=== PATIENT | female | born 1955 | race Caucasian/White ===

== ENCOUNTER → 2017-08-19 15:47 | Outpatient (CLI) | payer BC, SELFPAY ==
[2017-08-19 16:17] LABS: Absolute Lymphocyte Count 2.02 X10^3/ul (0.83-4.51); Absolute Neutrophil Count 6.2 X10^3/uL (2.0-7.7); Basophil# 0.04 X10^3/uL; Basophil% 0.4 % (0-1); Eosinophil# 0.16 X10^3/uL; Eosinophils% 1.7 % (0-5); Hemoglobin 13.5 g/dl (12.0-15.0); Lymphocyte # 2.02 X10^3/ul (4.0); Lymphocyte % 20.8 % (19-41); Mean Corp Hgb Conc 33.8 g/gl (32-36); Mean Corpuscular Hgb 30.8 pg (27.0-32.0); Mean Corpuscular Volume 91.3 fL (81-99); Mean Platelet Vol. 8.6 fl (6.2-12.0); Monocyte# 1.18 X10^3/uL; Monocyte% 12.2 % (0-10); Neutrophil # 6.17 X10^3/uL (2.7-7.7); Neutrophil % 63.7 % (47-70); Platelet Count 506 K/mm3 (150-450); RBC Distribution Width CV 15.3 % (11.6-14.6); RBC Distribution Width SD 50.2 fl (35.1-43.9); Red Blood Count 4.38 M/mm3 (4.2-5.4); White Blood Count 9.7 K/mm3 (4.4-11.0)
[2017-08-19 16:18] LABS: POSITIVE COUNT NO; POSITIVE DIFFERENTIAL NO; POSITIVE MORPHOLOGY NO
[2017-08-19 16:48] LABS: International Normalized Ratio 0.9; Prothrombin Time (Protime)PT. 11.9 SECONDS (11.7-14.9)
[2017-08-19 16:49] LABS: Partial Thromboplast Time 33.8 Seconds (24.1-36.2)
[2017-08-19 23:56] LABS: Xtra Tube EP Lab EXTRA TUBE
== END ==
PROVIDERS: Family Provider Family Medicine; PCP Family Medicine; Visit Provider Internal Medicine Medical Oncology
DX: Z01.818 Encounter for other preprocedural examination (principal); C34.91 Malignant neoplasm of unspecified part of right bronchus or lung; C34.90 Malignant neoplasm of unspecified part of unspecified bronchus or lung
CPT/HCPCS: 36415; 85025; 85610; 85730

== ENCOUNTER → 2017-08-21 08:59 | Outpatient (CLI) | payer BC, SELFPAY ==
--- NOTE | 2017-08-21 09:03 | CT_ITS ---
STUDY: CT CHEST WITHOUT CONTRAST REASON FOR EXAM: Female, 62 years old. The patient was scheduled for CT-guided biopsy of a right upper lobe nodule. RADIATION DOSAGE (If Supplied By Facility): CTDIvol = ( 20.42 ) mGy, DLP = ( 476.97 ) mGycm TECHNIQUE: Transaxial imaging was performed without the administration of intravenous contrast material. Individualized dose optimization techniques were used for this CT. COMPARISON: Comparison is made with prior study dated July 25, 2017. FINDINGS: The patient was scanned in the supine position. The right upper lobe nodule was localized. There is limited access due to the overlying rib and the underlying nolberto catheter. The biopsy was canceled. CT/Chest without Contrast IMPRESSION: Non-accessible nodule for safe pulmonary biopsy. Electronically Signed: Naveed Danielle MD at 12:24 EST Tel [phone], Service support ,
[2017-08-21 09:21] VITALS: BP 134/63; PULSE 92; RESP 16; TEMP 36.8; O2SAT 96; BMI 24.4
== END ==
PROVIDERS: Family Provider Family Medicine; PCP Family Medicine; Visit Provider Internal Medicine Medical Oncology
DX: C34.91 Malignant neoplasm of unspecified part of right bronchus or lung (principal)
CPT/HCPCS: 71250; 99156; J7040; A4216

== ENCOUNTER → 2017-09-17 07:05 | Outpatient (CLI) | payer BC, SELFPAY ==
--- NOTE | 2017-09-17 07:09 | MRI_ITS ---
STUDY: MRI BRAIN WITH AND WITHOUT CONTRAST REASON FOR EXAM: Female, 62 years old. lung ca. No new problems, pt just started another round of chemo for lung CA. TECHNIQUE: Standardized multiplanar fat and water weighted pulse sequences were obtained. 7 ml of Gadavist contrast material was administered intravenously for the contrast portion of the examination. COMPARISON: January 10, 2017 FINDINGS: There is mild cerebral atrophy with widening of the extra-axial spaces and ventricular dilatation. There are stable multiple white matter hyperintensities, distributed throughout the deep white matter tracts of the cerebral hemispheres, consistent with moderate chronic white matter ischemic changes. Normal bilateral basal ganglia. Normal thalami. There is no extra-axial fluid accumulation. Normal flow voids within the major intracranial circulation suggesting patency by spin echo criteria. Normal venous enhancement. There is no enhancing intra-axial or extra-axial abnormality. Normal sella turcica, pituitary gland, infundibular stalk, optic chiasm and hypothalamus. Normal tectal plate and pineal gland. Normal midbrain, earl and medulla. Normal cerebellum. Normal basal cisterns. Normal bilateral temporal bones. Normal bilateral internal auditory canals. No demonstrated orbital abnormality, within the constraints of a routine brain study. Normal visualized paranasal sinuses. Normal calvarium and skull base. Normal visualized soft tissue structures. Normal visualized upper cervical spine. MRI/Brain W/WO Contrast IMPRESSION: No acute intracranial abnormality or masses. Moderate chronic microvascular ischemic changes. Electronically Signed: La Gutierrez MD at 10:22 EST Tel , Service support ,
== END ==
PROVIDERS: Family Provider Family Medicine; PCP Family Medicine; Visit Provider Nurse Practitioner Family
DX: R11.0 Nausea (principal); C34.91 Malignant neoplasm of unspecified part of right bronchus or lung; C34.92 Malignant neoplasm of unspecified part of left bronchus or lung
CPT/HCPCS: 70553; A9585; A4216

== ENCOUNTER → 2017-11-04 06:32 | Outpatient (CLI) | payer BC, OTHER, SELFPAY ==
--- NOTE | 2017-11-04 06:36 | CT_ITS ---
STUDY: CT ABDOMEN WITH CONTRAST REASON FOR EXAM: Female, 62 years old. Patient has a history of non-small cell lung cancer. RADIATION DOSAGE (If Supplied By Facility): CTDIvol = ( 11.67 ) mGy, DLP = ( 757.44 ) mGycm TECHNIQUE: Transaxial images were obtained post I.V. administration of 100 ml of Isovue 300 contrast, and with oral contrast. Sagittal and coronal images were reconstructed. Individualized dose optimization techniques were used for this CT. COMPARISON: Comparison is made with prior study dated January 21, 2017. FINDINGS: There now is evidence of a focal infiltrate in the posterior medial segment of the left lower lobe. This as since prior examination. The visualized portions of the heart are within normal limits. There is hepatomegaly with diffuse hepatic enlargement. Normal gallbladder and extrahepatic biliary system. Normal spleen. Normal pancreas. There is a small, circumscribed, smooth, low attenuation left adrenal mass, consistent with an adrenal adenoma. This measures 9.1 mm. Normal right adrenal gland. Normal right kidney. Normal left kidney. Normal visualized stomach. Normal small intestine. Normal colon. The appendix is visualized and appears normal. There is diffuse atherosclerotic calcification of the abdominal aorta, without a demonstrated aneurysm. Normal inferior vena cava. Normal retroperitoneum. There is a small umbilical hernia containing fat. There are mild degenerative changes of the visualized lumbar spine. CT/Abdomen WITH IV Contrast IMPRESSION: Progressive infiltrate in the posterior medial segment of the left lower lobe. Fatty infiltration of the liver. Findings suggestive of a small adenoma in the left adrenal gland. Electronically Signed: Naveed Danielle MD at 10:14 EDT Tel [phone], Service support ,
--- NOTE | 2017-11-04 06:36 | CT_ITS ---
STUDY: CT CHEST WITH CONTRAST REASON FOR EXAM: Female, 62 years old. Non-small cell lung cancer. RADIATION DOSAGE (If Supplied By Facility): CTDIvol = ( 11.67 ) mGy, DLP = ( 757.44 ) mGycm TECHNIQUE: Transaxial imaging was performed following intravenous administration of 100 ml of Isovue 300 contrast material. Multiplanar coronal and sagittal images were reformatted. Individualized dose optimization techniques were used for this CT. COMPARISON: Comparison is made with prior study dated July 25, 2017. FINDINGS: A right-sided nolberto catheter is seen with the tip in the superior vena cava. There is evidence of emphysematous changes worse in the lung apices with cystic changes and scarring in the upper lobes. Mild degree of increased linear markings in the anterior medial aspect of the left upper lobe suggestive of scarring. There is evidence of a focal infiltration in the posterior medial segment of the left lower lobe. There is no demonstrated pleural abnormality. Normal heart and pericardium. There are multiple small lymph nodes within the mediastinum, which are normal in size and morphology most compatible with reactive lymph hyperplasia. Normal hilar regions. Normal enhanced pulmonary arteries. There is atherosclerotic calcification of the aortic arch arch. There are degenerative changes of the thoracic spine. There is no demonstrated abnormality of the visualized upper abdomen. CT/Chest WITH Contrast IMPRESSION: Findings suggestive of scarring and emphysematous changes worse in the upper lobes. Infiltration in the posterior medial segment of the left lower lobe. Electronically Signed: Naveed Danielle MD at 13:29 EDT Tel [phone], Service support ,
--- NOTE | 2017-11-04 13:20 | NURSING ---
PT'S ACCESSED AND DEACCESSED BY PERFORMING [employer] [address] MANAGER, IMTIAZ CHAMPAGNE AT 0650.
== END ==
PROVIDERS: Family Provider Family Medicine; PCP Family Medicine; Visit Provider Internal Medicine Medical Oncology
DX: C34.91 Malignant neoplasm of unspecified part of right bronchus or lung (principal); C34.92 Malignant neoplasm of unspecified part of left bronchus or lung
CPT/HCPCS: 71260; 74160; Q9967; A4216

== ENCOUNTER → 2018-01-07 10:54 | Outpatient (CLI) | payer BC, SELFPAY ==
--- NOTE | 2018-01-07 10:59 | CT_ITS ---
STUDY: CT CHEST WITH CONTRAST REASON FOR EXAM: Female, 62 years old. Malignant neoplasm. RADIATION DOSAGE (If Supplied By Facility): CTDIvol = ( 8.77 ) mGy, DLP = ( 755.14 ) mGycm TECHNIQUE: Transaxial imaging was performed following intravenous administration of 100 ml of Isovue 300 contrast material. Multiplanar coronal and sagittal images were reformatted. Individualized dose optimization techniques were used for this CT. COMPARISON: CT of the chest, November 04, 2017. FINDINGS: There is a right jugular Port-A-Cath with its tip in the distal superior vena cava. The lungs are well-expanded. There are scattered subpleural blebs both upper lobes. There is bilateral apical pleural scarring. There is a 4 mm soft tissue nodule lateral left upper lobe best seen on image 31. There is an irregular density measuring 7 x 4 mm in the left upper lobe best seen on image 38. On image 43 there is irregular pleural based density in the superior segment of the right lower lobe measuring 6 mm. There is a vague ill-defined density in the anterolateral right upper lobe measuring 3 mm best seen on image 45 is evidence of focal consolidation in the medial aspect of the left lower lobe contains areas of low attenuation. There are atelectatic changes at the left lung base with minimal pleural effusion. Normal heart and pericardium. There are small nonspecific mediastinal lymph nodes. An 8 mm precarinal lymph node is noted. Normal hilar regions. Normal enhanced pulmonary arteries. There is atherosclerotic calcification of the aortic arch with tortuosity and elongation of the aortic arch and descending thoracic aorta. Normal osseous structures. There is no demonstrated abnormality of the visualized upper abdomen. CT/Chest WITH Contrast IMPRESSION: 1. Stable consolidation/mass in the medial right lower lobe with associated atelectasis and pleural effusion. This is unchanged from prior study. 2. Stable nodular densities in the lungs superimposed on emphysematous change.. 3. No major interval change. Electronically Signed: Ridge Thomson DO at 17:00 EDT Tel [phone], Service support ,
--- NOTE | 2018-01-07 10:59 | CT_ITS ---
STUDY: CT ABDOMEN AND PELVIS WITH CONTRAST REASON FOR EXAM: Female, 62 years old. Lung cancer. Chemotherapy. Follow-up. RADIATION DOSAGE (If Supplied By Facility): CTDIvol = ( 8.77 ) mGy, DLP = ( 755.14 ) mGycm TECHNIQUE: Transaxial images were obtained from the dome of the diaphragm to the symphysis pubis with oral contrast. 100 ml of Isovue 300 contrast was administered. Sagittal and coronal images were reconstructed. Individualized dose optimization techniques were used for this CT. COMPARISON: CT of the abdomen, November 04, 2017. CT of the abdomen and pelvis, January 21, 2017. FINDINGS: There is infiltrate in the medial aspect of the left lower lobe with focal areas of lower attenuation. There is a small left pleural effusion. The lungs appear otherwise clear. The visualized portions of the heart are within normal limits. Normal liver. Normal gallbladder and extrahepatic biliary system. Normal spleen. Normal pancreas. Normal bilateral adrenal glands. Normal right kidney. Normal left kidney. Normal visualized stomach. Normal small intestine. Scattered descending and sigmoid diverticuli without acute inflammatory change. The proximal colon is normal. The appendix is visualized and appears normal. There is diffuse atherosclerotic calcification of the abdominal aorta, without a demonstrated aneurysm. There is a circumferential left renal vein. Normal inferior vena cava. Normal retroperitoneum. Normal urinary bladder. Normal uterus and ovaries. There are surgical clips suggesting prior tubal ligation. No pelvic lymphadenopathy. No free air or free fluid is seen within the abdominal cavity. A finding suggestive prior hernia repair. Suspect small umbilical hernia of omental fat. There are diffuse degenerative changes of the visualized lumbar spine. CT/Abdomen/Pelvis WITH Contrast IMPRESSION: 1. Stable consolidation in the medial left lower lobe with associated pleural effusion. 2. Diverticulosis without acute inflammatory change. 3. No visualized metastatic disease or major interval change. Electronically Signed: Ridge Thomson DO at 16:51 EDT Tel [phone], Service support ,
== END ==
PROVIDERS: Family Provider Family Medicine; PCP Family Medicine; Visit Provider Nurse Practitioner Family
DX: C34.91 Malignant neoplasm of unspecified part of right bronchus or lung (principal); C34.92 Malignant neoplasm of unspecified part of left bronchus or lung
CPT/HCPCS: 71260; 74177; Q9967; A4216

== ENCOUNTER → 2018-04-07 10:49 | Outpatient (CLI) | payer BC, OTHER, SELFPAY ==
--- NOTE | 2018-04-07 10:52 | CT_ITS ---
STUDY: CT ABDOMEN WITH CONTRAST REASON FOR EXAM: Female, 63 years old. Lung cancer RADIATION DOSAGE (If Supplied By Facility): CTDIvol = ( 12.08 ) mGy, DLP = ( 932.29 ) mGycm TECHNIQUE: Transaxial images were obtained from the lower chest to the upper pelvis with oral contrast. 100 ml of Isovue 300 contrast was administered. Sagittal and coronal images were reconstructed. Individualized dose optimization techniques were used for this CT. COMPARISON: January 07, 2018 FINDINGS: The lower chest is dictated separately. There are no discrete liver masses. There is minimal focal fatty infiltration at the falciform ligament. The gallbladder and biliary system are unremarkable. The spleen is unremarkable. The pancreas is unremarkable. The adrenal glands are unremarkable. There are benign cysts in the right kidney. There is no dilatation of the collecting system in the right kidney. The left kidney is unremarkable. There is no dilatation of the collecting system in the left kidney. The stomach is unremarkable. The visualized small bowel is unremarkable. There are diverticula scattered throughout the visualized colon without adjacent stranding. The appendix is visualized and appears normal. There are moderate vascular calcifications. Incidentally noted is a circumaortic left renal vein. There are small lymph nodes scattered in the retroperitoneum. There is no free fluid in the abdomen. There is a small umbilical hernia containing fat. There are mild degenerative changes in the visualized spine. There are marked degenerative disc changes at L5-S1 with herniated disc and air. CT/Abdomen WITH IV Contrast IMPRESSION: There is no evidence of metastatic disease in the abdomen. There are no enlarged lymph nodes. There is diverticulosis of the visualized colon. There are marked degenerative disc changes at L5-S1 with disc extrusion posteriorly resulting in moderate canal narrowing. Electronically Signed: Jessi Olivia MD at 15:59 EDT Tel Direct: [phone], Service support ,
--- NOTE | 2018-04-07 10:53 | CT_ITS ---
STUDY: CT CHEST WITH CONTRAST REASON FOR EXAM: Female, 63 years old. Lung cancer follow-up RADIATION DOSAGE (If Supplied By Facility): CTDIvol = ( 12.08 ) mGy, DLP = ( 932.29 ) mGycm TECHNIQUE: Transaxial imaging was performed following intravenous administration of 100 ml of Isovue 300 contrast material. Sagittal and coronal reconstructions were performed. Individualized dose optimization techniques were used for this CT. COMPARISON: Chest CT dated January 07, 2018 FINDINGS: There is a port in the upper right chest terminating in the right atrium. There are bullous changes in the periphery of both upper lobes. There is stable biapical scarring. There are innumerable small opacities scattered throughout both lungs which are either new or increased in size compared to the prior study. Dense opacity is again seen in the medial segment of the left lower lobe with a few air bronchograms. The appearance is stable. There is minimal fluid in the left pleural margin. The heart is normal in size. There are small lymph nodes scattered in the mediastinum. There is stable minimal soft tissue opacity in the anterior mediastinum. There are irregular soft tissue opacities in the prevascular space adjacent to the aortic arch measuring up to 1 cm in width. The hilar regions are unremarkable. The pulmonary arteries are unremarkable. There are minimal vascular calcifications in the thoracic aorta. There are minimal degenerative changes in the visualized spine. The upper abdomen is dictated separately. CT/Chest WITH Contrast IMPRESSION: There has been progression of disease with small metastatic lesions scattered throughout both lungs which are too numerous to count. These measure no more than 1 cm in largest diameter. There is stable dense opacity in the medial segment of the left lower lobe of unknown etiology. There is a small left pleural effusion. There is no significant mediastinal lymphadenopathy, however there appear to be metastatic lesions in the prevascular space adjacent to the aortic arch, possibly along the pleural margin of the left upper lobe. Electronically Signed: Jessi Olivia MD at 16:13 EDT Tel Direct: [phone], Service support ,
[2018-04-07 11:38] LABS: Absolute Lymphocyte Count 1.68 X10^3/ul (0.83-4.51); Absolute Neutrophil Count 5.3 X10^3/uL (2.0-7.7); Basophil# 0.03 X10^3/uL; Basophil% 0.4 % (0-1); Eosinophil# 0.06 X10^3/uL; Eosinophils% 0.7 % (0-5); Hematocrit 39.7 % (37-47); Hemoglobin 13.8 g/dl (12.0-15.0); Lymphocyte # 1.68 X10^3/ul (4.0); Lymphocyte % 20.5 % (19-41); Mean Corp Hgb Conc 34.8 g/gl (32-36); Mean Corpuscular Hgb 34.1 pg (27.0-32.0); Monocyte# 0.98 X10^3/uL; Neutrophil % 64.7 % (47-70); POSITIVE COUNT NO; POSITIVE DIFFERENTIAL NO; POSITIVE MORPHOLOGY NO; Platelet Count 400 K/mm3 (150-450); RBC Distribution Width CV 13.6 % (11.6-14.6); RBC Distribution Width SD 48.2 fl (35.1-43.9); Red Blood Count 4.05 M/mm3 (4.2-5.4); White Blood Count 8.2 K/mm3 (4.4-11.0)
[2018-04-07 11:49] LABS: ALB/GLOB Ratio 1.1 RATIO (0.9-2.4); AST(SGOT) 18 U/L (15-37); Alanine Aminotransfer ALT/SGPT 25 U/L (13-56); Albumin, Serum 3.9 g/dL (3.2-5.0); Alkaline Phosphatase 99 U/L (45-117); Anion Gap 9 (5-15); BUN 13 mg/dL (7-18); BUN/Creat Ratio 14.4 RATIO (10-20); Calcium,Total 8.8 mg/dL (8.5-10.1); Chloride 106 mmol/L (98-107); EST Glomerular Filtration Rate 67 mL/min (>60); Est Glom Filt Rate - Afr Amer 81 mL/min (>60); Globulin 3.7 g/dL (2.2-4.2); Glucose 161 mg/dL (74-106); Potassium 3.8 mmol/L (3.5-5.1); Protein, Total 7.6 g/dL (6.4-8.2); Sodium Level 138 mmol/L (136-145)
== END ==
PROVIDERS: Family Provider Family Medicine; PCP Family Medicine; Visit Provider Internal Medicine Medical Oncology
DX: C34.92 Malignant neoplasm of unspecified part of left bronchus or lung (principal); C34.91 Malignant neoplasm of unspecified part of right bronchus or lung
CPT/HCPCS: 71260; 74160; 80053; 85025; Q9967; A4216

== ENCOUNTER → 2018-05-19 12:29 | Outpatient (CLI) | payer BC, SELFPAY ==
--- NOTE | 2018-05-19 12:32 | CT_ITS ---
STUDY: CT CHEST WITH CONTRAST REASON FOR EXAM: Female, 63 years old. Lung cancer. RADIATION DOSAGE (If Supplied By Facility): CTDIvol = ( 12.08 ) mGy, DLP = ( 495.21 ) mGycm TECHNIQUE: Transaxial imaging was performed following intravenous administration of 100 ml of Isovue 300 contrast material. Multiplanar coronal and sagittal images were reformatted. Individualized dose optimization techniques were used for this CT. COMPARISON: CT of the chest, April 07, 2018. FINDINGS: The lungs are well expanded. There are bullous changes pleural scarring in both lung apices. Again seen are multiple small spiculated soft tissue masses throughout both lungs. These appear unchanged in size or number. The area of consolidation in the medial left lower lobe again unchanged. There is no demonstrated pleural abnormality. Normal heart and pericardium. Pacer leads are seen in the right heart. There is stable mediastinal lymphadenopathy. The largest node in the precarinal space measures 1.1 x 1 x 1.9 cm. There is a soft tissue mass in the anterior mediastinum measuring 1.8 x 1.7 x 2.9 cm in size. These findings are unchanged. Normal hilar regions. Normal enhanced pulmonary arteries. There is atherosclerotic calcification of the aortic arch with tortuosity and elongation of the aortic arch and descending thoracic aorta. There are multi-level degenerative changes of the thoracic spine. There is diffuse fatty infiltration of a prominent liver without focal mass. There is slight prominence of the left adrenal gland which may be due to hyperplasia. Possibility of a small mass cannot be completely ruled out. Again this is a stable finding. CT/Chest WITH Contrast IMPRESSION: 1. Multiple small pulmonary nodules and mediastinal lymphadenopathy most suggestive of metastatic disease. These are unchanged from the prior study. 2. Stable opacification medial left lung base. 3. Stable soft tissue mass in the anterior mediastinum. 4. Cardiac pacemaker. 5. Prominent fatty infiltrated liver. 6. Left adrenal hyperplasia versus small mass. Electronically Signed: Ridge Thomson DO at 19:44 EDT Tel [phone], Service support ,
== END ==
PROVIDERS: Family Provider Family Medicine; PCP Family Medicine; Referring Provider Internal Medicine Medical Oncology; Visit Provider Internal Medicine Medical Oncology
DX: C34.92 Malignant neoplasm of unspecified part of left bronchus or lung (principal); C34.91 Malignant neoplasm of unspecified part of right bronchus or lung
CPT/HCPCS: 71260; Q9967; A4216

== ENCOUNTER → 2018-05-26 08:55 | Outpatient (CLI) | payer BC, SELFPAY ==
[2018-05-26] VITALS (11 sets, daily range): BP systolic 120–154; BP diastolic 60–73; PULSE 22–84; RESP 16–24; TEMP 37; O2SAT 93–99; BMI 26.9
--- NOTE | 2018-05-26 08:56 | CT_ITS ---
PROCEDURE: CT GUIDED CORE NEEDLE BIOPSY OF A left lower lobe LUNG LESION INDICATION: Female, 63 years old. Known lung cancer. Pulmonary nodules. PHYSICIAN: Dr. Lolis CHANDRA. CONSENT: Written informed consent was obtained having explained the risks, benefits and alternatives in detail with the patient who accepted the risks and agreed to proceed. Laboratory review and clinical assessment was performed. CONSCIOUS SEDATION PROTOCOL: The Drugs used were: 2 mg Versed, IV., and 50 mcg Fentanyl, IV. The sedation time was: 13 minutes. Conscious sedation was started at 10:10 AM and terminated at 10:23 AM. The conscious sedation protocol was independently monitored. RADIATION DOSAGE (If Supplied By Facility): CTDIvol = ( 16.3 ) mGy, DLP = ( 254.92 ) mGycm Individualized dose optimization techniques were used for this CT. TECHNIQUE: The patient was placed in the prone position. A noncontrast CT was performed to localize the lesion in the posterior medial aspect of the left lower lobe . The skin surface was prepped and draped in a sterile fashion. 1% lidocaine was used for local anesthesia. Using CT guidance, a 20-gauge coaxial biopsy device was advanced to the periphery of the lesion. A total of 3 core specimens were obtained. The specimens were placed in a formalin solution. A post procedure CT demonstrated no adverse sequelae or pneumothorax. The patient tolerated the procedure well without adverse event. A negative biopsy does not exclude malignancy. Further imaging or clinical followup based on patient condition and degree of clinical suspicion for malignancy. Suggest rebiopsy, if biopsy results do not match with clinical scenario. CT/Biopsy/Inj or Needle Placement IMPRESSION: 1. CT directed core needle biopsy of the left lower lobe nodule using CT image guidance with image documentation as described. Pathology results are pending. 2. Conscious Sedation protocol utilized with independent monitoring. Electronically Signed: Naveed Danielle MD at 10:53 EST Tel [phone], Service support ,
[2018-05-26] MEDS: 0.9% NaCl VAD Flush 10 ML IV ×2 (09:52→13:02)
[2018-05-26] MEDS: Midazolam 2 MG/2 ML Syringe IV (10:11)
[2018-05-26] MEDS: fentaNYL 100 MCG/2 ML Ampul IV (10:12)
--- NOTE | 2018-05-26 10:30 | ASPIGT_PTH ---
PATIENT: MITCH PARRISH LOC: CT U#:[id number] AGE/SX: 70/F ROOM: RE05/26/[address]: Dr. Daquan Baeza MD : [id number] BED: DIS: SPEC #: [id number] RECD: 05/26/18 11:00 STATUS: IRENE ONEIL #: [id number] GLADYS: 05/26/18 10:[address]: Daquan Baeza DEPT: SURGICAL PATHOLOGY RECD BY: Francisco Argueta ENTERED: 05/26/18 11:51 SP TYPE: ASP RAD OTHR DR: Dr. Jens Garibay MD Tissues: Left lung, NOS Procedures: FNA Specimen Adequacy Special Stain Group II Surgery Specimen Level IV Imprint (control) HEADER OPERATION: CT guided lung biopsy PRE-OP DIAGNOSIS: Left lung mass TISSUE SUBMITTED: Left lung mass, CT guided core biopsy MICROSCOPIC DIAGNOSIS CT-guided needle core biopsy, left lung mass (smears and biopsy): Fibrosis and degenerative changes of lung tissue. Focal chronic inflammation. No evidence of malignancy. AM:julio 05/27/18 COMMENT The specimen is evaluated at the time of CT-guided lung biopsy by Dr. Avalos. Immediate Evaluation = Negative for malignant cells. Reference is made to the patient's left lung mass, CT-guided core biopsy from 03/16/16 ([id number]) in which non-small cell carcinoma consistent with adenocarcinoma was identified. Case has been reviewed in consultation with Dr. Avalos who concurs with the above diagnosis. IDC:CASSANDRA MICROSCOPIC DESCRIPTION Slides are reviewed. GROSS DESCRIPTION Received in fixative is one container labeled with the patient's name and designated left lung CT-guided core biopsy. The specimen consists of multiple elongated fragments of camacho soft tissue that in aggregate measure 1.2 x 0.1 x <0.1 cm. The specimen is totally submitted in one cassette. One touch imprint is prepared at the time of core biopsy. / CASSANDRA:julio 05/26/18 TC:5 CPT: 99375, 31248, 56237
--- NOTE | 2018-05-26 10:31 | RAD_ITS ---
STUDY: X-RAY CHEST REASON FOR EXAM: Female, 63 years old. Immediate post left lung biopsy radiograph. TECHNIQUE: PA inspiration expiration views. COMPARISON: Comparison is made with prior chest radiograph dated August 10, 2016. FINDINGS: A right-sided portacatheter is in situ. The tip is at the junction of the superior vena cava and right atrium. The patient is status post left lung biopsy. There is a small left apical pneumothorax. Follow-up will be obtained. The patient is asymptomatic. RAD/Chest Insp/Exp 2 View IMPRESSION: Status post left lung biopsy with resultant small left apical pneumothorax. Follow-up examination will be obtained. Electronically Signed: Naveed Danielle MD at 13:12 EST Tel [phone], Service support ,
--- NOTE | 2018-05-26 12:45 | RAD_ITS ---
STUDY: X-RAY CHEST REASON FOR EXAM: Female, 63 years old. 2 hours post left lung biopsy radiograph. TECHNIQUE: AP inspiration and expiration views. COMPARISON: Comparison is made with prior study done earlier today. FINDINGS: Small residual left apical pneumothorax. This has decreased in size as compared to prior examination. The patient is asymptomatic. RAD/Chest Insp/Exp 2 View IMPRESSION: Small residual left apical pneumothorax. Electronically Signed: Naveed Danielle MD at 13:13 EST Tel [phone], Service support ,
== END ==
PROVIDERS: Family Provider Family Medicine; PCP Family Medicine; Referring Provider Internal Medicine Medical Oncology; Visit Provider Internal Medicine Medical Oncology
DX: J84.10 Pulmonary fibrosis, unspecified (principal); C34.91 Malignant neoplasm of unspecified part of right bronchus or lung; C34.92 Malignant neoplasm of unspecified part of left bronchus or lung; G89.3 Neoplasm related pain (acute) (chronic); I10 Essential (primary) hypertension; Z85.828 Personal history of other malignant neoplasm of skin; Z79.899 Other long term (current) drug therapy; F17.200 Nicotine dependence, unspecified, uncomplicated
CPT/HCPCS: 32405; 71046; 77012; 88172; 88305; 88309; 88313; 99156; A4216

== ENCOUNTER → 2018-08-08 07:14 | Outpatient (CLI) | payer BC, OTHER, SELFPAY ==
[2018-08-04 09:44] VITALS: BMI 25.9
--- NOTE | 2018-08-08 07:18 | CT_ITS ---
STUDY: CT CHEST WITH CONTRAST REASON FOR EXAM: Female, 63 years old. The patient has a history of lung cancer. Follow-up exam. Cough and shortness of breath. Patient on chemotherapy. RADIATION DOSAGE (If Supplied By Facility): CTDIvol = ( 9.98 ) mGy, DLP = ( 369.44 ) mGycm TECHNIQUE: Transaxial imaging was performed following intravenous administration of 100mL ml of Isovue 300 contrast material. Multiplanar coronal and sagittal images were reformatted. Individualized dose optimization techniques were used for this CT. COMPARISON: Comparison is made with prior examination of June 19, 2018. FINDINGS: A right-sided portacatheter is in situ. Since prior study, there has been an increase in number and in size of the previously seen multiple bilateral pulmonary nodules. Stable appearance of the infiltration in the posterior medial segment of the left lower lobe. Slight progression in the left pleural effusion. Normal heart and pericardium. The mediastinal lymph nodes at the level of the aortic pulmonary window have increased in size as well. Normal hilar regions. There is a focal nonobstructive intraluminal filling defect in a branch of the left upper lobe pulmonary artery suggestive of a subacute pulmonary embolism. There is atherosclerotic calcification of the aortic arch with tortuosity and elongation of the aortic arch and descending thoracic aorta. There are multi-level degenerative changes of the thoracic spine. Fatty infiltrated liver. CT/Chest WITH Contrast IMPRESSION: Since prior study, there has been progressive increase in size of the multiple pulmonary nodules as well as increase in number. Slight enlargement of the mediastinal lymphadenopathy as well. Focal nonocclusive pulmonary embolism in the left upper lobe pulmonary arterial branch. Electronically Signed: Naveed Danielle MD at 10:31 EST Tel [phone], Service support ,
[2018-08-08 07:45] LABS: CREATININE FINGERSTICK 1.2 mg/dL (0.55-1.02)
--- OUTSIDE RECORDS SUMMARY | 2018-10-12 14:28 | XMS RPT_ITS ---
:1955 Author Organization OHIP Support Name Relationship Address Phone IRINA ROSARIO Unavailable [address] + [place] [address] UE Unavailable Unavailable Unavailable WILLIMASON, ERNIE Unavailable [address] + [place] [address] IRINA, ROSARIO Unavailable [address] + [place] [address] UE Unavailable Unavailable Unavailable WILLIMASON, ERNIE Unavailable [address] + [place] [address] IRINA, ROSARIO Unavailable [address] + [place] [address] UE Unavailable Unavailable Unavailable WILLIMASON, ERNIE Unavailable [address] + [place] [address] IRINA, ROSARIO Unavailable [address] + [place] [address] UE Unavailable Unavailable Unavailable WILLIMASON, ERNIE Unavailable [address] + [place] [address] IRINA, ROSARIO Unavailable [address] + [place] [address] UE Unavailable Unavailable Unavailable WILLIMASON, ERNIE Unavailable [address] + [place] [address] IRINA, ROSARIO Unavailable [address] + [place] [address] R Unavailable Unavailable Unavailable WILLIMASON, ERNIE Unavailable [address] + [place] [address] Gurdeep Parrish Unavailable Unavailable + Gurdeep Parrish Unavailable Unavailable + IRINA, ROSARIO Unavailable [address] + [place] [address] R Unavailable Unavailable Unavailable WILLIMASON, ERNIE Unavailable [address] + [place] [address] IRINA, ROSARIO Unavailable [address] + [place] [address] R Unavailable Unavailable Unavailable WILLIMASON, ERNIE Unavailable [address] + [place] [address] IRINA, ROSARIO Unavailable [address] + [place] [address] R Unavailable Unavailable Unavailable WILLIMASON, ERNIE Unavailable [address] + [place] [address] IRINA, ROSARIO Unavailable [address] + [place] [address] R Unavailable Unavailable Unavailable WILLIMASON, ERNIE Unavailable [address] + [place] [address] IRINA, ROSARIO Unavailable [address] + [place] [address] R Unavailable Unavailable Unavailable WILLIMASON, ERNIE Unavailable [address] + [place] [address] IRINA, ROSARIO Unavailable [address] + [place] [address] R Unavailable Unavailable Unavailable WILLIMASON, ERNIE Unavailable [address] + [place] [address] IRINA, ROSARIO Unavailable [address] + [place] [address] R Unavailable Unavailable Unavailable WILLIMASON, ERNIE Unavailable [address] + [place] [address] IRINA, ROSARIO Unavailable [address] + [place] [address] R Unavailable Unavailable Unavailable WILLIMASON, ERNIE Unavailable [address] + [place] [address] IRINA, ROSARIO Unavailable [address] + [place] [address] R Unavailable Unavailable Unavailable WILLIMASON, ERNIE Unavailable [address] + [place] [address] IRINA, ROSARIO Unavailable [address] + [place] [address] R Unavailable Unavailable Unavailable ANGEL ERNIE Unavailable [address] + [place] [address] IRINA, ROSARIO Unavailable [address] + [place] [address] R Unavailable Unavailable Unavailable ERNIE ORTIZ Unavailable [address] [phone] [place] [address] IRINA, ROSARIO Unavailable [address] + [place] [address] R Unavailable Unavailable Unavailable ERNIE ORTIZ Unavailable [address] [phone] [place] [address] IRINA, ROSARIO Unavailable [address] + [place] [address] R Unavailable Unavailable Unavailable ERNIE ORTIZ Unavailable [address] [phone] [place] [address] IRINA, ROSARIO Unavailable [address] + [place] [address] R Unavailable Unavailable Unavailable ERNIE ORTIZ Unavailable [address] [phone] [place] [address] IRINA, ROSARIO Unavailable [address] + [place] [address] R Unavailable Unavailable Unavailable ERNIE ORTIZ Unavailable [address] [phone] [place] [address] IRINA, ROSARIO Unavailable [address] + [place] [address] R Unavailable Unavailable Unavailable ERNIE ORTIZ Unavailable [address] [phone] [place] [address] IRINA, ROSARIO Unavailable [address] + [place] [address] R Unavailable Unavailable Unavailable ERNIE ORTIZ Unavailable [address] [phone] [place] [address] IRINA, ROSARIO Unavailable [address] + [place] [address] R Unavailable Unavailable Unavailable EDSON, ERNIE Unavailable [address] [phone] [place] [address] IRINA, ROSARIO Unavailable [address] + [place] [address] R Unavailable Unavailable Unavailable EDSON, ERNIE Unavailable [address] [phone] [place] [address] IRINA, ROSARIO Unavailable [address] + [place] [address] R Unavailable Unavailable Unavailable EDSON, ERNIE Unavailable [address] [phone] [place] [address] IRINA, ROSARIO Unavailable [address] + [place] [address] R Unavailable Unavailable Unavailable EDSON, ERNIE Unavailable [address] [phone] [place] [address] IRINA, ROSARIO Unavailable [address] + [place] [address] R Unavailable Unavailable Unavailable EDSON, ERNIE Unavailable [address] [phone] [place] [address] IRINA, ROSARIO Unavailable [address] + [place] [address] R Unavailable Unavailable Unavailable EDSON, ERNIE Unavailable [address] [phone] [place] [address] IRINA, ROSARIO Unavailable [address] + [place] [address] R Unavailable Unavailable Unavailable EDSON, ERNIE Unavailable [address] + [place] [address] IRINA, ROSARIO Unavailable [address] + [place] [address] R Unavailable Unavailable Unavailable EDSON, ERNIE Unavailable [address] + [place] [address] Care Team Providers Name Role Phone ANU MULLIGAN Attending Unavailable PROVIDER, UNKNOWN Referring Unavailable Lani, Jens Primary Care Unavailable Sai Goel Attending Unavailable PROVIDER, UNKNOWN Referring Unavailable Lani, Jens Primary Care Unavailable Daquan Baeza Attending Unavailable Lani, Jens Referring Unavailable Lani, Jens Primary Care Unavailable Daquan Baeza Consulting Unavailable Daquan Baeza Attending Unavailable Lani, Jnes Referring Unavailable Lani, Jens Primary Care Unavailable Daquan Baeza Consulting Unavailable Daquan Baeza Attending Unavailable Felisha, Daquan Referring Unavailable Lani, Jens Primary Care Unavailable Joe, Ange Attending Unavailable Lani, Jens Referring Unavailable Lani, Jens Primary Care Unavailable Daquan Baeza Consulting Unavailable Felisha, Daquan Attending Unavailable Lani, Jens Referring Unavailable Lani, Jens Primary Care Unavailable Daquan Baeza Consulting Unavailable Daquan Baeza Attending Unavailable Lani, Jens Referring Unavailable Lani, Jens Primary Care Unavailable Daquan Baeza Attending Unavailable Daquan Baeza Referring Unavailable Lani, Jens Primary Care Unavailable Daquan Baeza Attending Unavailable Daquan Baeza Referring Unavailable Primay Care Physicia, No Primary Care Unavailable Daquan Baeza Consulting Unavailable Daquan Baeza Attending Unavailable Daquan Baeza Referring Unavailable Lani, Jens Primary Care Unavailable Daquan Baeza Attending Unavailable Daquan Baeza Referring Unavailable Primay Care Physicia, No Primary Care Unavailable Daquan Baeza Consulting Unavailable Joe, Ange Attending Unavailable Daquan Baeza Referring Unavailable Primay Care Physicia, No Primary Care Unavailable Daquan Baeza Consulting Unavailable Joe, Ange Attending Unavailable Joe, Ange Referring Unavailable Lani, Jens Primary Care Unavailable Daquan Baeza Attending Unavailable Primay Care Physicia, No Primary Care Unavailable Daquan Baeza Consulting Unavailable Daquan Baeza Attending Unavailable Primay Care Physicia, No Primary Care Unavailable Daquan Baeza Consulting Unavailable Joe, Ange Attending Unavailable Lani, Jens Referring Unavailable Lani, Jens Primary Care Unavailable Daquan Baeza Consulting Unavailable Daquan Baeza Attending Unavailable Lani, Jens Referring Unavailable Lani, Jens Primary Care Unavailable Daquan Baeza Consulting Unavailable Daquan Baeza Attending Unavailable Lani, Jens Referring Unavailable Lani, Jens Primary Care Unavailable Daquan Baeza Consulting Unavailable Daquan Baeza Attending Unavailable Daquan Baeza Referring Unavailable Lani, Jens Primary Care Unavailable Daquan Baeza Attending Unavailable Lani, Jens Referring Unavailable Lani, Jens Primary Care Unavailable PraDaquan abreu Consulting Unavailable Prah, Daquan Attending Unavailable Lani, Jens Referring Unavailable Lani, Jens Primary Care Unavailable Prah, Daquan Consulting Unavailable Prah, Daquan Attending Unavailable Lani, Jens Referring Unavailable Lani, Jens Primary Care Unavailable Prah, Daquan Consulting Unavailable Joe, Ange Attending Unavailable Joe, Ange Referring Unavailable Lani, Jens Primary Care Unavailable Prah, Daquan Consulting Unavailable Joe, Ange Attending Unavailable Prah, Daquan Attending Unavailable Lani, Jens Referring Unavailable Lani, Jens Primary Care Unavailable Prah, Daquan Consulting Unavailable Joe, Ange Attending Unavailable Lani, Jens Referring Unavailable Lani, Jens Primary Care Unavailable Prah, Daquan Consulting Unavailable Prah, Daquan Attending Unavailable Prah, Daquan Referring Unavailable Lani, Jens Primary Care Unavailable Prah, Daquan Attending Unavailable Lani, Jens Referring Unavailable Lani, Jens Primary Care Unavailable Prah, Daquan Consulting Unavailable Prah, Daquan Attending Unavailable Prah, Daquan Referring Unavailable Lani, Jens Primary Care Unavailable Prah, Daquan Attending Unavailable Prah, Daquan Referring Unavailable Lani, Jens Primary Care Unavailable Prah, Daquan Attending Unavailable Lani, Jens Referring Unavailable Lani, Jens Primary Care Unavailable Prah, Daquan Consulting Unavailable Prabrady, Daquan Attending Unavailable Lani, Jens Referring Unavailable Lani, Jens Primary Care Unavailable Prah, Daquan Consulting Unavailable PROBLEMS PROBLEMS DATE TYPE CONDITION / CODE ATTENDING STATUS SOURCE 08/14/2018 Unknown Z45.2 - Encounter Daquan Baeza for adjustment and Community management of Hospital vascular access Repository device / Z45.2(ICD-10) 07/03/2018 Unknown C34.90 - Malignant Daquan Baeza Active [place] neoplasm of Community unspecified part of Hospital unspecified Repository bronchus or lung / C34.90(ICD-10) 06/23/2018 Admitting Other pneumothorax Manasa, Sai Active [facility] Diagnosis / J93.83(ICD-10) System Repository 06/20/2018 Admitting Solitary pulmonary MULLIGAN, ANU Active [facility] Diagnosis nodule / System R91.1(ICD-10) Repository 06/20/2018 Admitting Pneumothorax, MULLIGAN, ANU Active [facility] Diagnosis unspecified / System J93.9(ICD-10) Repository 06/05/2018 Unknown C34.91 - Malignant Daquan Baeza Active [place] neoplasm of Community unspecified part of Hospital right bronchus or Repository lung / C34.91(ICD-10) 06/05/2018 Unknown C34.92 - Malignant Daquan Baeza Active [place] neoplasm of Community unspecified part of Hospital left bronchus or Repository lung / C34.92(ICD-10) 05/23/2018 Unknown Z01.818 - Encounter Daquan Baeza for other Community preprocedural Hospital examination / Repository Z01.818(ICD-10) 01/20/2018 Unknown E86.0 - Dehydration Joe, Ange Active [place] / E86.0(ICD-10) [facility] Repository 01/20/2018 Unknown B37.0 - Candidal Joe, Ange Active [place] stomatitis / Community B37.0(ICD-10) Hospital Repository 09/17/2017 Unknown R11.0 - Nausea / Joe, Ange Active [place] R11.0(ICD-10) [facility] PROCEDURES PROCEDURES No Procedure Records FoundRESULTS RESULTS ONCOLOGY VISIT REPORT Observed: 08/11/2018 Status: F Source: [place] 12:03 PM [facility] REPOSITORY [facility] [address] [place] [address] OFFICE VISIT Date of Service: 08/11/18 1036 MR#: [id number] Acct: [id number] Name: RUTH PARRISH Rep #: [id number] : 1955 From: Daquan Baeza MD Age/Sex: 63/F Location: ONC Status: Signed Subjective - Date of Service Date of Service:: 08/11/18 - Chief Complaint F/u for NSCLC and SCLC - History of Present Illness Ms. 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 CT-guided biopsy of the left lower lobe mass showed non-small cell lung cancer favoring adenocarcinoma on March 15, 2016. She had FOB and biopsy on April at [facility], which showed right middle lobe small cell carcinoma. She received 4 cycles of carboplatin/etoposide from May 22, 2016 to July 24, 2016. She had a persistent left lower lobe mass and left upper lobe mass on PET-CT obtained July 15, 2016. Experienced radicular pain on the left side, which corresponded to the left lower lobe mass sitting on the chest wall. She began concurrent chemotherapy and radiation therapy with cisplatin and Alimta on August 29, 2016. Completed 33 fractions 180 cGy) on 10/12/16. Completed 6 cycles of Cisplatin/Alimta on 12/12/16. MRI brain obtained 01/10/17 obtained to address c/o prolonged nausea was negative for metastatic disease. CT scan of chest obtained 01/21/17 reveal opacity in the posterior segment of left upper lobe is decreased in size and stable subcentimeter nodules bilaterally. She had developed pain in the Left hip, bone scan on 03/27/2017 was negative and x-rays on 03/28/[address] chest done on 07/25/2017 showed increasing number and size of multiple pulmonary nodules, consolidation of the medial left lower lobe, increase in prevascular lymph nodes. PET/CT on 08/12/2017 showed new bilateral hypermetabolic activities suggestive of metastatic malignancy. She was referred for CT guided biopsy right upper lobe nodule 08/21/2017, however attempt was unsuccessful and patient elected to forgo further biopsy attempts. Began second line chemotherapy with Cisplatin/irinotecan on 09/16/17. Experienced diarrhea after C1D15 so Irinotecan was decreased to 50mg/m2. With C3D8 Irinotecan, had nausea on and off, relief with Zofran and Phenergan. Finished 4th cycle on 12/24/2017. Underwent CT C/A/P on 01/07/2018 which showed L lower lobe density decreased in size, lung nodules have decrease in number. She elected observation, CT done on 05/19/2018 showed increase in lung nodules. CT guided bx of LLL density was negative. She was referred to Dr. Mulligan in [place] and had a CT guided bx KADIE node on 06/20/2018 which showed well differentiated adenocarcinoma. PD-1 was negative but not enough tissue for another markers. She does not want to have another biopsy done. She had CT on 08/08/2018 which showed progressive increase in Lung nodules with focal PE in Left Upper lobe. Started Eliquis over the weekend. She comes in to start Opdivo. 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 Past Surgical History Surgical: Tubal ligation Other Surgical History: SECTION TRIPLE HERNIA REPAIR CHEST PORT PLACEMENT Family History Paternal Past Medical History: Unknown Maternal Past Medical History: Diabetes mellitus,Hypertension Social History Social History: No changes Smoking Status Current every day smoker Review of Systems Constitutional:: Denies: Fever, Sweats, Weight loss, Appetite change, Chills Cardiovascular:: Denies: Chest pain, Palpitations, Dyspnea on exertion, Orthopnea, PND, Shortness of breath Respiratory: Denies: Cough, Hemoptysis, Shortness of Breath, Wheezing Gastrointestinal:: Denies: Abdominal pain, Nausea, Vomiting, Diarrhea, Constipation, Hematochezia Genitourinary: Denies: Dysuria, Hematuria, 15, Flank pain Musculoskeletal:: Denies: Back pain, Myalgia, Arthralgia Skin: Denies: Rash, Skin Changes, Wounds Neurological:: Denies: Headache, Dizziness, Visual changes, Tinnitus, Hearing loss Psychiatric: Denies: Anxiety, Depression, Homicidal Ideations, Suicidal Ideations Vital Signs Height 5 ft 5 in Weight: 69.853 kg Weight in Pounds 154.0 lbs Pulse Ox 98 - Physical Exam General: Alert, Oriented x3, No apparent distress Cardiac:: Regular rate, Regular rhythm, Normal S1, Normal S2. Negative for: Murmur Lungs: Clear to auscultation, Excusion symmetrical. Negative for: Rhonchi, Wheezes Lymphatics:: Negative for: Cervical lymphadenopathy, Supraclavicular lymphadenopathy, Axillary lymphadenopathy Laboratory Data: Laboratory Tests Assessment and Plan Non-small cell lung cancer, adenocarcinoma, metastatic disease. Small cell lung cancer. Discuss therapy with Opdivo, risks, benefits and side effects. Incidental PE on Eliquis. Plan is to proceed with Opdivo C1. Continue Eliquis. RTC 2 wks. Medications: Prescriptions This Visit Medication Instructions Recorded Lidocaine/Prilocaine 30 gm TP UD 30 Days #1 tube 09/09/17 [Lidocaine-Prilocaine Cream] Primary Care Provider: Referring Provider: - Problem List (1) Small cell carcinoma of right lung Status: Chronic (2) Non-small cell carcinoma of left lung Status: Chronic (3) Chemotherapy management, encounter for Status: Acute Code Visit Office Visits / Consults: [id number] OV L5 Est 08/11/18 1203 <Electronically signed by Daquan Baeza MD> Date Daquan Baeza MD Cosigner Signature: Date (if applicable) CC: CBC W/DIFF, AUTOMATED Collected: 08/11/2018 Status: F Source: [place] 9:25 AM [facility] REPOSITORY TYPE CODE TESTS RESULT OUT OF RANGE REFERENCE UNITS LAB L100.1000 4.4-11.0 K/mm3 Normal WBC 8.8 LAB L100.1200 4.2-5.4 M/mm3 Normal RBC 4.50 LAB L100.1300 12.0-15.0 g/dl Normal HGB 14.6 LAB L100.1400 37-47 % Normal HCT 42.8 LAB L100.1500 81-99 fL Normal MCV 95.1 LAB L100.1600 27.0-32.0 pg High MCH 32.4 LAB L100.1700 32-36 g/gl Normal MCHC 34.1 LAB L100.1810 11.6-14.6 % Normal RDW CV 14.1 LAB L100.1820 35.1-43.9 fl High RDW SD 47.8 LAB L100.1900 150-450 K/mm3 Normal PLT 409 LAB L100.2000 6.2-12.0 fl Normal MPV 8.7 LAB L100.2100 47-70 % Normal NEUT% 67.6 LAB L100.2200 19-41 % Normal LY% 19.5 LAB L100.2300 0-10 % High MONO% 10.5 LAB L100.2400 0-5 % Normal EO% 0.5 LAB L100.2500 0-1 % Normal BASO% 0.5 LAB L100.2550 0.0-0.9 % High IM GRAN % 1.400 Result Comment: IG% - Immature Granulocytes (promyelocytes, myelocytes and metamyelocytes) > 1% indicates that a LEFT SHIFT is Present. LAB L100.2620 2.0-7.7 X10 3/uL Normal Absolute Neut 6.0 LAB L100.2720 0.83-4.51 X10 3/ul Normal Absolute Lymph 1.72 Performed By: #### L100.0100 #### [facility] [address]. [place], [place], [address] COMPREHENSIVE METABOLIC Collected: 08/11/2018 Status: F [facility] AM [facility] REPOSITORY Order Comment: Reason for Laboratory Test Chemotherapy Serial Specimen #1, #2 or #3? 1 TYPE CODE TESTS RESULT OUT OF RANGE REFERENCE UNITS LAB L501.0100 74-106 mg/dL Normal GLU 97 Result Comment: Please note revised GLUCOSE reference range effective 2017. LAB L501.1000 7-18 mg/dL Normal BUN 16 LAB L501.1100 0.55-1.02 mg/dL Normal CREAT,SERUM 0.79 Result Comment: The validity of the calculated GFR AND GFRAA in patients over 70 years has not been determined. Clinical correlation is essential. LAB L501.1110 >60 mL/min Normal EST GFR 78 Result Comment: Non- GFR Calc LAB L501.1115 >60 mL/min Normal EST GFR - AA 95 Result Comment: GFR Calc LAB L501.1255 ml/min Normal Estimated CRCL 64.74 LAB L501.1300 10-20 RATIO High BUN/CRE 20.4 LAB L501.1500 6.4-8. g/dL Normal 2 T PROT 7.8 LAB L501.1800 3.2-5. g/dL Normal 0 ALB 3.9 LAB L501.1950 2.2-4. g/dL Normal 2 GLOB 3.9 LAB L501.2000 0.9-2. RATIO Normal 4 A/G 1.0 LAB L501.2200 8.5-10 mg/dL Normal .1 CA 9.0 LAB L501.4100 15-37 U/L Normal AST 18 LAB L501.4305 45-117 U/L Normal ALK P 108 LAB L501.4405 13-56 U/L Normal ALT 28 LAB L501.4600 0.20-1 mg/dL Normal .00 T BILI 0.40 LAB L501.5300 136-14 mmol/L Normal 5 NA 137 LAB L501.5600 3.5-5. mmol/L Normal 1 K 4.1 LAB L501.5900 98-107 mmol/L Normal CL 103 LAB L501.6100 21.0-3 mmol/L Normal 2.0 CO2 24.0 LAB L501.6200 5-15 Normal GAP 10 Performed By: #### L500.4050, L501.9520, L504.2610 #### [facility] [address] [place], [address] THYROID STIM HORMONE Collected: 08/11/2018 Status: F Source: [place] ([facility]) 9:25 AM [facility] REPOSITORY Order Comment: Reason for Laboratory Test Chemotherapy Serial Specimen #1, #2 or #3? 1 TYPE CODE TESTS RESULT OUT OF RANGE REFERENCE UNITS LAB L501.9520 0.358-3.74 uIU/mL Normal TSH 1.90 Performed By: #### L500.4050, L501.9520, L504.2610 #### [facility] [address] [place], [address] LDH Collected: 08/11/2018 Status: F Source: [place] 9:25 AM [facility] REPOSITORY Order Comment: Reason for Laboratory Test Chemotherapy Serial Specimen #1, #2 or #3? 1 TYPE CODE TESTS RESULT OUT OF RANGE REFERENCE UNITS LAB L504.2610 84-246 U/L Normal LDH 198 Performed By: #### L500.4050, L501.9520, L504.2610 #### [facility] [address] [place], [address] CREATININE FINGERSTICK Collected: 08/08/2018 Status: F Source: [place] 7:38 AM [facility] REPOSITORY TYPE CODE TESTS RESULT OUT OF REFERENCE UNITS RANGE LAB L9100.0210 0.55-1.02 mg/dL High CREATININE WB 1.2 LAB L9100.0220 >60 mL/min Low EGFR WB 48.0000 Performed By: #### L9100.0200 #### [facility] Point of Care [address] [place] [address] CHEST WITH CONTRAST Observed: 08/08/2018 Status: F Source: [place] 7:18 AM [facility] REPOSITORY [facility] Services [address] [place] [address] Chest WITH Contrast MR#: [id number] Acct: [id number] Name: RUTH PARRISH Rep #: [id number] : 1955 F 63 From: Naveed Danielle MD PCP: Jens Garibay MD Status: REG CLI Study: Chest WITH Contrast Date of Exam: 08/08/18 Exam# [id number] Ordering Dr: Daquan Baeza MD STUDY: CT CHEST WITH CONTRAST REASON FOR EXAM: Female, 63 years old. The patient has a history of lung cancer. Follow-up exam. Cough and shortness of breath. Patient on chemotherapy. RADIATION DOSAGE (If Supplied By Facility): CTDIvol = ( 9.98 ) mGy, DLP = ( 369.44 ) mGycm TECHNIQUE: Transaxial imaging was performed following intravenous administration of 100mL ml of Isovue 300 contrast material. Multiplanar coronal and sagittal images were reformatted. Individualized dose optimization techniques were used for this CT. COMPARISON: Comparison is made with prior examination of June 19, 2018. FINDINGS: A right-sided portacatheter is in situ. Since prior study, there has been an increase in number and in size of the previously seen multiple bilateral pulmonary nodules. Stable appearance of the infiltration in the posterior medial segment of the left lower lobe. Slight progression in the left pleural effusion. Normal heart and pericardium. The mediastinal lymph nodes at the level of the aortic pulmonary window have increased in size as well. Normal hilar regions. There is a focal nonobstructive intraluminal filling defect in a branch of the left upper lobe pulmonary artery suggestive of a subacute pulmonary embolism. There is atherosclerotic calcification of the aortic arch with tortuosity and elongation of the aortic arch and descending thoracic aorta. There are multi-level degenerative changes of the thoracic spine. Fatty infiltrated liver. CT/Chest WITH Contrast IMPRESSION: Since prior study, there has been progressive increase in size of the multiple pulmonary nodules as well as increase in number. Slight enlargement of the mediastinal lymphadenopathy as well. Focal nonocclusive pulmonary embolism in the left upper lobe pulmonary arterial branch. Electronically Signed: Naveed Danielle MD at 10:31 EST Tel [phone], Service support , CC: Daquan Baeza MD; Jens Garibay MD [place] Supervisor: Signed ONCOLOGY VISIT REPORT Observed: 08/05/2018 Status: F Source: [place] 10:30 AM [facility] [place] REPOSITORY [facility] [address] [place] [address] OFFICE VISIT Date of Service: 08/05/18 [facility] MR#: [id number] Acct: [id number] Name: RUTH PARRISH Rep #: [id number] : 1955 From: Ange AGRAWAL Age/Sex: 63/F Location: [facility] Status: Signed Subjective - Date of Service Date of Service:: 08/05/18 - Chief Complaint F/u for NSCLC and SCLC - History of Present Illness Ms. 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 CT-guided biopsy of the left lower lobe mass showed non-small cell lung cancer favoring adenocarcinoma on March 15, 2016. She had FOB and biopsy on April at [facility], which showed right middle lobe small cell carcinoma. She received 4 cycles of carboplatin/etoposide from May 22, 2016 to July 24, 2016. She had a persistent left lower lobe mass and left upper lobe mass on PET-CT obtained July 15, 2016. Experienced radicular pain on the left side, which corresponded to the left lower lobe mass sitting on the chest wall. She began concurrent chemotherapy and radiation therapy with cisplatin and Alimta on August 29, 2016. Completed 33 fractions 180 cGy) on 10/12/16. Completed 6 cycles of Cisplatin/Alimta on 12/12/16. MRI brain obtained 01/10/17 obtained to address c/o prolonged nausea was negative for metastatic disease. CT scan of chest obtained 01/21/17 reveal opacity in the posterior segment of left upper lobe is decreased in size and stable subcentimeter nodules bilaterally. She had developed pain in the Left hip, bone scan on 03/27/2017 was negative and x-rays on 03/28/[address] chest done on 07/25/2017 showed increasing number and size of multiple pulmonary nodules, consolidation of the medial left lower lobe, increase in prevascular lymph nodes. PET/CT on 08/12/2017 showed new bilateral hypermetabolic activities suggestive of metastatic malignancy. She was referred for CT guided biopsy right upper lobe nodule 08/21/2017, however attempt was unsuccessful and patient elected to forgo further biopsy attempts. Began second line chemotherapy with Cisplatin/irinotecan on 09/16/17. Experienced diarrhea after C1D15 so Irinotecan was decreased to 50mg/m2. With C3D8 Irinotecan, had nausea on and off, relief with Zofran and Phenergan. Finished 4th cycle on 12/24/2017. Underwent CT C/A/P on 01/07/2018 which showed L lower lobe density decreased in size, lung nodules have decrease in number. She elected observation, CT done on 05/19/2018 showed increase in lung nodules. CT guided bx of LLL density was negative. She was referred to Dr. Mulligan in [place] and had a CT guided bx KADIE node on 06/20/2018 which showed well differentiated adenocarcinoma. PD-1 was negative but not enough tissue for another markers. She does not want to have another biopsy done. - Interval History Patient is presenting to clinic today for immunotherapy education. It is been proposed that she begin Opdivo. States she is interested in discussing potential side effects. Reports good support system at home by way of spouse and family. 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 Past Surgical History Surgical: Tubal ligation Other Surgical History: SECTION TRIPLE HERNIA REPAIR CHEST PORT PLACEMENT Family History Paternal Past Medical History: Unknown Maternal Past Medical History: Diabetes mellitus,Hypertension Social History Social History: No changes Smoking Status Current every day smoker Review of Systems Constitutional:: Reports: Weakness, Fatigue. Denies: Fever, Sweats, Weight loss, Appetite change, Chills Cardiovascular:: Reports: Dyspnea on exertion. Denies: Chest pain, Palpitations, Orthopnea, PND, Shortness of breath Respiratory: Reports: Cough - chronic, Wheezing - at times. Denies: Hemoptysis Gastrointestinal:: Denies: Abdominal pain, Nausea, Vomiting, Diarrhea, Constipation, Hematochezia Genitourinary: Denies: Dysuria, Hematuria, 15, Flank pain Musculoskeletal:: Denies: Back pain, Myalgia, Arthralgia Skin: Denies: Rash, Skin Changes, Wounds Neurological:: Reports: Numbness, Tingling. Denies: Headache, Dizziness, Visual changes, Tinnitus, Hearing loss Psychiatric: Denies: Anxiety, Depression, Homicidal Ideations, Suicidal Ideations Vital Signs Height 5 ft 5 in Weight: 156 lb Weight in Pounds 156.0 lbs Pulse Ox 100 - Physical Exam General: Alert, Oriented x3, No apparent distress HEENT: Atraumatic, Normocephalic Psychiatric:: Appropriate affect, Euthymic Assessment and Plan 1. Small cell lung cancer, limited disease, right lung. 2. Non-small cell lung cancer, adenocarcinoma, left lower lobe stage IIIA status post chemoradiation therapy. Progressive disease, s/p 4 cycles of 2nd line Cisplatin and Irinotecan, finished on 12/24/2017. CT on 05/19/2018 shows persistent multiple lung nodules with slight increase in sizes, L lower lobe mass. CT guided KADIE bx at [place] shows well differentiated Adenocarcinoma. PD1 is negative. No tissue for other markers. Patient declines repeat biopsy but wishes to pursue further treatment. The patient has been thoroughly educated to risks/benefits associated with Opdivo. Specifically, she has been educated to potential side effects, recommendations for symptom management, and circumstances in which she should contact provider immediately, such as the development of any signs/symptoms of infection inclusive of temperature > 100.4, extreme fatigue, 4-6 episodes of diarrhea within a 24/hr period, bloody stools or headache. Encouraged to go directly to ED should fever occur outside normal clinic hours or she develops difficulty breathing. She has been provided written educational information and after hours contact information. Greater than 50% of this one hour visit was spent in counseling and a significant amount of time was allotted for questions. All the patient's concerns were addressed to her satisfaction and she is agreeable to proceed. Tentatively, she will commence with cycle 1 on 08/11/18. Ange Diaz, MSN, [employer], AOCNP Medications: Prescriptions This Visit Medication Instructions Recorded Primary Care Provider: Referring Provider: - Problem List (1) Non-small cell carcinoma of left lung Status: Chronic (2) Small cell carcinoma of right lung Status: Chronic (3) Educational circumstance Status: Acute 08/05/18 1030 <Electronically signed by Ange AGRAWAL> Date Ange AGRAWAL Cosigner Signature: Date (if applicable) CC: ONCOLOGY VISIT REPORT Observed: 08/04/2018 Status: F Source: [facility] 10:22 AM [facility] [address] [place], [place] [address] [address] OFFICE VISIT Date of Service: 08/04/18 1004 MR#: [id number] Acct: [id number] Name: RUTH PARRISH Rep #: [id number] : 1955 From: Daquan Baeza MD Age/Sex: 63/F Location: [facility] Status: Signed Subjective - Date of Service Date of Service:: 08/04/18 - Chief Complaint F/u for NSCLC and SCLC - History of Present Illness Ms. 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 CT-guided biopsy of the left lower lobe mass showed non-small cell lung cancer favoring adenocarcinoma on March 15, 2016. She had FOB and biopsy on April at [facility], which showed right middle lobe small cell carcinoma. She received 4 cycles of carboplatin/etoposide from May 22, 2016 to July 24, 2016. She had a persistent left lower lobe mass and left upper lobe mass on PET-CT obtained July 15, 2016. Experienced radicular pain on the left side, which corresponded to the left lower lobe mass sitting on the chest wall. She began concurrent chemotherapy and radiation therapy with cisplatin and Alimta on August 29, 2016. Completed 33 fractions 180 cGy) on 10/12/16. Completed 6 cycles of Cisplatin/Alimta on 12/12/16. MRI brain obtained 01/10/17 obtained to address c/o prolonged nausea was negative for metastatic disease. CT scan of chest obtained 01/21/17 reveal opacity in the posterior segment of left upper lobe is decreased in size and stable subcentimeter nodules bilaterally. She had developed pain in the Left hip, bone scan on 03/27/2017 was negative and x-rays on 03/28/[address] chest done on 07/25/2017 showed increasing number and size of multiple pulmonary nodules, consolidation of the medial left lower lobe, increase in prevascular lymph nodes. PET/CT on 08/12/2017 showed new bilateral hypermetabolic activities suggestive of metastatic malignancy. She was referred for CT guided biopsy right upper lobe nodule 08/21/2017, however attempt was unsuccessful and patient elected to forgo further biopsy attempts. Began second line chemotherapy with Cisplatin/irinotecan on 09/16/17. Experienced diarrhea after C1D15 so Irinotecan was decreased to 50mg/m2. With C3D8 Irinotecan, had nausea on and off, relief with Zofran and Phenergan. Finished 4th cycle on 12/24/2017. Underwent CT C/A/P on 01/07/2018 which showed L lower lobe density decreased in size, lung nodules have decrease in number. She elected observation, CT done on 05/19/2018 showed increase in lung nodules. CT guided bx of LLL density was negative. She was referred to Dr. Mulligan in [place] and had a CT guided bx KADIE node on 06/20/2018 which showed well differentiated adenocarcinoma. PD-1 was negative but not enough tissue for another markers. She does not want to have another biopsy done. Comes for follow up. 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 Past Surgical History Surgical: Tubal ligation Other Surgical History: SECTION TRIPLE HERNIA REPAIR CHEST PORT PLACEMENT Family History Paternal Past Medical History: Unknown Maternal Past Medical History: Diabetes mellitus,Hypertension Social History Social History: No changes Smoking Status Current every day smoker Review of Systems Constitutional:: Denies: Fever, Sweats, Weight loss, Appetite change, Chills Cardiovascular:: Denies: Chest pain, Palpitations, Dyspnea on exertion, Orthopnea, PND, Shortness of breath Respiratory: Denies: Cough, Hemoptysis, Shortness of Breath, Wheezing Gastrointestinal:: Denies: Abdominal pain, Nausea, Vomiting, Diarrhea, Constipation, Hematochezia Genitourinary: Denies: Dysuria, Hematuria, 15, Flank pain Musculoskeletal:: Denies: Back pain, Myalgia, Arthralgia Skin: Denies: Rash, Skin Changes, Wounds Neurological:: Denies: Headache, Dizziness, Visual changes, Tinnitus, Hearing loss Psychiatric: Denies: Anxiety, Depression, Homicidal Ideations, Suicidal Ideations Vital Signs Height 5 ft 5 in Weight: 70.76 kg Weight in Pounds 156.0 lbs Pulse Ox 98 - Physical Exam General: Alert, Oriented x3, No apparent distress Assessment and Plan Non-small cell lung cancer, adenocarcinoma, left lower lobe stage IIIA status post chemoradiation therapy. Small cell lung cancer, limited disease, right lung. Progressive disease, s/p 4 cycles of 2nd line Cisplatin and Irinotecan, finished on 12/24/2017. CT on 05/19/2018 shows persistent multiple lung nodules with slight increase in sizes, L lower lobe mass. CT guided KADIE bx at [place] shows well differentiated Adenocarcinoma. PD1 is negative. No tissue for other markers. Pt does not want to do another biopsy but want more treatment. Discuss therapy with Rita Hernández as options. She wants Opdivo Plan is to obtain Pre-auth for Opdivo and start next week. RTC 1 wk. Medications: Prescriptions This Visit Medication Instructions Recorded Primary Care Provider: Referring Provider: - Problem List (1) Small cell carcinoma of right lung Status: Chronic (2) Non-small cell carcinoma of left lung Status: Chronic Code Visit Office Visits / Consults: 96145 OV L5 Est 08/04/18 1022 <Electronically signed by Daquan Baeza MD> Date Daquan Baeza MD Cosigner Signature: Date (if applicable) CC: ONCOLOGY VISIT REPORT Observed: 07/02/2018 Status: F Source: [place] 12:36 PM [facility] REPOSITORY [facility] [address] [place] [id number] OFFICE VISIT Date of Service: 07/02/18 1231 MR#: [id number] Acct: [id number] Name: RUHT PARRISH Rep #: [id number] : 1955 From: Daquan Baeza MD Age/Sex: 63/F Location: [facility] Status: Signed Subjective - Date of Service Date of Service:: 07/02/18 - Chief Complaint F/u for NSCLC and SCLC - History of Present Illness Ms. 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 CT-guided biopsy of the left lower lobe mass showed non-small cell lung cancer favoring adenocarcinoma on March 15, 2016. She had FOB and biopsy on April at [facility], which showed right middle lobe small cell carcinoma. She received 4 cycles of carboplatin/etoposide from May 22, 2016 to July 24, 2016. She had a persistent left lower lobe mass and left upper lobe mass on PET-CT obtained July 15, 2016. Experienced radicular pain on the left side, which corresponded to the left lower lobe mass sitting on the chest wall. She began concurrent chemotherapy and radiation therapy with cisplatin and Alimta on August 29, 2016. Completed 33 fractions 180 cGy) on 10/12/16. Completed 6 cycles of Cisplatin/Alimta on 12/12/16. MRI brain obtained 01/10/17 obtained to address c/o prolonged nausea was negative for metastatic disease. CT scan of chest obtained 01/21/17 reveal opacity in the posterior segment of left upper lobe is decreased in size and stable subcentimeter nodules bilaterally. She had developed pain in the Left hip, bone scan on 03/27/2017 was negative and x-rays on 03/28/[address] chest done on 07/25/2017 showed increasing number and size of multiple pulmonary nodules, consolidation of the medial left lower lobe, increase in prevascular lymph nodes. PET/CT on 08/12/2017 showed new bilateral hypermetabolic activities suggestive of metastatic malignancy. She was referred for CT guided biopsy right upper lobe nodule 08/21/2017, however attempt was unsuccessful and patient elected to forgo further biopsy attempts. Began second line chemotherapy with Cisplatin/irinotecan on 09/16/17. Experienced diarrhea after C1D15 so Irinotecan was decreased to 50mg/m2. With C3D8 Irinotecan, had nausea on and off, relief with Zofran and Phenergan. Finished 4th cycle on 12/24/2017. Underwent CT C/A/P on 01/07/2018 which showed L lower lobe density decreased in size, lung nodules have decrease in number. She elected observation, CT done on 05/19/2018 showed increase in lung nodules. CT guided bx of LLL density was negative. She was referred to Dr. Mulligan in [place] and had a CT guided bx on 06/20/2018 which showed well differentiated adenocarcinoma. She comes for follow up. 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 Past Surgical History Surgical: Tubal ligation Other Surgical History: SECTION TRIPLE HERNIA REPAIR CHEST PORT PLACEMENT Family History Paternal Past Medical History: Unknown Maternal Past Medical History: Diabetes mellitus,Hypertension Social History Social History: No changes Smoking Status Current every day smoker Review of Systems Constitutional:: Denies: Fever, Sweats, Weight loss, Appetite change, Chills Cardiovascular:: Denies: Chest pain, Palpitations, Dyspnea on exertion, Orthopnea, PND, Shortness of breath Respiratory: Denies: Cough, Hemoptysis, Shortness of Breath, Wheezing Gastrointestinal:: Denies: Abdominal pain, Nausea, Vomiting, Diarrhea, Constipation, Hematochezia Genitourinary: Denies: Dysuria, Hematuria, 15, Flank pain Musculoskeletal:: Denies: Back pain, Myalgia, Arthralgia Skin: Denies: Rash, Skin Changes, Wounds Neurological:: Denies: Headache, Dizziness, Visual changes, Tinnitus, Hearing loss Psychiatric: Denies: Anxiety, Depression, Homicidal Ideations, Suicidal Ideations Vital Signs Height 5 ft 5 in Weight: 70.307 kg Weight in Pounds 155.0 lbs Pulse Ox 98 - Physical Exam General: Alert, Oriented x3, No apparent distress Assessment and Plan Non-small cell lung cancer left lower lobe stage IIIA status post chemoradiation therapy. Small cell lung cancer, limited disease, right lung. Progressive disease, s/p 4 cycles of 2nd line Cisplatin and Irinotecan, finished on 12/24/2017. CT on 05/19/2018 shows persistent multiple lung nodules with slight increase in sizes, L lower lobe mass. CT guided KADIE bx at [place] shows Adenocarcinoma. Markers are pending. Plan is to wait for EGFR, ROS1, ALK, BRAF, PDL-1 status then decide on therapy. Renew Ativan and Omeprazole. RTC 1 wk. Medications: Prescriptions This Visit Medication Instructions Recorded Lidocaine/Prilocaine 30 gm TP UD 30 Days #1 tube 09/09/17 [Lidocaine-Prilocaine Cream] Ondansetron [Zofran] 8 mg PO Q8H PRN PRN 30 Days #30 tab 09/09/17 Primary Care Provider: Referring Provider: - Problem List (1) Small cell carcinoma of right lung Status: Chronic (2) Non-small cell carcinoma of left lung Status: Chronic Code Visit Office Visits / Consults: 20192 OV L4 Est 07/02/18 1236 <Electronically signed by Daquan Baeza MD> Date Daquan Baeza MD Cosigner Signature: Date (if applicable) CC: CR CHEST PORTABLE Observed: 06/23/2018 Status: F Source: [facility] 10:35 AM SYSTEM REPOSITORY Patient Name: RUTH PARRISH Diagnostic Radiology Exam Date/Time 06/23/2018 10:42:33 EST Exam CR Chest Portable Ordering Physician MD MANASA KAZAKH Accession Number [id number] CPT4 Codes 49655 () Reason For Exam s/p lefet chest tube Report HISTORY: Follow-up pneumothorax A frontal view the chest at 1013 hours is compared to previous study from 06/20/2018. FINDINGS: The tiny left apical pneumothorax has cleared. Slight increase in subcutaneous emphysema along left chest wall. No other changes --- we will remove chest tube. Report Dictated on Final Dictated: 06/23/2018 10:35 am Dictating Physician: MD RAMSEY WILLIAM Signed Date and Time: 06/23/2018 10:36 am Signed by: MD RAMSEY WILLIAM Transcribed Date and Time: 06/23/2018 10:35 CR CHEST PORTABLE Observed: 06/20/2018 Status: F Source: [facility] 3:44 PM SYSTEM REPOSITORY Patient Name: RUTH PARRISH Diagnostic Radiology Exam Date/Time 06/20/2018 13:58:56 EST Exam CR Chest Portable Ordering Physician MD GOEL MALAY Accession Number [id number] CPT4 Codes 83086 () Reason For Exam s/p left lung biopsy Report CHEST X-RAY AP CLINICAL INDICATION: Post biopsy AP radiograph of the chest was obtained. COMPARISON: May 09, 2016 FINDINGS: The cardiac silhouette is within normal limits. There is a right-sided [id number] terminating at the junction of the SVC/right atrium. A left-sided chest tube terminates near the lung apex. There is a hazy area of opacification in the upper to mid left lung, which is likely related to the recent biopsy. Otherwise coarsening of the interstitial lung markings is noted, likely chronic. No pleural effusion or sizable pneumothorax is identified. There are degenerative changes of the thoracic spine. IMPRESSION: left-sided chest tube terminates near the lung apex. There is a hazy area of opacification in the upper to mid left lung, which is likely related to the recent biopsy. No sizable pneumothorax identified. Report Dictated on Final Dictated: 06/20/2018 3:44 pm Dictating Physician: MD POTTS JASON Signed Date and Time: 06/20/2018 3:47 pm Signed by: MD POTTS JASON Transcribed Date and Time: 06/20/2018 3:44 CT BIOPSY LUNG Observed: 06/20/2018 Status: F Source: [facility] 12:23 PM SYSTEM REPOSITORY Patient Name: RUTH PARRISH CT Exam Date/Time 06/20/2018 11:58:[address] Biopsy Lung Ordering Physician ANU MULLIGAN Accession Number [id number] CPT4 Codes 50488 (), 77757 () Reason For Exam MALIGNANT NEOPLASM OF UPPER LOBE OF LEFT LUNG Report CT-guided left lung nodule core biopsy The benefits and risks of the procedure were discussed with the patient. The patient agreed to proceed. Conscious Sedation: An independent trained nurse under my supervision monitored the patient during the procedure and administered 3 mg of Versed and 250 ug of Fentanyl intravenously. The monitoring time was 60 minutes. Sterile technique was utilized. The skin was cleaned with 2% chlorhexidine. Sterile drapes were placed. I washed my hands prior to the procedure. I wore a cap, mask, sterile gown and sterile gloves during the procedure. The prior CT was reviewed. Lidocaine was applied for local anesthesia. Using CT guidance, a 19-gauge guide needle was inserted from an anterior approach into the left upper lung towards the left lung nodule. Immediately, a pneumothorax occurred. A small caliber chest tube was placed. Once the lung was reinflated, the patient was returned to the side and then from a posterior approach a 19-gauge needle inserted up to another left upper lung nodule using CT guidance. Coaxially, 20-gauge needle was inserted and two core biopsies obtained. The specimens were submitted to pathology. Postbiopsy CT shows minimal pneumothorax. Hemorrhage is is seen around the biopsied lung nodule. Impression: Difficult biopsy. Pneumothorax occurred immediately. Chest tube was placed. Small nodule biopsy was performed. Pathology results pending. Report Dictated on Final Dictated: 06/20/2018 12:23 pm Dictating Physician: MD GOEL MALAY Signed Date and Time: 06/20/2018 12:26 pm Signed by: MD GOEL MALAY Transcribed Date and Time: 06/20/2018 12:23 CT INSERT CATH Observed: 06/20/2018 Status: F Source: [facility] PLEURA W/ IMAGE 12:22 PM SYSTEM REPOSITORY Patient Name: RUTH PARRISH CT Exam Date/Time 06/20/2018 12:12:[address] Insert Cath Pleura w/ Image Ordering Physician MD GOEL MALAY Accession Number [id number] CPT4 Codes 68696 () Reason For Exam chest tube placed during lung biopsy Report CT-guided left small caliber chest tube placement The benefits and risks of the procedure were discussed with the patient. The patient agreed to proceed. Conscious Sedation: An independent trained nurse under my supervision monitored the patient during the procedure and administered 2 mg of Versed and 100 ug of Fentanyl intravenously. The monitoring time was 30 minutes. Sterile technique was utilized. The skin was cleaned with 2% chlorhexidine. Sterile drapes were placed. I washed my hands prior to the procedure. I wore a cap, mask, sterile gown and sterile gloves during the procedure. Lidocaine was applied for local anesthesia. Using CT guidance, an 18-gauge Chiba needle was inserted from an anterior approach into the left pleural space and a wire advanced. Subcutaneous tract was dilated. A small caliber chest tube was advanced over the wire. A 60 mL syringe was utilized to reinflate the lung. The tube was attached to Heimlich valve. Dressings were applied. IMPRESSION: CT-guided left small caliber chest tube placement was performed. Report Dictated on Final Dictated: 06/20/2018 12:22 pm Dictating Physician: MD GOEL MALAY Signed Date and Time: 06/20/2018 12:23 pm Signed by: MD GOEL MALAY Transcribed Date and Time: 06/20/2018 12:22 Observed: 06/20/2018 Status: F Source: [facility] SURGICAL PATHOLOGY 11:00 AM SYSTEM REPOSITORY [id number] [facility] PATHOLOGY AND LABORATORY MEDICINE [address] [place] [address] FINAL SURGICAL PATHOLOGY REPORT NAME: RUTH PARRISH : 1955 63 Y F BILLING NO.: [id number] LOCATION: [address] [address] PROCEDURE 06/20/2018 DATE: SURGEON: ANU MULLIGAN M.D. RECEIVED 06/20/2018 DATE: ATTENDING: ANU MULLIGAN M.D. REPORT DATE: 06/23/2018 COPIES TO: SAI GOEL M.D. DIAGNOSIS: LUNG, LEFT, BIOPSY - WELL DIFFERENTIATED ADENOCARCINOMA OF LUNG ORIGIN. SEE COMMENT. COMMENT: TTF-1 shows strong nuclear positivity and Napsin A shows cytoplasmic staining, findings are consistent with above diagnosis. 0SS/0SS Intradepartmental Consultation: AMBER FISCHER M.D.; H&E slides were reviewed. <Sign Out Dr. Mae> KELSEY CROWELL MD CLINICAL INFORMATION: Left lung biopsy-nodule SPECIMEN: LUNG, NEEDLE CORE BIOPSY INTRAOPERATIVE CONSULTATION/FROZEN SECTION DIAGNOSIS: Touch Prep 1 & 2 - Respiratory cells, inadequate. M. Corazon Clay GROSS DESCRIPTION: Left lung biopsy nodule Received in formalin are three wispy core-like segments of cleaning tissue 0.4 to 0.5 cm. Submitted in toto. (3 ns, 1) JCK/ZINA Disclaimer: The following statement applies to all immunohistochemistry, in situ hybridization, molecular studies, and immunofluorescence testing. The use of one or more reagents in the above tests is regulated as an analyte specific reagent (ASR). These tests were developed and their performance characteristics determined by the clinical laboratories of [facility]. They have not been cleared by the US Food and Drug Administration (FDA). The FDA has determined that such clearance or approval is not necessary. All the above immunostains were performed on paraffin embedded tissue. Appropriate positive and negative controls (where applicable) were run in parallel with the patient's specimen; these controls showed expected staining pattern, with acceptable intensity of staining. Immunohistochemical assays have not been validated on decalcified tissues. Results should be interpreted with caution given the raised possibility of false negativity on decalcified specimens. Professional Performing Location: [address] [address]. DEPARTMENT OF PATHOLOGY AND LABORATORY MEDICINE [place], [place] [address] PLATELET COUNT Collected: 06/20/2018 Status: F Source: [facility] [facility] 8:32 AM SYSTEM REPOSITORY TYPE CODE TESTS RESULT OUT OF REFERENCE UNITS RANGE LAB PLT 140-440 10*3/uL High Platelet 446 Performed By: #### PLTCT, PT #### [facility] [address] [place] [address] PROTHROMBIN TIME Collected: 06/20/2018 Status: F Source: [employer] 8:32 AM SYSTEM REPOSITORY TYPE CODE TESTS RESULT OUT OF REFERENCE UNITS RANGE LAB PROTM 9.0-12.0 s Prothrombin Normal Time 9.5 Result Comment: . LAB INR 0.9-1.1 NA Normal INR 0.9 Result Comment: Recommended Anticoagulant Therapy: SEE BELOW ----- INR of 2.0 - 3.0 : - Prophylaxis of Venous Thrombosis (high-risk surgery) - Treatment of Venous Thrombosis - Treatment of Pulmonary Embolism (Includes tissue heart valves, Acute Myocardial Infarction to prevent systemic embolism, Valvular Heart Disease, and Atrial Fibrillation) ----- INR of 2.5 - 3.5 : - Mechanical Prosthetic Valves (high risk) - If oral anticoagulant therapy is used to prevent Myocardial Infarction Performed By: #### PLTCT, PT #### [facility] [employer] [facility] [place] [address] ONCOLOGY VISIT REPORT Observed: 06/05/2018 Status: F Source: [place] 2:29 PM [facility] REPOSITORY [facility] [address] [place] [id number] OFFICE VISIT Date of Service: 06/04/18 1232 MR#: [id number] Acct: [id number] Name: RUTH PARRISH Rep #: [id number] : 1955 From: Daquan Baeza MD Age/Sex: 63/F Location: [facility] Status: Signed Subjective - Date of Service Date of Service:: 06/04/18 - Chief Complaint F/u for NSCLC and SCLC - History of Present Illness Ms. 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 CT-guided biopsy of the left lower lobe mass showed non-small cell lung cancer favoring adenocarcinoma on March 15, 2016. She had FOB and biopsy on April at [facility], which showed right middle lobe small cell carcinoma. She received 4 cycles of carboplatin/etoposide from May 22, 2016 to July 24, 2016. She had a persistent left lower lobe mass and left upper lobe mass on PET-CT obtained July 15, 2016. Experienced radicular pain on the left side, which corresponded to the left lower lobe mass sitting on the chest wall. She began concurrent chemotherapy and radiation therapy with cisplatin and Alimta on August 29, 2016. Completed 33 fractions 180 cGy) on 10/12/16. Completed 6 cycles of Cisplatin/Alimta on 12/12/16. MRI brain obtained 01/10/17 obtained to address c/o prolonged nausea was negative for metastatic disease. CT scan of chest obtained 01/21/17 reveal opacity in the posterior segment of left upper lobe is decreased in size and stable subcentimeter nodules bilaterally. She had developed pain in the Left hip, bone scan on 03/27/2017 was negative and x-rays on 03/28/[address] chest done on 07/25/2017 showed increasing number and size of multiple pulmonary nodules, consolidation of the medial left lower lobe, increase in prevascular lymph nodes. PET/CT on 08/12/2017 showed new bilateral hypermetabolic activities suggestive of metastatic malignancy. She was referred for CT guided biopsy right upper lobe nodule 08/21/2017, however attempt was unsuccessful and patient elected to forgo further biopsy attempts. Began second line chemotherapy with Cisplatin/irinotecan on 09/16/17. Experienced diarrhea after C1D15 so Irinotecan was decreased to 50mg/m2. With C3D8 Irinotecan, had nausea on and off, relief with Zofran and Phenergan. Finished 4th cycle on 12/24/2017. Underwent CT C/A/P on 01/07/2018 which showed L lower lobe density decreased in size, lung nodules have decrease in number. She elected observation, CT done on 05/19/2018 showed increase in lung nodules. She had CT guided bx of LLL density and comes for follow up. 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 Past Surgical History Surgical: Tubal ligation Other Surgical History: SECTION TRIPLE HERNIA REPAIR CHEST PORT PLACEMENT Family History Paternal Past Medical History: Unknown Maternal Past Medical History: Diabetes mellitus,Hypertension Social History Social History: No changes Smoking Status Current every day smoker Review of Systems Constitutional:: Denies: Fever, Sweats, Weight loss, Appetite change, Chills Cardiovascular:: Denies: Chest pain, Palpitations, Dyspnea on exertion, Orthopnea, PND, Shortness of breath Respiratory: Denies: Cough, Hemoptysis, Shortness of Breath, Wheezing Gastrointestinal:: Denies: Abdominal pain, Nausea, Vomiting, Diarrhea, Constipation, Hematochezia Genitourinary: Denies: Dysuria, Hematuria, 15, Flank pain Musculoskeletal:: Denies: Back pain, Myalgia, Arthralgia Skin: Denies: Rash, Skin Changes, Wounds Neurological:: Denies: Headache, Dizziness, Visual changes, Tinnitus, Hearing loss Psychiatric: Denies: Anxiety, Depression, Homicidal Ideations, Suicidal Ideations Vital Signs Height 5 ft 5 in Weight: 71.214 kg Weight in Pounds 157.0 lbs Pulse Ox 98 - Physical Exam General: Alert, Oriented x3, No apparent distress Pathology Data: 05/26/2018 CT guided bx LLL reviewed. MICROSCOPIC DIAGNOSIS CT-guided needle core biopsy, left lung mass (smears and biopsy): Fibrosis and degenerative changes of lung tissue. Focal chronic inflammation. No evidence of malignancy. AM:rg 05/27/18 Assessment and Plan Non-small cell lung cancer left lower lobe stage IIIA status post chemoradiation therapy. Small cell lung cancer, limited disease, right lung. Progressive disease, s/p 4 cycles of 2nd line Cisplatin and Irinotecan, finished on 12/24/2017. CT on 05/19/2018 shows persistent multiple lung nodules with slight increase in sizes, L lower lobe mass. CT guided LLL bx is negative. Plan is to obtain Thoracic surgery consult for lung biopsy to assess for EGFR, ROS1, ALK, BRAF, PDL-1 status. Pt wants to go to [place]. RTC 2 wks. Medications: Prescriptions This Visit Medication Instructions Recorded Lorazepam [Ativan] 0.5 mg PO BID PRN #60 tablet 09/02/17 Primary Care Provider: Referring Provider: - Problem List (1) Small cell carcinoma of right lung Status: Chronic (2) Non-small cell carcinoma of left lung Status: Chronic Code Visit Office Visits / Consults: 08118 OV L4 Est 06/05/18 1429 <Electronically signed by Daquan Baeza MD> Date Daquan Baeza MD Cosigner Signature: Date (if applicable) CC: CHEST INSP/EXP 2 VIEW Observed: 05/26/2018 Status: F Source: [place] 10:53 AM [facility] REPOSITORY [facility] Imaging Services [address] [place] [address] Chest Insp/Exp 2 View MR#: [id number] Acct: [id number] Name: RUTH PARRISH Rep #: [id number] : 1955 F 63 From: Naveed Danielle MD PCP: Jens Garibay MD Status: REG CLI Study: Chest Insp/Exp 2 View Date of Exam: 05/26/18 Exam# [id number] Ordering Dr: Naveed Danielle MD STUDY: X-RAY CHEST REASON FOR EXAM: Female, 63 years old. 2 hours post left lung biopsy radiograph. TECHNIQUE: AP inspiration and expiration views. COMPARISON: Comparison is made with prior study done earlier today. FINDINGS: Small residual left apical pneumothorax. This has decreased in size as compared to prior examination. The patient is asymptomatic. RAD/Chest Insp/Exp 2 View IMPRESSION: Small residual left apical pneumothorax. Electronically Signed: Naveed Danielle MD at 13:13 EST Tel [phone], Service support , CC: Naveed Danielle MD; Jens Garibay MD [place] Supervisor: Signed CHEST INSP/EXP 2 VIEW Observed: 05/26/2018 Status: F Source: [place] 10:31 AM [facility] REPOSITORY [facility] Imaging Services [address] [place] [address] Chest Insp/Exp 2 View MR#: [id number] Acct: [id number] Name: RUTH PARRISH Rep #: [id number] : 1955 F 63 From: Naveed Danielle MD PCP: Jens Garibay MD Status: REG CLI Study: Chest Insp/Exp 2 View Date of Exam: 05/26/18 Exam# [id number] Ordering Dr: Daquan Baeza MD STUDY: X-RAY CHEST REASON FOR EXAM: Female, 63 years old. Immediate post left lung biopsy radiograph. TECHNIQUE: PA inspiration expiration views. COMPARISON: Comparison is made with prior chest radiograph dated August 10, 2016. FINDINGS: A right-sided portacatheter is in situ. The tip is at the junction of the superior vena cava and right atrium. The patient is status post left lung biopsy. There is a small left apical pneumothorax. Follow-up will be obtained. The patient is asymptomatic. RAD/Chest Insp/Exp 2 View IMPRESSION: Status post left lung biopsy with resultant small left apical pneumothorax. Follow-up examination will be obtained. Electronically Signed: Naveed Danielle MD at 13:12 EST Tel [phone], Service support , CC: Daquan Baeza MD; Jens Garibay MD [place] Supervisor: Signed ASP RADIOLOGY (TISSUE) Observed: 05/26/2018 Status: F Source: [place] 10:30 AM [facility] REPOSITORY Patient: RUTH PARRISH : 1955 (63/F) Acct Num: [id number] Phys: Daquan Baeza MD Unit Num: [id number] Loc: CT Specimen: [id number] Received: 05/26/181099 Spec Type: ASP RAD TISSUES 1 TISSUES: Left lung, NOS COMMENT The specimen is evaluated at the time of CT-guided lung biopsy by Dr. Avalos. Immediate Evaluation = Negative for malignant cells. Reference is made to the patient's left lung mass, CT-guided core biopsy from ([id number]) in which non-small cell carcinoma consistent with adenocarcinoma was identified. Case has been reviewed in consultation with Dr. Avalos who concurs with the above diagnosis. IDC:CASSANDRA GROSS DESCRIPTION Received in fixative is one container labeled with the patient's name and designated left lung CT-guided core biopsy. The specimen consists of multiple elongated fragments of camacho soft tissue that in aggregate measure 1.2 x 0.1 x < 0.1 cm. The specimen is totally submitted in one cassette. One touch imprint is prepared at the time of core biopsy. / SJ:julio 05/26/18 TC:5 CPT: 33593, 56792, 69128 HEADER OPERATION: CT guided lung biopsy PRE-OP DIAGNOSIS: Left lung mass TISSUE SUBMITTED: Left lung mass, CT guided core biopsy MICROSCOPIC DESCRIPTION Slides are reviewed. MICROSCOPIC DIAGNOSIS CT-guided needle core biopsy, left lung mass (smears and biopsy): Fibrosis and degenerative changes of lung tissue. Focal chronic inflammation. No evidence of malignancy. AM:julio 05/27/18 Signed John [facility] 05/27/18 <signature on file> Performed By: #### PASPIGT #### [facility] [address] [facility] [facility] [place], [address] BIOPSY/INJ OR NEEDLE Observed: 05/26/2018 Status: F Source: [place] 8:56 AM [facility] REPOSITORY [facility] Imaging Services [address] [place] [address] Biopsy/Inj or Needle Placement MR#: [id number] Acct: [id number] Name: RUTH PARRISH Rep #: [id number] : 1955 F 63 From: Naveed Danielle MD PCP: Jens Garibay MD Status: REG CLI Study: Biopsy/Inj or Needle Placement Date of Exam: 05/26/18 Exam# [id number] Ordering Dr: Daquan Baeza MD PROCEDURE: CT GUIDED CORE NEEDLE BIOPSY OF A left lower lobe LUNG LESION INDICATION: Female, 63 years old. Known lung cancer. Pulmonary nodules. PHYSICIAN: Dr. Lolis CHANDRA. CONSENT: Written informed consent was obtained having explained the risks, benefits and alternatives in detail with the patient who accepted the risks and agreed to proceed. Laboratory review and clinical assessment was performed. CONSCIOUS SEDATION PROTOCOL: The Drugs used were: 2 mg Versed, IV., and 50 mcg Fentanyl, IV. The sedation time was: 13 minutes. Conscious sedation was started at 10:10 AM and terminated at 10:23 AM. The conscious sedation protocol was independently monitored. RADIATION DOSAGE (If Supplied By Facility): CTDIvol = ( 16.3 ) mGy, DLP = ( 254.92 ) mGycm Individualized dose optimization techniques were used for this CT. TECHNIQUE: The patient was placed in the prone position. A noncontrast CT was performed to localize the lesion in the posterior medial aspect of the left lower lobe . The skin surface was prepped and draped in a sterile fashion. 1% lidocaine was used for local anesthesia. Using CT guidance, a 20-gauge coaxial biopsy device was advanced to the periphery of the lesion. A total of 3 core specimens were obtained. The specimens were placed in a formalin solution. A post procedure CT demonstrated no adverse sequelae or pneumothorax. The patient tolerated the procedure well without adverse event. A negative biopsy does not exclude malignancy. Further imaging or clinical followup based on patient condition and degree of clinical suspicion for malignancy. Suggest rebiopsy, if biopsy results do not match with clinical scenario. CT/Biopsy/Inj or Needle Placement IMPRESSION: 1. CT directed core needle biopsy of the left lower lobe nodule using CT image guidance with image documentation as described. Pathology results are pending. 2. Conscious Sedation protocol utilized with independent monitoring. Electronically Signed: Naveed Danielle MD at 10:53 EST Tel [phone], Service support , CC: Daquan Baeza MD; Jens Garibay MD [place] Supervisor: Signed ONCOLOGY VISIT REPORT Observed: 05/23/2018 Status: F Source: [place] 11:28 AM [facility] REPOSITORY [facility] [address] [place] [address] OFFICE VISIT Date of Service: 05/21/18 1703 MR#: [id number] Acct: [id number] Name: RUTH PARRISH Rep #: [id number] : 1955 From: Daquan Baeza MD Age/Sex: 63/F Location: [facility] Status: Signed Subjective - Date of Service Date of Service:: 05/21/18 - Chief Complaint F/u for NSCLC and SCLC - History of Present Illness Ms. 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 CT-guided biopsy of the left lower lobe mass showed non-small cell lung cancer favoring adenocarcinoma on March 15, 2016. She had FOB and biopsy on April at [facility], which showed right middle lobe small cell carcinoma. She received 4 cycles of carboplatin/etoposide from May 22, 2016 to July 24, 2016. She had a persistent left lower lobe mass and left upper lobe mass on PET-CT obtained July 15, 2016. Experienced radicular pain on the left side, which corresponded to the left lower lobe mass sitting on the chest wall. She began concurrent chemotherapy and radiation therapy with cisplatin and Alimta on August 29, 2016. Completed 33 fractions 180 cGy) on 10/12/16. Completed 6 cycles of Cisplatin/Alimta on 12/12/16. MRI brain obtained 01/10/17 obtained to address c/o prolonged nausea was negative for metastatic disease. CT scan of chest obtained 01/21/17 reveal opacity in the posterior segment of left upper lobe is decreased in size and stable subcentimeter nodules bilaterally. She had developed pain in the Left hip, bone scan on 03/27/2017 was negative and x-rays on 03/28/[address] chest done on 07/25/2017 showed increasing number and size of multiple pulmonary nodules, consolidation of the medial left lower lobe, increase in prevascular lymph nodes. PET/CT on 08/12/2017 showed new bilateral hypermetabolic activities suggestive of metastatic malignancy. She was referred for CT guided biopsy right upper lobe nodule 08/21/2017, however attempt was unsuccessful and patient elected to forgo further biopsy attempts. Began second line chemotherapy with Cisplatin/irinotecan on 09/16/17. Experienced diarrhea after C1D15 so Irinotecan was decreased to 50mg/m2. With C3D8 Irinotecan, had nausea on and off, relief with Zofran and Phenergan. Finished 4th cycle on 12/24/2017. Underwent CT C/A/P on 01/07/2018 which showed L lower lobe density decreased in size, lung nodules have decrease in number. She elected observation, had CT done and comes for follow up. 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 Past Surgical History Surgical: Tubal ligation Other Surgical History: SECTION TRIPLE HERNIA REPAIR CHEST PORT PLACEMENT Family History Paternal Past Medical History: Unknown Maternal Past Medical History: Diabetes mellitus,Hypertension Social History Social History: No changes Smoking Status Current every day smoker Review of Systems Constitutional:: Denies: Fever, Sweats, Weight loss, Appetite change, Chills Cardiovascular:: Denies: Chest pain, Palpitations, Dyspnea on exertion, Orthopnea, PND, Shortness of breath Respiratory: Denies: Cough, Hemoptysis, Shortness of Breath, Wheezing Gastrointestinal:: Denies: Abdominal pain, Nausea, Vomiting, Diarrhea, Constipation, Hematochezia Genitourinary: Denies: Dysuria, Hematuria, 15, Flank pain Musculoskeletal:: Denies: Back pain, Myalgia, Arthralgia Skin: Denies: Rash, Skin Changes, Wounds Neurological:: Denies: Headache, Dizziness, Visual changes, Tinnitus, Hearing loss Psychiatric: Denies: Anxiety, Depression, Homicidal Ideations, Suicidal Ideations Vital Signs Height 5 ft 5 in Weight: 71.214 kg Weight in Pounds 157.0 lbs Pulse Ox 98 - Physical Exam General: Alert, Oriented x3, No apparent distress HEENT: Atraumatic, PERRLA, EOMI, Normocephalic Oropharynx:: Dry mucosa Neck:: Supple, Trachea midline. Negative for: JVD, bilateral Cardiac:: Regular rate, Regular rhythm, Normal S1, Normal S2. Negative for: Murmur Lungs: Clear to auscultation, Excusion symmetrical. Negative for: Rhonchi, Wheezes Laboratory Data: Laboratory Tests WBC 8.7 (4.4-11.0) K/mm3 RBC 4.05 L (4.2-5.4) M/mm3 Diagnostic Data: 05/19/[address]/Chest WITH Contrast IMPRESSION: 1. Multiple small pulmonary nodules and mediastinal lymphadenopathy most suggestive of metastatic disease. These are unchanged from the prior study. 2. Stable opacification medial left lung base. 3. Stable soft tissue mass in the anterior mediastinum. 4. Cardiac pacemaker. 5. Prominent fatty infiltrated liver. 6. Left adrenal hyperplasia versus small mass. Electronically Signed: Ridge Thomson DO at 19:44 EDT Assessment and Plan Non-small cell lung cancer left lower lobe stage IIIA status post chemoradiation therapy. Small cell lung cancer, limited disease, right lung. Progressive disease, s/p 4 cycles of 2nd line Cisplatin and Irinotecan, finished on 12/24/2017. CT on 05/19/2018 shows persistent multiple lung nodules, L lower lobe mass. Discussed options including observation, CT guided biopsy. Pt agrees to CT guided biopsy. Plan is to obtain CT guided biopsy of lung mass to assess for EGFR, ROS1, ALK, BRAF, PDL-1 status. RTC 2 wks. Medications: Prescriptions This Visit Medication Instructions Recorded Lorazepam [Ativan] 0.5 mg PO BID PRN #60 tablet 09/02/17 Primary Care Provider: Referring Provider: - Problem List (1) Small cell carcinoma of right lung Status: Chronic (2) Non-small cell carcinoma of left lung Status: Chronic Code Visit Office Visits / Consults: 54700 OV L4 Est 05/23/18 1128 <Electronically signed by Daquan Baeza MD> Date Daquan Baeza MD Cosigner Signature: Date (if applicable) CC: PROTHROMBIN TIME W/INR Collected: 05/21/2018 Status: F Source: [place] 2:09 PM [facility] REPOSITORY Order Comment: Reason for Laboratory Test . TYPE CODE TESTS RESULT OUT OF RANGE REFERENCE UNITS LAB L300.4150 11.7-14.9 SECONDS Low PROTIME 11.3 LAB L300.4200 Normal INR 0.8 Performed By: #### L300.3900, L300.4310 #### [facility] [address] [place], [place], [id number] PARTIAL THROMBOPLAST Collected: 05/21/2018 Status: F Source: [place] TIME 2:09 PM [facility] REPOSITORY Order Comment: Reason for Laboratory Test . TYPE CODE TESTS RESULT OUT OF RANGE REFERENCE UNITS LAB L300.4310 24.1-36.2 Seconds Normal PTT 28.5 Performed By: #### L300.3900, L300.4310 #### [facility] [address] [place], [address] CBC W/DIFF, AUTOMATED Collected: 05/21/2018 Status: F Source: [place] 12:43 PM [facility] REPOSITORY Order Comment: Reason for Laboratory Test . TYPE CODE TESTS RESULT OUT OF RANGE REFERENCE UNITS LAB L100.1000 4.4-11.0 K/mm3 Normal WBC 8.7 LAB L100.1200 4.2-5.4 M/mm3 Low RBC 4.05 LAB L100.1300 12.0-15.0 g/dl Normal HGB 12.9 LAB L100.1400 37-47 % Normal HCT 39.4 LAB L100.1500 81-99 fL Normal MCV 97.3 LAB L100.1600 27.0-32.0 pg Normal MCH 31.9 LAB L100.1700 32-36 g/gl Normal MCHC 32.7 LAB L100.1810 11.6-14.6 % Normal RDW CV 14.6 LAB L100.1820 35.1-43.9 fl High RDW SD 52.0 LAB L100.1900 150-450 K/mm3 Normal PLT 330 LAB L100.2000 6.2-12.0 fl Normal MPV 8.8 LAB L100.2100 47-70 % Normal NEUT% 66.4 LAB L100.2200 19-41 % Normal LY% 21.6 LAB L100.2300 0-10 % High MONO% 10.2 LAB L100.2400 0-5 % Normal EO% 0.9 LAB L100.2500 0-1 % Normal BASO% 0.2 LAB L100.2550 0.0-0.9 % Normal IM GRAN % 0.700 Result Comment: IG% - Immature Granulocytes (promyelocytes, myelocytes and metamyelocytes) > 1% indicates that a LEFT SHIFT is Present. LAB L100.2620 2.0-7.7 X10 3/uL Normal Absolute Neut 5.8 LAB L100.2720 0.83-4.51 X10 3/ul Normal Absolute Lymph 1.89 Performed By: #### L100.0100 #### [facility] [address] [place], [place], [address] COMPREHENSIVE METABOLIC Collected: 05/21/2018 Status: F Source: [facility] 12:43 PM [facility] REPOSITORY Order Comment: Reason for Laboratory Test . Serial Specimen #1, #2 or #3? 1 TYPE CODE TESTS RESULT OUT OF RANGE REFERENCE UNITS LAB L501.0100 74-106 mg/dL High GLU 173 Result Comment: Fasting Glucose result greater than or equal to 126 mg/dL suggests DIABETES MELLITUS per A.D.A. criteria. Please note revised GLUCOSE reference range effective 2017. LAB L501.1000 7-18 mg/dL Normal BUN 15 LAB L501.1100 0.55-1.02 mg/dL Normal CREAT,SERUM 0.86 Result Comment: The validity of the calculated GFR AND GFRAA in patients over 70 years has not been determined. Clinical correlation is essential. LAB L501.1110 >60 mL/min Normal EST GFR 70 Result Comment: Non- GFR Calc LAB L501.1115 >60 mL/min Normal EST GFR - AA 85 Result Comment: GFR Calc LAB L501.1255 ml/min Normal Estimated CRCL 59.47 LAB L501.1300 10-20 RATIO Normal BUN/CRE 17.4 LAB L501.1500 6.4-8. g/dL Normal 2 T PROT 7.2 LAB L501.1800 3.2-5. g/dL Normal 0 ALB 3.6 LAB L501.1950 2.2-4. g/dL Normal 2 GLOB 3.6 LAB L501.2000 0.9-2. RATIO Normal 4 A/G 1.0 LAB L501.2200 8.5-10 mg/dL Normal .1 CA 9.1 LAB L501.4100 15-37 U/L Normal AST 16 LAB L501.4305 45-117 U/L Normal ALK P 91 LAB L501.4405 13-56 U/L Normal ALT 28 LAB L501.4600 0.20-1 mg/dL Normal .00 T BILI 0.40 LAB L501.5300 136-14 mmol/L Normal 5 NA 140 LAB L501.5600 3.5-5. mmol/L Normal 1 K 3.6 LAB L501.5900 98-107 mmol/L Normal CL 106 LAB L501.6100 21.0-3 mmol/L Normal 2.0 CO2 25.0 LAB L501.6200 5-15 Normal GAP 9 Performed By: #### L500.4050, L504.2610 #### [facility] [address] [facility]. [place], [place], [address] LDH Collected: 05/21/2018 Status: F Source: [place] 12:43 PM [facility] REPOSITORY Order Comment: Reason for Laboratory Test . Serial Specimen #1, #2 or #3? 1 TYPE CODE TESTS RESULT OUT OF RANGE REFERENCE UNITS LAB L504.2610 84-246 U/L Normal LDH 212 Performed By: #### L500.4050, L504.2610 #### [facility] [address] [place], [address] CREATININE FINGERSTICK Collected: 05/19/2018 Status: F Source: [place] 12:48 PM [facility] REPOSITORY TYPE CODE TESTS RESULT OUT OF RANGE REFERENCE UNITS LAB L9100.0210 0.55-1.02 mg/dL Normal CREATININE WB 1.0 LAB L9100.0220 >60 mL/min Low EGFR WB 58.0000 Performed By: #### L9100.0200 #### [facility] Point of Care [address] [place] [address] CHEST WITH CONTRAST Observed: 05/19/2018 Status: F Source: [place] 12:32 PM [facility] REPOSITORY [facility] Services [address] [place] [address] Chest WITH Contrast MR#: [id number] Acct: [id number] Name: RUTH PARRISH Rep #: [id number] : 1955 F 63 From: Ridge Thomson DO PCP: Jens Garibay MD Status: REG CLI Study: Chest WITH Contrast Date of Exam: 05/19/18 Exam# [id number] Ordering Dr: Daquan Baeza MD STUDY: CT CHEST WITH CONTRAST REASON FOR EXAM: Female, 63 years old. Lung cancer. RADIATION DOSAGE (If Supplied By Facility): CTDIvol = ( 12.08 ) mGy, DLP = ( 495.21 ) mGycm TECHNIQUE: Transaxial imaging was performed following intravenous administration of 100 ml of Isovue 300 contrast material. Multiplanar coronal and sagittal images were reformatted. Individualized dose optimization techniques were used for this CT. COMPARISON: CT of the chest, April 07, 2018. FINDINGS: The lungs are well expanded. There are bullous changes pleural scarring in both lung apices. Again seen are multiple small spiculated soft tissue masses throughout both lungs. These appear unchanged in size or number. The area of consolidation in the medial left lower lobe again unchanged. There is no demonstrated pleural abnormality. Normal heart and pericardium. Pacer leads are seen in the right heart. There is stable mediastinal lymphadenopathy. The largest node in the precarinal space measures 1.1 x 1 x 1.9 cm. There is a soft tissue mass in the anterior mediastinum measuring 1.8 x 1.7 x 2.9 cm in size. These findings are unchanged. Normal hilar regions. Normal enhanced pulmonary arteries. There is atherosclerotic calcification of the aortic arch with tortuosity and elongation of the aortic arch and descending thoracic aorta. There are multi-level degenerative changes of the thoracic spine. There is diffuse fatty infiltration of a prominent liver without focal mass. There is slight prominence of the left adrenal gland which may be due to hyperplasia. Possibility of a small mass cannot be completely ruled out. Again this is a stable finding. CT/Chest WITH Contrast IMPRESSION: 1. Multiple small pulmonary nodules and mediastinal lymphadenopathy most suggestive of metastatic disease. These are unchanged from the prior study. 2. Stable opacification medial left lung base. 3. Stable soft tissue mass in the anterior mediastinum. 4. Cardiac pacemaker. 5. Prominent fatty infiltrated liver. 6. Left adrenal hyperplasia versus small mass. Electronically Signed: Ridge Thomson DO at 19:44 EDT Tel [phone], Service support , CC: Daquan Baeza MD; Jens Garibay MD [place] Supervisor: Signed ONCOLOGY VISIT REPORT Observed: 04/09/2018 Status: F Source: [place] 7:28 PM [facility] REPOSITORY [facility] [address] [place] [address] OFFICE VISIT Date of Service: 04/09/18 1452 MR#: [id number] Acct: [id number] Name: RUTH PARRISH Rep #: [id number] : 1955 From: Daquan Baeza MD Age/Sex: 63/F Location: OMD Status: Signed Subjective - Date of Service Date of Service:: 04/09/18 - Chief Complaint F/u for NSCLC and SCLC - History of Present Illness Ms. 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 CT-guided biopsy of the left lower lobe mass showed non-small cell lung cancer favoring adenocarcinoma on March 15, 2016. She had FOB and biopsy on April at [facility], which showed right middle lobe small cell carcinoma. She received 4 cycles of carboplatin/etoposide from May 22, 2016 to July 24, 2016. She had a persistent left lower lobe mass and left upper lobe mass on PET-CT obtained July 15, 2016. Experienced radicular pain on the left side, which corresponded to the left lower lobe mass sitting on the chest wall. She began concurrent chemotherapy and radiation therapy with cisplatin and Alimta on August 29, 2016. Completed 33 fractions 180 cGy) on 10/12/16. Completed 6 cycles of Cisplatin/Alimta on 12/12/16. MRI brain obtained 01/10/17 obtained to address c/o prolonged nausea was negative for metastatic disease. CT scan of chest obtained 01/21/17 reveal opacity in the posterior segment of left upper lobe is decreased in size and stable subcentimeter nodules bilaterally. She had developed pain in the Left hip, bone scan on 03/27/2017 was negative and x-rays on 03/28/[address] chest done on 07/25/2017 showed increasing number and size of multiple pulmonary nodules, consolidation of the medial left lower lobe, increase in prevascular lymph nodes. PET/CT on 08/12/2017 showed new bilateral hypermetabolic activities suggestive of metastatic malignancy. She was referred for CT guided biopsy right upper lobe nodule 08/21/2017, however attempt was unsuccessful and patient elected to forgo further biopsy attempts. Began second line chemotherapy with Cisplatin/irinotecan on 09/16/17. Experienced diarrhea after C1D15 so Irinotecan was decreased to 50mg/m2. With C3D8 Irinotecan, had nausea on and off, relief with Zofran and Phenergan. Finished 4th cycle on 12/24/2017. Underwent CT C/A/P on 01/07/2018 which showed L lower lobe density decreased in size, lung nodules have decrease in number. She had CT done and comes for follow up. 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 Past Surgical History Surgical: Tubal ligation Other Surgical History: SECTION TRIPLE HERNIA REPAIR CHEST PORT PLACEMENT Family History Paternal Past Medical History: Unknown Maternal Past Medical History: Diabetes mellitus,Hypertension Social History Social History: No changes Smoking Status Current every day smoker Review of Systems Constitutional:: Denies: Fever, Sweats, Weight loss, Appetite change, Chills Cardiovascular:: Denies: Chest pain, Palpitations, Dyspnea on exertion, Orthopnea, PND, Shortness of breath Respiratory: Denies: Cough, Hemoptysis, Shortness of Breath, Wheezing Gastrointestinal:: Denies: Abdominal pain, Nausea, Vomiting, Diarrhea, Constipation, Hematochezia Genitourinary: Denies: Dysuria, Hematuria, 15, Flank pain Musculoskeletal:: Denies: Back pain, Myalgia, Arthralgia Skin: Denies: Rash, Skin Changes, Wounds Neurological:: Denies: Headache, Dizziness, Visual changes, Tinnitus, Hearing loss Psychiatric: Denies: Anxiety, Depression, Homicidal Ideations, Suicidal Ideations Vital Signs Height 5 ft 5 in Weight: 68.946 kg Weight in Pounds 152.0 lbs Pulse Ox 97 - Physical Exam General: Alert, Oriented x3, No apparent distress Laboratory Data: Laboratory Tests WBC Cancelled Diagnostic Data: 04/07/[address]/Chest WITH Contrast IMPRESSION: There has been progression of disease with small metastatic lesions scattered throughout both lungs which are too numerous to count. These measure no more than 1 cm in largest diameter. There is stable dense opacity in the medial segment of the left lower lobe of unknown etiology. There is a small left pleural effusion. There is no significant mediastinal lymphadenopathy, however there appear to be metastatic lesions in the prevascular space adjacent to the aortic arch, possibly along the pleural margin of the left upper lobe. Electronically Signed: Jessi Olivia MD at 16:13 EDT Assessment and Plan Non-small cell lung cancer left lower lobe stage IIIA status post chemoradiation therapy. Small cell lung cancer, limited disease, right lung. Progressive disease, s/p 4 cycles of 2nd line Cisplatin and Irinotecan, finished on 12/24/2017. CT on 04/07/2018 shows new lung nodules, too small for biopsy. Discussed options including observation, CT guided biopsy may be difficult because of size. Pt elects to wait a few months then do biopsy. Plan is to do observation. Obtain CT chest in 6 weeks. RTC 6 wks. Medications: Prescriptions This Visit Medication Instructions Recorded Lorazepam [Ativan] 0.5 mg PO BID PRN #60 tablet 09/02/17 Primary Care Provider: Referring Provider: - Problem List (1) Small cell carcinoma of right lung Status: Chronic (2) Non-small cell carcinoma of left lung Status: Chronic Code Visit Office Visits / Consults: [id number] OV L4 Est 04/09/181927 <Electronically signed by Daquan Baeza MD> Date Daquan Baeza MD Cosigner Signature: Date (if applicable) CC: CBC W/DIFF, AUTOMATED Collected: 04/07/2018 Status: F Source: [facility] 11:32 AM [facility] REPOSITORY Order Comment: Reason for Laboratory Test . TYPE CODE TESTS RESULT OUT OF RANGE REFERENCE UNITS LAB L100.1000 4.4-11.0 K/mm3 Normal WBC 8.2 LAB L100.1200 4.2-5.4 M/mm3 Low RBC 4.05 LAB L100.1300 12.0-15.0 g/dl Normal HGB 13.8 LAB L100.1400 37-47 % Normal HCT 39.7 LAB L100.1500 81-99 fL Normal MCV 98.0 LAB L100.1600 27.0-32.0 pg High MCH 34.1 LAB L100.1700 32-36 g/gl Normal MCHC 34.8 LAB L100.1810 11.6-14.6 % Normal RDW CV 13.6 LAB L100.1820 35.1-43.9 fl High RDW SD 48.2 LAB L100.1900 150-450 K/mm3 Normal PLT 400 LAB L100.2000 6.2-12.0 fl Normal MPV 9.0 LAB L100.2100 47-70 % Normal NEUT% 64.7 LAB L100.2200 19-41 % Normal LY% 20.5 LAB L100.2300 0-10 % High MONO% 12.0 LAB L100.2400 0-5 % Normal EO% 0.7 LAB L100.2500 0-1 % Normal BASO% 0.4 LAB L100.2550 0.0-0.9 % High IM GRAN % 1.700 Result Comment: IG% - Immature Granulocytes (promyelocytes, myelocytes and metamyelocytes) > 1% indicates that a LEFT SHIFT is Present. LAB L100.2620 2.0-7.7 X10 3/uL Normal Absolute Neut 5.3 LAB L100.2720 0.83-4.51 X10 3/ul Normal Absolute Lymph 1.68 Performed By: #### L100.0100, L500.4050 #### [facility] [address] [place], [address] COMPREHENSIVE METABOLIC Collected: 04/07/2018 Status: F Source: [facility] 11:32 AM [facility] REPOSITORY Order Comment: Reason for Laboratory Test . TYPE CODE TESTS RESULT OUT OF RANGE REFERENCE UNITS LAB L501.0100 74-106 mg/dL High GLU 161 Result Comment: Fasting Glucose result greater than or equal to 126 mg/dL suggests DIABETES MELLITUS per A.D.A. criteria. Please note revised GLUCOSE reference range effective 2017. LAB L501.1000 7-18 mg/dL Normal BUN 13 LAB L501.1100 0.55-1.02 mg/dL Normal CREAT,SERUM 0.90 Result Comment: The validity of the calculated GFR AND GFRAA in patients over 70 years has not been determined. Clinical correlation is essential. LAB L501.1110 >60 mL/min Normal EST GFR 67 Result Comment: Non- GFR Calc LAB L501.1115 >60 mL/min Normal EST GFR - AA 81 Result Comment: GFR Calc LAB L501.1300 10-20 RATIO Normal BUN/CRE 14.4 LAB L501.1500 6.4-8.2 g/dL T Normal PROT 7.6 LAB L501.1800 3.2-5.0 g/dL Normal ALB 3.9 LAB L501.1950 2.2-4.2 g/dL Normal GLOB 3.7 LAB L501.2000 0.9-2.4 RATIO Normal A/G 1.1 LAB L501.2200 8.5-10.1 mg/dL CA Normal 8.8 LAB L501.4100 15-37 U/L Normal AST 18 LAB L501.4305 45-117 U/L Normal ALK P 99 LAB L501.4405 13-56 U/L Normal ALT 25 LAB L501.4600 0.20-1.00 mg/dL T Normal BILI 0.40 LAB L501.5300 136-145 mmol/L NA Normal 138 LAB L501.5600 3.5-5.1 mmol/L K Normal 3.8 LAB L501.5900 98-107 mmol/L CL Normal 106 LAB L501.6100 21.0-32.0 mmol/L Normal CO2 23.0 LAB L501.6200 5-15 Normal GAP 9 Performed By: #### L100.0100, L500.4050 #### [facility] [address] [facility] [place], [address] ABDOMEN WITH IV Observed: 04/07/2018 Status: F Source: [place] CONTRAST 10:53 AM [facility] REPOSITORY [facility] Imaging Services [address] [place] [address] Abdomen WITH IV Contrast MR#: [id number] Acct: [id number] Name: SHIVANIRUTH Radha Rep #: [id number] : 1955 F 63 From: Jessi Olivia MD PCP: Jens Garibay MD Status: REG CLI Study: Abdomen WITH IV Contrast Date of Exam: 04/07/18 Exam# [id number] Ordering Dr: Daquan Baeza MD STUDY: CT ABDOMEN WITH CONTRAST REASON FOR EXAM: Female, 63 years old. Lung cancer RADIATION DOSAGE (If Supplied By Facility): CTDIvol = ( 12.08 ) mGy, DLP = ( 932.29 ) mGycm TECHNIQUE: Transaxial images were obtained from the lower chest to the upper pelvis with oral contrast. 100 ml of Isovue 300 contrast was administered. Sagittal and coronal images were reconstructed. Individualized dose optimization techniques were used for this CT. COMPARISON: January 07, 2018 FINDINGS: The lower chest is dictated separately. There are no discrete liver masses. There is minimal focal fatty infiltration at the falciform ligament. The gallbladder and biliary system are unremarkable. The spleen is unremarkable. The pancreas is unremarkable. The adrenal glands are unremarkable. There are benign cysts in the right kidney. There is no dilatation of the collecting system in the right kidney. The left kidney is unremarkable. There is no dilatation of the collecting system in the left kidney. The stomach is unremarkable. The visualized small bowel is unremarkable. There are diverticula scattered throughout the visualized colon without adjacent stranding. The appendix is visualized and appears normal. There are moderate vascular calcifications. Incidentally noted is a circumaortic left renal vein. There are small lymph nodes scattered in the retroperitoneum. There is no free fluid in the abdomen. There is a small umbilical hernia containing fat. There are mild degenerative changes in the visualized spine. There are marked degenerative disc changes at L5-S1 with herniated disc and air. CT/Abdomen WITH IV Contrast IMPRESSION: There is no evidence of metastatic disease in the abdomen. There are no enlarged lymph nodes. There is diverticulosis of the visualized colon. There are marked degenerative disc changes at L5-S1 with disc extrusion posteriorly resulting in moderate canal narrowing. Electronically Signed: Jessi Olivia MD at 15:59 EDT Tel Direct: [phone], Service support , CC: Daquan Baeza MD; Jens Garibay MD [place] Supervisor: Signed CHEST WITH CONTRAST Observed: 04/07/2018 Status: F Source: [place] 10:53 AM [facility] REPOSITORY [facility] Imaging Services [address] [place] [address] Chest WITH Contrast MR#: [id number] Acct: [id number] Name: RUTH PARRISH Rep #: [id number] : 1955 F 63 From: Jessi Olivia MD PCP: Jens Garibay MD Status: REG CLI Study: Chest WITH Contrast Date of Exam: 04/07/18 Exam# [id number] Ordering Dr: Daquan Baeza MD STUDY: CT CHEST WITH CONTRAST REASON FOR EXAM: Female, 63 years old. Lung cancer follow-up RADIATION DOSAGE (If Supplied By Facility): CTDIvol = ( 12.08 ) mGy, DLP = ( 932.29 ) mGycm TECHNIQUE: Transaxial imaging was performed following intravenous administration of 100 ml of Isovue 300 contrast material. Sagittal and coronal reconstructions were performed. Individualized dose optimization techniques were used for this CT. COMPARISON: Chest CT dated January 07, 2018 FINDINGS: There is a port in the upper right chest terminating in the right atrium. There are bullous changes in the periphery of both upper lobes. There is stable biapical scarring. There are innumerable small opacities scattered throughout both lungs which are either new or increased in size compared to the prior study. Dense opacity is again seen in the medial segment of the left lower lobe with a few air bronchograms. The appearance is stable. There is minimal fluid in the left pleural margin. The heart is normal in size. There are small lymph nodes scattered in the mediastinum. There is stable minimal soft tissue opacity in the anterior mediastinum. There are irregular soft tissue opacities in the prevascular space adjacent to the aortic arch measuring up to 1 cm in width. The hilar regions are unremarkable. The pulmonary arteries are unremarkable. There are minimal vascular calcifications in the thoracic aorta. There are minimal degenerative changes in the visualized spine. The upper abdomen is dictated separately. CT/Chest WITH Contrast IMPRESSION: There has been progression of disease with small metastatic lesions scattered throughout both lungs which are too numerous to count. These measure no more than 1 cm in largest diameter. There is stable dense opacity in the medial segment of the left lower lobe of unknown etiology. There is a small left pleural effusion. There is no significant mediastinal lymphadenopathy, however there appear to be metastatic lesions in the prevascular space adjacent to the aortic arch, possibly along the pleural margin of the left upper lobe. Electronically Signed: Jessi Olivia MD at 16:13 EDT Tel Direct: [phone], Service support , CC: Daquan Baeza MD; Jens Garibay MD [place] Supervisor: Signed Observed: 01/23/2018 Status: F Source: [place] ENTERIC PATHOGEN 8:46 AM [facility] PANEL STOOL REPOSITORY Reason for Laboratory Test . EP PANEL STOOL Not detected for Campylobacter group, Salmonella species, Shigella species, Vibrio Group, Yersinia enterocolitica, EHEC (Shiga Toxin 1, Shiga Toxin 2), Norovirus Gl/Gll, and Rotavirus A. Other common stool pathogens are not detected on this panel include: Aeromonas/Plesiomonas or parasites. Order testing for these organisms separately if suspected. This is an amplified DNA test which makes it both specific and sensitive. Normal Reference Range = Not Detected CAMPYLOBACTER Not Detected Salmonella Not Detected Shigella sp. Not Detected Shiga Toxin Not Detected Yersinia Not Detected VIBRIO Not Detected Norovirus Not Detected Rotavirus Not Detected Performed By: #### M100.637 #### [facility] [address] [place] [address], [address] ONCOLOGY VISIT REPORT Observed: 01/20/2018 Status: F Source: [place] 11:46 AM [facility] REPOSITORY [facility] [address] [place] [address]. [place] [address] OFFICE VISIT Date of Service: 01/20/18 1058 MR#: [id number] Acct: [id number] Name: RUTH PARRISH Rep #: [id number] : 1955 From: Ange AGRAWAL Age/Sex: 62/F Location: ONC Status: Signed Subjective - Date of Service Date of Service:: 01/20/18 - Chief Complaint Acute visit- Leg cramps/diarrhea - History of Present Illness Ms. 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 CT-guided biopsy of the left lower lobe mass showed non-small cell lung cancer favoring adenocarcinoma on March 15, 2016. She had FOB and biopsy on April at [facility], which showed right middle lobe small cell carcinoma. She received 4 cycles of carboplatin/etoposide from May 22, 2016 to July 24, 2016. She had a persistent left lower lobe mass and left upper lobe mass on PET-CT obtained July 15, 2016. Experienced radicular pain on the left side, which corresponded to the left lower lobe mass sitting on the chest wall. She began concurrent chemotherapy and radiation therapy with cisplatin and Alimta on August 29, 2016. Completed 33 fractions 180 cGy) on 10/12/16. Completed 6 cycles of Cisplatin/Alimta on 12/12/16. MRI brain obtained 01/10/17 obtained to address c/o prolonged nausea was negative for metastatic disease. CT scan of chest obtained 01/21/17 reveal opacity in the posterior segment of left upper lobe is decreased in size and stable subcentimeter nodules bilaterally. She had developed pain in the Left hip, bone scan on 03/27/2017 was negative and x-rays on 03/28/[address] chest done on 07/25/2017 showed increasing number and size of multiple pulmonary nodules, consolidation of the medial left lower lobe, increase in prevascular lymph nodes. PET/CT on 08/12/2017 showed new bilateral hypermetabolic activities suggestive of metastatic malignancy. She was referred for CT guided biopsy right upper lobe nodule 08/21/2017, however attempt was unsuccessful and patient elected to forgo further biopsy attempts. Began second line chemotherapy with Cisplatin/irinotecan on 09/16/17. Experienced diarrhea after C1D15 so Irinotecan was decreased to 50mg/m2. With C3D8 Irinotecan, had nausea on and off, relief with Zofran and Phenergan. Finished 4th cycle on 12/24/2017. Underwent CT C/A/P on 01/07/2018 which showed L lower lobe density decreased in size, lung nodules have decrease in number. - Interval History The patient is presenting to clinc for an acute visit at her request with c/o dry nouth, diarrhea and bilat leg cramps. C/o cramping in calves bilat primarily during the night. Describes diarrhea as watery, small in amount and occurs <=1 time/day. Denies bloody, mucous-like and abd cramping. Imodium is effective. Has not required atb therapy, no hospital admissions nor been exposed to any one with similar symptoms. Taking K and magnesium supplements daily. Also c/o generalized weakness and occasional positional dizziness. 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 Past Surgical History Surgical: Tubal ligation Other Surgical History: SECTION TRIPLE HERNIA REPAIR CHEST PORT PLACEMENT Family History Paternal Past Medical History: Unknown Maternal Past Medical History: Diabetes mellitus,Hypertension Social History Social History: No changes Smoking Status Current every day smoker Review of Systems Constitutional:: Reports: Weakness, Fatigue. Denies: Fever, Sweats, Weight loss, Appetite change, Chills Cardiovascular:: Denies: Chest pain, Palpitations, Dyspnea on exertion, Orthopnea, PND, Shortness of breath Respiratory: Denies: Cough, Hemoptysis, Shortness of Breath, Wheezing Gastrointestinal:: Reports: Diarrhea. Denies: Abdominal pain, Nausea, Vomiting, Constipation, Melena, Hematochezia Genitourinary: Denies: Dysuria, Hematuria, 15, Flank pain Musculoskeletal:: Denies: Back pain, Myalgia, Arthralgia Skin: Denies: Rash, Skin Changes, Wounds Neurological:: Denies: Headache, Dizziness, Numbness, Tingling, Visual changes, Tinnitus, Hearing loss Psychiatric: Denies: Anxiety, Depression, Homicidal Ideations, Suicidal Ideations Vital Signs Height 5 ft 5 in Weight: 149 lb 9.6 oz Weight in Pounds 149.6 lbs Pulse Ox 99 - Physical Exam General: Alert, Oriented x3, No apparent distress HEENT: Atraumatic, Normocephalic Oropharynx:: Dry mucosa, White exudate. Negative for: Ulcerated lesions Neck:: Supple, Trachea midline. Negative for: JVD, bilateral Cardiac:: Regular rate, Regular rhythm, Normal S1, Normal S2. Negative for: Murmur Lungs: Clear to auscultation, Wheezes - faint expiratory, Excusion symmetrical. Negative for: Rhonchi Abdomen:: Bowel sounds x 4, Soft, Non-tender, Non-distended. Negative for: Hepatosplenomegaly Extremities:: Negative for: Cyanosis, Edema Neurological: Neuro grossly intact Skin:: - - port right upper chest accessed with gripper covered with DSD. Negative for: Lesions, Rash, Petechiae, Ecchymosis Psychiatric:: Appropriate affect, Euthymic Lymphatics:: Negative for: Cervical lymphadenopathy, Supraclavicular lymphadenopathy, Axillary lymphadenopathy Assessment and Plan 1. Non-small cell lung cancer left lower lobe stage IIIA status post chemoradiation therapy. 2. Small cell lung cancer, limited disease, right lung- Progressive disease, s/p 4 cycles of 2nd line Cisplatin and Irinotecan, finished on 12/24/2017. CT on 01/07/2018 shows partial response. Pt elected observation. CT chest/abdomen in 3 months. 3. Leg cramps- Likely r/t dehydration. Patient will receive 1 L NS IV today. Encouraged to increase PO fluid intake. CMP pending. 4. Diarrhea- Questionable adverse effect of PO magnesium. Mg level today pending. Will hold PO magnesium. Patient to assess for response in 2 days, if no improvement is noted to submit stool specimen for culture and C Diff 5. Oral candidiasis- Rx provided for Nystatin. Continues to smoke 1/2 ppd. Stressed the importance of good oral hygiene, inclusive of mouth rinses subsequent to smoking. RTC 3 months with cbc, cmp/LDH, mag/CT c/a as previously planned, sooner if issues arise. Ange Diaz, MSN, [employer]IAN-C, AOCNP Medications: Prescriptions This Visit Medication Instructions Recorded Lorazepam [Ativan] 0.5 mg PO BID PRN #60 tablet 09/02/17 Lidocaine/Prilocaine 30 gm TP UD 30 Days #1 tube 09/09/17 Primary Care Provider: No Primary Care Phys Referring Provider: - Problem List (1) Non-small cell carcinoma of left lung Status: Chronic (2) Small cell carcinoma of right lung Status: Chronic (3) Diarrhea Status: Acute Qualifiers: Diarrhea type: unspecified type Qualified Code(s): R19.7 - Diarrhea, unspecified (4) Dehydration Status: Acute (5) Oral candidiasis Status: Acute 01/20/18 1146 <Electronically signed by Ange AGRAWAL> Date Ange RDEC Cosigner Signature: Date (if applicable) CC: CBC W/DIFF, AUTOMATED Collected: 01/20/2018 Status: F Source: [facility] 10:40 AM [facility] [place] REPOSITORY Order Comment: Reason for Laboratory Test Chemo TYPE CODE TESTS RESULT OUT OF RANGE REFERENCE UNITS LAB L100.1000 4.4-11.0 K/mm3 Normal WBC 8.9 LAB L100.1200 4.2-5.4 M/mm3 Low RBC 3.40 LAB L100.1300 12.0-15.0 g/dl Normal HGB 12.2 LAB L100.1400 37-47 % Low HCT 35.7 LAB L100.1500 81-99 fL High MCV 105.0 LAB L100.1600 27.0-32.0 pg High MCH 35.9 LAB L100.1700 32-36 g/gl Normal MCHC 34.2 LAB L100.1810 11.6-14.6 % High RDW CV 15.0 LAB L100.1820 35.1-43.9 fl High RDW SD 56.3 LAB L100.1900 150-450 K/mm3 Normal PLT 376 LAB L100.2000 6.2-12.0 fl Normal MPV 9.2 LAB L100.2100 47-70 % Normal NEUT% 65.4 LAB L100.2200 19-41 % Normal LY% 19.3 LAB L100.2300 0-10 % High MONO% 13.2 LAB L100.2400 0-5 % Normal EO% 0.1 LAB L100.2500 0-1 % Normal BASO% 0.3 LAB L100.2550 0.0-0.9 % High IM GRAN % 1.700 Result Comment: IG% - Immature Granulocytes (promyelocytes, myelocytes and metamyelocytes) > 1% indicates that a LEFT SHIFT is Present. LAB L100.2620 2.0-7.7 X10 3/uL Normal Absolute Neut 5.8 LAB L100.2720 0.83-4.51 X10 3/ul Normal Absolute Lymph 1.72 Performed By: #### L100.0100, L500.4050, L501.5200 #### [facility] [address] [place], [address] COMPREHENSIVE METABOLIC Collected: 01/20/2018 Status: F Source: LIO [facility] 10:40 AM [facility] [place] REPOSITORY Order Comment: Reason for Laboratory Test Chemo TYPE CODE TESTS RESULT OUT OF RANGE REFERENCE UNITS LAB L501.0100 74-106 mg/dL High GLU 139 Result Comment: Fasting Glucose result greater than or equal to 126 mg/dL suggests DIABETES MELLITUS per A.D.A. criteria. Please note revised GLUCOSE reference range effective 2017. LAB L501.1000 7-18 mg/dL Normal BUN 7 LAB L501.1100 0.55-1.02 mg/dL Normal CREAT,SERUM 0.90 Result Comment: The validity of the calculated GFR AND GFRAA in patients over 70 years has not been determined. Clinical correlation is essential. LAB L501.1110 >60 mL/min Normal EST GFR 67 Result Comment: Non- GFR Calc LAB L501.1115 >60 mL/min Normal EST GFR - AA 81 Result Comment: GFR Calc LAB L501.1255 ml/min Normal Estimated CRCL 57.57 LAB L501.1300 10-20 RATIO Low BUN/CRE 7.7 LAB L501.1500 6.4-8. g/dL Normal 2 T PROT 7.4 LAB L501.1800 3.2-5. g/dL Normal 0 ALB 3.9 LAB L501.1950 2.2-4. g/dL Normal 2 GLOB 3.5 LAB L501.2000 0.9-2. RATIO Normal 4 A/G 1.1 LAB L501.2200 8.5-10 mg/dL Normal .1 CA 9.0 LAB L501.4100 15-37 U/L Normal AST 30 LAB L501.4305 45-117 U/L Normal ALK P 87 LAB L501.4405 13-56 U/L Normal ALT 27 LAB L501.4600 0.20-1 mg/dL Normal .00 T BILI 0.40 LAB L501.5300 136-14 mmol/L Normal 5 NA 139 LAB L501.5600 3.5-5. mmol/L Normal 1 K 3.6 LAB L501.5900 98-107 mmol/L Normal CL 106 LAB L501.6100 21.0-3 mmol/L Normal 2.0 CO2 26.0 LAB L501.6200 5-15 Normal GAP 7 Performed By: #### L100.0100, L500.4050, L501.5200 #### [facility] [address] [place], [place], [address] MAGNESIUM Collected: 01/20/2018 Status: F Source: [facility] 10:40 AM [facility] [place] REPOSITORY Order Comment: Reason for Laboratory Test Chemo TYPE CODE TESTS RESULT OUT OF RANGE REFERENCE UNITS LAB L501.5200 1.6-2.6 mg/dL Normal MG 1.6 Performed By: #### L100.0100, L500.4050, L501.5200 #### [facility] [address] [place], [address] COMPREHENSIVE METABOLIC Collected: 01/09/2018 Status: F [facility] [place] REPOSITORY Order Comment: Reason for Laboratory Test . Serial Specimen #1, #2 or #3? 1 TYPE CODE TESTS RESULT OUT OF RANGE REFERENCE UNITS LAB L501.0100 74-106 mg/dL High GLU 114 Result Comment: Fasting Glucose result from 100 to 125 mg/dL suggests IMPAIRED HOMEOSTASIS per A.D.A. criteria. Please note revised GLUCOSE reference range effective 2017. LAB L501.1000 7-18 mg/dL Normal BUN 12 LAB L501.1100 0.55-1.02 mg/dL Normal CREAT,SERUM 0.88 Result Comment: The validity of the calculated GFR AND GFRAA in patients over 70 years has not been determined. Clinical correlation is essential. LAB L501.1110 >60 mL/min Normal EST GFR 69 Result Comment: Non- GFR Calc LAB L501.1115 >60 mL/min Normal EST GFR - AA 84 Result Comment: GFR Calc LAB L501.1255 ml/min Normal Estimated CRCL 58.88 LAB L501.1300 10-20 RATIO Normal BUN/CRE 13.7 LAB L501.1500 6.4-8. g/dL Normal 2 T PROT 7.2 LAB L501.1800 3.2-5. g/dL Normal 0 ALB 3.9 LAB L501.1950 2.2-4. g/dL Normal 2 GLOB 3.3 LAB L501.2000 0.9-2. RATIO Normal 4 A/G 1.2 LAB L501.2200 8.5-10 mg/dL Normal .1 CA 9.1 LAB L501.4100 15-37 U/L Normal AST 16 LAB L501.4305 45-117 U/L Normal ALK P 79 LAB L501.4405 13-56 U/L Normal ALT 22 LAB L501.4600 0.20-1 mg/dL Normal .00 T BILI 0.50 LAB L501.5300 136-14 mmol/L Normal 5 NA 140 LAB L501.5600 3.5-5. mmol/L Normal 1 K 3.9 LAB L501.5900 98-107 mmol/L High CL 108 LAB L501.6100 21.0-3 mmol/L Normal 2.0 CO2 26.0 LAB L501.6200 5-15 Normal GAP 6 Performed By: #### L500.4050, L501.5200, L504.2610 #### [facility] [address] [facility]. [place], [place], [id number] MAGNESIUM Collected: 01/09/2018 Status: F Source: [place] 2:28 PM [facility] [place] REPOSITORY Order Comment: Reason for Laboratory Test . Serial Specimen #1, #2 or #3? 1 TYPE CODE TESTS RESULT OUT OF RANGE REFERENCE UNITS LAB L501.5200 1.6-2.6 mg/dL Normal MG 1.7 Performed By: #### L500.4050, L501.5200, L504.2610 #### [facility] [address] [place], [place], [address] LDH Collected: 01/09/2018 Status: F Source: [place] 2:28 PM [facility] [place] REPOSITORY Order Comment: Reason for Laboratory Test . Serial Specimen #1, #2 or #3? 1 TYPE CODE TESTS RESULT OUT OF RANGE REFERENCE UNITS LAB L504.2610 84-246 U/L High LDH 250 Performed By: #### L500.4050, L501.5200, L504.2610 #### [facility] [address] [place], [address] ONCOLOGY VISIT REPORT Observed: 01/09/2018 Status: F Source: [place] 2:18 PM [facility] [place] REPOSITORY [facility] [address] [place] [address] OFFICE VISIT Date of Service: 01/09/18 1406 MR#: [id number] Acct: [id number] Name: RUTH PARRISH Rep #: [id number] : 1955 From: Daquan Baeza MD Age/Sex: 62/F Location: OMD Status: Signed Subjective - Date of Service Date of Service:: 01/09/18 - Chief Complaint F/u for CT results. - History of Present Illness Ms. 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 CT-guided biopsy of the left lower lobe mass showed non-small cell lung cancer favoring adenocarcinoma on March 15, 2016. She had FOB and biopsy on April at [facility], which showed right middle lobe small cell carcinoma. She received 4 cycles of carboplatin/etoposide from May 22, 2016 to July 24, 2016. She had a persistent left lower lobe mass and left upper lobe mass on PET-CT obtained July 15, 2016. Experienced radicular pain on the left side, which corresponded to the left lower lobe mass sitting on the chest wall. She began concurrent chemotherapy and radiation therapy with cisplatin and Alimta on August 29, 2016. Completed 33 fractions 180 cGy) on 10/12/16. Completed 6 cycles of Cisplatin/Alimta on 12/12/16. MRI brain obtained 01/10/17 obtained to address c/o prolonged nausea was negative for metastatic disease. CT scan of chest obtained 01/21/17 reveal opacity in the posterior segment of left upper lobe is decreased in size and stable subcentimeter nodules bilaterally. She had developed pain in the Left hip, bone scan on 03/27/2017 was negative and x-rays on 03/28/[address] chest done on 07/25/2017 showed increasing number and size of multiple pulmonary nodules, consolidation of the medial left lower lobe, increase in prevascular lymph nodes. PET/CT on 08/12/2017 showed new bilateral hypermetabolic activities suggestive of metastatic malignancy. She was referred for CT guided biopsy right upper lobe nodule 08/21/2017, however attempt was unsuccessful and patient elected to forgo further biopsy attempts. Began second line chemotherapy with Cisplatin/irinotecan on 09/16/17. Had diarrhea after C1D15 so Irinotecan was decreased to 50mg/m2. With C3D8 Irinotecan, had nausea on and off, relief with Zofran and Phenergan. Finished 4th cycle on 12/24/2017. Had CT chest/abdomen. Comes in for follow up. 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 Past Surgical History Surgical: Tubal ligation Other Surgical History: SECTION TRIPLE HERNIA REPAIR CHEST PORT PLACEMENT Family History Paternal Past Medical History: Unknown Maternal Past Medical History: Diabetes mellitus,Hypertension Social History Social History: No changes Smoking Status Current every day smoker Review of Systems Constitutional:: Denies: Fever, Sweats, Weight loss, Appetite change, Chills Cardiovascular:: Denies: Chest pain, Palpitations, Dyspnea on exertion, Orthopnea, PND, Shortness of breath Respiratory: Denies: Cough, Hemoptysis, Shortness of Breath, Wheezing Gastrointestinal:: Denies: Abdominal pain, Nausea, Vomiting, Diarrhea, Constipation, Hematochezia Genitourinary: Denies: Dysuria, Hematuria, 15, Flank pain Musculoskeletal:: Denies: Back pain, Myalgia, Arthralgia Skin: Denies: Rash, Skin Changes, Wounds Neurological:: Denies: Headache, Dizziness, Visual changes, Tinnitus, Hearing loss Psychiatric: Denies: Anxiety, Depression, Homicidal Ideations, Suicidal Ideations Vital Signs Height 5 ft 5 in Weight: 68.039 kg Weight in Pounds 150.0 lbs Pulse Ox 98 - Physical Exam General: Alert, Oriented x3, No apparent distress Diagnostic Data: 01/07/2018 CT chest reviewed, L lower lobe density decreased in size, lung nodules have decrease in number. Assessment and Plan Non-small cell lung cancer left lower lobe stage IIIA status post chemoradiation therapy. Small cell lung cancer, limited disease, right lung. Progressive disease, s/p 4 cycles of 2nd line Cisplatin and Irinotecan, finished on 12/24/2017. CT on 01/07/2018 shows partial response. Discussed options including observation vs more cycles of chemotherapy. Pt elects observation. Plan is to do observation. Obtain CT chest/abdomen in 3 months. RTC 3 months with cbc, cmp/LDH, mag/CT c/a. Medications: Prescriptions This Visit Medication Instructions Recorded Lorazepam [Ativan] 0.5 mg PO BID PRN #60 tablet 09/02/17 Lidocaine/Prilocaine 30 gm TP UD 30 Days #1 tube 09/09/17 [Lidocaine-Prilocaine Cream] Ondansetron [Zofran] 8 mg PO Q8H PRN PRN 30 Days #30 tab 09/09/17 Primary Care Provider: No Primary Care Phys Referring Provider: - Problem List (1) Small cell carcinoma of right lung Status: Chronic (2) Non-small cell carcinoma of left lung Status: Chronic Code Visit Office Visits / Consults: 21495 OV L4 Est 01/09/18 1418 <Electronically signed by Daquan Baeza MD> Date Daquan Baeza MD Cosigner Signature: Date (if applicable) CC: DOWNTIME REPORT Observed: 01/09/2018 Status: F Source: [facility] 12:09 PM [facility] [place] REPOSITORY [facility] Medical Records Department [address] [place] [address] Downtime Report MR#: [id number] Acct: [id number] Name: RUTH PARRISH Rep #: [id number] : 1955 62 From: Piotr Darling PCP: Jens Garibay MD Status: REG RCR This patient was seen during an EMR downtime December 23, 2017 - December 30, 2017. This patient may have a combination of paper and electronic documentation or all paper documentation. All documentation is viewable within the e-chart portion of [employer] for each patient visit. ABDOMEN/PELVIS WITH Observed: 01/07/2018 Status: F Source: [facility] CONTRAST 10:59 AM [facility] [place] REPOSITORY [facility] Imaging Services [address] [place] [address] Abdomen/Pelvis WITH Contrast MR#: [id number] Acct: [id number] Name: RUTH PARRISH Rep #: [id number] : 1955 F 62 From: Ridge Thomson DO PCP: Jens Garibay MD Status: REG CLI Study: Abdomen/Pelvis WITH Contrast Date of Exam: 01/07/18 Exam# [id number] Ordering Dr: Ange Diaz PROCESS PUMPERMelinda STUDY: CT ABDOMEN AND PELVIS WITH CONTRAST REASON FOR EXAM: Female, 62 years old. Lung cancer. Chemotherapy. Follow-up. RADIATION DOSAGE (If Supplied By Facility): CTDIvol = ( 8.77 ) mGy, DLP = ( 755.14 ) mGycm TECHNIQUE: Transaxial images were obtained from the dome of the diaphragm to the symphysis pubis with oral contrast. 100 ml of Isovue 300 contrast was administered. Sagittal and coronal images were reconstructed. Individualized dose optimization techniques were used for this CT. COMPARISON: CT of the abdomen, November 04, 2017. CT of the abdomen and pelvis, January 21, 2017. FINDINGS: There is infiltrate in the medial aspect of the left lower lobe with focal areas of lower attenuation. There is a small left pleural effusion. The lungs appear otherwise clear. The visualized portions of the heart are within normal limits. Normal liver. Normal gallbladder and extrahepatic biliary system. Normal spleen. Normal pancreas. Normal bilateral adrenal glands. Normal right kidney. Normal left kidney. Normal visualized stomach. Normal small intestine. Scattered descending and sigmoid diverticuli without acute inflammatory change. The proximal colon is normal. The appendix is visualized and appears normal. There is diffuse atherosclerotic calcification of the abdominal aorta, without a demonstrated aneurysm. There is a circumferential left renal vein. Normal inferior vena cava. Normal retroperitoneum. Normal urinary bladder. Normal uterus and ovaries. There are surgical clips suggesting prior tubal ligation. No pelvic lymphadenopathy. No free air or free fluid is seen within the abdominal cavity. A finding suggestive prior hernia repair. Suspect small umbilical hernia of omental fat. There are diffuse degenerative changes of the visualized lumbar spine. CT/Abdomen/Pelvis WITH Contrast IMPRESSION: 1. Stable consolidation in the medial left lower lobe with associated pleural effusion. 2. Diverticulosis without acute inflammatory change. 3. No visualized metastatic disease or major interval change. Electronically Signed: Ridge Thomson DO at 16:51 EDT Tel [phone], Service support , CC: Jens Garibay MD; Ange Diaz NP [place] Supervisor: Signed CHEST WITH CONTRAST Observed: 01/07/2018 Status: F Source: [place] 10:59 AM [facility] [place] REPOSITORY [facility] Imaging Services [address] [place] [address] Chest WITH Contrast MR#: [id number] Acct: [id number] Name: RUTH PARRISH Rep #: [id number] : 1955 F 62 From: Ridge Thomson DO PCP: Jens Garibay MD Status: REG CLI Study: Chest WITH Contrast Date of Exam: 01/07/18 Exam# [id number] Ordering Dr: Ange Diaz PROCESS PUMPER-C STUDY: CT CHEST WITH CONTRAST REASON FOR EXAM: Female, 62 years old. Malignant neoplasm. RADIATION DOSAGE (If Supplied By Facility): CTDIvol = ( 8.77 ) mGy, DLP = ( 755.14 ) mGycm TECHNIQUE: Transaxial imaging was performed following intravenous administration of 100 ml of Isovue 300 contrast material. Multiplanar coronal and sagittal images were reformatted. Individualized dose optimization techniques were used for this CT. COMPARISON: CT of the chest, November 04, 2017. FINDINGS: There is a right jugular Port-A-Cath with its tip in the distal superior vena cava. The lungs are well-expanded. There are scattered subpleural blebs both upper lobes. There is bilateral apical pleural scarring. There is a 4 mm soft tissue nodule lateral left upper lobe best seen on image 31. There is an irregular density measuring 7 x 4 mm in the left upper lobe best seen on image 38. On image 43 there is irregular pleural based density in the superior segment of the right lower lobe measuring 6 mm. There is a vague ill-defined density in the anterolateral right upper lobe measuring 3 mm best seen on image 45 is evidence of focal consolidation in the medial aspect of the left lower lobe contains areas of low attenuation. There are atelectatic changes at the left lung base with minimal pleural effusion. Normal heart and pericardium. There are small nonspecific mediastinal lymph nodes. An 8 mm precarinal lymph node is noted. Normal hilar regions. Normal enhanced pulmonary arteries. There is atherosclerotic calcification of the aortic arch with tortuosity and elongation of the aortic arch and descending thoracic aorta. Normal osseous structures. There is no demonstrated abnormality of the visualized upper abdomen. CT/Chest WITH Contrast IMPRESSION: 1. Stable consolidation/mass in the medial right lower lobe with associated atelectasis and pleural effusion. This is unchanged from prior study. 2. Stable nodular densities in the lungs superimposed on emphysematous change.. 3. No major interval change. Electronically Signed: Ridge Thomson DO at 17:00 EDT Tel [phone], Service support , CC: Jens Garibay MD; Ange Diaz NP [place] Supervisor: Signed CBC W/DIFF, AUTOMATED Collected: 12/24/2017 Status: F Source: [facility] 8:00 AM [facility] [place] REPOSITORY Order Comment: RESULT(S) PREVIOUSLY REPORTED ON MANUAL REQUISITION DURING DOWNTIME. TYPE CODE TESTS RESULT OUT OF RANGE REFERENCE UNITS LAB L100.1000 4.4-11.0 K/mm3 Normal WBC 6.4 LAB L100.1200 4.2-5.4 M/mm3 Low RBC 3.18 LAB L100.1300 12.0-15.0 g/dl Low HGB 10.9 LAB L100.1400 37-47 % Low HCT 32.2 LAB L100.1500 81-99 fL High MCV 101.3 LAB L100.1600 27.0-32.0 pg High MCH 34.3 LAB L100.1700 32-36 g/gl Normal MCHC 33.9 LAB L100.1810 11.6-14.6 % High RDW CV 18.7 LAB L100.1820 35.1-43.9 fl High RDW SD 67.6 LAB L100.1900 150-450 K/mm3 Normal PLT 320 LAB L100.2000 6.2-12.0 fl Normal MPV 9.1 LAB L100.2100 47-70 % Normal NEUT% 69.8 LAB L100.2200 19-41 % Normal LY% 19.9 LAB L100.2300 0-10 % Normal MONO% 8.8 LAB L100.2400 0-5 % Normal EO% 0.2 LAB L100.2500 0-1 % Normal BASO% 0.2 LAB L100.2550 0.0-0.9 % High IM GRAN % 1.100 Result Comment: IG% - Immature Granulocytes (promyelocytes, myelocytes and metamyelocytes) > 1% indicates that a LEFT SHIFT is Present. LAB L100.2620 2.0-7.7 X10 3/uL Normal Absolute Neut 4.5 LAB L100.2720 0.83-4.51 X10 3/ul Normal Absolute Lymph 1.27 LAB L100.4500 Normal SMEAR COMMENT SCANNED Result Comment: 1+ ANISOCYTOSIS Performed By: #### L100.0100 #### [facility] [address] [place], [address] COMPREHENSIVE METABOLIC Collected: 12/24/2017 Status: F Source: LIO [facility] 8:00 AM [facility] [place] REPOSITORY Order Comment: RESULT(S) PREVIOUSLY REPORTED ON MANUAL REQUISITION DURING DOWNTIME. TYPE CODE TESTS RESULT OUT OF RANGE REFERENCE UNITS LAB L501.0100 74-106 mg/dL Normal GLU 86 Result Comment: Please note revised GLUCOSE reference range effective 2017. LAB L501.1000 7-18 mg/dL Normal BUN 11 LAB L501.1100 0.55-1.02 mg/dL Normal CREAT,SERUM 0.73 Result Comment: The validity of the calculated GFR AND GFRAA in patients over 70 years has not been determined. Clinical correlation is essential. LAB L501.1110 >60 mL/min EST GFR Normal 86 LAB L501.1115 >60 mL/min EST GFR Normal - AA 104 LAB L501.1255 ml/min Normal Estimated CRCL 70.98 LAB L501.1300 10-20 RATIO BUN/CRE Normal 15.1 LAB L501.1500 6.4-8.2 g/dL T PROT Normal 6.9 LAB L501.1800 3.2-5.0 g/dL ALB Normal 3.8 LAB L501.1950 2.2-4.2 g/dL GLOB Normal 3.1 LAB L501.2000 0.9-2.4 RATIO A/G Normal 1.2 LAB L501.2200 8.5-10.1 mg/dL CA Normal 8.8 LAB L501.4100 15-37 U/L AST Normal 20 LAB L501.4305 45-117 U/L ALK P Normal 79 LAB L501.4405 13-56 U/L ALT Normal 23 LAB L501.4600 0.20-1.00 mg/dL T BILI Normal 0.50 LAB L501.5300 136-145 mmol/L NA Normal 139 LAB L501.5600 3.5-5.1 mmol/L K Normal 4.0 LAB L501.5900 98-107 mmol/L CL Normal 106 LAB L501.6100 21.0-32.0 mmol/L CO2 Normal 25.0 LAB L501.6200 5-15 GAP Normal 8 Performed By: #### L500.4050 #### [facility] [address] [place], [address] MAGNESIUM Collected: 12/24/2017 Status: F Source: [place] 8:00 AM [facility] REPOSITORY Order Comment: RESULT(S) PREVIOUSLY REPORTED ON MANUAL REQUISITION DURING DOWNTIME. TYPE CODE TESTS RESULT OUT OF RANGE REFERENCE UNITS LAB L501.5200 1.6-2.6 mg/dL Low MG 1.4 Performed By: #### L501.5200 #### [facility] [address], [address] CBC W/DIFF, AUTOMATED Collected: 12/17/2017 Status: C Source: [place] 8:40 AM [facility] REPOSITORY TYPE CODE TESTS RESULT OUT OF RANGE REFERENCE UNITS LAB L100.1000 4.4-11.0 K/mm3 Normal WBC 6.2 LAB L100.1200 4.2-5.4 M/mm3 Low RBC 3.36 LAB L100.1300 12.0-15.0 g/dl Low HGB 11.5 LAB L100.1400 37-47 % Low HCT 33.2 LAB L100.1500 81-99 fL Normal MCV 98.8 LAB L100.1600 27.0-32.0 pg High MCH 34.2 LAB L100.1700 32-36 g/gl Normal MCHC 34.6 LAB L100.1810 11.6-14.6 % High RDW CV 18.4 LAB L100.1820 35.1-43.9 fl High RDW SD 64.5 LAB L100.1900 150-450 K/mm3 Normal PLT 308 LAB L100.2000 6.2-12.0 fl Normal MPV 8.9 LAB L100.3100 MANUAL DIFF Normal CELLS COUNTED 100 LAB L100.3200 47-70 % 59 Normal SEGS LAB L100.3300 0-5 % 1 Normal BAND LAB L100.3500 0-0 High 1 MYELO LAB L100.3800 19-41 % 29 Normal LYMPH LAB L100.3900 0-10 % 10 Normal MONOCYTE LAB L100.5500 ADEQ Normal PLT EST ADEQUATE LAB L100.7000 NORM C AND C NORMAL Normal RED CELL MORPH NORM C+C LAB L100.9900 Normal PATH REV Reviewed Result Comment: Neutrophilic left shift. Clinical correlation necessary. Vidal Avalos M.D. 12/18/17 AMENDED REPORT 12/18/17 1434 PATH REV previously reported as: May foll Performed By: #### L100.0100 #### [facility] [address] [place], [address] COMPREHENSIVE METABOLIC Collected: 12/17/2017 Status: F Source: [place] 8:40 AM [facility] [place] REPOSITORY Order Comment: Reason for Laboratory Test Chemotherapy TYPE CODE TESTS RESULT OUT OF RANGE REFERENCE UNITS LAB L501.0100 74-106 mg/dL Normal GLU 85 Result Comment: Please note revised GLUCOSE reference range effective 2017. LAB L501.1000 7-18 mg/dL Normal BUN 14 LAB L501.1100 0.55-1.02 mg/dL Normal CREAT,SERUM 0.77 Result Comment: The validity of the calculated GFR AND GFRAA in patients over 70 years has not been determined. Clinical correlation is essential. LAB L501.1110 >60 mL/min Normal EST GFR 80 Result Comment: Non- GFR Calc LAB L501.1115 >60 mL/min Normal EST GFR - AA 97 Result Comment: GFR Calc LAB L501.1255 ml/min Normal Estimated CRCL 67.29 LAB L501.1300 10-20 RATIO Normal BUN/CRE 18.2 LAB L501.1500 6.4-8. g/dL Normal 2 T PROT 7.0 LAB L501.1800 3.2-5. g/dL Normal 0 ALB 3.7 LAB L501.1950 2.2-4. g/dL Normal 2 GLOB 3.3 LAB L501.2000 0.9-2. RATIO Normal 4 A/G 1.1 LAB L501.2200 8.5-10 mg/dL Normal .1 CA 8.6 LAB L501.4100 15-37 U/L Normal AST 15 LAB L501.4305 45-117 U/L Normal ALK P 81 LAB L501.4405 13-56 U/L Normal ALT 23 LAB L501.4600 0.20-1 mg/dL Normal .00 T BILI 0.40 LAB L501.5300 136-14 mmol/L Normal 5 NA 136 LAB L501.5600 3.5-5. mmol/L Normal 1 K 4.0 LAB L501.5900 98-107 mmol/L Normal CL 106 LAB L501.6100 21.0-3 mmol/L Normal 2.0 CO2 21.0 LAB L501.6200 5-15 Normal GAP 9 Performed By: #### L500.4050, L501.2300, L501.5200 #### [facility] [address] [place], [address] PHOSPHORUS Collected: 12/17/2017 Status: F Source: [place] 8:40 AM [facility] [place] REPOSITORY Order Comment: Reason for Laboratory Test Chemotherapy TYPE CODE TESTS RESULT OUT OF RANGE REFERENCE UNITS LAB L501.2300 2.5-4.9 mg/dL Normal PHOS 3.1 Performed By: #### L500.4050, L501.2300, L501.5200 #### [facility] [address] [place], [address] MAGNESIUM Collected: 12/17/2017 Status: F Source: [place] 8:40 AM [facility] [place] REPOSITORY Order Comment: Reason for Laboratory Test Chemotherapy TYPE CODE TESTS RESULT OUT OF RANGE REFERENCE UNITS LAB L501.5200 1.6-2.6 mg/dL Low MG 1.2 Performed By: #### L500.4050, L501.2300, L501.5200 #### [facility] [address] [place], [address] ONCOLOGY VISIT REPORT Observed: 12/10/2017 Status: F Source: [place] 9:12 AM [facility] [place] REPOSITORY [facility] [address] [place] [address]. [place] [address] OFFICE VISIT Date of Service: 12/10/1707 MR#: [id number] Acct: [id number] Name: RUTH PARRISH Rep #: [id number] : 1955 From: Daquan Baeza MD Age/Sex: 62/F Location: D Status: Signed Subjective - Date of Service Date of Service:: 12/10/17 - Chief Complaint F/u for chemotherapy. - History of Present Illness Ms. 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 CT-guided biopsy of the left lower lobe mass showed non-small cell lung cancer favoring adenocarcinoma on March 15, 2016. She had FOB and biopsy on April at [facility], which showed right middle lobe small cell carcinoma. She received 4 cycles of carboplatin/etoposide from May 22, 2016 to July 24, 2016. She had a persistent left lower lobe mass and left upper lobe mass on PET-CT obtained July 15, 2016. Experienced radicular pain on the left side, which corresponded to the left lower lobe mass sitting on the chest wall. She began concurrent chemotherapy and radiation therapy with cisplatin and Alimta on August 29, 2016. Completed 33 fractions 180 cGy) on 10/12/16. Completed 6 cycles of Cisplatin/Alimta on 12/12/16. MRI brain obtained 01/10/17 obtained to address c/o prolonged nausea was negative for metastatic disease. CT scan of chest obtained 01/21/17 reveal opacity in the posterior segment of left upper lobe is decreased in size and stable subcentimeter nodules bilaterally. She had developed pain in the Left hip, bone scan on 03/27/2017 was negative and x-rays on 03/28/[address] chest done on 07/25/2017 showed increasing number and size of multiple pulmonary nodules, consolidation of the medial left lower lobe, increase in prevascular lymph nodes. PET/CT on 08/12/2017 showed new bilateral hypermetabolic activities suggestive of metastatic malignancy. She was referred for CT guided biopsy right upper lobe nodule 08/21/2017, however attempt was unsuccessful and patient elected to forgo further biopsy attempts. Began second line chemotherapy with Cisplatin/irinotecan on 09/16/17. Had diarrhea after C1D15 so Irinotecan was decreased to 50mg/m2. With C3D8 Irinotecan, had nausea on and off, relief with Zofran and Phenergan. Comes in for C4D1. 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 Past Surgical History Surgical: Tubal ligation Other Surgical History: SECTION TRIPLE HERNIA REPAIR CHEST PORT PLACEMENT Family History Paternal Past Medical History: Unknown Maternal Past Medical History: Diabetes mellitus,Hypertension Social History Social History: No changes Smoking Status Current every day smoker Review of Systems Constitutional:: Denies: Fever, Sweats, Weight loss, Appetite change, Chills Cardiovascular:: Denies: Chest pain, Palpitations, Dyspnea on exertion, Orthopnea, PND, Shortness of breath Respiratory: Denies: Cough, Hemoptysis, Shortness of Breath, Wheezing Gastrointestinal:: Denies: Abdominal pain, Nausea, Vomiting, Diarrhea, Constipation, Hematochezia Genitourinary: Denies: Dysuria, Hematuria, 15, Flank pain Musculoskeletal:: Denies: Back pain, Myalgia, Arthralgia Skin: Denies: Rash, Skin Changes, Wounds Neurological:: Denies: Headache, Dizziness, Visual changes, Tinnitus, Hearing loss Psychiatric: Denies: Anxiety, Depression, Homicidal Ideations, Suicidal Ideations Vital Signs Height 5 ft 5 in Weight: 68.492 kg Weight in Pounds 151.0 lbs Pulse Ox 98 - Physical Exam General: Alert, Oriented x3, No apparent distress HEENT: Atraumatic, PERRLA, EOMI, Normocephalic Oropharynx:: Dry mucosa Neck:: Supple, Trachea midline. Negative for: JVD, bilateral Cardiac:: Regular rate, Regular rhythm, Normal S1, Normal S2. Negative for: Murmur Lungs: Clear to auscultation, Excusion symmetrical. Negative for: Rhonchi, Wheezes Extremities:: Negative for: Cyanosis, Edema Lymphatics:: Negative for: Cervical lymphadenopathy, Supraclavicular lymphadenopathy, Axillary lymphadenopathy Laboratory Data: Laboratory Tests WBC 6.0 (4.4-11.0) K/mm3 RBC 3.42 L (4.2-5.4) M/mm3 Hgb 11.4 L (12.0-15.0) g/dl Hct 33.7 L (37-47) % MCV 98.5 (81-99) fL Assessment and Plan Non-small cell lung cancer left lower lobe stage IIIA status post chemoradiation therapy. Small cell lung cancer, limited disease, right lung. Progressive disease on 2nd line Cisplatin and Irinotecan, due for C4D1 Cisplatin and Irinotecan today. CT on 11/04/2017 shows decreasing infiltrate and nodules/nodes suggestive of response. Counts are OK for chemotherapy. Hypomagnesemia. Plan is to proceed with chemotherapy C4D1 Cisplatin and Irinotecan today then D8 Irinotecan next week. Supplement Magnesium IV. RTC 2 wks with cbc, cmp, mag for C4D15 Irinotecan. Medications: Prescriptions This Visit Medication Instructions Recorded proMETHazine tablet [Phenergan 25 mg PO DAILY PRN #90 tab 08/01/17 tablet] Lorazepam [Ativan] 0.5 mg PO BID PRN #60 tablet 09/02/17 Lidocaine/Prilocaine 30 gm TP UD 30 Days #1 tube 09/09/17 Primary Care Provider: No Primary Care Phys Referring Provider: - Problem List (1) Small cell carcinoma of right lung Status: Chronic (2) Non-small cell carcinoma of left lung Status: Chronic (3) Chemotherapy management, encounter for Status: Acute (4) Hypokalemia Status: Resolved (5) Hypomagnesemia Status: Chronic Code Visit Office Visits / Consults: [id number] OV L5 Est 12/10/17 0912 <Electronically signed by Daquan Baeza MD> Date Daquan Baeza MD Cosigner Signature: Date (if applicable) CC: CBC W/DIFF, AUTOMATED Collected: 12/10/2017 Status: F Source: LIO 8:06 AM [facility] [place] REPOSITORY TYPE CODE TESTS RESULT OUT OF RANGE REFERENCE UNITS LAB L100.1000 4.4-11.0 K/mm3 Normal WBC 6.0 LAB L100.1200 4.2-5.4 M/mm3 Low RBC 3.42 LAB L100.1300 12.0-15.0 g/dl Low HGB 11.4 LAB L100.1400 37-47 % Low HCT 33.7 LAB L100.1500 81-99 fL Normal MCV 98.5 LAB L100.1600 27.0-32.0 pg High MCH 33.3 LAB L100.1700 32-36 g/gl Normal MCHC 33.8 LAB L100.1810 11.6-14.6 % High RDW CV 20.1 LAB L100.1820 35.1-43.9 fl High RDW SD 71.5 LAB L100.1900 150-450 K/mm3 Normal PLT 283 LAB L100.2000 6.2-12.0 fl Normal MPV 8.7 LAB L100.2100 47-70 % Normal NEUT% 62.2 LAB L100.2200 19-41 % Normal LY% 20.8 LAB L100.2300 0-10 % High MONO% 15.2 LAB L100.2400 0-5 % Normal EO% 0.2 LAB L100.2500 0-1 % Normal BASO% 0.3 LAB L100.2550 0.0-0.9 % High IM GRAN % 1.300 Result Comment: IG% - Immature Granulocytes (promyelocytes, myelocytes and metamyelocytes) > 1% indicates that a LEFT SHIFT is Present. LAB L100.2620 2.0-7.7 X10 3/uL Normal Absolute Neut 3.7 LAB L100.2720 0.83-4.51 X10 3/ul Normal Absolute Lymph 1.25 LAB L100.4500 Normal SMEAR COMMENT COMMENT Result Comment: SLIDE SCANNED - 1+ ANISO NOTED. Performed By: #### L100.0100 #### [facility] [address] [place], [place], [address] COMPREHENSIVE METABOLIC Collected: 12/10/2017 Status: F Source: [facility] 8:06 AM [facility] [place] REPOSITORY Order Comment: Reason for Laboratory Test Chemotherapy TYPE CODE TESTS RESULT OUT OF RANGE REFERENCE UNITS LAB L501.0100 74-106 mg/dL Normal GLU 100 Result Comment: Fasting Glucose result from 100 to 125 mg/dL suggests IMPAIRED HOMEOSTASIS per A.D.A. criteria. Please note revised GLUCOSE reference range effective 2017. LAB L501.1000 7-18 mg/dL Normal BUN 10 LAB L501.1100 0.55-1.02 mg/dL Normal CREAT,SERUM 0.86 Result Comment: The validity of the calculated GFR AND GFRAA in patients over 70 years has not been determined. Clinical correlation is essential. LAB L501.1110 >60 mL/min Normal EST GFR 71 Result Comment: Non- GFR Calc LAB L501.1115 >60 mL/min Normal EST GFR - AA 86 Result Comment: GFR Calc LAB L501.1255 ml/min Normal Estimated CRCL 60.25 LAB L501.1300 10-20 RATIO Normal BUN/CRE 11.6 LAB L501.1500 6.4-8. g/dL Normal 2 T PROT 7.1 LAB L501.1800 3.2-5. g/dL Normal 0 ALB 3.9 LAB L501.1950 2.2-4. g/dL Normal 2 GLOB 3.2 LAB L501.2000 0.9-2. RATIO Normal 4 A/G 1.2 LAB L501.2200 8.5-10 mg/dL Normal .1 CA 9.0 LAB L501.4100 15-37 U/L Normal AST 23 LAB L501.4305 45-117 U/L Normal ALK P 81 LAB L501.4405 13-56 U/L Normal ALT 27 LAB L501.4600 0.20-1 mg/dL Normal .00 T BILI 0.50 LAB L501.5300 136-14 mmol/L Normal 5 NA 141 LAB L501.5600 3.5-5. mmol/L Normal 1 K 4.0 LAB L501.5900 98-107 mmol/L Normal CL 107 LAB L501.6100 21.0-3 mmol/L Normal 2.0 CO2 23.0 LAB L501.6200 5-15 Normal GAP 11 Performed By: #### L500.4050, L501.2300, L501.5200 #### [facility] [address] [facility]. [place], [place], [address] PHOSPHORUS Collected: 12/10/2017 Status: F Source: [place] 8:06 AM [facility] [place] REPOSITORY Order Comment: Reason for Laboratory Test Chemotherapy TYPE CODE TESTS RESULT OUT OF RANGE REFERENCE UNITS LAB L501.2300 2.5-4.9 mg/dL Normal PHOS 2.7 Performed By: #### L500.4050, L501.2300, L501.5200 #### [facility] [address] [place], [address] MAGNESIUM Collected: 12/10/2017 Status: F Source: [place] 8:06 AM [facility] [place] REPOSITORY Order Comment: Reason for Laboratory Test Chemotherapy TYPE CODE TESTS RESULT OUT OF RANGE REFERENCE UNITS LAB L501.5200 1.6-2.6 mg/dL Low MG 1.5 Performed By: #### L500.4050, L501.2300, L501.5200 #### [facility] [address] [place], [address] CBC W/DIFF, AUTOMATED Collected: 11/25/2017 Status: F Source: [place] 8:01 AM [facility] [place] REPOSITORY TYPE CODE TESTS RESULT OUT OF RANGE REFERENCE UNITS LAB L100.1000 4.4-11.0 K/mm3 Normal WBC 5.9 LAB L100.1200 4.2-5.4 M/mm3 Low RBC 3.62 LAB L100.1300 12.0-15.0 g/dl Low HGB 11.8 LAB L100.1400 37-47 % Low HCT 34.2 LAB L100.1500 81-99 fL Normal MCV 94.5 LAB L100.1600 27.0-32.0 pg High MCH 32.6 LAB L100.1700 32-36 g/gl Normal MCHC 34.5 LAB L100.1810 11.6-14.6 % High RDW CV 18.9 LAB L100.1820 35.1-43.9 fl High RDW SD 63.9 LAB L100.1900 150-450 K/mm3 Normal PLT 325 LAB L100.2000 6.2-12.0 fl Normal MPV 9.1 LAB L100.2100 47-70 % Normal NEUT% 69.9 LAB L100.2200 19-41 % Normal LY% 19.3 LAB L100.2300 0-10 % Normal MONO% 10.0 LAB L100.2400 0-5 % Normal EO% 0.0 LAB L100.2500 0-1 % Normal BASO% 0.0 LAB L100.2550 0.0-0.9 % Normal IM GRAN % 0.800 Result Comment: IG% - Immature Granulocytes (promyelocytes, myelocytes and metamyelocytes) > 1% indicates that a LEFT SHIFT is Present. LAB L100.2620 2.0-7.7 X10 3/uL Normal Absolute Neut 4.1 LAB L100.2720 0.83-4.51 X10 3/ul Normal Absolute Lymph 1.14 Performed By: #### L100.0100 #### [facility] [address] [place], [address] COMPREHENSIVE METABOLIC Collected: 11/25/2017 Status: F Source: [place] 8:01 AM [facility] [place] REPOSITORY Order Comment: Reason for Laboratory Test Chemotherapy TYPE CODE TESTS RESULT OUT OF RANGE REFERENCE UNITS LAB L501.0100 74-106 mg/dL Normal GLU 98 Result Comment: Please note revised GLUCOSE reference range effective 2017. LAB L501.1000 7-18 mg/dL Normal BUN 16 LAB L501.1100 0.55-1.02 mg/dL Normal CREAT,SERUM 0.78 Result Comment: The validity of the calculated GFR AND GFRAA in patients over 70 years has not been determined. Clinical correlation is essential. LAB L501.1110 >60 mL/min Normal EST GFR 80 Result Comment: Non- GFR Calc LAB L501.1115 >60 mL/min Normal EST GFR - AA 96 Result Comment: GFR Calc LAB L501.1255 ml/min Normal Estimated CRCL 66.43 LAB L501.1300 10-20 RATIO High BUN/CRE 20.6 LAB L501.1500 6.4-8. g/dL Normal 2 T PROT 7.4 LAB L501.1800 3.2-5. g/dL Normal 0 ALB 3.9 LAB L501.1950 2.2-4. g/dL Normal 2 GLOB 3.5 LAB L501.2000 0.9-2. RATIO Normal 4 A/G 1.1 LAB L501.2200 8.5-10 mg/dL Normal .1 CA 8.8 LAB L501.4100 15-37 U/L Normal AST 21 LAB L501.4305 45-117 U/L Normal ALK P 99 LAB L501.4405 13-56 U/L Normal ALT 25 LAB L501.4600 0.20-1 mg/dL Normal .00 T BILI 0.50 LAB L501.5300 136-14 mmol/L Low 5 NA 135 LAB L501.5600 3.5-5. mmol/L Low 1 K 3.1 LAB L501.5900 98-107 mmol/L Normal CL 100 LAB L501.6100 21.0-3 mmol/L Normal 2.0 CO2 24.0 LAB L501.6200 5-15 Normal GAP 11 Performed By: #### L500.4050, L501.2300, L501.5200 #### [facility] [address] [place], [address] PHOSPHORUS Collected: 11/25/2017 Status: F Source: [place] 8:01 AM [facility] [place] REPOSITORY Order Comment: Reason for Laboratory Test Chemotherapy TYPE CODE TESTS RESULT OUT OF RANGE REFERENCE UNITS LAB L501.2300 2.5-4.9 mg/dL Normal PHOS 2.8 Performed By: #### L500.4050, L501.2300, L501.5200 #### [facility] [address] [place], [address] MAGNESIUM Collected: 11/25/2017 Status: F Source: [place] 8:01 [facility] REPOSITORY Order Comment: Reason for Laboratory Test Chemotherapy TYPE CODE TESTS RESULT OUT OF RANGE REFERENCE UNITS LAB L501.5200 1.6-2.6 mg/dL Low MG 1.2 Performed By: #### L500.4050, L501.2300, L501.5200 #### [facility] [address] [place], [address] ONCOLOGY VISIT REPORT Observed: 11/18/2017 Status: F Source: [place] 9:08 AM [facility] [place] REPOSITORY [facility] [address] [place] [address]. [place] [address] OFFICE VISIT Date of Service: 11/18/17 0902 MR#: [id number] Acct: [id number] Name: RUTH PARRISH Rep #: [id number] : 1955 From: Daquan Baeza MD Age/Sex: 62/F Location: ONC Status: Signed Subjective - Date of Service Date of Service:: 11/18/17 - Chief Complaint F/u for chemotherapy. - History of Present Illness Ms. 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 CT-guided biopsy of the left lower lobe mass showed non-small cell lung cancer favoring adenocarcinoma on March 15, 2016. She had FOB and biopsy on April at [facility], which showed right middle lobe small cell carcinoma. She received 4 cycles of carboplatin/etoposide from May 22, 2016 to July 24, 2016. She had a persistent left lower lobe mass and left upper lobe mass on PET-CT obtained July 15, 2016. Experienced radicular pain on the left side, which corresponded to the left lower lobe mass sitting on the chest wall. She began concurrent chemotherapy and radiation therapy with cisplatin and Alimta on August 29, 2016. Completed 33 fractions 180 cGy) on 10/12/16. Completed 6 cycles of Cisplatin/Alimta on 12/12/16. MRI brain obtained 01/10/17 obtained to address c/o prolonged nausea was negative for metastatic disease. CT scan of chest obtained 01/21/17 reveal opacity in the posterior segment of left upper lobe is decreased in size and stable subcentimeter nodules bilaterally. She had developed pain in the Left hip, bone scan on 03/27/2017 was negative and x-rays on 03/28/[address] chest done on 07/25/2017 showed increasing number and size of multiple pulmonary nodules, consolidation of the medial left lower lobe, increase in prevascular lymph nodes. PET/CT on 08/12/2017 showed new bilateral hypermetabolic activities suggestive of metastatic malignancy. She was referred for CT guided biopsy right upper lobe nodule 08/21/2017, however attempt was unsuccessful and patient elected to forgo further biopsy attempts. Began second line chemotherapy with Cisplatin/irinotecan on 09/16/17. Had diarrhea after C1D15 so Irinotecan was decreased to 50mg/m2. Comes in for C3D8 Irinotecan today, feels nauseous on and off. Gets relief with Zofran and Phenergan. 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 Past Surgical History Surgical: Tubal ligation Other Surgical History: SECTION TRIPLE HERNIA REPAIR CHEST PORT PLACEMENT Family History Paternal Past Medical History: Unknown Maternal Past Medical History: Diabetes mellitus,Hypertension Social History Social History: No changes Smoking Status Current every day smoker Review of Systems Constitutional:: Denies: Fever, Sweats, Weight loss, Appetite change, Chills Cardiovascular:: Denies: Chest pain, Palpitations, Dyspnea on exertion, Orthopnea, PND, Shortness of breath Respiratory: Denies: Cough, Hemoptysis, Shortness of Breath, Wheezing Gastrointestinal:: Reports: Nausea Genitourinary: Denies: Dysuria, Hematuria, 15, Flank pain Musculoskeletal:: Denies: Back pain, Myalgia, Arthralgia Neurological:: Denies: Headache, Dizziness, Visual changes, Tinnitus, Hearing loss Psychiatric: Denies: Anxiety, Depression, Homicidal Ideations, Suicidal Ideations Vital Signs Height 5 ft 5 in Weight: 67.132 kg Weight in Pounds 148.0 lbs Pulse Ox 100 - Physical Exam General: Alert, Oriented x3, No apparent distress, - - [place] HEENT: Atraumatic, PERRLA, EOMI, Normocephalic Oropharynx:: Dry mucosa Neck:: Supple, Trachea midline. Negative for: JVD, bilateral Cardiac:: Regular rate, Regular rhythm, Normal S1, Normal S2. Negative for: Murmur Lungs: Clear to auscultation, Excusion symmetrical. Negative for: Rhonchi, Wheezes Laboratory Data: Laboratory Tests Assessment and Plan Non-small cell lung cancer left lower lobe stage IIIA status post chemoradiation therapy. Small cell lung cancer, limited disease, right lung. Progressive disease on 2nd line Cisplatin and Irinotecan, due for C3D8 Ir[address] today. CT on 11/04/2017 shows decreasing infiltrate and nodules/nodes suggestive of response. Counts are OK for chemotherapy. Hypokalemia. Hypomagnesemia. Plan is to proceed with chemotherapy C3D8 Irinotecan today then D15 Irinotecan next week. Supplement Potassium and Magnesium RTC 3 wks with cbc, cmp, mag for C4D1 Cisplatin AND Irinotecan. Medications: Prescriptions This Visit Medication Instructions Recorded proMETHazine tablet [Phenergan 25 mg PO DAILY PRN #90 tab 08/01/17 tablet] Lorazepam [Ativan] 0.5 mg PO BID PRN #60 tablet 09/02/17 Primary Care Provider: No Primary Care Phys Referring Provider: - Problem List (1) Small cell carcinoma of right lung Status: Chronic (2) Non-small cell carcinoma of left lung Status: Chronic (3) Chemotherapy management, encounter for Status: Acute (4) Hypokalemia Status: Acute (5) Hypomagnesemia Status: Acute Code Visit Office Visits / Consults: [id number] OV L5 Est 11/18/17 0908 <Electronically signed by Daquan Baeza MD> Date Daquan Baeza MD Cosigner Signature: Date (if applicable) CC: CBC W/DIFF, AUTOMATED Collected: 11/18/2017 Status: F Source: [place] 8:06 AM [facility] [place] REPOSITORY TYPE CODE TESTS RESULT OUT OF RANGE REFERENCE UNITS LAB L100.1000 4.4-11.0 K/mm3 Normal WBC 9.0 LAB L100.1200 4.2-5.4 M/mm3 Low RBC 3.90 LAB L100.1300 12.0-15.0 g/dl Normal HGB 12.5 LAB L100.1400 37-47 % Low HCT 36.7 LAB L100.1500 81-99 fL Normal MCV 94.1 LAB L100.1600 27.0-32.0 pg High MCH 32.1 LAB L100.1700 32-36 g/gl Normal MCHC 34.1 LAB L100.1810 11.6-14.6 % High RDW CV 18.9 LAB L100.1820 35.1-43.9 fl High RDW SD 64.3 LAB L100.1900 150-450 K/mm3 Normal PLT 318 LAB L100.2000 6.2-12.0 fl Normal MPV 9.4 LAB L100.2100 47-70 % High NEUT% 73.3 LAB L100.2200 19-41 % Low LY% 17.8 LAB L100.2300 0-10 % Normal MONO% 7.4 LAB L100.2400 0-5 % Normal EO% 0.0 LAB L100.2500 0-1 % Normal BASO% 0.1 LAB L100.2550 0.0-0.9 % High IM GRAN % 1.400 Result Comment: IG% - Immature Granulocytes (promyelocytes, myelocytes and metamyelocytes) > 1% indicates that a LEFT SHIFT is Present. LAB L100.2620 2.0-7.7 X10 3/uL Normal Absolute Neut 6.6 LAB L100.2720 0.83-4.51 X10 3/ul Normal Absolute Lymph 1.60 Performed By: #### L100.0100 #### [facility] [address] [place], [address] COMPREHENSIVE METABOLIC Collected: 11/18/2017 Status: F Source: [facility] 8:06 AM [facility] REPOSITORY Order Comment: Reason for Laboratory Test Chemotherapy TYPE CODE TESTS RESULT OUT OF RANGE REFERENCE UNITS LAB L501.0100 74-106 mg/dL Normal GLU 86 Result Comment: Please note revised GLUCOSE reference range effective 2017. LAB L501.1000 7-18 mg/dL Normal BUN 12 LAB L501.1100 0.55-1.02 mg/dL Normal CREAT,SERUM 0.76 Result Comment: The validity of the calculated GFR AND GFRAA in patients over 70 years has not been determined. Clinical correlation is essential. LAB L501.1110 >60 mL/min Normal EST GFR 82 Result Comment: Non- GFR Calc LAB L501.1115 >60 mL/min Normal EST GFR - AA 99 Result Comment: GFR Calc LAB L501.1255 ml/min Normal Estimated CRCL 68.18 LAB L501.1300 10-20 RATIO Normal BUN/CRE 15.8 LAB L501.1500 6.4-8. g/dL Normal 2 T PROT 7.0 LAB L501.1800 3.2-5. g/dL Normal 0 ALB 3.8 LAB L501.1950 2.2-4. g/dL Normal 2 GLOB 3.2 LAB L501.2000 0.9-2. RATIO Normal 4 A/G 1.2 LAB L501.2200 8.5-10 mg/dL Normal .1 CA 8.5 LAB L501.4100 15-37 U/L Normal AST 16 LAB L501.4305 45-117 U/L Normal ALK P 101 LAB L501.4405 13-56 U/L Normal ALT 23 LAB L501.4600 0.20-1 mg/dL Normal .00 T BILI 0.60 LAB L501.5300 136-14 mmol/L Low 5 NA 135 LAB L501.5600 3.5-5. mmol/L Low 1 K 3.2 LAB L501.5900 98-107 mmol/L Normal CL 102 LAB L501.6100 21.0-3 mmol/L Normal 2.0 CO2 25.0 LAB L501.6200 5-15 Normal GAP 8 Performed By: #### L500.4050, L501.2300, L501.5200 #### [facility] [address] [place], [address] PHOSPHORUS Collected: 11/18/2017 Status: F Source: [place] 8:06 AM [facility] [place] REPOSITORY Order Comment: Reason for Laboratory Test Chemotherapy TYPE CODE TESTS RESULT OUT OF RANGE REFERENCE UNITS LAB L501.2300 2.5-4.9 mg/dL Normal PHOS 2.9 Performed By: #### L500.4050, L501.2300, L501.5200 #### [facility] [address] [place], [place], [address] MAGNESIUM Collected: 11/18/2017 Status: F Source: [place] 8:06 AM [facility] [place] REPOSITORY Order Comment: Reason for Laboratory Test Chemotherapy TYPE CODE TESTS RESULT OUT OF RANGE REFERENCE UNITS LAB L501.5200 1.6-2.6 mg/dL Low MG 1.3 Performed By: #### L500.4050, L501.2300, L501.5200 #### [facility] [address] [place], [address] ONCOLOGY VISIT REPORT Observed: 11/11/2017 Status: F Source: [place] 9:41 AM [facility] [place] REPOSITORY [facility] [address] [place] [address] OFFICE VISIT Date of Service: 11/11/17 0906 MR#: [id number] Acct: [id number] Name: RUTH PARRISH Rep #: [id number] : 1955 From: Daquan Baeza MD Age/Sex: 62/F Location: ONC Status: Signed Subjective - Date of Service Date of Service:: 11/11/17 - Chief Complaint F/u for chemotherapy. - History of Present Illness Ms. 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 CT-guided biopsy of the left lower lobe mass showed non-small cell lung cancer favoring adenocarcinoma on March 15, 2016. She had FOB and biopsy on April at [facility], which showed right middle lobe small cell carcinoma. She received 4 cycles of carboplatin/etoposide from May 22, 2016 to July 24, 2016. She had a persistent left lower lobe mass and left upper lobe mass on PET-CT obtained July 15, 2016. Experienced radicular pain on the left side, which corresponded to the left lower lobe mass sitting on the chest wall. She began concurrent chemotherapy and radiation therapy with cisplatin and Alimta on August 29, 2016. Completed 33 fractions 180 cGy) on 10/12/16. Completed 6 cycles of Cisplatin/Alimta on 12/12/16. MRI brain obtained 01/10/17 obtained to address c/o prolonged nausea was negative for metastatic disease. CT scan of chest obtained 01/21/17 reveal opacity in the posterior segment of left upper lobe is decreased in size and stable subcentimeter nodules bilaterally. She had developed pain in the Left hip, bone scan on 03/27/2017 was negative and x-rays on 03/28/[address] chest done on 07/25/2017 showed increasing number and size of multiple pulmonary nodules, consolidation of the medial left lower lobe, increase in prevascular lymph nodes. PET/CT on 08/12/2017 showed new bilateral hypermetabolic activities suggestive of metastatic malignancy. She was referred for CT guided biopsy right upper lobe nodule 08/21/2017, however attempt was unsuccessful and patient elected to forgo further biopsy attempts. Began second line chemotherapy with Cisplatin/irinotecan on 09/16/17. Had diarrhea after C1D15 so Irinotecan was decreased to 50mg/m2. Comes in for C3D1 Cisplatin and Irinotecan today, feels well. 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 Past Surgical History Surgical: Tubal ligation Other Surgical History: SECTION TRIPLE HERNIA REPAIR CHEST PORT PLACEMENT Family History Paternal Past Medical History: Unknown Maternal Past Medical History: Diabetes mellitus,Hypertension Social History Social History: No changes Smoking Status Current every day smoker Review of Systems Constitutional:: Denies: Fever, Sweats, Weight loss, Appetite change, Chills Cardiovascular:: Denies: Chest pain, Palpitations, Dyspnea on exertion, Orthopnea, PND, Shortness of breath Respiratory: Denies: Cough, Hemoptysis, Shortness of Breath, Wheezing Gastrointestinal:: Denies: Abdominal pain, Nausea, Vomiting, Diarrhea, Constipation, Hematochezia Genitourinary: Denies: Dysuria, Hematuria, 15, Flank pain Musculoskeletal:: Denies: Back pain, Myalgia, Arthralgia Skin: Denies: Rash, Skin Changes, Wounds Neurological:: Denies: Headache, Dizziness, Visual changes, Tinnitus, Hearing loss Psychiatric: Denies: Anxiety, Depression, Homicidal Ideations, Suicidal Ideations Vital Signs Height 5 ft 5 in Weight: 67.585 kg Weight in Pounds 149.0 lbs Pulse Ox 100 - Physical Exam General: Alert, Oriented x3, No apparent distress, - - [place] area. HEENT: Atraumatic, PERRLA, EOMI, Normocephalic Oropharynx:: Dry mucosa Neck:: Supple, Trachea midline. Negative for: JVD, bilateral Cardiac:: Regular rate, Regular rhythm, Normal S1, Normal S2. Negative for: Murmur Lungs: Clear to auscultation, Excusion symmetrical. Negative for: Rhonchi, Wheezes Abdomen:: Bowel sounds x 4, Soft, Non-tender, Non-distended. Negative for: Hepatosplenomegaly Extremities:: Negative for: Cyanosis, Edema Neurological: Neuro grossly intact Skin:: Negative for: Lesions, Rash, Petechiae, Ecchymosis Psychiatric:: Appropriate affect, Euthymic Lymphatics:: Negative for: Cervical lymphadenopathy, Supraclavicular lymphadenopathy, Axillary lymphadenopathy Laboratory Data: Laboratory Tests WBC 6.6 (4.4-11.0) K/mm3 Diagnostic Data: 11/04/2017 CT chest and abdomen reviewed, focal infiltration in posterior left lower lobe, insignificant lymph nodes in the mediastinum. Fatty infiltration of the liver, small adenoma in left adrenal gland. On review, L lower lobe infiltrate is decreasing. Assessment and Plan Non-small cell lung cancer left lower lobe stage IIIA status post chemoradiation therapy. Small cell lung cancer, limited disease, right lung. Progressive disease on 2nd line Cisplatin and Irinotecan, due for C3D1 Cisplatin and Irinotecan today. CT on 11/04/2017 shows decreasing infiltrate and nodules/nodes suggestive of response. Counts are OK for chemotherapy. Hypokalemia. Hypomagnesemia. Plan is to proceed with chemotherapy C3D1 Cisplatin and Irinotecan today then D8 and D15 Irinotecan. Supplement Potassium and Magnesium. To do 2 more cycles and reassess. RTC 4 wks with cbc, cmp, mag for C4D1 Cisplatin AND Irinotecan. Medications: Prescriptions This Visit Medication Instructions Recorded proMETHazine tablet [Phenergan 25 mg PO DAILY PRN #90 tab 08/01/17 Primary Care Provider: No Primary Care Phys Referring Provider: - Problem List (1) Small cell carcinoma of right lung Status: Chronic (2) Non-small cell carcinoma of left lung Status: Chronic (3) Chemotherapy management, encounter for Status: Acute (4) Hypokalemia Status: Acute (5) Hypomagnesemia Status: Acute Code Visit Office Visits / Consults: [id number] OV L5 Est 11/11/17 0941 <Electronically signed by Daquan Baeza MD> Date Daquan Baeza MD Cosigner Signature: Date (if applicable) CC: CBC W/DIFF, AUTOMATED Collected: 11/11/2017 Status: F Source: [facility] 8:01 AM [facility] [place] REPOSITORY TYPE CODE TESTS RESULT OUT OF RANGE REFERENCE UNITS LAB L100.1000 4.4-11.0 K/mm3 Normal WBC 6.6 LAB L100.1200 4.2-5.4 M/mm3 Low RBC 3.86 LAB L100.1300 12.0-15.0 g/dl Normal HGB 12.3 LAB L100.1400 37-47 % Low HCT 36.5 LAB L100.1500 81-99 fL Normal MCV 94.6 LAB L100.1600 27.0-32.0 pg Normal MCH 31.9 LAB L100.1700 32-36 g/gl Normal MCHC 33.7 LAB L100.1810 11.6-14.6 % High RDW CV 19.6 LAB L100.1820 35.1-43.9 fl High RDW SD 66.4 LAB L100.1900 150-450 K/mm3 Normal PLT 318 LAB L100.2000 6.2-12.0 fl Normal MPV 9.2 LAB L100.2100 47-70 % Normal NEUT% 60.6 LAB L100.2200 19-41 % Normal LY% 23.3 LAB L100.2300 0-10 % High MONO% 13.8 LAB L100.2400 0-5 % Normal EO% 0.2 LAB L100.2500 0-1 % Normal BASO% 0.3 LAB L100.2550 0.0-0.9 % High IM GRAN % 1.800 Result Comment: IG% - Immature Granulocytes (promyelocytes, myelocytes and metamyelocytes) > 1% indicates that a LEFT SHIFT is Present. LAB L100.2620 2.0-7.7 X10 3/uL Normal Absolute Neut 4.0 LAB L100.2720 0.83-4.51 X10 3/ul Normal Absolute Lymph 1.53 LAB L100.4500 Normal SMEAR COMMENT COMMENT Result Comment: SLIDE SCANNED - 1+ ANISO. Performed By: #### L100.0100 #### [facility] [address] [place], [place], [id number] COMPREHENSIVE METABOLIC Collected: 11/11/2017 Status: F Source: [facility] 8:01 AM [facility] [place] REPOSITORY Order Comment: Reason for Laboratory Test Chemotherapy TYPE CODE TESTS RESULT OUT OF RANGE REFERENCE UNITS LAB L501.0100 74-106 mg/dL Normal GLU 104 Result Comment: Fasting Glucose result from 100 to 125 mg/dL suggests IMPAIRED HOMEOSTASIS per A.D.A. criteria. Please note revised GLUCOSE reference range effective 2017. LAB L501.1000 7-18 mg/dL Normal BUN 8 LAB L501.1100 0.55-1.02 mg/dL Normal CREAT,SERUM 0.70 Result Comment: The validity of the calculated GFR AND GFRAA in patients over 70 years has not been determined. Clinical correlation is essential. LAB L501.1110 >60 mL/min Normal EST GFR 90 Result Comment: Non- GFR Calc LAB L501.1115 >60 mL/min Normal EST GFR - AA 108 Result Comment: GFR Calc LAB L501.1255 ml/min Normal Estimated CRCL 74.02 LAB L501.1300 10-20 RATIO Normal BUN/CRE 11.4 LAB L501.1500 6.4-8. g/dL Normal 2 T PROT 7.2 LAB L501.1800 3.2-5. g/dL Normal 0 ALB 3.9 LAB L501.1950 2.2-4. g/dL Normal 2 GLOB 3.3 LAB L501.2000 0.9-2. RATIO Normal 4 A/G 1.2 LAB L501.2200 8.5-10 mg/dL Normal .1 CA 8.9 LAB L501.4100 15-37 U/L Normal AST 21 LAB L501.4305 45-117 U/L Normal ALK P 100 LAB L501.4405 13-56 U/L Normal ALT 23 LAB L501.4600 0.20-1 mg/dL Normal .00 T BILI 0.50 LAB L501.5300 136-14 mmol/L Normal 5 NA 137 LAB L501.5600 3.5-5. mmol/L Low 1 K 3.3 LAB L501.5900 98-107 mmol/L Normal CL 104 LAB L501.6100 21.0-3 mmol/L Normal 2.0 CO2 25.0 LAB L501.6200 5-15 Normal GAP 8 Performed By: #### L500.4050, L501.2300, L501.5200 #### [facility] [place], [address] PHOSPHORUS Collected: 11/11/2017 Status: F Source: [place] 8:01 AM [facility] [place] REPOSITORY Order Comment: Reason for Laboratory Test Chemotherapy TYPE CODE TESTS RESULT OUT OF RANGE REFERENCE UNITS LAB L501.2300 2.5-4.9 mg/dL Normal PHOS 2.7 Performed By: #### L500.4050, L501.2300, L501.5200 #### [facility] [address] [place], [address] MAGNESIUM Collected: 11/11/2017 Status: F Source: [place] 8:01 AM [facility] [place] REPOSITORY Order Comment: Reason for Laboratory Test Chemotherapy TYPE CODE TESTS RESULT OUT OF RANGE REFERENCE UNITS LAB L501.5200 1.6-2.6 mg/dL Low MG 1.3 Performed By: #### L500.4050, L501.2300, L501.5200 #### [facility] [address] [place], [address] ABDOMEN WITH IV Observed: 11/04/2017 Status: F Source: [place] CONTRAST 6:36 AM [facility] [place] REPOSITORY [facility] [address] [place] [address] Abdomen WITH IV Contrast MR#: [id number] Acct: [id number] Name: RUTH PARRISH Rep #: [id number] : 1955 F 62 From: Naveed Danielle MD PCP: Jens Garibay Status: REG CLI Study: Abdomen WITH IV Contrast Date of Exam: 11/04/17 Exam# [id number] Ordering Dr: Daquan Baeza MD STUDY: CT ABDOMEN WITH CONTRAST REASON FOR EXAM: Female, 62 years old. Patient has a history of non-small cell lung cancer. RADIATION DOSAGE (If Supplied By Facility): CTDIvol = ( 11.67 ) mGy, DLP = ( 757.44 ) mGycm TECHNIQUE: Transaxial images were obtained post I.V. administration of 100 ml of Isovue 300 contrast, and with oral contrast. Sagittal and coronal images were reconstructed. Individualized dose optimization techniques were used for this CT. COMPARISON: Comparison is made with prior study dated January 21, 2017. FINDINGS: There now is evidence of a focal infiltrate in the posterior medial segment of the left lower lobe. This as since prior examination. The visualized portions of the heart are within normal limits. There is hepatomegaly with diffuse hepatic enlargement. Normal gallbladder and extrahepatic biliary system. Normal spleen. Normal pancreas. There is a small, circumscribed, smooth, low attenuation left adrenal mass, consistent with an adrenal adenoma. This measures 9.1 mm. Normal right adrenal gland. Normal right kidney. Normal left kidney. Normal visualized stomach. Normal small intestine. Normal colon. The appendix is visualized and appears normal. There is diffuse atherosclerotic calcification of the abdominal aorta, without a demonstrated aneurysm. Normal inferior vena cava. Normal retroperitoneum. There is a small umbilical hernia containing fat. There are mild degenerative changes of the visualized lumbar spine. CT/Abdomen WITH IV Contrast IMPRESSION: Progressive infiltrate in the posterior medial segment of the left lower lobe. Fatty infiltration of the liver. Findings suggestive of a small adenoma in the left adrenal gland. Electronically Signed: Naveed Danielle MD at 10:14 EDT Tel [phone], Service support , CC: Daquan Baeza MD; Jens Garibay Mill[place] Supervisor: Signed CHEST WITH CONTRAST Observed: 11/04/2017 Status: F Source: [place] 6:36 AM [facility] [place] REPOSITORY [facility] [address] [place] [id number] Chest WITH Contrast MR#: [id number] Acct: [id number] Name: PARRISHRUTH Rep #: [id number] : 1955 F 62 From: Naveed Danielle MD PCP: Jens Garibay Status: REG CLI Study: Chest WITH Contrast Date of Exam: 11/04/17 Exam# [id number] Ordering Dr: Daquan Baeza MD STUDY: CT CHEST WITH CONTRAST REASON FOR EXAM: Female, 62 years old. Non-small cell lung cancer. RADIATION DOSAGE (If Supplied By Facility): CTDIvol = ( 11.67 ) mGy, DLP = ( 757.44 ) mGycm TECHNIQUE: Transaxial imaging was performed following intravenous administration of 100 ml of Isovue 300 contrast material. Multiplanar coronal and sagittal images were reformatted. Individualized dose optimization techniques were used for this CT. COMPARISON: Comparison is made with prior study dated July 25, 2017. FINDINGS: A right-sided nolberto catheter is seen with the tip in the superior vena cava. There is evidence of emphysematous changes worse in the lung apices with cystic changes and scarring in the upper lobes. Mild degree of increased linear markings in the anterior medial aspect of the left upper lobe suggestive of scarring. There is evidence of a focal infiltration in the posterior medial segment of the left lower lobe. There is no demonstrated pleural abnormality. Normal heart and pericardium. There are multiple small lymph nodes within the mediastinum, which are normal in size and morphology most compatible with reactive lymph hyperplasia. Normal hilar regions. Normal enhanced pulmonary arteries. There is atherosclerotic calcification of the aortic arch arch. There are degenerative changes of the thoracic spine. There is no demonstrated abnormality of the visualized upper abdomen. CT/Chest WITH Contrast IMPRESSION: Findings suggestive of scarring and emphysematous changes worse in the upper lobes. Infiltration in the posterior medial segment of the left lower lobe. Electronically Signed: Naveed Danielle MD at 13:29 EDT Tel [phone], Service support , CC: Daquan Baeza MD; Jens Garibay [place] Supervisor: Signed ONCOLOGY VISIT REPORT Observed: 10/28/2017 Status: F Source: [place] 10:14 AM [facility] [place] REPOSITORY [facility] [place] [address] OFFICE VISIT Date of Service: 10/28/17 0857 MR#: [id number] Acct: [id number] Name: RUTH PARRISH Rep #: [id number] : 1955 From: Daquan Baeza MD Age/Sex: 62/F Location: ONC Status: Signed with Addenda ADDENDUM by Daquan Baeza MD on 10/28/17 at 1014 Code Visit [facility]. 10/28/17 1014 <Electronically signed by Daquan Baeza MD> Date Daquan Baeza MD cc: * Signed Subjective - Date of Service Date of Service:: 10/28/17 - Chief Complaint F/u for chemotherapy. - History of Present Illness Ms. 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 CT-guided biopsy of the left lower lobe mass showed non-small cell lung cancer favoring adenocarcinoma on March 15, 2016. She had FOB and biopsy on April at [facility], which showed right middle lobe small cell carcinoma. She received 4 cycles of carboplatin/etoposide from May 22, 2016- July 24, 2016. She had a persistent left lower lobe mass and left upper lobe mass on PET-CT obtained July 15, 2016. Experienced radicular pain on the left side, which corresponded to the left lower lobe mass sitting on the chest wall. She began concurrent chemotherapy and radiation therapy with cisplatin and Alimta on August 29, 2016. Completed 33 fractions 180 cGy) on 10/12/16. Completed 6 cycles of Cisplatin/Alimta on 12/12/16. MRI brain obtained 01/10/17 obtained to address c/o prolonged nausea was negative for metastatic disease. CT scan of chest obtained 01/21/17 reveal opacity in the posterior segment of left upper lobe is decreased in size and stable subcentimeter nodules bilaterally. She had developed pain in the Left hip, bone scan on 03/27/2017 was negative and x-rays on 03/28/[address] chest done on 07/25/2017 showed increasing number and size of multiple pulmonary nodules, consolidation of the medial left lower lobe, increase in prevascular lymph nodes. PET/CT on 08/12/2017 showed new bilateral hypermetabolic activities suggestive of metastatic malignancy. She was referred for CT guided biopsy right upper lobe nodule 08/21/2017, however attempt was unsuccessful and patient elected to forgo further biopsy attempts. Began second line chemotherapy with Cisplatin/irinotecan on 09/16/17. Had diarrhea after C1D15 so Irinotecan was decreased to 50mg/m2. Comes in for C2D15 Irinotecan today, feels well. 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 Past Surgical History Surgical: Tubal ligation Other Surgical History: SECTION TRIPLE HERNIA REPAIR CHEST PORT PLACEMENT Family History Paternal Past Medical History: Unknown Maternal Past Medical History: Diabetes mellitus,Hypertension Social History Social History: No changes Smoking Status Current every day smoker Review of Systems Constitutional:: Denies: Fever, Sweats, Weight loss, Appetite change, Chills Cardiovascular:: Denies: Chest pain, Palpitations, Dyspnea on exertion, Orthopnea, PND, Shortness of breath Respiratory: Denies: Cough, Hemoptysis, Shortness of Breath, Wheezing Gastrointestinal:: Denies: Abdominal pain, Nausea, Vomiting, Diarrhea, Constipation, Hematochezia Genitourinary: Denies: Dysuria, Hematuria, 15, Flank pain Musculoskeletal:: Denies: Back pain, Myalgia, Arthralgia Skin: Denies: Rash, Skin Changes, Wounds Neurological:: Denies: Headache, Dizziness, Visual changes, Tinnitus, Hearing loss Psychiatric: Denies: Anxiety, Depression, Homicidal Ideations, Suicidal Ideations Vital Signs Height 5 ft 5 in Weight: 68.039 kg Weight in Pounds 150.0 lbs Pulse Ox 98 - Physical Exam General: Alert, Oriented x3, No apparent distress HEENT: Atraumatic, PERRLA, EOMI, Normocephalic Oropharynx:: Dry mucosa Neck:: Supple, Trachea midline. Negative for: JVD, bilateral Cardiac:: Regular rate, Regular rhythm, Normal S1, Normal S2. Negative for: Murmur Lungs: Clear to auscultation, Excusion symmetrical. Negative for: Rhonchi, Wheezes Abdomen:: Bowel sounds x 4, Soft, Non-tender, Non-distended. Negative for: Hepatosplenomegaly Extremities:: Negative for: Cyanosis, Edema Neurological: Neuro grossly intact Skin:: Negative for: Lesions, Rash, Petechiae, Ecchymosis Psychiatric:: Appropriate affect, Euthymic Lymphatics:: Negative for: Cervical lymphadenopathy, Supraclavicular lymphadenopathy, Axillary lymphadenopathy Laboratory Data: Laboratory Tests Assessment and Plan Non-small cell lung cancer left lower lobe stage IIIA status post chemoradiation therapy. Small cell lung cancer, limited disease, right lung. Progressive disease on 2nd line Cisplatin and Irinotecan, due for C2D15 Irinotecan today. Counts are OK for chemotherapy. Plan is to proceed with chemotherapy C2D15 Irinotecan today. Obtain CT chest and abdomen to assess disease status. RTC 2 wks with cbc, cmp, mag for C3D1 Cisplatin AND Irinotecan. Medications: Prescriptions This Visit Medication Instructions Recorded proMETHazine tablet [Phenergan 25 mg PO DAILY PRN #90 tab 08/01/17 Medications Added to Medication List This Visit 0.9% Normal Saline Med 10/28/17 00:00 Ordered 250 ml IV UD PRN 0.9% Saline Lock Med 10/28/17 00:00 Ordered 10 ml IV UD PRN Atropine Sulfate Med 10/28/17 00:00 Ordered Primary Care Provider: No Primary Care Phys Referring Provider: - Problem List (1) Small cell carcinoma of right lung Status: Chronic (2) Non-small cell carcinoma of left lung Status: Chronic (3) Chemotherapy management, encounter for Status: Acute (4) Hypokalemia Status: Acute (5) Hypomagnesemia Status: Acute Code Visit Office Visits / Consults: [id number] OV L5 Est 10/28/17904 <Electronically signed by Daquan Baeza MD> Date Daquan Baeza MD Cosigner Signature: Date (if applicable) CC: CBC W/DIFF, AUTOMATED Collected: 10/28/2017 Status: F Source: LIO 8:02 AM [facility] REPOSITORY TYPE CODE TESTS RESULT OUT OF RANGE REFERENCE UNITS LAB L100.1000 4.4-11.0 K/mm3 Normal WBC 7.9 LAB L100.1200 4.2-5.4 M/mm3 Low RBC 3.84 LAB L100.1300 12.0-15.0 g/dl Low HGB 11.8 LAB L100.1400 37-47 % Low HCT 35.2 LAB L100.1500 81-99 fL Normal MCV 91.7 LAB L100.1600 27.0-32.0 pg Normal MCH 30.7 LAB L100.1700 32-36 g/gl Normal MCHC 33.5 LAB L100.1810 11.6-14.6 % High RDW CV 17.3 LAB L100.1820 35.1-43.9 fl High RDW SD 56.0 LAB L100.1900 150-450 K/mm3 Normal PLT 318 LAB L100.2000 6.2-12.0 fl Normal MPV 8.8 LAB L100.2100 47-70 % High NEUT% 70.6 LAB L100.2200 19-41 % Normal LY% 21.2 LAB L100.2300 0-10 % Normal MONO% 7.2 LAB L100.2400 0-5 % Normal EO% 0.1 LAB L100.2500 0-1 % Normal BASO% 0.3 LAB L100.2550 0.0-0.9 % Normal IM GRAN % 0.600 Result Comment: IG% - Immature Granulocytes (promyelocytes, myelocytes and metamyelocytes) > 1% indicates that a LEFT SHIFT is Present. LAB L100.2620 2.0-7.7 X10 3/uL Normal Absolute Neut 5.6 LAB L100.2720 0.83-4.51 X10 3/ul Normal Absolute Lymph 1.67 Performed By: #### L100.0100 #### [facility] [place], [address] COMPREHENSIVE METABOLIC Collected: 10/28/2017 Status: F Source: LIO PROFIL 8:02 AM [facility] REPOSITORY Order Comment: Reason for Laboratory Test Chemotherapy TYPE CODE TESTS RESULT OUT OF RANGE REFERENCE UNITS LAB L501.0100 74-106 mg/dL Normal GLU 91 Result Comment: Please note revised GLUCOSE reference range effective 2017. LAB L501.1000 7-18 mg/dL Normal BUN 12 LAB L501.1100 0.55-1.02 mg/dL Normal CREAT,SERUM 0.76 Result Comment: The validity of the calculated GFR AND GFRAA in patients over 70 years has not been determined. Clinical correlation is essential. LAB L501.1110 >60 mL/min Normal EST GFR 81 Result Comment: Non- GFR Calc LAB L501.1115 >60 mL/min Normal EST GFR - AA 98 Result Comment: GFR Calc LAB L501.1255 ml/min Normal Estimated CRCL 68.18 LAB L501.1300 10-20 RATIO Normal BUN/CRE 15.7 LAB L501.1500 6.4-8. g/dL Normal 2 T PROT 7.3 LAB L501.1800 3.2-5. g/dL Normal 0 ALB 3.7 LAB L501.1950 2.2-4. g/dL Normal 2 GLOB 3.6 LAB L501.2000 0.9-2. RATIO Normal 4 A/G 1.0 LAB L501.2200 8.5-10 mg/dL Normal .1 CA 8.5 LAB L501.4100 15-37 U/L Normal AST 18 LAB L501.4305 45-117 U/L Normal ALK P 104 LAB L501.4405 13-56 U/L Normal ALT 22 Result Comment: Please note revised ALT reference range effective 2017. LAB L501.4600 0.20-1.00 mg/dL Normal T BILI 0.30 LAB L501.5300 136-145 mmol/L Normal NA 138 LAB L501.5600 3.5-5.1 mmol/L Low K 3.3 LAB L501.5900 98-107 mmol/L Normal CL 102 LAB L501.6100 21.0-32.0 mmol/L Normal CO2 25.0 LAB L501.6200 5-15 Normal GAP 11 Performed By: #### L500.4050, L501.2300, L501.5200 #### [facility] [address] [place], [address] PHOSPHORUS Collected: 10/28/2017 Status: F Source: [place] 8:02 AM [facility] [place] REPOSITORY Order Comment: Reason for Laboratory Test Chemotherapy TYPE CODE TESTS RESULT OUT OF RANGE REFERENCE UNITS LAB L501.2300 2.5-4.9 mg/dL Normal PHOS 3.0 Performed By: #### L500.4050, L501.2300, L501.5200 #### [facility] [address] [place], [address] MAGNESIUM Collected: 10/28/2017 Status: F Source: [place] 8:02 AM [facility] [place] REPOSITORY Order Comment: Reason for Laboratory Test Chemotherapy TYPE CODE TESTS RESULT OUT OF RANGE REFERENCE UNITS LAB L501.5200 1.6-2.6 mg/dL Low MG 1.4 Result Comment: Please note revised Magnesium reference range effective 2017. Performed By: #### L500.4050, L501.2300, L501.5200 #### [facility] [address] [place], [address] CBC W/DIFF, AUTOMATED Collected: 10/21/2017 Status: C Source: [place] 11:05 [facility] REPOSITORY TYPE CODE TESTS RESULT OUT OF RANGE REFERENCE UNITS LAB L100.1000 4.4-11.0 K/mm3 Normal WBC 8.4 LAB L100.1200 4.2-5.4 M/mm3 Normal RBC 4.25 LAB L100.1300 12.0-15.0 g/dl Normal HGB 13.0 LAB L100.1400 37-47 % Normal HCT 38.0 LAB L100.1500 81-99 fL Normal MCV 89.4 LAB L100.1600 27.0-32.0 pg Normal MCH 30.6 LAB L100.1700 32-36 g/gl Normal MCHC 34.2 LAB L100.1810 11.6-14.6 % High RDW CV 16.4 LAB L100.1820 35.1-43.9 fl High RDW SD 52.7 LAB L100.1900 150-450 K/mm3 Normal PLT 399 LAB L100.2000 6.2-12.0 fl Normal MPV 8.9 LAB L100.2100 47-70 % Normal NEUT% 60.3 LAB L100.2200 19-41 % Normal LY% 25.0 LAB L100.2300 0-10 % High MONO% 12.3 LAB L100.2400 0-5 % Normal EO% 0.2 LAB L100.2500 0-1 % Normal BASO% 0.1 LAB L100.2550 0.0-0.9 % High IM GRAN % 2.100 Result Comment: IG% - Immature Granulocytes (promyelocytes, myelocytes and metamyelocytes) > 1% indicates that a LEFT SHIFT is Present. LAB L100.2620 2.0-7.7 X10 3/uL Normal Absolute Neut 5.1 LAB L100.2720 0.83-4.51 X10 3/ul Normal Absolute Lymph 2.10 LAB L100.9900 Normal PATH REV Reviewed Result Comment: AMENDED REPORT 10/22/17 1250 PATH REV previously reported as: Kelly lovelace Performed By: #### L100.0100 #### [facility] [address] [place], [address] COMPREHENSIVE METABOLIC Collected: 10/21/2017 Status: F Source: [facility] 11:05 AM [facility] [place] REPOSITORY Order Comment: Reason for Laboratory Test Chemotherapy TYPE CODE TESTS RESULT OUT OF RANGE REFERENCE UNITS LAB L501.0100 74-106 mg/dL Normal GLU 83 Result Comment: Please note revised GLUCOSE reference range effective 2017. LAB L501.1000 7-18 mg/dL Normal BUN 15 LAB L501.1100 0.55-1.02 mg/dL Normal CREAT,SERUM 0.64 Result Comment: The validity of the calculated GFR AND GFRAA in patients over 70 years has not been determined. Clinical correlation is essential. LAB L501.1110 >60 mL/min Normal EST GFR 99 Result Comment: Non- GFR Calc LAB L501.1115 >60 mL/min Normal EST GFR - AA 120 Result Comment: GFR Calc LAB L501.1255 ml/min Normal Estimated CRCL 80.96 LAB L501.1300 10-20 RATIO High BUN/CRE 23.3 LAB L501.1500 6.4-8. g/dL Normal 2 T PROT 7.4 LAB L501.1800 3.2-5. g/dL Normal 0 ALB 3.9 LAB L501.1950 2.2-4. g/dL Normal 2 GLOB 3.5 LAB L501.2000 0.9-2. RATIO Normal 4 A/G 1.1 LAB L501.2200 8.5-10 mg/dL Normal .1 CA 9.0 LAB L501.4100 15-37 U/L Normal AST 21 LAB L501.4305 45-117 U/L High ALK P 121 LAB L501.4405 13-56 U/L Normal ALT 29 Result Comment: Please note revised ALT reference range effective 2017. LAB L501.4600 0.20-1.00 mg/dL Normal T BILI 0.50 LAB L501.5300 136-145 mmol/L Low NA 134 LAB L501.5600 3.5-5.1 mmol/L Low K 2.8 LAB L501.5900 98-107 mmol/L Low CL 97 LAB L501.6100 21.0-32.0 mmol/L Normal CO2 29.0 LAB L501.6200 5-15 Normal GAP 8 Performed By: #### L500.4050, L501.2300, L501.5200 #### [facility] [address] [place], [place], [id number] PHOSPHORUS Collected: 10/21/2017 Status: F Source: [place] 11:05 [facility] REPOSITORY Order Comment: Reason for Laboratory Test Chemotherapy TYPE CODE TESTS RESULT OUT OF RANGE REFERENCE UNITS LAB L501.2300 2.5-4.9 mg/dL Normal PHOS 3.0 Performed By: #### L500.4050, L501.2300, L501.5200 #### [facility] [address] [place], [place], [id number] MAGNESIUM Collected: 10/21/2017 Status: F Source: [place] 11:05 [facility] REPOSITORY Order Comment: Reason for Laboratory Test Chemotherapy TYPE CODE TESTS RESULT OUT OF RANGE REFERENCE UNITS LAB L501.5200 1.6-2.6 mg/dL Normal MG 1.6 Result Comment: Please note revised Magnesium reference range effective 2017. Performed By: #### L500.4050, L501.2300, L501.5200 #### [facility] [address] [place], [address] ONCOLOGY VISIT REPORT Observed: 10/14/2017 Status: F Source: LIO 9:03 AM [facility] [place] REPOSITORY [facility] [address] [place] [address] OFFICE VISIT Date of Service: 10/14/17 0856 MR#: [id number] Acct: [id number] Name: RUTH PARRISH Rep #: [id number] : 1955 From: Daquan Baeza MD Age/Sex: 62/F Location: ONC Status: Signed Subjective - Date of Service Date of Service:: 10/14/17 - Chief Complaint F/u for chemotherapy. - History of Present Illness Ms. 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 CT-guided biopsy of the left lower lobe mass showed non-small cell lung cancer favoring adenocarcinoma on March 15, 2016. She had FOB and biopsy on April at [facility], which showed right middle lobe small cell carcinoma. She received 4 cycles of carboplatin/etoposide from May 22, 2016- July 24, 2016. She had a persistent left lower lobe mass and left upper lobe mass on PET-CT obtained July 15, 2016. Experienced radicular pain on the left side, which corresponded to the left lower lobe mass sitting on the chest wall. She began concurrent chemotherapy and radiation therapy with cisplatin and Alimta on August 29, 2016. Completed 33 fractions 180 cGy) on 10/12/16. Completed 6 cycles of Cisplatin/Alimta on 12/12/16. MRI brain obtained 01/10/17 obtained to address c/o prolonged nausea was negative for metastatic disease. CT scan of chest obtained 01/21/17 reveal opacity in the posterior segment of left upper lobe is decreased in size and stable subcentimeter nodules bilaterally. She had developed pain in the Left hip, bone scan on 03/27/2017 was negative and x-rays on 03/28/[address] chest done on 07/25/2017 showed increasing number and size of multiple pulmonary nodules, consolidation of the medial left lower lobe, increase in prevascular lymph nodes. PET/CT on 08/12/2017 showed new bilateral hypermetabolic activities suggestive of metastatic malignancy. She was referred for CT guided biopsy right upper lobe nodule 08/21/2017, however attempt was unsuccessful and patient elected to forgo further biopsy attempts. Began second line chemotherapy with Cisplatin/irinotecan 09/16/17. Comes in for C2D1 Cisplatin and Irinotecan, feels well. Had diarrhea after D15 Irinotecan. 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 Past Surgical History Surgical: Tubal ligation Other Surgical History: SECTION TRIPLE HERNIA REPAIR CHEST PORT PLACEMENT Family History Paternal Past Medical History: Unknown Maternal Past Medical History: Diabetes mellitus,Hypertension Social History Social History: No changes Smoking Status Current every day smoker Review of Systems Constitutional:: Denies: Fever, Sweats, Weight loss, Appetite change, Chills Cardiovascular:: Denies: Chest pain, Palpitations, Dyspnea on exertion, Orthopnea, PND, Shortness of breath Respiratory: Denies: Cough, Hemoptysis, Shortness of Breath, Wheezing Gastrointestinal:: Denies: Abdominal pain, Nausea, Vomiting, Diarrhea, Constipation, Hematochezia Genitourinary: Denies: Dysuria, Hematuria, 15, Flank pain Musculoskeletal:: Denies: Back pain, Myalgia, Arthralgia Skin: Denies: Rash, Skin Changes, Wounds Neurological:: Denies: Headache, Dizziness, Visual changes, Tinnitus, Hearing loss Psychiatric: Denies: Anxiety, Depression, Homicidal Ideations, Suicidal Ideations Vital Signs Height 5 ft 5 in Weight: 67.585 kg Weight in Pounds 149.0 lbs Pulse Ox 98 - Physical Exam General: - - [place] HEENT: Atraumatic, PERRLA, EOMI, Normocephalic Oropharynx:: Dry mucosa Neck:: Supple, Trachea midline. Negative for: JVD, bilateral Cardiac:: Regular rate, Regular rhythm, Normal S1, Normal S2. Negative for: Murmur Lungs: Clear to auscultation, Excusion symmetrical. Negative for: Rhonchi, Wheezes Abdomen:: Bowel sounds x 4, Soft, Non-tender, Non-distended. Negative for: Hepatosplenomegaly Extremities:: Negative for: Cyanosis, Edema Neurological: Neuro grossly intact Lymphatics:: Negative for: Cervical lymphadenopathy, Supraclavicular lymphadenopathy, Axillary lymphadenopathy Laboratory Data: Laboratory Tests WBC 8.8 (4.4-11.0) K/mm3 RBC 3.94 L (4.2-5.4) M/mm3 Hgb 12.1 (12.0-15.0) g/dl Assessment and Plan Non-small cell lung cancer left lower lobe stage IIIA status post chemoradiation therapy. Small cell lung cancer, limited disease, right lung. Progressive disease on 2nd line Cisplatin and Irinotecan, due for C2D1 Cisplatin and Irinotecan. Diarrhea after D15. Counts are OK for chemotherapy. Plan is to proceed with chemotherapy Day 1 Cisplatin and Irinotecan today and Day 8 Irinotecan next week. Decrease Irinotecan to 50mg/m2. Will finish 2 cycles and reassess with CT scan. RTC 2 wks with cbc, cmp, mag for C2D15 Irinotecan. Medications: Prescriptions This Visit Medication Instructions Recorded proMETHazine tablet [Phenergan 25 mg PO DAILY PRN #90 tab 08/01/17 tablet] Lorazepam [Ativan] 0.5 mg PO BID PRN #60 tablet 09/02/17 Lidocaine/Prilocaine 30 gm TP UD 30 Days #1 tube 09/09/17 Medications Added to Medication List This Visit 0.9% Normal Saline Med 10/14/17 00:00 Active 250 ml IV UD PRN 0.9% Normal Saline 1,000 ml Med 10/14/17 00:00 Active IV 999 mls/hr 0.9% Saline Lock Med 10/14/17 00:00 Active Primary Care Provider: No Primary Care Phys Referring Provider: - Problem List (1) Small cell carcinoma of right lung Status: Chronic (2) Non-small cell carcinoma of left lung Status: Chronic (3) Chemotherapy management, encounter for Status: Acute Code Visit Office Visits / Consults: [id number] OV L5 Est 10/14/17902 <Electronically signed by Daquan Baeza MD> Date Daquan Baeza MD Cosigner Signature: Date (if applicable) CC: CBC W/DIFF, AUTOMATED Collected: 10/14/2017 Status: C Source: LIO 8:04 AM [facility] [place] REPOSITORY TYPE CODE TESTS RESULT OUT OF REFERENCE UNITS RANGE LAB L100.1000 4.4-11.0 K/mm3 WBC Normal 8.8 LAB L100.1200 4.2-5.4 M/mm3 Low RBC 3.94 LAB L100.1300 12.0-15.0 g/dl HGB Normal 12.1 LAB L100.1400 37-47 % Low HCT 36.3 LAB L100.1500 81-99 fL MCV Normal 92.1 LAB L100.1600 27.0-32.0 pg MCH Normal 30.7 LAB L100.1700 32-36 g/gl MCHC Normal 33.3 LAB L100.1810 11.6-14.6 % RDW CV High 17.2 LAB L100.1820 35.1-43.9 fl RDW SD High 56.0 LAB L100.1900 150-450 K/mm3 PLT Normal 364 LAB L100.2000 6.2-12.0 fl MPV Normal 9.0 LAB L100.3100 MANUAL DIFF CELLS COUNTED Normal 100 LAB L100.3200 47-70 % SEGS Normal 62 LAB L100.3300 0-5 % BAND High 9 LAB L100.3800 19-41 % LYMPH Normal 20 LAB L100.3900 0-10 % MONOCYTE Normal 9 LAB L100.5500 ADEQ PLT EST Normal ADEQUATE LAB L100.7000 NORM C AND C NORMAL RED CELL MORPH Normal N CYTIC LAB L100.7500 POLYCHROMASIA Normal RARE LAB L100.2620 2.0-7.7 X10 3/uL Absolute Neut Normal 6.2 LAB L100.2720 0.83-4.51 X10 3/ul Absolute Lymph Normal 1.76 LAB L100.9900 PATH REV Normal Reviewed Result Comment: Neutrophilic left shift. Clinical correlation necessary. Vidal Avalos M.D. 10/15/17 Pathologist comment added AMENDED REPORT 10/15/17 0825 PATH REV previously reported as: Kelly lovelace Performed By: #### L100.0100 #### [facility] [place], [address] COMPREHENSIVE METABOLIC Collected: 10/14/2017 Status: F Source: LIO SANCHEZ 8:03 AM [facility] [place] REPOSITORY Order Comment: Reason for Laboratory Test Chemotherapy TYPE CODE TESTS RESULT OUT OF RANGE REFERENCE UNITS LAB L501.0100 74-106 mg/dL Normal GLU 94 Result Comment: Please note revised GLUCOSE reference range effective 2017. LAB L501.1000 7-18 mg/dL Normal BUN 16 LAB L501.1100 0.55-1.02 mg/dL Normal CREAT,SERUM 0.67 Result Comment: The validity of the calculated GFR AND GFRAA in patients over 70 years has not been determined. Clinical correlation is essential. LAB L501.1110 >60 mL/min Normal EST GFR 94 Result Comment: Non- GFR Calc LAB L501.1115 >60 mL/min Normal EST GFR - AA 114 Result Comment: GFR Calc LAB L501.1255 ml/min Normal Estimated CRCL 77.34 LAB L501.1300 10-20 RATIO High BUN/CRE 23.9 LAB L501.1500 6.4-8. g/dL Normal 2 T PROT 7.1 LAB L501.1800 3.2-5. g/dL Normal 0 ALB 3.5 LAB L501.1950 2.2-4. g/dL Normal 2 GLOB 3.6 LAB L501.2000 0.9-2. RATIO Normal 4 A/G 1.0 LAB L501.2200 8.5-10 mg/dL Normal .1 CA 8.9 LAB L501.4100 15-37 U/L Normal AST 18 LAB L501.4305 45-117 U/L Normal ALK P 111 LAB L501.4405 13-56 U/L Normal ALT 20 Result Comment: Please note revised ALT reference range effective 2017. LAB L501.4600 0.20-1.00 mg/dL Normal T BILI 0.30 LAB L501.5300 136-145 mmol/L Normal NA 140 LAB L501.5600 3.5-5.1 mmol/L Normal K 3.7 LAB L501.5900 98-107 mmol/L Normal CL 107 LAB L501.6100 21.0-32.0 mmol/L Normal CO2 25.0 LAB L501.6200 5-15 Normal GAP 8 Performed By: #### L500.4050, L501.2300, L501.5200 #### [facility] [address] [place], [address] PHOSPHORUS Collected: 10/14/2017 Status: F Source: [place] 8:03 AM [facility] [place] REPOSITORY Order Comment: Reason for Laboratory Test Chemotherapy TYPE CODE TESTS RESULT OUT OF RANGE REFERENCE UNITS LAB L501.2300 2.5-4.9 mg/dL Normal PHOS 3.6 Performed By: #### L500.4050, L501.2300, L501.5200 #### [facility] [address] [facility] [place], [address] MAGNESIUM Collected: 10/14/2017 Status: F Source: [place] 8:03 AM [facility] [place] REPOSITORY Order Comment: Reason for Laboratory Test Chemotherapy TYPE CODE TESTS RESULT OUT OF RANGE REFERENCE UNITS LAB L501.5200 1.6-2.6 mg/dL Normal MG 1.6 Result Comment: Please note revised Magnesium reference range effective 2017. Performed By: #### L500.4050, L501.2300, L501.5200 #### [facility] [address] [facility] [place], [address] ONCOLOGY VISIT REPORT Observed: 10/02/2017 Status: F Source: [place] 11:31 AM [facility] [place] REPOSITORY [facility] [address] [place] [address]. [place] [address] OFFICE VISIT Date of Service: 10/02/17 0939 MR#: [id number] Acct: [id number] Name: RUTH PARRISH Rep #: [id number] : 1955 From: Ange AGRAWAL Age/Sex: 62/F Location: ONC Status: Signed Subjective - Date of Service Date of Service:: 10/02/17 - Chief Complaint Acute visit- diarrhea - History of Present Illness Ms. 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 CT-guided biopsy of the left lower lobe mass showed non-small cell lung cancer favoring adenocarcinoma on March 15, 2016. She had FOB and biopsy on April at [facility], which showed right middle lobe small cell carcinoma. She received 4 cycles of carboplatin/etoposide from May 22, 2016- July 24, 2016. She had a persistent left lower lobe mass and left upper lobe mass on PET-CT obtained July 15, 2016. Experienced radicular pain on the left side, which corresponded to the left lower lobe mass sitting on the chest wall. She began concurrent chemotherapy and radiation therapy with cisplatin and Alimta on August 29, 2016. Completed 33 fractions 180 cGy) on 10/12/16. Completed 6 cycles of Cisplatin/Alimta on 12/12/16. MRI brain obtained 01/10/17 obtained to address c/o prolonged nausea was negative for metastatic disease. CT scan of chest obtained 01/21/17 reveal opacity in the posterior segment of left upper lobe is decreased in size and stable subcentimeter nodules bilaterally. She had developed pain in the Left hip, bone scan on 03/27/2017 was negative and x-rays on 03/28/[address] chest done on 07/25/2017 showed increasing number and size of multiple pulmonary nodules, consolidation of the medial left lower lobe, increase in prevascular lymph nodes. PET/CT on 08/12/2017 showed new bilateral hypermetabolic activities suggestive of metastatic malignancy. She was referred for CT guided biopsy right upper lobe nodule 08/21/2017, however attempt was unsuccessful and patient elected to forgo further biopsy attempts. Began second line chemotherapy with Cisplatin/irinotecan 09/16/17. - Interval History The patient is presenting to clinic for an acute visit at her request. C/o diarrhea and weakness. Describes diarrhea as baby loose, not watery, no blood/mucous. Diarrhea resolved until 1 am this morning, took an Imodium and experienced second episode at 3 am and repeated Imodium. Has not had diarrhea since. Feels jittery and weak with intermittent nausea. Well controlled with Zofran. Denies dizziness and abd cramping. PO fluid intake likely adequate and increased fluids yesterday with GI losses. 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 Past Surgical History Surgical: Tubal ligation Other Surgical History: SECTION TRIPLE HERNIA REPAIR CHEST PORT PLACEMENT Family History Paternal Past Medical History: Unknown Maternal Past Medical History: Diabetes mellitus,Hypertension Social History Social History: No changes Smoking Status Current every day smoker Review of Systems Constitutional:: Reports: Weakness, Fatigue. Denies: Fever, Sweats, Weight loss, Appetite change, Chills Cardiovascular:: Denies: Chest pain, Palpitations, Dyspnea on exertion, Orthopnea, PND, Shortness of breath Respiratory: Denies: Cough, Hemoptysis, Shortness of Breath, Wheezing Gastrointestinal:: Reports: Diarrhea. Denies: Abdominal pain, Nausea, Vomiting, Constipation, Hematochezia Genitourinary: Denies: Dysuria, Hematuria, 15, Flank pain Musculoskeletal:: Denies: Back pain, Myalgia, Arthralgia Skin: Denies: Rash, Skin Changes, Wounds Neurological:: Denies: Headache, Dizziness, Visual changes, Tinnitus, Hearing loss Psychiatric: Denies: Anxiety, Depression, Homicidal Ideations, Suicidal Ideations Vital Signs Height 5 ft 5 in Weight: 148 lb 6.4 oz Weight in Pounds 148.4 lbs Pulse Ox 100 - Physical Exam General: Alert, Oriented x3, No apparent distress HEENT: Atraumatic, Normocephalic Oropharynx:: Dry mucosa. Negative for: Ulcerated lesions Neck:: Supple, Trachea midline. Negative for: JVD, bilateral Cardiac:: Regular rate, Regular rhythm, Normal S1, Normal S2. Negative for: Murmur Lungs: Clear to auscultation, Excusion symmetrical. Negative for: Rhonchi, Wheezes, Increased respiratory effort Abdomen:: Bowel sounds x 4, Soft, Non-tender, Non-distended. Negative for: Hepatosplenomegaly, Hyperactive bowel sounds Extremities:: Negative for: Cyanosis, Edema Neurological: Neuro grossly intact Skin:: Negative for: Lesions, Rash, Petechiae, Ecchymosis Psychiatric:: Appropriate affect, Euthymic Lymphatics:: Negative for: Cervical lymphadenopathy, Supraclavicular lymphadenopathy, Axillary lymphadenopathy Laboratory Data: Laboratory Tests WBC 4.8 Hgb 12.2 Plt Count 360 Potassium 3.5 Creatinine 0.76 Magnesium 1.7 Assessment and Plan 1. Non-small cell lung cancer left lower lobe stage IIIA status post chemoradiation therapy and Small cell lung cancer, limited disease, right lung- Patient has complex in that most recent imaging shows increase in bilateral lung nodules the biggest is 7 mm and consolidation in left lower lobe, confirmed hypermetabolic by way of PET/CT. Attempt at CT guided biopsy unsuccessful and patient elects to forgo further biopsy attempts. Began empiric chemotherapy to cover both malignancies with Cisplatin and Irinotecan every 28 days on 09/16/17. Due to begin cycle 2 10/14/17. 2. Diarrhea- Controlled with Imodium. Given written education information about Imodium administration. Stool studies not believed to be necessary at this time as irinotecan is notorious for causing late onset diarrhea and she is not endorsing mucous-like/bloody stools. 3. Dehydration- Likely benefit from IVF hydration today. Thus will receive 1 L NS in infusion suite. RTC 10/14/17 as previously planned for consideration of cycle 2. Encouraged to contact our office sooner if diarrhea recurs and is not controlled with Imodium or develops s/sx dehydration. Patient verbalized understanding. Ange Diaz, MSN, [employer]INARIAN-C, AOCNP Medications: Prescriptions This Visit Medication Instructions Recorded ProMETHAzine [Phenergan] 25 mg PO DAILY PRN #90 tab 08/01/17 Lorazepam [Ativan] 0.5 mg PO BID PRN #60 tablet 09/02/17 Lidocaine/Prilocaine 30 gm TP UD 30 Days #1 tube 09/09/17 Primary Care Provider: No Primary Care Phys Referring Provider: - Problem List (1) Non-small cell carcinoma of left lung Status: Chronic (2) Small cell carcinoma of right lung Status: Chronic (3) Diarrhea Status: Acute Qualifiers: Diarrhea type: unspecified type Qualified Code(s): R19.7 - Diarrhea, unspecified (4) Dehydration Status: Acute 10/02/17 1131 <Electronically signed by Ange AGRAWAL> Date Ange AGRAWAL Cosigner Signature: Date (if applicable) CC: CBC W/DIFF, AUTOMATED Collected: 10/02/2017 Status: F Source: [place] 9:48 AM [facility] REPOSITORY TYPE CODE TESTS RESULT OUT OF RANGE REFERENCE UNITS LAB L100.1000 4.4-11.0 K/mm3 Normal WBC 4.8 LAB L100.1200 4.2-5.4 M/mm3 Low RBC 4.04 LAB L100.1300 12.0-15.0 g/dl Normal HGB 12.2 LAB L100.1400 37-47 % Low HCT 36.8 LAB L100.1500 81-99 fL Normal MCV 91.1 LAB L100.1600 27.0-32.0 pg Normal MCH 30.2 LAB L100.1700 32-36 g/gl Normal MCHC 33.2 LAB L100.1810 11.6-14.6 % High RDW CV 15.7 LAB L100.1820 35.1-43.9 fl High RDW SD 51.5 LAB L100.1900 150-450 K/mm3 Normal PLT 360 LAB L100.2000 6.2-12.0 fl Normal MPV 8.6 LAB L100.2100 47-70 % Normal NEUT% 54.8 LAB L100.2200 19-41 % Normal LY% 34.2 LAB L100.2300 0-10 % Normal MONO% 9.8 LAB L100.2400 0-5 % Normal EO% 0.8 LAB L100.2500 0-1 % Normal BASO% 0.2 LAB L100.2550 0.0-0.9 % Normal IM GRAN % 0.200 Result Comment: IG% - Immature Granulocytes (promyelocytes, myelocytes and metamyelocytes) > 1% indicates that a LEFT SHIFT is Present. LAB L100.2620 2.0-7.7 X10 3/uL Normal Absolute Neut 2.6 LAB L100.2720 0.83-4.51 X10 3/ul Normal Absolute Lymph 1.64 Performed By: #### L100.0100 #### [facility] [place], [address] COMPREHENSIVE METABOLIC Collected: 10/02/2017 Status: F Source: LIO [facility] 9:48 AM [facility] REPOSITORY TYPE CODE TESTS RESULT OUT OF RANGE REFERENCE UNITS LAB L501.0100 74-106 mg/dL Normal GLU 86 Result Comment: Please note revised GLUCOSE reference range effective 2017. LAB L501.1000 7-18 mg/dL Normal BUN 15 LAB L501.1100 0.55-1.02 mg/dL Normal CREAT,SERUM 0.76 Result Comment: The validity of the calculated GFR AND GFRAA in patients over 70 years has not been determined. Clinical correlation is essential. LAB L501.1110 >60 mL/min Normal EST GFR 82 Result Comment: Non- GFR Calc LAB L501.1115 >60 mL/min Normal EST GFR - AA 99 Result Comment: GFR Calc LAB L501.1255 ml/min Normal Estimated CRCL 68.18 LAB L501.1300 10-20 RATIO Normal BUN/CRE 19.8 LAB L501.1500 6.4-8. g/dL Normal 2 T PROT 7.2 LAB L501.1800 3.2-5. g/dL Normal 0 ALB 3.8 LAB L501.1950 2.2-4. g/dL Normal 2 GLOB 3.4 LAB L501.2000 0.9-2. RATIO Normal 4 A/G 1.1 LAB L501.2200 8.5-10 mg/dL Normal .1 CA 8.9 LAB L501.4100 15-37 U/L Normal AST 17 LAB L501.4305 45-117 U/L Normal ALK P 110 LAB L501.4405 13-56 U/L Normal ALT 22 Result Comment: Please note revised ALT reference range effective 2017. LAB L501.4600 0.20-1.00 mg/dL Normal T BILI 0.50 LAB L501.5300 136-145 mmol/L Normal NA 138 LAB L501.5600 3.5-5.1 mmol/L Normal K 3.5 LAB L501.5900 98-107 mmol/L Normal CL 102 LAB L501.6100 21.0-32.0 mmol/L Normal CO2 26.0 LAB L501.6200 5-15 Normal GAP 10 Performed By: #### L500.4050, L501.5200 #### [facility] [address] [place], [place], [address] MAGNESIUM Collected: 10/02/2017 Status: F Source: [place] 9:48 AM [facility] REPOSITORY TYPE CODE TESTS RESULT OUT OF RANGE REFERENCE UNITS LAB L501.5200 1.6-2.6 mg/dL Normal MG 1.7 Result Comment: Please note revised Magnesium reference range effective 2017. Performed By: #### L500.4050, L501.5200 #### [facility] [address] [place], [place], [address] CBC W/DIFF, AUTOMATED Collected: 09/30/2017 Status: F Source: [place] 8:29 AM [facility] REPOSITORY TYPE CODE TESTS RESULT OUT OF RANGE REFERENCE UNITS LAB L100.1000 4.4-11.0 K/mm3 Normal WBC 5.9 LAB L100.1200 4.2-5.4 M/mm3 Normal RBC 4.21 LAB L100.1300 12.0-15.0 g/dl Normal HGB 12.7 LAB L100.1400 37-47 % Normal HCT 38.2 LAB L100.1500 81-99 fL Normal MCV 90.7 LAB L100.1600 27.0-32.0 pg Normal MCH 30.2 LAB L100.1700 32-36 g/gl Normal MCHC 33.2 LAB L100.1810 11.6-14.6 % High RDW CV 15.4 LAB L100.1820 35.1-43.9 fl High RDW SD 49.6 LAB L100.1900 150-450 K/mm3 Normal PLT 356 LAB L100.2000 6.2-12.0 fl Normal MPV 8.8 LAB L100.2100 47-70 % Normal NEUT% 64.2 LAB L100.2200 19-41 % Normal LY% 26.3 LAB L100.2300 0-10 % Normal MONO% 8.5 LAB L100.2400 0-5 % Normal EO% 0.2 LAB L100.2500 0-1 % Normal BASO% 0.3 LAB L100.2550 0.0-0.9 % Normal IM GRAN % 0.500 Result Comment: IG% - Immature Granulocytes (promyelocytes, myelocytes and metamyelocytes) > 1% indicates that a LEFT SHIFT is Present. LAB L100.2620 2.0-7.7 X10 3/uL Normal Absolute Neut 3.8 LAB L100.2720 0.83-4.51 X10 3/ul Normal Absolute Lymph 1.55 Performed By: #### L100.0100 #### [facility] [address] [place], [address] COMPREHENSIVE METABOLIC Collected: 09/30/2017 Status: F Source: [facility] 8:29 AM [facility] REPOSITORY Order Comment: Reason for Laboratory Test Chemotherapy TYPE CODE TESTS RESULT OUT OF RANGE REFERENCE UNITS LAB L501.0100 74-106 mg/dL Normal GLU 86 Result Comment: Please note revised GLUCOSE reference range effective 2017. LAB L501.1000 7-18 mg/dL Normal BUN 14 LAB L501.1100 0.55-1.02 mg/dL Normal CREAT,SERUM 0.70 Result Comment: The validity of the calculated GFR AND GFRAA in patients over 70 years has not been determined. Clinical correlation is essential. LAB L501.1110 >60 mL/min Normal EST GFR 90 Result Comment: Non- GFR Calc LAB L501.1115 >60 mL/min Normal EST GFR - AA 109 Result Comment: GFR Calc LAB L501.1255 ml/min Normal Estimated CRCL 74.02 LAB L501.1300 10-20 RATIO Normal BUN/CRE 20.0 LAB L501.1500 6.4-8. g/dL Normal 2 T PROT 7.2 LAB L501.1800 3.2-5. g/dL Normal 0 ALB 3.7 LAB L501.1950 2.2-4. g/dL Normal 2 GLOB 3.5 LAB L501.2000 0.9-2. RATIO Normal 4 A/G 1.1 LAB L501.2200 8.5-10 mg/dL Normal .1 CA 8.7 LAB L501.4100 15-37 U/L Normal AST 16 LAB L501.4305 45-117 U/L High ALK P 118 LAB L501.4405 13-56 U/L Normal ALT 23 Result Comment: Please note revised ALT reference range effective 2017. LAB L501.4600 0.20-1.00 mg/dL Normal T BILI 0.40 LAB L501.5300 136-145 mmol/L Normal NA 137 LAB L501.5600 3.5-5.1 mmol/L Low K 3.2 LAB L501.5900 98-107 mmol/L Normal CL 103 LAB L501.6100 21.0-32.0 mmol/L Normal CO2 24.0 LAB L501.6200 5-15 Normal GAP 10 Performed By: #### L500.4050, L501.2300, L501.5200 #### [facility] [address] [place], [place], [address] PHOSPHORUS Collected: 09/30/2017 Status: F Source: [place] 8:29 AM [facility] REPOSITORY Order Comment: Reason for Laboratory Test Chemotherapy TYPE CODE TESTS RESULT OUT OF RANGE REFERENCE UNITS LAB L501.2300 2.5-4.9 mg/dL Normal PHOS 2.9 Performed By: #### L500.4050, L501.2300, L501.5200 #### [facility] [address] [place], [address] MAGNESIUM Collected: 09/30/2017 Status: F Source: [place] 8:29 AM [facility] REPOSITORY Order Comment: Reason for Laboratory Test Chemotherapy TYPE CODE TESTS RESULT OUT OF RANGE REFERENCE UNITS LAB L501.5200 1.6-2.6 mg/dL Normal MG 1.7 Result Comment: Please note revised Magnesium reference range effective 2017. Performed By: #### L500.4050, L501.2300, L501.5200 #### [facility] [address] [place], [address] CBC W/DIFF, AUTOMATED Collected: 09/23/2017 Status: F Source: [place] 7:58 AM [facility] REPOSITORY TYPE CODE TESTS RESULT OUT OF RANGE REFERENCE UNITS LAB L100.1000 4.4-11.0 K/mm3 Normal WBC 7.4 LAB L100.1200 4.2-5.4 M/mm3 Normal RBC 4.47 LAB L100.1300 12.0-15.0 g/dl Normal HGB 13.5 LAB L100.1400 37-47 % Normal HCT 40.4 LAB L100.1500 81-99 fL Normal MCV 90.4 LAB L100.1600 27.0-32.0 pg Normal MCH 30.2 LAB L100.1700 32-36 g/gl Normal MCHC 33.4 LAB L100.1810 11.6-14.6 % High RDW CV 15.1 LAB L100.1820 35.1-43.9 fl High RDW SD 50.0 LAB L100.1900 150-450 K/mm3 Normal PLT 342 LAB L100.2000 6.2-12.0 fl Normal MPV 9.2 LAB L100.2100 47-70 % High NEUT% 70.4 LAB L100.2200 19-41 % Normal LY% 20.3 LAB L100.2300 0-10 % Normal MONO% 7.2 LAB L100.2400 0-5 % Normal EO% 0.8 LAB L100.2500 0-1 % Normal BASO% 0.3 LAB L100.2550 0.0-0.9 % High IM GRAN % 1.000 Result Comment: IG% - Immature Granulocytes (promyelocytes, myelocytes and metamyelocytes) > 1% indicates that a LEFT SHIFT is Present. LAB L100.2620 2.0-7.7 X10 3/uL Normal Absolute Neut 5.2 LAB L100.2720 0.83-4.51 X10 3/ul Normal Absolute Lymph 1.49 Performed By: #### L100.0100 #### [facility] [address], [address] COMPREHENSIVE METABOLIC Collected: 09/23/2017 Status: F Source: [facility] 7:58 AM [facility] REPOSITORY Order Comment: Reason for Laboratory Test Chemotherapy TYPE CODE TESTS RESULT OUT OF RANGE REFERENCE UNITS LAB L501.0100 74-106 mg/dL Normal GLU 89 Result Comment: Please note revised GLUCOSE reference range effective 2017. LAB L501.1000 7-18 mg/dL Normal BUN 15 LAB L501.1100 0.55-1.02 mg/dL Normal CREAT,SERUM 0.67 Result Comment: The validity of the calculated GFR AND GFRAA in patients over 70 years has not been determined. Clinical correlation is essential. LAB L501.1110 >60 mL/min Normal EST GFR 95 Result Comment: Non- GFR Calc LAB L501.1115 >60 mL/min Normal EST GFR - AA 115 Result Comment: GFR Calc LAB L501.1255 ml/min Normal Estimated CRCL 77.34 LAB L501.1300 10-20 RATIO High BUN/CRE 22.5 LAB L501.1500 6.4-8. g/dL Normal 2 T PROT 7.2 LAB L501.1800 3.2-5. g/dL Normal 0 ALB 3.6 LAB L501.1950 2.2-4. g/dL Normal 2 GLOB 3.6 LAB L501.2000 0.9-2. RATIO Normal 4 A/G 1.0 LAB L501.2200 8.5-10 mg/dL Normal .1 CA 8.5 LAB L501.4100 15-37 U/L Low AST 14 LAB L501.4305 45-117 U/L High ALK P 129 LAB L501.4405 13-56 U/L Normal ALT 22 Result Comment: Please note revised ALT reference range effective 2017. LAB L501.4600 0.20-1.00 mg/dL Normal T BILI 0.40 LAB L501.5300 136-145 mmol/L Normal NA 138 LAB L501.5600 3.5-5.1 mmol/L Low K 3.3 LAB L501.5900 98-107 mmol/L Normal CL 102 LAB L501.6100 21.0-32.0 mmol/L Normal CO2 25.0 LAB L501.6200 5-15 Normal GAP 11 Performed By: #### L500.4050, L501.2300, L501.5200 #### [facility] [address] [place], [address] PHOSPHORUS Collected: 09/23/2017 Status: F Source: [place] 7:58 AM [facility] REPOSITORY Order Comment: Reason for Laboratory Test Chemotherapy TYPE CODE TESTS RESULT OUT OF RANGE REFERENCE UNITS LAB L501.2300 2.5-4.9 mg/dL Low PHOS 2.4 Performed By: #### L500.4050, L501.2300, L501.5200 #### [facility] [address] [place], [address] MAGNESIUM Collected: 09/23/2017 Status: F Source: [place] 7:58 AM [facility] REPOSITORY Order Comment: Reason for Laboratory Test Chemotherapy TYPE CODE TESTS RESULT OUT OF RANGE REFERENCE UNITS LAB L501.5200 1.6-2.6 mg/dL Normal MG 1.9 Result Comment: Please note revised Magnesium reference range effective 2017. Performed By: #### L500.4050, L501.2300, L501.5200 #### [facility] [address] [place], [address] BRAIN W/WO CONTRAST Observed: 09/17/2017 Status: F Source: [place] 7:09 AM [facility] REPOSITORY [facility] [address] [place] [address] Brain W/WO Contrast MR#: [id number] Acct: [id number] Name: RUTH PARRISH Rep #: [id number] : 1955 F 62 From: La Gutierrez PCP: Jens Garibay Status: REG CLI Study: Brain W/WO Contrast Date of Exam: 09/17/17 Exam# [id number] Ordering Dr: Ange Diaz PROCESS PUMPERMelinda STUDY: MRI BRAIN WITH AND WITHOUT CONTRAST REASON FOR EXAM: Female, 62 years old. lung ca. No new problems, pt just started another round of chemo for lung CA. TECHNIQUE: Standardized multiplanar fat and water weighted pulse sequences were obtained. 7 ml of Gadavist contrast material was administered intravenously for the contrast portion of the examination. COMPARISON: January 10, 2017 FINDINGS: There is mild cerebral atrophy with widening of the extra- axial spaces and ventricular dilatation. There are stable multiple white matter hyperintensities, distributed throughout the deep white matter tracts of the cerebral hemispheres, consistent with moderate chronic white matter ischemic changes. Normal bilateral basal ganglia. Normal thalami. There is no extra-axial fluid accumulation. Normal flow voids within the major intracranial circulation suggesting patency by spin echo criteria. Normal venous enhancement. There is no enhancing intra-axial or extra-axial abnormality. Normal sella turcica, pituitary gland, infundibular stalk, optic chiasm and hypothalamus. Normal tectal plate and pineal gland. Normal midbrain, earl and medulla. Normal cerebellum. Normal basal cisterns. Normal bilateral temporal bones. Normal bilateral internal auditory canals. No demonstrated orbital abnormality, within the constraints of a routine brain study. Normal visualized paranasal sinuses. Normal calvarium and skull base. Normal visualized soft tissue structures. Normal visualized upper cervical spine. MRI/Brain W/WO Contrast IMPRESSION: No acute intracranial abnormality or masses. Moderate chronic microvascular ischemic changes. Electronically Signed: La Gutierrez MD at 10:22 EST Tel , Service support , CC: Jens Garibay; Ange Diaz NP [place] Supervisor: Signed CBC W/DIFF, AUTOMATED Collected: 09/16/2017 Status: F Source: [place] 8:00 AM [facility] REPOSITORY TYPE CODE TESTS RESULT OUT OF RANGE REFERENCE UNITS LAB L100.1000 4.4-11.0 K/mm3 High WBC 11.5 LAB L100.1200 4.2-5.4 M/mm3 Normal RBC 4.55 LAB L100.1300 12.0-15.0 g/dl Normal HGB 14.0 LAB L100.1400 37-47 % Normal HCT 41.3 LAB L100.1500 81-99 fL Normal MCV 90.8 LAB L100.1600 27.0-32.0 pg Normal MCH 30.8 LAB L100.1700 32-36 g/gl Normal MCHC 33.9 LAB L100.1810 11.6-14.6 % High RDW CV 15.6 LAB L100.1820 35.1-43.9 fl High RDW SD 51.3 LAB L100.1900 150-450 K/mm3 High PLT 548 LAB L100.2000 6.2-12.0 fl Normal MPV 9.0 LAB L100.2100 47-70 % Normal NEUT% 69.2 LAB L100.2200 19-41 % Low LY% 16.3 LAB L100.2300 0-10 % High MONO% 10.4 LAB L100.2400 0-5 % Normal EO% 3.1 LAB L100.2500 0-1 % Normal BASO% 0.3 LAB L100.2550 0.0-0.9 % Normal IM GRAN % 0.700 Result Comment: IG% - Immature Granulocytes (promyelocytes, myelocytes and metamyelocytes) > 1% indicates that a LEFT SHIFT is Present. LAB L100.2620 2.0-7.7 X10 3/uL High Absolute Neut 7.9 LAB L100.2720 0.83-4.51 X10 3/ul Normal Absolute Lymph 1.87 Performed By: #### L100.0100 #### [facility] [address] [place], [place], [address] COMPREHENSIVE METABOLIC Collected: 09/16/2017 Status: F Source: [facility] 8:00 AM [facility] REPOSITORY Order Comment: Reason for Laboratory Test Chemotherapy TYPE CODE TESTS RESULT OUT OF RANGE REFERENCE UNITS LAB L501.0100 74-106 mg/dL High GLU 111 Result Comment: Fasting Glucose result from 100 to 125 mg/dL suggests IMPAIRED HOMEOSTASIS per A.D.A. criteria. Please note revised GLUCOSE reference range effective 2017. LAB L501.1000 7-18 mg/dL Normal BUN 14 LAB L501.1100 0.55-1.02 mg/dL Normal CREAT,SERUM 0.71 Result Comment: The validity of the calculated GFR AND GFRAA in patients over 70 years has not been determined. Clinical correlation is essential. LAB L501.1110 >60 mL/min Normal EST GFR 88 Result Comment: Non- GFR Calc LAB L501.1115 >60 mL/min Normal EST GFR - AA 106 Result Comment: GFR Calc LAB L501.1255 ml/min Normal Estimated CRCL 72.98 LAB L501.1300 10-20 RATIO Normal BUN/CRE 19.7 LAB L501.1500 6.4-8. g/dL Normal 2 T PROT 7.8 LAB L501.1800 3.2-5. g/dL Normal 0 ALB 3.8 LAB L501.1950 2.2-4. g/dL Normal 2 GLOB 4.0 LAB L501.2000 0.9-2. RATIO Normal 4 A/G 1.0 LAB L501.2200 8.5-10 mg/dL Normal .1 CA 9.3 LAB L501.4100 15-37 U/L Normal AST 16 LAB L501.4305 45-117 U/L High ALK P 131 LAB L501.4405 13-56 U/L Normal ALT 22 Result Comment: Please note revised ALT reference range effective 2017. LAB L501.4600 0.20-1.00 mg/dL Normal T BILI 0.60 LAB L501.5300 136-145 mmol/L Normal NA 139 LAB L501.5600 3.5-5.1 mmol/L Normal K 3.8 LAB L501.5900 98-107 mmol/L Normal CL 105 LAB L501.6100 21.0-32.0 mmol/L Normal CO2 25.0 LAB L501.6200 5-15 Normal GAP 9 Performed By: #### L500.4050, L501.2300, L501.5200 #### [facility] [address] [facility] [place], [place], [address] PHOSPHORUS Collected: 09/16/2017 Status: F Source: [place] 8:00 AM [facility] REPOSITORY Order Comment: Reason for Laboratory Test Chemotherapy TYPE CODE TESTS RESULT OUT OF RANGE REFERENCE UNITS LAB L501.2300 2.5-4.9 mg/dL Normal PHOS 2.9 Performed By: #### L500.4050, L501.2300, L501.5200 #### [facility] [address] [place], [place], [address] MAGNESIUM Collected: 09/16/2017 Status: F Source: [place] 8:00 AM [facility] REPOSITORY Order Comment: Reason for Laboratory Test Chemotherapy TYPE CODE TESTS RESULT OUT OF RANGE REFERENCE UNITS LAB L501.5200 1.6-2.6 mg/dL Normal MG 2.1 Result Comment: Please note revised Magnesium reference range effective 2017. Performed By: #### L500.4050, L501.2300, L501.5200 #### [facility] [address] [place], [address] CHEST WITHOUT Observed: 08/21/2017 Status: F Source: [place] CONTRAST 9:04 AM [facility] REPOSITORY [facility] Imaging Services [address] [place] [address] Chest without Contrast MR#: [id number] Acct: [id number] Name: RUTH PARRISH Rep #: [id number] : 1955 F 62 From: Naveed Danielle MD PCP: Jens Garibay Status: REG CLI Study: Chest without Contrast Date of Exam: 08/21/17 Exam# [id number] Ordering Dr: Daquan Baeza MD STUDY: CT CHEST WITHOUT CONTRAST REASON FOR EXAM: Female, 62 years old. The patient was scheduled for CT-guided biopsy of a right upper lobe nodule. RADIATION DOSAGE (If Supplied By Facility): CTDIvol = ( 20.42 ) mGy, DLP = ( 476.97 ) mGycm TECHNIQUE: Transaxial imaging was performed without the administration of intravenous contrast material. Individualized dose optimization techniques were used for this CT. COMPARISON: Comparison is made with prior study dated July 25, 2017. FINDINGS: The patient was scanned in the supine position. The right upper lobe nodule was localized. There is limited access due to the overlying rib and the underlying nolberto catheter. The biopsy was canceled. CT/Chest without Contrast IMPRESSION: Non-accessible nodule for safe pulmonary biopsy. Electronically Signed: Naveed Danielle MD at 12:24 EST Tel [phone], Service support , CC: Daquan Baeza MD; Jens Garibay [place] Supervisor: Signed CBC W/DIFF, AUTOMATED Collected: 08/19/2017 Status: F Source: [place] 3:56 PM [facility] REPOSITORY Order Comment: Reason for Laboratory Test . TYPE CODE TESTS RESULT OUT OF RANGE REFERENCE UNITS LAB L100.1000 4.4-11.0 K/mm3 Normal WBC 9.7 LAB L100.1200 4.2-5.4 M/mm3 Normal RBC 4.38 LAB L100.1300 12.0-15.0 g/dl Normal HGB 13.5 LAB L100.1400 37-47 % Normal HCT 40.0 LAB L100.1500 81-99 fL Normal MCV 91.3 LAB L100.1600 27.0-32.0 pg Normal MCH 30.8 LAB L100.1700 32-36 g/gl Normal MCHC 33.8 LAB L100.1810 11.6-14.6 % High RDW CV 15.3 LAB L100.1820 35.1-43.9 fl High RDW SD 50.2 LAB L100.1900 150-450 K/mm3 High PLT 506 LAB L100.2000 6.2-12.0 fl Normal MPV 8.6 LAB L100.2100 47-70 % Normal NEUT% 63.7 LAB L100.2200 19-41 % Normal LY% 20.8 LAB L100.2300 0-10 % High MONO% 12.2 LAB L100.2400 0-5 % Normal EO% 1.7 LAB L100.2500 0-1 % Normal BASO% 0.4 LAB L100.2550 0.0-0.9 % High IM GRAN % 1.200 Result Comment: IG% - Immature Granulocytes (promyelocytes, myelocytes and metamyelocytes) > 1% indicates that a LEFT SHIFT is Present. LAB L100.2620 2.0-7.7 X10 3/uL Normal Absolute Neut 6.2 LAB L100.2720 0.83-4.51 X10 3/ul Normal Absolute Lymph 2.02 Performed By: #### L100.0100 #### [facility] [address] [place], [address] PROTHROMBIN TIME W/INR Collected: 08/19/2017 Status: F Source: [place] 3:56 PM [facility] REPOSITORY Order Comment: Reason for Laboratory Test . TYPE CODE TESTS RESULT OUT OF RANGE REFERENCE UNITS LAB L300.4150 11.7-14.9 SECONDS Normal PROTIME 11.9 LAB L300.4200 Normal INR 0.9 Performed By: #### L300.3900, L300.4310 #### [facility] [address] [place], [address] PARTIAL THROMBOPLAST Collected: 08/19/2017 Status: F Source: [place] TIME 3:56 PM [facility] REPOSITORY Order Comment: Reason for Laboratory Test . TYPE CODE TESTS RESULT OUT OF RANGE REFERENCE UNITS LAB L300.4310 24.1-36.2 Seconds Normal PTT 33.8 Performed By: #### L300.3900, L300.4310 #### [facility] [address] [place], [address] ALLERGIES ALLERGIES DATE TYPE / NAME / CODE REACTION SEVERITY SOURCE CODE 08/11/2018 Drug Penicillins/[id number] Anaphylaxis [place] Allergy/41 0476(RXNORM) [facility] [id number]([facility]) Repository 08/11/2018 Drug Sulfa (Sulfonamide Anaphylaxis [place] Allergy/41 Antibiotics)/F0010 [facility] [id number]( 81056(RXNORM) [facility]) Repository 08/11/2018 Drug codeine/[id number] Unknown [place] Allergy/41 (RXNORM) [facility] [id number]([facility]) Repository 08/11/2018 Drug erythromycin Unknown [place] Allergy/41 base/[id number](RX [facility] 6199849([facility]) Repository 08/11/2018 Drug tramadol/[id number] Vomiting [place] Allergy/41 0(RXNORM) [facility] [id number]([facility]) Repository ENCOUNTERS ENCOUNTERS ADMIT/DISCHARGE ACCOUNT NUMBER ADMITTING ENCOUNTER LOCATION SOURCE CLASS 08/11/2018 [id number] Ambulatory BMS[facility]: [place] [facility] Repository 08/11/2018 [id number] Ambulatory [facility] ding:ONC Repository 08/08/2018 [id number] Ambulatory [facility] Hospital ding:CT Repository 08/05/2018 [id number] Ambulatory BMSBuilding: [place] BMS.[facility] Repository 08/04/2018 [id number] Ambulatory BMSBuilding: [place] BMS.CF[facility] Repository 07/02/2018 [id number] Ambulatory BMSBuilding: [place] BMS.CF[facility] Repository 06/23/2018 [id number] Ambulatory [facility] Repository 06/20/2018 [id number] Ambulatory [address] [place] [address] ULC8Totm: System [id number]: Repository [id number] 06/04/2018 [id number] Ambulatory BMSBuilding: [place] BMS.[facility] [facility] Repository 05/26/2018 [id number] Ambulatory [facility] Hospital ding:CT Repository 05/21/2018 [id number] Ambulatory BMSBuilding: [place] BMS.CF.[facility] Repository 05/19/2018 [id number] Ambulatory [facility] ding:CT Repository 04/09/2018 [id number] Ambulatory BMSBuilding: [place] BMS.CF.[facility] Repository 04/07/2018 [id number] Ambulatory [facility] Hospital ding:CT Repository 01/20/2018 [id number] Ambulatory BMSBuilding: [place] BMS.[facility] Repository 01/09/2018 [id number] Ambulatory BMSBuilding: [place] BMS.CF.[facility] Repository 01/07/2018 [id number] Ambulatory [facility] Hospital ding:CT Repository 12/24/2017 [id number] Ambulatory BMSBuilding: [place] BMS.[facility] Repository 12/10/2017 [id number] Ambulatory BMSBuilding: [place] BMS.CF.[facility] Repository 11/18/2017 [id number] Ambulatory BMSBuilding: [place] BMS.CF.[facility] Repository 11/11/2017 [id number] Ambulatory BMSBuilding: [place] BMS.CF.[facility] Repository 11/04/2017 [id number] Ambulatory [facility] ding:CT Repository 10/28/2017 [id number] Ambulatory BMSBuilding: [place] BMS.CF.[facility] Repository 10/14/2017 [id number] Ambulatory BMSBuilding: [place] BMS.CF.[facility] Repository 10/02/2017 [id number] Ambulatory BMSBuilding: [place] BMS.[facility] Repository 09/23/2017 [id number] Ambulatory BMSBuilding: [place] BMS.[facility] Repository 09/17/2017 [id number] Ambulatory [facility] ding:MRI Repository 09/16/2017 [id number] Ambulatory BMSBuilding: [place] BMS.[facility] Repository 09/09/2017 [id number] Ambulatory BMSBuilding: [place] BMS.[facility] Repository 09/02/2017 [id number] Ambulatory BMSBuilding: [place] BMS.[facility] Repository 08/21/2017 [id number] Ambulatory [facility] ding:CT Repository 08/19/2017 [id number] Ambulatory [facility] ding:LAB Repository 08/19/2017 [id number] Ambulatory BMSBuilding: [place] BMS.[facility] Repository PAYERS PAYERS ENCOUNTER GUARANTOR PAYER SUBSCRIBER SOURCE 08/11/2018 RUTH [id number] Insurance:Elba BARRETTOB: [facility] Number: [id number] [id number] Repository [address]Iva: 330) Date:8782-59-20RJ [phone] ([facility] [employer] [facility] 242172HQPTNHV, [place] [address]OC: 08/11/2018 Secondary NOT GIVENUNK [place] Insurance:SELF PAY [facility] Number: Effective Repository Date:2018-08-11 08/11/2018 RUTH Garcia Primary ERNIE [id number] Insurance:LISETHEMPolicy WILLIAMSONDOB: [facility] Number: [id number] [place] [id number] Repository 45294Qjv: (330) Date:8239-17-01FX [phone] () 309318DCKCSHP, [place] [address]BF: 08/11/2018 Secondary RUTH J [place] Insurance:CHEMO WILLIAMSONDOB: [facility] [id number] Hospital Number: 000Effective Repository Date:2017-09-18 08/11/2018 Tertiary NOT GIVENUNK [place] Insurance:[facility]LF [facility] Number: Effective Repository Date:2016-10-25 08/08/2018 RUTH J Primary ERNIE V [place] [id number] Insurance:ANTHEMPolicy WILLIAMSONDOB: [facility] Number: [id number] [place] [id number] Repository 6[address]Gem: (330) Date:6633-05-27VC [phone] () 248011GQZGJVZ, [place] [address]BF: 08/08/2018 Secondary RUTH J [place] Insurance:CHEMO WILLIAMSONDOB: [facility] [id number] Hospital Number: 000Effective Repository Date:2018-08-04 08/08/2018 Tertiary NOT GIVENUNK [place] Insurance:SELF PAY [facility] Number: Effective Repository Date:2018-08-04 08/05/2018 RUTH J Primary ERNIE V [place] [id number] Insurance:ANTHEMPolicy WILLIAMSONDOB: [facility] Number: [id number] [place], [place] [id number] Repository 85383Gvh: (330) Date:8861-04-63DC [phone] () 799354AZNRZYO, [place] [address]FO: 08/05/2018 Secondary NOT GIVENUNK [place] Insurance:SELF PAY [facility] Number: Effective Repository Date:2018-08-05 08/04/2018 RUTH J Primary ERNIE V [place] [id number] Insurance:ANTHEMPolicy WILLIAMSONDOB: [facility] Number: [id number] [place] [id number] Repository 89871Lhx: (330) Date:8686-30-35BH [phone] () 152812ILYRXZS, [place] [address]GN: 08/04/2018 Secondary NOT GIVENUNK [place] Insurance:SELF PAY [facility] Number: Effective Repository Date:2018-08-04 07/02/2018 RUTH J Primary ERNIE V [place] [id number] Insurance:ANTHEMPolicy WILLIAMSONDOB: [facility] Number: [id number] [place] [id number] Repository 16218Zkp: (330) Date:5140-43-06TQ [phone] () 375832WGJIULI, [place] [address]PZ: 07/02/2018 Secondary NOT GIVENUNK [place] Insurance:SELF PAY [facility] Number: Effective Repository Date:2018-07-02 06/23/2018 Ruth Primary [facility] WilliamsonDOB: Insurance:[employer] WilliamsonDOB: System [id number] [employer] [id number] Repository Antoni OgPolicy Number: [place] Effective Date: [address]Gtk: (HP) 06/20/2018 Ruth Primary [facility] WilliamsonDOB: Insurance:[employer] WilliamsonDOB: System [id number] [employer] [id number] Repository Antoni OgPolicy Number: [place] Effective Date: [address]Kxa: (HP) 06/04/2018 RUTH J Primary ERNIE V [place] [id number] Insurance:ANTHEMPolicy WILLIAMSONDOB: [facility] Number: [id number] [id number] Repository 47[address]Lld: (330) Date:9548-92-05GE [phone] () 603512ZQLBXYB, [place] [address]HH: 06/04/2018 Secondary RUTH J [place] Insurance:CHEMO WILLIAMSONDOB: [facility] [id number] Hospital Number: 000Effective Repository Date:2017-09-18 06/04/2018 Tertiary NOT GIVENUNK [place] Insurance:SELF PAY [facility] Number: Effective Repository Date:2018-06-04 05/26/2018 RUTH J Primary ERNIE V [place] [id number] Insurance:ANTHEMPolicy WILLIAMSONDOB: [facility] Number: [id number] [id number] Repository 588[address]Ejr: (330) Date:4025-48-13QM [phone] () 613263PRZOGTY, [place] [address]KH: 05/26/2018 Secondary NOT GIVENUNK [place] Insurance:SELF PAY [facility] Number: Effective Repository Date:2018-05-21 05/21/2018 RUTH J Primary ERNIE V [place] [id number] Insurance:ANTHEMPolicy WILLIAMSONDOB: [facility] Number: [id number] [place] [id number] Repository 26320Xcy: (330) Date:8225-76-50EW [phone] () 482257RLZBOWO, [place] [address]BX: 05/21/2018 Secondary RUTH J [place] Insurance:CHEMO WILLIAMSONDOB: [facility] [id number] Hospital Number: 000Effective Repository Date:2017-09-18 05/21/2018 Tertiary NOT GIVENUNK [place] Insurance:SELF PAY [facility] Number: Effective Repository Date:2018-05-21 05/19/2018 RUTH J Primary ERNIE V [place] [id number] Insurance:ANTHEMPolicy WILLIAMSONDOB: [facility] Number: [id number] [place], [place] [id number] Repository 10689Eea: (330) Date:9964-01-17KV [phone] () 950305VSCAJKS, [place] [address]FN: 05/19/2018 Secondary NOT GIVENUNK [place] Insurance:SELF PAY [facility] Number: Effective Repository Date:2018-04-09 04/09/2018 RUTH J Primary Ernie V [place] [id number] Insurance:ANTHEMPolicy WilliamsonDOB: [facility] Number: [id number] [place], [place] [id number] Repository 97[address]Phu: (330) Date:2472-25-03QO [phone] () [address] [place] [address]BM: 04/09/2018 Secondary NOT GIVENUNK [place] Insurance:SELF PAY [facility] Number: Effective Repository Date:2018-04-09 04/07/2018 RUTH J Primary Ernie V [place] [id number] Insurance:ANTHEMPolicy WilliamsonDOB: [facility] Number: [id number] [place], [place] [id number] Repository [address]50[address]Tel: (330) Date:5553-62-75VG [phone] () [address] [place] [address]FX: 04/07/2018 Secondary RUTH J [place] Insurance:CHEMO WILLIAMSONDOB: [facility] [id number] Hospital Number: 000Effective Repository Date:2018-01-09 04/07/2018 Tertiary NOT GIVENUNK [place] Insurance:SELF PAY [facility] Number: Effective Repository Date:2018-01-09 01/20/2018 RUTH J Primary Erniecourtney [place] [id number] Insurance:ANTHEMPolicy WilliamsonDOB: [facility] Number: [id number] [place], [place] [id number] Repository 85897Qxo: (330) Date:2266-08-57RS [phone] () [id number] [place] [address]RT: 01/20/2018 Secondary RUTH J [place] Insurance:CHEMO WILLIAMSONDOB: [facility] [id number] Hospital Number: 000Effective Repository Date:2017-09-18 01/20/2018 Tertiary NOT GIVENUNK [place] Insurance:SELF PAY [facility] Number: Effective Repository Date:2018-01-20 01/09/2018 RUTH Garcia Primary Ernie [place] [id number] Insurance:ANTHEMPolicy WilliamsonDOB: [facility] Number: [id number] [place], [place] [id number] Repository 8[address]Hib: (330) Date:5075-96-14KY [phone] () 231680ETLJUAX, [place] [address]VK: 01/09/2018 Secondary NOT GIVENUNK [place] Insurance:SELF PAY [facility] Number: Effective Repository Date:2018-01-09 01/07/2018 RUTH Radha Primary Ernie Law [place] [id number] Insurance:ANTHEMPolicy WilliamsonDOB: [facility] Number: [id number] [place], [place] [id number] Repository 977[address]Txj: (330) Date:0816-34-81WH [phone] () 593429FMGQFQG, [place] [address]QL: 01/07/2018 Secondary NOT GIVENUNK [place] Insurance:SELF PAY [facility] Number: Effective Repository Date:2017-12-27 12/24/2017 RUTH Garcia Primary Ernie Law [place] [id number] Insurance:ANTHEMPolicy WilliamsonDOB: [facility] Number: [id number] [place], [place] [id number] Repository 180[address]Epz: (330) Date:5170-32-63EG [phone] () 558413MZMBOWR, [place] [address]TM: 12/24/2017 Secondary NOT GIVENUNK [place] Insurance:SELF PAY [facility] Number: Effective Repository Date:2017-12-24 12/10/2017 RUTH Garcia Primary Ernie Law [place] [id number] Insurance:ANTHEMPolicy WilliamsonDOB: [facility] Number: [id number] [place], [place] [id number] Repository 15[address]Ydn: Date:6607-14-40YV [phone]~33 175272BTAXHXU, [place] 0-2 (HP) [address]GU: 12/10/2017 Secondary RUTH J [place] Insurance:CHEMO WILLIAMSONDOB: [facility] [id number] Hospital Number: 000Effective Repository Date:2017-09-18 12/10/2017 Tertiary NOT GIVENUNK [place] Insurance:SELF PAY [facility] Number: Effective Repository Date:2017-12-10 11/18/2017 RUTH J Primary Ernie V [place] [id number] Insurance:ANTHEMPolicy WilliamsonDOB: [facility] Number: [id number] [id number] Repository [address]Pxw: Date:1228-92-41MU [phone]~33 065709OTWHTNZ, [place] 0-2 (HP) [address]BE: 11/18/2017 Secondary NOT GIVENUNK [place] Insurance:SELF PAY [facility] Number: Effective Repository Date:2017-11-18 11/11/2017 RUTH J Primary Ernie V [place] [id number] Insurance:ANTHEMPolicy WilliamsonDOB: [facility] Number: [id number] [id number] Repository [address]Cbl: Date:9287-24-35OK [phone]~33 797042MEPQUBH, [place] 0-2 (HP) [address]AO: 11/11/2017 Secondary NOT GIVENUNK [place] Insurance:SELF PAY [facility] Number: Effective Repository Date:2017-11-11 11/04/2017 RUTH J Primary Ernie V [place] [id number] Insurance:ANTHEMPolicy WilliamsonDOB: [facility] Number: [id number] [id number] Repository 99255Hwf: Date:2564-11-18EJ [phone]~33 147746YUFYEAL, [place] 0-2 (HP) [address]LK: 11/04/2017 Secondary RUTH J [place] Insurance:CHEMO WILLIAMSONDOB: [facility] [id number] Hospital Number: Repository [id number] Date:2017-10-28 11/04/2017 Tertiary NOT GIVENUNK [place] Insurance:SELF PAY [facility] Number: Effective Repository Date:2017-10-28 10/28/2017 RUTH J Primary Ernie V [place] [id number] Insurance:ANTHEMPolicy WilliamsonDOB: [facility] Number: [id number] [id number] Repository 23[address]Yis: Date:0787-71-38RL [phone] 689636YFBNTOJ, [place] 0-2 (HP) [address]ES: 10/28/2017 Secondary NOT GIVENUNK [place] Insurance:SELF PAY [facility] Number: Effective Repository Date:2017-10-28 10/14/2017 RUTH J Primary Ernie V [place] [id number] Insurance:ANTHEMPolicy WilliamsonDOB: [facility] Number: [id number] [place], [place] [id number] Repository 57[address]Jfv: Date:6796-96-12SP [phone] 738140DWZVPPW, [place] 0-2 (HP) [address]RY: 10/14/2017 Secondary RUTH J [place] Insurance:CHEMO WILLIAMSONDOB: [facility] [id number] Hospital Number: 000Effective Repository Date:2017-09-18 10/14/2017 Tertiary NOT GIVENUNK [place] Insurance:SELF PAY [facility] Number: Effective Repository Date:2017-10-14 10/02/2017 RUTH J Primary Ernie V [place] [id number] Insurance:ANTHEMPolicy WilliamsonDOB: [facility] Number: [id number] [id number] Repository 560[address]Sdk: Date:9487-46-98XD [phone]~33 331385EBTGZWJ, [place] 0-2 (HP) [address]AC: 10/02/2017 Secondary NOT GIVENUNK [place] Insurance:SELF PAY [facility] Number: Effective Repository Date:2017-10-02 09/23/2017 RUTH Garcia Primary Ernie Law [place] [id number] Insurance:ANTHEMPolicy WilliamsonDOB: [facility] Number: [id number] [place], [place] [id number] Repository 64607Llb: Date:3853-49-34RA [phone]~33 003227IPBPUWU, [place] 0-2 (HP) [address]PA: 09/23/2017 Secondary NOT GIVENUNK [place] Insurance:SELF PAY [facility] Number: Effective Repository Date:2017-09-23 09/17/2017 RUTH Garcia Primary Ernie V [place] [id number] Insurance:ANTHEMPolicy WilliamsonDOB: [facility] Number: [id number], [place] [id number] Repository 30576Rxd: Date:5770-01-00RN [phone]~33 243080EMVHKHL, [place] 0-2 (HP) [address]JY: 09/17/2017 Secondary NOT GIVENUNK [place] Insurance:SELF PAY [facility] Number: Effective Repository Date:2017-09-10 09/16/2017 RUTH Garcia Primary Ernie V [place] [id number] Insurance:ANTHEMPolicy WilliamsonDOB: [facility] Number: [id number] [place] [id number] Repository 599[address]Peq: Date:6467-83-88ZP [phone]~33 189703ORUWDFL, [place] 0-2 (HP) [address]BR: 09/16/2017 Secondary NOT GIVENUNK [place] Insurance:SELF PAY [facility] Number: Effective Repository Date:2017-09-16 09/09/2017 RUTH Garcia Primary Ernie Law [place] [id number] Insurance:ANTHEMPolicy WilliamsonDOB: [facility] Number: [id number] [place] [id number] Repository 375[address]Usr: Date:9636-80-95CR [phone]~33 260712ZGFNLMG, [place] 0-2 (HP) [address]FY: 09/09/2017 Secondary NOT GIVENUNK [place] Insurance:SELF PAY [facility] Number: Effective Repository Date:2017-09-09 09/02/2017 RUTH J Primary Ernie V [place] [id number] Insurance:ANTHEMPolicy WilliamsonDOB: [facility] Number: [id number] [id number] Repository 500[address]Zil: Date:1799-59-79SK [phone] 485751LTIDLLZ, [place] 0-2 (HP) [address]YG: 09/02/2017 Secondary NOT GIVENUNK [place] Insurance:SELF PAY [facility] Number: Effective Repository Date:2017-09-02 08/21/2017 RUTH J Primary Ernie V [place] [id number] Insurance:ANTHEMPolicy WilliamsonDOB: [facility] Number: [id number] [place] [id number] Repository 78933Gjj: Date:3062-78-18EG [phone] 310228TNWUHJE, [place] 0-2 (HP) [address]SC: 08/21/2017 Secondary NOT GIVENUNK [place] Insurance:SELF PAY [facility] Number: Effective Repository Date:2017-08-19 08/19/2017 RUTH J Primary Ernie Law [place] [id number] Insurance:ANTHEMPolicy WilliamsonDOB: [facility] Number: [id number] [id number] Repository 25674Hhv: Date:1167-94-38HV [phone] 385361MGCDJCW, [place] 0-4 (HP) [address]LP: 08/19/2017 Secondary NOT GIVENUNK [place] Insurance:SELF PAY [facility] Number: Effective Repository Date:2017-08-19 08/19/2017 RUTH Garcia Primary Ernie [id number] Insurance:Elba BarrettOB: [facility] Number: [id number] [place] [id number] Repository 215[address]Jps: Date:5694-86-17LV [phone] 861875CURTSOP, [place] 0-4 () 18[address]VC: 08/19/2017 Secondary NOT GIVENELÍAS [place] Insurance:SELF PAY [facility] Number: Effective Repository Date:2017-08-19
== END ==
PROVIDERS: Family Provider Family Medicine; PCP Family Medicine; Referring Provider Internal Medicine Medical Oncology; Visit Provider Internal Medicine Medical Oncology
DX: C34.32 Malignant neoplasm of lower lobe, left bronchus or lung (principal)
CPT/HCPCS: 71260; Q9967; A4216

== ENCOUNTER → 2018-09-29 13:12 | Outpatient (CLI) | payer BC, OTHER, SELFPAY ==
[2018-09-22 08:57] VITALS: BMI 24.4
--- NOTE | 2018-09-29 13:13 | CT_ITS ---
STUDY: CT CHEST WITH CONTRAST REASON FOR EXAM: Female, 63 years old. Lung cancer follow-up RADIATION DOSAGE (If Supplied By Facility): CTDIvol = ( 9.08 ) mGy, DLP = ( 273.80 ) mGycm TECHNIQUE: Transaxial imaging was performed following intravenous administration of Isovue 300 100CC IV. Coronal and sagittal 2-D MPR Individualized dose optimization techniques were used for this CT. COMPARISON: CT chest 08/08/2017, 05/19/2018, 04/07/2018. FINDINGS: Supraclavicular: Normal thyroid. Left supraclavicular lymph node adjacent to the thyroid gland measuring 9.7 mm, suspicious for metastatic disease. Body wall soft tissues: No acute process. Upper abdomen: No acute process. Osseous structures: No acute process. Mediastinum: Normal esophagus. Multiple enlarged mediastinal lymph nodes, enlarged right and left hilar lymph nodes. Largest lymph node anterior mediastinum 16 mm. Subcarinal 12 mm. Pretracheal 13 mm. Right hilum 12 mm. Left hilum 7.8 mm. The pretracheal and subcarinal lymph nodes have slightly increased in size since imaging of July 2018. Hilar lymph nodes have slightly increased in size and conspicuity. Cardiovascular: No cardiomegaly or pericardial effusion. Minimal chronic ossifications proximal LAD. Nondilated aorta with mild arch atherosclerosis. Nondilated central pulmonary arteries without evidence of central pulmonary embolus. Lungs: Numerous bilateral pulmonary nodules, the largest on the left measuring approximately 8.6 mm. The largest on the right measures approximately 10 mm. Increasing in size compared to prior imaging. Left lower lobe medial basilar subsegmental consolidation is stable compared to prior imaging. Since prior imaging, extensive ground glass and intermediately dense multisegmental opacities involving the upper lobes bilaterally, involving the apical segment of the right lower lobe, apical segment of left lower lobe, and predominating in the posterior apical segments of the upper lobes. Differential considerations include acute pneumonia and lymphangitic carcinomatosis. CT/Chest WITH Contrast IMPRESSION: Extensive multisegmental groundglass an intermediately dense infiltrates predominating in the apical lower lobes, posterior apical upper lobes. Acute pneumonia versus lymphangitic carcinomatosis. These features were not present on the study of 08/08/2018. Increasing size and conspicuity of multiple pulmonary nodules bilaterally consistent with metastatic disease. Mild increase in the degree of mediastinal lymphadenopathy. Electronically Signed: Graham Call MD at 14:25 EDT Tel , Service support ,
== END ==
PROVIDERS: Family Provider Family Medicine; PCP Family Medicine; Referring Provider Internal Medicine Medical Oncology; Visit Provider Internal Medicine Medical Oncology
DX: C34.32 Malignant neoplasm of lower lobe, left bronchus or lung (principal)
CPT/HCPCS: 71260; Q9967

== ENCOUNTER → 2018-11-20 | Outpatient (CLI) | payer BC, SELFPAY ==
[2018-10-27 09:58] VITALS: BMI 25.6
--- NOTE | 2018-11-20 06:44 | CT_ITS ---
STUDY: CT CHEST WITH CONTRAST REASON FOR EXAM: Female, 63 years old. Follow-up pneumonitis RADIATION DOSAGE (If Supplied By Facility): DLP = ( 375.46 ) mGycm TECHNIQUE: Transaxial imaging was performed following intravenous administration of 100CC ml of Isovue 300 contrast material. Coronal and sagittal reformatted images were created. Individualized dose optimization techniques were used for this CT. COMPARISON: CT chest September 29, 2018 FINDINGS: Again seen are innumerable scattered nodules throughout the lungs bilaterally, which overall are stable to slightly improved. There has been interval marked improvement in scattered bilateral consolidations, with mild persistent residual ground glass opacity. There is persistent consolidation within the left lower lobe medially. There is a trace left effusion. The right pleural space is clear. The heart and pericardium are within normal limits. There is persistent but improved mediastinal lymphadenopathy. There is no evidence of thoracic aortic aneurysm. There is decreased hepatic attenuation. There are no destructive osseous lesions. CT/Chest WITH Contrast IMPRESSION: Redemonstrated innumerable scattered nodules of the lungs bilaterally, overall slightly improved, as well as persistent but improved mediastinal lymphadenopathy, with known metastatic disease. Interval marked improvement in bilateral consolidations, with mild persistent residual ground glass opacities. Persistent left lower lobe consolidation medially. Electronically Signed: Fran Perry, at 16:55 EDT Tel , Service support ,
== END | disposition home or self-care (01) ==
LOC: CT 06:42
PROVIDERS: Family Provider Family Medicine; PCP Family Medicine; Referring Provider Internal Medicine Medical Oncology; Visit Provider Internal Medicine Medical Oncology
DX: J84.89 Other specified interstitial pulmonary diseases (principal); C34.91 Malignant neoplasm of unspecified part of right bronchus or lung; C34.92 Malignant neoplasm of unspecified part of left bronchus or lung
CPT/HCPCS: 71260; Q9967; A4216

== ENCOUNTER → 2019-04-06 12:50 | Outpatient (CLI) | payer BC, SELFPAY ==
[2019-03-26 10:56] VITALS: BMI 23.3
--- NOTE | 2019-04-06 12:52 | CT_ITS ---
STUDY: CT CHEST WITH CONTRAST REASON FOR EXAM: Female, 64 years old. Lung cancer follow-up RADIATION DOSAGE (If Supplied By Facility): CTDIvol = ( 8.74 ) mGy, DLP = ( 249.24 ) mGycm TECHNIQUE: Transaxial imaging was performed following intravenous administration of IV Isovue 300 100CC. Individualized dose optimization techniques were used for this CT. COMPARISON: November 20, 2018 FINDINGS: Generalized chronic interstitial changes are noted. There are multiple nodules seen throughout both lungs of varying sizes bilaterally consistent with metastatic disease.. . There is a pleural-based mass lesion in the posterior medial aspect of the left lower lobe superior segment measuring approximately 3 x 3.65 cm in association with small effusion. There is a mass in left upper lobe contiguous with the aortic knob measuring approximately 3.8 x 1 cm Normal heart and pericardium. Small subcentimeter hilar and mediastinal nodes of uncertain significance.. There is a lymph node measuring 1.8 x 1.67 m in the anterior superior mediastinum consistent with metastatic node Normal enhanced pulmonary arteries. Atherosclerotic changes of the aorta without evidence for aneurysm Normal osseous structures. Small left adrenal nodule measuring approximately 11 x 11.6 mm. MRI would be helpful to exclude metastatic lesion. In general, there is improved aeration of the lungs when compared with previous study however the mass contiguous with the aortic knob has increased in size. The bilateral lung nodules also appear to have increased in size and number since prior exam CT/Chest WITH Contrast IMPRESSION: Findings consistent with known lung carcinoma and multiple bilateral pulmonary metastases as well as mediastinal adenopathy.. Cannot exclude left adrenal metastasis. Electronically Signed: Fran Juares MD at 17:22 EDT , Service support ,
== END ==
PROVIDERS: Family Provider Family Medicine; PCP Family Medicine; Referring Provider Internal Medicine Medical Oncology; Visit Provider Internal Medicine Medical Oncology
DX: C34.91 Malignant neoplasm of unspecified part of right bronchus or lung (principal); C34.92 Malignant neoplasm of unspecified part of left bronchus or lung
CPT/HCPCS: 71260; Q9967; A4216

== ENCOUNTER 2019-06-20 09:28 | Inpatient (IN) | payer BC, MEDICARE, SELFPAY ==
[2019-06-15 10:03] VITALS: BMI 24.2
[2019-06-20] VITALS (12 sets, daily range): BP systolic 122–143; BP diastolic 60–82; PULSE 78–108; RESP 18–34; TEMP 36.9–37.6; O2SAT 90–96; BMI 24.1; BMI 23.3
--- NOTE | 2019-06-20 10:27 | ED.DCSUM_ITS ---
- ER Visit Summary Date of Service: 06/20/19 Chief Complaint: [Fever] History of Present Illness: The patient is a 64 F [presents to the emergency department complaint of fever that started last evening. Patient has had a cough that started yesterday. Cough mostly nonproductive. Patient also had a couple episodes of watery stool last evening for which she took Imodium. Patient denies any blood in her stool. Patient denies dysuria, urgency, or frequency. She denies sore throat or ear pain. She denies any abdominal pain. Patient has not had any vomiting. Patient is 5 days post chemo therapy treatment for small cell lung cancer.] Physical Examination: [HEENT-PERRLA, EOMI. Cranial nerves II through XII grossly intact. TMs clear. Mucous membranes moist. No adenopathy. Cardiovascular-regular rate and rhythm without murmur or ectopy Lungs-good aeration bilaterally. Patient has rales in both bases noted. Patient has some coarse breath sounds and some rhonchi diffusely. No accessory muscle use or retractions. Patient does have a dry cough. Abdomen-normoactive bowel sounds, soft, nontender, no rebound or rigidity, no peritoneal signs. Extremities-intact ?4, normal range of motion, normal pulses, atraumatic] Test Results: [CBC with differential obtained showed a white count 5.0, hemoglobin 11.7, hematocrit 34, plates 180. Chemistries unremarkable. Liver enzymes were normal. Urinalysis normal. Chest x-ray showed a mass in the left inferior chest and a small left pleural effusion however otherwise x-ray unchanged from prior. Influenza screen ordered and pending.] Emergency Department Course and Treatment: [Patient started on Levaquin empirically.] Treatment Plan: [Admit. Case discussed with hospitalist will evaluate patient.] Disposition: [Admit] Impression: [Fever-etiology uncertain History of small cell lung cancer receiving chemotherapy] This note was generated with [employer] dictation software. It may contain incorrect words, spelling, and punctuation that were not noted in review of the chart prior to signing ED Disposition - Plan for ED Patient: Referrals: Jens Garibay MD [Primary Care Provider] -
[2019-06-20 10:43] LABS: Absolute Neutrophil Count 4.2 X10^3/uL (2.0-7.7); Basophil# 0.03 X10^3/uL; Basophil% 0.6 % (0-1); Hematocrit 33.9 % (37-47); Hemoglobin 11.7 g/dL (12.0-15.0); Lymphocyte % 10.1 % (19-41); Mean Corp Hgb Conc 34.5 g/dL (32-36); Mean Corpuscular Hgb 32.1 pg (27.0-32.0); Mean Corpuscular Volume 92.9 fL (81-99); Mean Platelet Vol. 10.1 fl (6.2-12.0); Monocyte# 0.19 X10^3/uL; Monocyte% 3.8 % (0-10); NRBC Flagged by Analyzer 0 % (0-5); Neutrophil # 4.21 X10^3/uL (2.7-7.7); Neutrophil % 84.7 % (47-70); POSITIVE DIFFERENTIAL YES; POSITIVE MORPHOLOGY YES; Platelet Count 180 K/mm3 (150-450); RBC Distribution Width SD 51.3 fl (35.1-43.9); Red Blood Count 3.65 M/mm3 (4.2-5.4)
[2019-06-20 10:44] LABS: Mucous, Urine 0 SEEN /hpf (<or=2+); Red Blood Cells-Urine 0 SEEN /hpf (0-5); Squamous Epithelial Cells - UA 0 SEEN /hpf (5-10); White Blood Cells 0 SEEN /hpf (0-5)
[2019-06-20] MEDS: levoFLOXacin IV 750 MG/150 ML BAG 150 MG IV (10:44)
[2019-06-20] MEDS: 0.9% Normal Saline 1,000 ML 999 ML IV (10:44)
--- NOTE | 2019-06-20 10:46 | RAD_ITS ---
STUDY: X-RAY CHEST REASON FOR EXAM: Female, 64 years old. Fever, cough, increased shortness of breath. History of lung cancer, chemotherapy 5 days ago. TECHNIQUE: PA and lateral views of the chest. COMPARISON: Inspiratory and expiratory AP upright chest x-ray May 26, 2018. CT chest April 06, 2019 is not available for review at the time of this dictation. FINDINGS: The right chest wall MediPort is unchanged. A number of small nodular densities worrisome for pulmonary metastases again project over the upper to mid lung pinto. There is focal density in the medial left lung base that could be atelectasis or scarring, but a primary neoplasm might also have this appearance. Focal transverse linear atelectasis in the inferolateral left base on prior study has cleared. No new infiltrate. There is stable minor blunting of the lateral left costophrenic sulcus. Normal size heart. Normal mediastinum and nate. Normal visualized pulmonary arteries. There is stable atherosclerotic calcification of the aortic arch. There are stable degenerative changes of the visualized thoracic spine. Normal visualized ribs, clavicles, and shoulders. There is no demonstrated abnormality of the visualized soft tissue structures of the upper abdomen. RAD/Chest PA and Lateral IMPRESSION: Generally stable x-ray examination of the chest, with density consistent with a primary malignancy in the medial inferior left chest and multiple small nodular metastases in the upper to mid lung pinto. Very small chronic left pleural reaction. Right chest wall MediPort again noted.. Electronically Signed: Peña Zapata MD at 11:11 EST , Service support ,
[2019-06-20 10:55] LABS: AST(SGOT) 19 U/L (15-37); Alanine Aminotransfer ALT/SGPT 21 U/L (13-56); Albumin, Serum 3.7 g/dL (3.2-5.0); Alkaline Phosphatase 104 U/L (45-117); Anion Gap 9 (5-15); BUN 10 mg/dL (7-18); BUN/Creat Ratio 12.9 RATIO (10-20); Calcium,Total 8.5 mg/dL (8.5-10.1); Chloride 101 mmol/L (98-107); Creatinine, Serum 0.78 mg/dL (0.55-1.02); EST Glomerular Filtration Rate 79 mL/min (>60); Est Glom Filt Rate - Afr Amer 96 mL/min (>60); Globulin 3.8 g/dL (2.2-4.2); Glucose 108 mg/dL (74-106); Potassium 3.7 mmol/L (3.5-5.1); Protein, Total 7.5 g/dL (6.4-8.2); Sodium Level 134 mmol/L (136-145)
[2019-06-20 10:57] LABS: Differential Indicated SCAN CRITERIA MET
[2019-06-20 11:00] LABS: Lactic Acid 1.1 mmol/L (0.4-2.0)
[2019-06-20 11:01] LABS: Color, Urine Yellow (Yellow); Glucose, Dipstick Normal (Normal); Ketone-Dipstick Negative (Negative); Leukocyte Esterase-Dipstick Negative /ul (Negative); Nitrite-Dipstick Negative (Negative); Occult Blood-Urine 10 /ul (Negative); Protein-Dipstick 15 mg/dl (Negative); Urine Bilirubin Dipstick Negative (Negative); Urine Clarity Clear (Clear); Urine Urobilinogen Normal (Normal)
[2019-06-20 11:10] LABS: Bacteria RARE /hpf (None Seen)
[2019-06-20 11:13] LABS: Differential Comment SCANNED
--- NOTE | 2019-06-20 11:17 | PCM.HP.STD ---
History of Present Illness Date of Admission: 06/20/19 Chief Complaint: shortness of breath The patient is a 64 year old F with a past medical history of small cell carcinoma of the right lung. She was admitted through the ED on 06/20/2019 with a complaint of shortness of breath and cough which started 1 day prior to admission. Patient states her has had some upper respiratory symptoms. She became acutely short of breath but is still coughing which was dry as well as wheezing. She denied any fever or chills and denied any chest pain, palpitations or dizziness, or vomiting. She did have a few episodes of diarrhea prior to admission. Review of systems otherwise negative. Her last chemotherapy session was last Saturday. On admission in the ED, vitals were significant for temperature of 95.7 Fahrenheit, pulse rate was 105 and respiratory rate was 34. Blood pressure was normal. Chemistry was essentially unremarkable and CBC showed no leukocytosis. She was saturating well on 2 L of oxygen. Chest x-ray showed density consistent with primary malignancy in the medial inferior left chest and multiple small nodular metastasis in the upper to mid lung pinto with very small chronic left pleural reaction. She was started on IV Levaquin in the ED and is been admitted to be managed for sepsis likely due to upper respiratory infection. [] Past Medical History Past Medical History (Chronic Problems): Chronic Problems (Last Reviewed 06/01/19 @ 08:43 by Aydee Umaña) Hypomagnesemia (Chronic) COPD (chronic obstructive pulmonary disease) (Chronic) Nausea with vomiting (Chronic) Fatigue (Chronic) Left hip pain (Chronic) Small cell carcinoma of right lung (Chronic) Non-small cell carcinoma of left lung (Chronic) Medical History: Medical History (Last Reviewed 06/01/19 @ 08:43 by Aydee Umaña) Squamous cell carcinoma of skin of left lower extremity (Acute) C44.729 Bilateral lower extremity edema (Acute) R60.0 Nausea with vomiting (Chronic) R11.2 Cushingoid facies (Resolved) R68.89 Diarrhea (Acute) R19.7 Fatigue (Chronic) R53.83 Left hip pain (Chronic) M25.552 Small cell carcinoma of right lung (Chronic) C34.91 Non-small cell carcinoma of left lung (Chronic) C34.92 Lung cancer (Acute) C34.90 Encounter for adjustment or management of vascular access device (Acute) Z45.2 CT guided Lung needle biopsy [facility] 06/20/18 Pneumothorax of left lung after biopsy J95.[address] Z95.828 left Allergies Penicillins Allergy (Severe, Verified 06/20/19 09:30) Anaphylaxis Sulfa (Sulfonamide Antibiotics) Allergy (Severe, Verified 06/20/19 09:30) Anaphylaxis codeine Allergy (Mild, Verified 06/20/19 09:30) Unknown erythromycin base Allergy (Mild, Verified 06/20/19 09:30) Unknown tramadol [From Ultram] Adverse Reaction (Severe, Verified 06/20/19 09:30) Vomiting eye spasms Home Medications: Ambulatory Orders Medication Instructions Recorded Amlodipine [Norvasc] 5 mg PO DAILY 11/18/15 Lidocaine/Prilocaine 30 gm TP UD 30 Days #1 tube 09/09/17 [Lidocaine-Prilocaine Cream] Potassium Chloride 20 meq PO DAILY 30 Days #60 12/29/18 capsule.er Ondansetron [Zofran] 8 mg PO Q8H PRN PRN 10 Days #30 tab 03/24/19 Lorazepam [Ativan] 0.5 mg PO DAILY PRN PRN 30 Days 05/18/19 #30 tab fluticasone fur. 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 Denies: Anorexia, Chills, Fever Eyes: Denies: Blurred vision HEENT: Denies: Head Aches, Sinus Congestion, Sinus Drainage Cardiovascular: Denies: Chest Pain, Palpitations Respiratory: Reports: Cough, Shortness of Breath, Shortness of breath at rest, Shortness of breath upon exertion, Wheezing. Denies: Pleuritic Pain, Sputum production Gastrointestinal: Denies: Abdominal Pain, Nausea, Vomiting Genitourinary: Denies: Dysuria Musculoskeletal: Denies: Joint Pain, Joint Tenderness Skin: Denies: Rash, Wounds Neurological: Denies: Numbness, Tingling, Focal weakness Psychiatric: Denies: Anxiety, Depression, Homicidal Ideations, Suicidal Ideations Hematologic/ Lymphatic: Denies: Easy Bruising, Easy Bleeding VTE Information - Inpt Only VTE Present on Admission: No VTE Pharm Prophylaxis ordered?: Yes - Physical Exam Vitals/I&O's: Vital Signs Temp Pulse Resp BP Pulse Ox 99.2 F H 106 H 19 H 143/82 H 94 06/20/19 09:31 06/20/19 09:31 06/20/19 09:31 06/20/19 09:31 06/20/19 09:31 Oxygen Delivery Method Room Air Weight: 145 lb Body Mass Index (BMI) 24.1 General: Alert, Oriented x3, Cooperative, No apparent distress HEENT: Atraumatic, PERRLA, EOMI, Normocephalic Oral: Dry Mucosa Neck: Supple, No JVD, Negative Carotid Bruits Lungs: Tachypneic, - - decreased breath sounds bibasally, fine crackles bibasally, with wheezing and few rhonchi. Cardiovascular: Normal S1, Normal S2, No murmurs, Tachycardic Abdomen: Bowel Sounds Present, Soft, Non Tender Extremities: No clubbing, No cyanosis, No edema, Capillary Refill Less than 3 Seconds Skin: No rashes, No breakdown Musculoskeletal: No Tenderness to Palpation of Joints or Extremities Lymphatic: No Cervical, Supraclavicular, or Inguinal Adenopathy Neurological: Cranial nerves II-XII grossly intact, Neuro grossly intact, Motor Exam 5/5 strength throughout Psych/Mental Status: Normal Affect, Appropriate, Alert and oriented to time, place, person, mood and affect Laboratory Results 06/20/19 10:25: WBC 5.0, RBC 3.65 L, Hgb 11.7 L, Hct 33.9 L, MCV 92.9, MCH 32.1 H, MCHC 34.5, RDW Std Deviation 51.3 H, RDW Coeff of Deb 16.0 H, Plt Count 180, MPV 10.1, Immature Gran % (Auto) 0.800, Neut % (Auto) 84.7 H, Lymph % (Auto) 10.1 L, [place] % (Auto) 3.8, Eos % (Auto) 0.0, Baso % (Auto) 0.6, Absolute Neuts (auto) 4.2, Absolute Lymphs (auto) 0.50 L, Nucleated RBC % 0, Differential Comment SCANNED 06/20/19 10:25: Sodium 134 L, Potassium 3.7, Chloride 101, Carbon Dioxide 24.0, Anion Gap 9, BUN 10, Creatinine 0.78, Estim Creat Clear Calc 64.70, Est GFR (MDRD) Af Amer 96, Est GFR (MDRD) Non-Af 79, BUN/Creatinine Ratio 12.9, Glucose 108 H, Calcium 8.5, Total Bilirubin 0.70, AST 19, ALT 21, Alkaline Phosphatase 104, Total Protein 7.5, Albumin 3.7, Globulin 3.8, Albumin/Globulin Ratio 1.0 06/20/19 10:25: Lactic Acid 1.1 06/20/19 10:30: Urine Color Yellow, Urine Clarity Clear, Urine pH 6.0, Ur Specific [place] 1.010, Urine Protein 15 H, Urine Glucose (UA) Normal, Urine Ketones Negative, Urine Occult Blood 10 H, Urine Nitrite Negative, Urine Bilirubin Negative, Urine Urobilinogen Normal, Ur Leukocyte Esterase Negative, Urine RBC 0 SEEN, Urine WBC 0 SEEN, Ur Squamous Epith Cells 0 SEEN, Urine Bacteria RARE, Urine Mucus 0 SEEN Diagnostic Data Chest X-Ray 06/20/19 10:46 IMPRESSION: Generally stable x-ray examination of the chest, with density consistent with a primary malignancy in the medial inferior left chest and multiple small nodular metastases in the upper to mid lung pinto. Very small chronic left pleural reaction. Right chest wall MediPort again noted.. Electronically Signed: Peña Zapata MD at 11:11 EST , Service support , Current Medications Levofloxacin (Levaquin Iv) 750 mg in 150 mls @ 150 mls/hr IV X1 ONE Stop: 06/20/19 11:19 Last Admin: 06/20/19 10:44 Dose: 150 mls/hr Documented by: Assessment/Plan All Active Problems (Last Reviewed 06/01/19 @ 08:43 by Aydee Umaña) Educational circumstance (Acute) Chemotherapy management, encounter for (Acute) Dehydration (Acute) Hypokalemia (Resolved) Pneumonitis (Resolved) Pneumonitis, interstitial (Acute) Encounter for education (Acute) Vision changes (Acute) Nausea (Acute) Skin change (Acute) Oral candidiasis (Resolved) Tobacco dependence due to cigarettes (Resolved) Squamous cell carcinoma of skin of left lower extremity (Acute) Bilateral lower extremity edema (Acute) Cushingoid facies (Resolved) Diarrhea (Acute) Lung cancer (Acute) Encounter for adjustment or management of vascular access device (Acute) 64 y/o admitted with a complaint of shortness of breath and cough 1. Sepsis due to upper respiratory infection admit to PCU with telemetry SIRS criteria is 2/4 (tachypnea and tachycardia) has no leucocytosis CXR shows no evidence of pneumonia, and shows primary left lung malignancy check respiratory panel, and sputum culture and gram stain check blood cultures and urinalysis started on IV levaquin; will continue continue hydrating with IVF IV solumedrol breathing treatments with duonebs 2. Small cell carcinoma of left lung follows up with Dr Baeza last chemotherapy was 5 days ago 3. Hypertension: controlled. On amlodipine. DVT prophylaxis: lovenox Code status: Full code Patient and counselled bout code status and different types, including differences between full code, DNRCC and DNRCCA. Patient opts to be full code. total face to face time: 16 mins Code Visit Inpatient E&M: 23667 Init Hosp L3 Procedures: 51845 Advncd Care Plan 30 Min
[2019-06-20] MEDS: 0.9% Normal Saline 1,000 ML 150 ML IV ×2 (13:30→20:13)
[2019-06-20] MEDS: 0.9% Saline Lock 10 ML Syringe IV ×2 (13:50→21:05)
[2019-06-20] MEDS: Ondansetron 4 MG/2 ML Vial IV (13:50)
[2019-06-20] MEDS: Ibuprofen 400 MG Tablet PO (15:15)
[2019-06-20] MEDS: Ipratropium/Albuterol Sulfate 3 ML AMPUL.NEB INHALATION (19:12)
[2019-06-21] VITALS (13 sets, daily range): BP systolic 119–149; BP diastolic 51–78; PULSE 85–100; RESP 18–20; TEMP 36.3–37.2; O2SAT 96–98
[2019-06-21] MEDS: Ipratropium/Albuterol Sulfate 3 ML AMPUL.NEB INHALATION ×4 (01:45→19:55)
[2019-06-21] MEDS: 0.9% Normal Saline 1,000 ML 150 ML IV (03:26)
[2019-06-21] MEDS: 0.9% Saline Lock 10 ML Syringe IV ×3 (05:02→21:02)
[2019-06-21 05:31] LABS: Absolute Lymphocyte Count 0.28 X10^3/uL (0.83-4.51); Basophil# 0.01 X10^3/uL; Basophil% 0.2 % (0-1); Hematocrit 30.5 % (37-47); Hemoglobin 10.4 g/dL (12.0-15.0); Lymphocyte # 0.28 X10^3/ul (4.0); Lymphocyte % 6.3 % (19-41); Mean Corp Hgb Conc 34.1 g/dL (32-36); Mean Corpuscular Volume 93.8 fL (81-99); Mean Platelet Vol. 9.7 fl (6.2-12.0); Monocyte# 0.13 X10^3/uL; Monocyte% 2.9 % (0-10); NRBC Flagged by Analyzer 0 % (0-5); Neutrophil # 4.02 X10^3/uL (2.7-7.7); Neutrophil % 89.9 % (47-70); POSITIVE DIFFERENTIAL YES; POSITIVE MORPHOLOGY YES; Platelet Count 184 K/mm3 (150-450); RBC Distribution Width CV 15.9 % (11.6-14.6); RBC Distribution Width SD 53.2 fl (35.1-43.9); Red Blood Count 3.25 M/mm3 (4.2-5.4); White Blood Count 4.5 K/mm3 (4.4-11.0)
[2019-06-21 05:51] LABS: Anion Gap 7 (5-15); BUN 10 mg/dL (7-18); BUN/Creat Ratio 16.4 RATIO (10-20); Chloride 106 mmol/L (98-107); Creatinine, Serum 0.61 mg/dL (0.55-1.02); EST Glomerular Filtration Rate 105 mL/min (>60); Est Glom Filt Rate - Afr Amer 127 mL/min (>60); Estimated Creatinine Clearance 82.74 ml/min; Glucose 155 mg/dL (74-106); Potassium 3.7 mmol/L (3.5-5.1); Sodium Level 136 mmol/L (136-145)
[2019-06-21 06:24] LABS: Differential Indicated SCAN CRITERIA MET
[2019-06-21 06:38] LABS: Differential Comment SCANNED
[2019-06-21] MEDS: Enoxaparin 40 MG/0.4 ML Syringe SC (08:26)
[2019-06-21] MEDS: Pantoprazole Sodium 20 MG Tablet PO (08:26)
[2019-06-21] MEDS: amLODIPine 5 MG Tablet PO (08:26)
[2019-06-21] MEDS: levoFLOXacin IV 750 MG/150 ML BAG 100 MG IV (10:19)
[2019-06-21] MEDS: Ondansetron 4 MG/2 ML Vial IV (10:27)
--- NOTE | 2019-06-21 10:33 | PN_ITS ---
Subjective: Patient seen and examined. She feels much better today. SOB has improved. She denies any chest pain, palpitations, dizziness, abdominal pain, diarrhea or vomiting. She admits to a cough productive of clear sputum. Wheezing has also improved. Review of systems otherwise negative. Labs and vitals reviewed. She is afebrile and has no leucyctosis. tachycardia and tachypnea have resolved. Vitals/I&O's: Vital Signs Temp Pulse Resp BP Pulse Ox 98.3 F 98 18 142/78 H 96 06/21/19 08:26 06/21/19 08:26 06/21/19 08:26 06/21/19 08:26 06/21/19 08:26 Oxygen Flow Rate (L/min) 2 Oxygen Delivery Method Nasal Cannula Weight: 140 lb 10.479 oz Body Mass Index (BMI) 23.3 Intake and Output for Last 24 Hours 06/19/19 06/20/19 06/21/19 23:59 23:59 23:59 Intake Total 3005 / 3005 510 / 510 Balance 3005 / 3005 510 / 510 General: Alert, Oriented x3, Cooperative, No apparent distress HEENT: Atraumatic, PERRLA, EOMI, Normocephalic Oral: Dry Mucosa Neck: Supple, No JVD, Negative Carotid Bruits Lungs: decreased breath sounds bibasally, no crackles, no wheezing or crackles. on 2L of oxygen Cardiovascular: Normal S1, Normal S2, No murmurs, normal rate and rhythm Abdomen: Bowel Sounds Present, Soft, Non Tender Extremities: No clubbing, No cyanosis, No edema, Capillary Refill Less than 3 Seconds Skin: No rashes, No breakdown Musculoskeletal: No Tenderness to Palpation of Joints or Extremities, right chest mediport Lymphatic: No Cervical, Supraclavicular, or Inguinal Adenopathy Neurological: Cranial nerves II-XII grossly intact, Neuro grossly intact, Motor Exam 5/5 strength throughout Psych/Mental Status: Normal Affect, Appropriate, Alert and oriented to time, place, person, mood and affect Microbiology Past 72 Hours 06/20/19 10:30 Urine, Clean Catch Urine Culture - Preliminary Presumptive E. coli 06/20/19 13:33 Mucosa - Nasopharyngeal Respiratory Panel (PCR) - Final Parainfluenza 4 06/20/19 11:22 Mucosa - Nose Influenza Types A,B Direct FA ([place]) - Final Laboratory Results 06/20/19 10:25: WBC 5.0, RBC 3.65 L, Hgb 11.7 L, Hct 33.9 L, MCV 92.9, MCH 32.1 H, MCHC 34.5, RDW Std Deviation 51.3 H, RDW Coeff of Deb 16.0 H, Plt Count 180, MPV 10.1, Immature Gran % (Auto) 0.800, Neut % (Auto) 84.7 H, Lymph % (Auto) 10.1 L, [place] % (Auto) 3.8, Eos % (Auto) 0.0, Baso % (Auto) 0.6, Absolute Neuts (auto) 4.2, Absolute Lymphs (auto) 0.50 L, Nucleated RBC % 0, Differential Comment SCANNED 06/20/19 10:25: Sodium 134 L, Potassium 3.7, Chloride 101, Carbon Dioxide 24.0, Anion Gap 9, BUN 10, Creatinine 0.78, Estim Creat Clear Calc 64.70, Est GFR (MDRD) Af Amer 96, Est GFR (MDRD) Non-Af 79, BUN/Creatinine Ratio 12.9, Glucose 108 H, Calcium 8.5, Total Bilirubin 0.70, AST 19, ALT 21, Alkaline Phosphatase 104, Total Protein 7.5, Albumin 3.7, Globulin 3.8, Albumin/Globulin Ratio 1.0 06/20/19 10:25: Lactic Acid 1.1 06/20/19 10:30: Urine Color Yellow, Urine Clarity Clear, Urine pH 6.0, Ur Specific [place] 1.010, Urine Protein 15 H, Urine Glucose (UA) Normal, Urine Ketones Negative, Urine Occult Blood 10 H, Urine Nitrite Negative, Urine Bilirubin Negative, Urine Urobilinogen Normal, Ur Leukocyte Esterase Negative, Urine RBC 0 SEEN, Urine WBC 0 SEEN, Ur Squamous Epith Cells 0 SEEN, Urine Bacteria RARE, Urine Mucus 0 SEEN 06/21/19 05:00: WBC 4.5, RBC 3.25 L, Hgb 10.4 L, Hct 30.5 L, MCV 93.8, MCH 32.0, MCHC 34.1, RDW Std Deviation 53.2 H, RDW Coeff of Deb 15.9 H, Plt Count 184, MPV 9.7, Immature Gran % (Auto) 0.700, Neut % (Auto) 89.9 H, Lymph % (Auto) 6.3 L, [place] % (Auto) 2.9, Eos % (Auto) 0.0, Baso % (Auto) 0.2, Absolute Neuts (auto) 4.0, Absolute Lymphs (auto) 0.28 L, Nucleated RBC % 0, Differential Comment SCANNED 06/21/19 05:00: Sodium 136, Potassium 3.7, Chloride 106, Carbon Dioxide 23.0, Anion Gap 7, BUN 10, Creatinine 0.61, Estim Creat Clear Calc 82.74, Est GFR (MDR D) Af Amer 127, Est GFR (MDRD) Non-Af 105, BUN/Creatinine Ratio 16.4, Glucose 155 H, Calcium 8.0 L Diagnostic Data Chest X-Ray 06/20/19 10:46 IMPRESSION: Generally stable x-ray examination of the chest, with density consistent with a primary malignancy in the medial inferior left chest and multiple small nodular metastases in the upper to mid lung pinto. Very small chronic left pleural reaction. Right chest wall MediPort again noted.. Electronically Signed: Peña Zapata MD at 11:11 EST , Service support , Current Medications Acetaminophen (Tylenol) 650 mg PO Q6H PRN PRN PRN Reason: Pain Score 1-3/Temp > 100.7 F Albuterol/Ipratropium (Duoneb) 3 ml INHALATION Q6HWA.RT [facility] Last Admin: 06/21/19 07:00 Dose: 3 ml Documented by: Amlodipine Besylate (Norvasc) 5 mg PO DAILY [facility] Last Admin: 06/21/19 08:26 Dose: 5 mg Documented by: Dextrose (D50w Syringe) 0 gm IV X1 PRN; Protocol PRN Reason: Hypoglycemia Enoxaparin Sodium (Lovenox) 40 mg SC DAILY [facility] Last Admin: 06/21/19 08:26 Dose: 40 mg Documented by: Glucagon () 1 mg IM .X1 PRN PRN Reason: Hypoglycemia Heparin Sodium (Beef Lung) () 50 units IV UD PRN PRN Reason: Port-a-Cath (VAD)Heparin Flush Sodium Chloride () 250 mls @ 15 mls/hr IV .[id number] PRN PRN Reason: Saline Flush Levofloxacin (Levaquin Iv) 750 mg in 150 mls @ 100 mls/hr IV Q24 [facility] Last Admin: 06/21/19 10:19 Dose: 100 mls/hr Documented by: Ibuprofen (Motrin) 400 mg PO Q6H PRN PRN PRN Reason: Pain or Fever Last Admin: 06/20/19 15:15 Dose: 400 mg Documented by: Lorazepam (Ativan) 0.5 mg PO DAILY PRN PRN PRN Reason: ANXIETY Methylprednisolone (Solu-Medrol) 40 mg IV Q8 [facility] Last Admin: 06/21/19 05:23 Dose: 40 mg Documented by: Ondansetron HCl (Zofran) 8 mg PO Q8H PRN PRN PRN Reason: NAUSEA Ondansetron HCl (Zofran) 4 mg IV Q8H PRN PRN PRN Reason: NAUSEA/VOMITING Last Admin: 06/21/19 10:27 Dose: 4 mg Documented by: Pantoprazole Sodium (Protonix) 20 mg PO DAILY [facility] Last Admin: 06/21/19 08:26 Dose: 20 mg Documented by: Potassium Chloride (K-Dur) 10 meq PO DAILY [facility] Last Admin: 06/21/19 08:26 Dose: 10 meq Documented by: Sodium Chloride () 10 - 40 ml IV UD PRN PRN Reason: Port-a-Cath (VAD) Flush Last Admin: 06/21/19 05:23 Dose: 10 ml Documented by: Sodium Chloride (0.9% Nacl (Sterile) Posiflush) 10 - 40 ml IV UD PRN PRN Reason: Port access or dressing change STROKE Vital Signs/Narrative: Vital Signs Temp Pulse Resp BP Pulse Ox 06/21/19 08:26 98.3 F 98 18 142/78 H 96 06/21/19 07:21 100 06/21/19 07:00 88 18 98 Medical Necessity - Tobacco Use Smoking Status: Heavy Smoker (>10/day) Tobacco Use: Cigarettes Assessment/Plan All Active Problems (Last Reviewed 06/01/19 @ 08:43 by Aydee Umaña) Educational circumstance (Acute) Chemotherapy management, encounter for (Acute) Dehydration (Acute) Hypokalemia (Resolved) Pneumonitis (Resolved) Pneumonitis, interstitial (Acute) Encounter for education (Acute) Vision changes (Acute) Nausea (Acute) Skin change (Acute) Oral candidiasis (Resolved) Tobacco dependence due to cigarettes (Resolved) Squamous cell carcinoma of skin of left lower extremity (Acute) Bilateral lower extremity edema (Acute) Cushingoid facies (Resolved) Diarrhea (Acute) Lung cancer (Acute) Encounter for adjustment or management of vascular access device (Acute) 64 y/o admitted with a complaint of shortness of breath and cough 1. Sepsis due to paraninfluenza infection and UTI * SIRS criteria now 0/4 * shortness of breath and tachycardia have resolved. * CXR shows no evidence of pneumonia, and shows primary left lung malignancy * respiratory panel positive for Paraninfluenza * urine cultured E coli, which will be covered by IV levaquin * blood cultures pending * on IV solumedrol and breathing treatments with duonebs * 2. UTI: urine cultured E. coli. on IV levaquin which will also cover UTI 3. URTI due to paraninfluenza infection: as under 1. 4. Acute hypoxic respiratory insufficiency due to paraninfluenza infection * now on 2L of oxygen. * management as under 1 * titrate oxygen and wean off as tolerated. * on breathing treatments and IV solumedrol 5. Small cell carcinoma of left lung * follows up with Dr Baeza * last chemotherapy was 5 days prior to presentation * 3. Hypertension: controlled. On amlodipine. DVT prophylaxis: lovenox Code status: Full code * Code Visit Inpatient E&M: 60117 Subs Hosp L2
[2019-06-21] MEDS: LORazepam 0.5 MG Tablet PO (14:29)
[2019-06-21] MEDS: DiphenhydrAMINE 25 MG Capsule PO (22:23)
[2019-06-22] VITALS (11 sets, daily range): BP systolic 121–144; BP diastolic 59–77; PULSE 76–96; RESP 18–20; TEMP 36.4–36.9; O2SAT 90–98
[2019-06-22] MEDS: 0.9% Saline Lock 10 ML Syringe IV ×3 (05:05→17:09)
[2019-06-22 05:21] LABS: Absolute Lymphocyte Count 0.52 X10^3/uL (0.83-4.51); Absolute Neutrophil Count 6.4 X10^3/uL (2.0-7.7); Basophil# 0.02 X10^3/uL; Basophil% 0.3 % (0-1); Hematocrit 31.3 % (37-47); Hemoglobin 10.6 g/dL (12.0-15.0); Lymphocyte # 0.52 X10^3/ul (4.0); Lymphocyte % 6.8 % (19-41); Mean Corp Hgb Conc 33.9 g/dL (32-36); Mean Corpuscular Hgb 31.8 pg (27.0-32.0); Mean Platelet Vol. 9.4 fl (6.2-12.0); Monocyte# 0.59 X10^3/uL; Monocyte% 7.7 % (0-10); NRBC Flagged by Analyzer 0 % (0-5); Neutrophil # 6.43 X10^3/uL (2.7-7.7); Neutrophil % 83.9 % (47-70); POSITIVE DIFFERENTIAL YES; POSITIVE MORPHOLOGY YES; Platelet Count 211 K/mm3 (150-450); RBC Distribution Width SD 52.2 fl (35.1-43.9); Red Blood Count 3.33 M/mm3 (4.2-5.4); White Blood Count 7.7 K/mm3 (4.4-11.0)
[2019-06-22 06:06] LABS: Anion Gap 7 (5-15); BUN 14 mg/dL (7-18); BUN/Creat Ratio 22.5 RATIO (10-20); Calcium,Total 8.8 mg/dL (8.5-10.1); Chloride 105 mmol/L (98-107); Creatinine, Serum 0.62 mg/dL (0.55-1.02); EST Glomerular Filtration Rate 102 mL/min (>60); Est Glom Filt Rate - Afr Amer 124 mL/min (>60); Glucose 149 mg/dL (74-106); Potassium 3.8 mmol/L (3.5-5.1); Sodium Level 137 mmol/L (136-145)
[2019-06-22 06:13] LABS: Differential Indicated SCAN CRITERIA MET
[2019-06-22 07:13] LABS: Differential Comment SCANNED; Toxic Granulation 2+
[2019-06-22] MEDS: Ipratropium/Albuterol Sulfate 3 ML AMPUL.NEB INHALATION ×2 (07:22→13:51)
--- NOTE | 2019-06-22 07:59 | PN_ITS ---
Subjective: Patient with no acute events overnight per self and per nursing report. Patient maintain on oxygen, notes ongoing hoarse voice and occasional coughing but feeling improved since initial presentation with less than dyspnea. She notes that she has been more emotional and tearful given she had made such great efforts to avoid any infection given ongoing chemotherapy but her was recently ill and this is what she caught she notes. Discussed plan of care which included transition to oral prednisone therapy with taper, discontinuation of antibiotic therapy given positive viral panel, CBC with no market WBC elevation or shift and chest x-ray with stable findings upon presentation to which she is amenable, plan to oxygenation assessment with likely oxygen needs for home and possible discharge today. Patient denies fevers, chills, nausea, emesis, abdominal pain, chest pain or worsened dyspnea. Objective: Physical Examination: General: awake, alert, oriented x 3 and cooperative, seated upright in the PCU bed, no acute distress, some tearfulness during discussions. Skin: normal color, turgor, no icterus, cyanosis. HEENT: AT/NC, EOMI, PERRLA, mildly dry MM, hoarse voice. Lungs: Improved air movement, mildly diminished bases, occasional end expiratory wheeze, improved rhonchi from prior note, improved effort, continued on supple mentation oxygen. Heart: Giller rate and rhythm; no gallop, rub audible. Abdomen: soft, NTTP, ND, normal BS. Extremities: no cyanosis, clubbing, or edema. Neurological: patient awake, alert, oriented x 3; cognitive function intact; pupils equally reactive to light and accomodation; cranial nerves II-XII grossly normal, moving all 4 extremities, no focal deficits, strength moderately to severely global decrease secondary to acute presentation. Psychiatric: affect appears fatigued, intermittently tearful, frustrated with recent illness, no acute evidence of anxiety feelings. Vitals/I&O's: Vital Signs Temp Pulse Resp BP Pulse Ox 97.6 F L 79 18 132/68 H 98 06/22/19 05:10 06/22/19 07:17 06/22/19 05:10 06/22/19 05:10 06/22/19 05:10 Oxygen Flow Rate (L/min) 2 Oxygen Delivery Method Nasal Cannula Weight: 140 lb 10.479 oz Body Mass Index (BMI) 23.3 Intake and Output for Last 24 Hours 06/20/19 06/21/19 06/22/19 23:59 23:59 23:59 Intake Total 3005 / 3005 3920 / 3920 100 / 100 Balance 3005 / 3005 3920 / 3920 100 / 100 Microbiology Past 72 Hours 06/21/19 12:39 Urine, Clean Catch Streptococcus pneumoniae Antigen (M - Final 06/21/19 12:39 Urine, Clean Catch Legionella Antigen - Final 06/20/19 10:30 Urine, Clean Catch Urine Culture - Preliminary Presumptive E. coli 06/20/19 13:33 Mucosa - Nasopharyngeal Respiratory Panel (PCR) - Final Parainfluenza 4 06/20/19 11:22 Mucosa - Nose Influenza Types A,B Direct FA (LORENA) - Final Laboratory Results 06/22/19 05:00: WBC 7.7, RBC 3.33 L, Hgb 10.6 L, Hct 31.3 L, MCV 94.0, MCH 31.8, MCHC 33.9, RDW Std Deviation 52.2 H, RDW Coeff of Deb 16.0 H, Plt Count 211, MPV 9.4, Immature Gran % (Auto) 1.300 H, Neut % (Auto) 83.9 H, Lymph % (Auto) 6.8 L, [place] % (Auto) 7.7, Eos % (Auto) 0.0, Baso % (Auto) 0.3, Absolute Neuts (auto) 6.4, Absolute Lymphs (auto) 0.52 L, Nucleated RBC % 0, Differential Comment SCANNED, Toxic Granulation 2+ 06/22/19 05:00: Sodium 137, Potassium 3.8, Chloride 105, Carbon Dioxide 25.0, Anion Gap 7, BUN 14, Creatinine 0.62, Estim Creat Clear Calc 81.40, Est GFR (MDRD) Af Amer 124, Est GFR (MDRD) Non-Af 102, BUN/Creatinine Ratio 22.5 H, Glucose 149 H, Calcium 8.8 Current Medications Acetaminophen (Tylenol) 650 mg PO Q6H PRN PRN PRN Reason: Pain Score 1-3/Temp > 100.7 F Albuterol/Ipratropium (Duoneb) 3 ml INHALATION Q6HWA.RT [facility] Last Admin: 06/22/19 07:22 Dose: 3 ml Documented by: Amlodipine Besylate (Norvasc) 5 mg PO DAILY [facility] Last Admin: 06/21/19 08:26 Dose: 5 mg Documented by: Dextrose (D50w Syringe) 0 gm IV X1 PRN; Protocol PRN Reason: Hypoglycemia Diphenhydramine HCl (Benadryl) 25 mg PO QHS PRN PRN PRN Reason: INSOMNIA Last Admin: 06/21/19 22:23 Dose: 25 mg Documented by: Enoxaparin Sodium (Lovenox) 40 mg SC DAILY [facility] Last Admin: 06/21/19 08:26 Dose: 40 mg Documented by: Glucagon () 1 mg IM .X1 PRN PRN Reason: Hypoglycemia Heparin Sodium (Beef Lung) () 50 units IV UD PRN PRN Reason: Port-a-Cath (VAD)Heparin Flush Sodium Chloride () 250 mls @ 15 mls/hr IV .[id number] PRN PRN Reason: Saline Flush Levofloxacin (Levaquin Iv) 750 mg in 150 mls @ 100 mls/hr IV Q24 [facility] Last Infusion: 06/21/19 11:59 Dose: Infused Documented by: Ibuprofen (Motrin) 400 mg PO Q6H PRN PRN PRN Reason: Pain or Fever Last Admin: 06/20/19 15:15 Dose: 400 mg Documented by: Lorazepam (Ativan) 0.5 mg PO DAILY PRN PRN PRN Reason: ANXIETY Last Admin: 06/21/19 14:29 Dose: 0.5 mg Documented by: Methylprednisolone (Solu-Medrol) 40 mg IV Q8 [facility] Last Admin: 06/22/19 05:15 Dose: 40 mg Documented by: Ondansetron HCl (Zofran) 8 mg PO Q8H PRN PRN PRN Reason: NAUSEA Ondansetron HCl (Zofran) 4 mg IV Q8H PRN PRN PRN Reason: NAUSEA/VOMITING Last Admin: 06/21/19 10:27 Dose: 4 mg Documented by: Pantoprazole Sodium (Protonix) 20 mg PO DAILY [facility] Last Admin: 06/21/19 08:26 Dose: 20 mg Documented by: Potassium Chloride (K-Dur) 10 meq PO DAILY [facility] Last Admin: 06/21/19 08:26 Dose: 10 meq Documented by: Sodium Chloride () 10 - 40 ml IV UD PRN PRN Reason: Port-a-Cath (VAD) Flush Last Admin: 06/22/19 05:15 Dose: 20 ml Documented by: Sodium Chloride (0.9% Nacl (Sterile) Posiflush) 10 - 40 ml IV UD PRN PRN Reason: Port access or dressing change STROKE Vital Signs/Narrative: Vital Signs Temp Pulse Resp BP Pulse Ox 06/22/19 07:17 79 06/22/19 05:10 97.6 F L 81 18 132/68 H 98 Medical Necessity - Tobacco Use Smoking Status: Heavy Smoker (>10/day) Tobacco Use: Cigarettes Assessment/Plan All Active Problems (Last Reviewed 06/01/19 @ 08:43 by Aydee Umaña) Educational circumstance (Acute) Chemotherapy management, encounter for (Acute) Dehydration (Acute) Hypokalemia (Resolved) Pneumonitis (Resolved) Pneumonitis, interstitial (Acute) Encounter for education (Acute) Vision changes (Acute) Nausea (Acute) Skin change (Acute) Oral candidiasis (Resolved) Tobacco dependence due to cigarettes (Resolved) Squamous cell carcinoma of skin of left lower extremity (Acute) Bilateral lower extremity edema (Acute) Cushingoid facies (Resolved) Diarrhea (Acute) Lung cancer (Acute) Encounter for adjustment or management of vascular access device (Acute) The patient is a 64 y/o F w/ PMHx: Small Cell Carcinoma Right Lung and Non-small Cell Carcinoma Left Lung following w/ Dr. Baeza, most recent chemotherapy ~ 5 d ays prior to admission, HTN, GERD, Anxiety/ADHD, Chronic COPD who presents to the [facility] ED on 06/20/19 with history of dyspnea, minimally productive cough x1 day associated fevers or chills. 1. Acute Sepsis secondary to Acute on chronic COPD exacerbation and Acute Viral Parainfluenza 4 Viral Infection w/ Acute Hypoxia w/ Respiratory Insufficiency: CXR w/ chronic changes, CBC on admission w/ no market WBC elevation or evidence of left shift. Admitted to the PCU, maintained on monitor, continued on oxygen supplementation with wean as tolerated, continue ATC duonebs, PRN albuterol, IV methylprednisolone with prednisone transition, HOB, IS parameters, IV Levaquin initial concern for concurrent UTI however urine culture with less than 100,000 colony-forming units and respiratory viral panel with positive parainfluenza 4, urinary antigens negative, blood culture x2, given patient currently afebrile, no WC elevation or market left shift, evidence of acute viral infection with parainfluenza will de-escalate off Levaquin therapy given urinary culture unremarkable and had been on concurrent antibiotic therapy for initial concern of concurrent UTI. Will obtain oxygenation trial and transition to prednisone taper. If clinically appropriate will plan discharge to home today. 2. Acute urinary tract infection, E. coli, ruled out: UA not severe appearing upon presentation, urine culture with 25,000-50,000 colony-forming units presumptive E. coli this not consistent with an acute urinary tract infection, 3. Small Cell Carcinoma Right Lung and Non-small Cell Carcinoma Left Lung: Patient following w/ Dr. Baeza, most recent chemotherapy ~ 5 days prior to admission, mag and phos pending, supplement as needed. 4. Chronic normocytic anemia: Admission hemoglobin 11.7, repeat 10.6, likely secondary to ongoing chemotherapy with lung cancer as noted, stable, trend. 5. Anxiety, ADHD: We will continue home Ativan, on methylphenidate PRN only. 6. Hypertension: Continue home regimen including Norvasc, PRN hydralazine. 7. GERD: Continue home PPI. 8. DVT prophylaxis: SCDs, Lovenox.
[2019-06-22] MEDS: levoFLOXacin IV 750 MG/150 ML BAG 100 MG IV (09:40)
[2019-06-22] MEDS: Enoxaparin 40 MG/0.4 ML Syringe SC (09:40)
[2019-06-22] MEDS: Pantoprazole Sodium 20 MG Tablet PO (09:41)
[2019-06-22] MEDS: amLODIPine 5 MG Tablet PO (09:42)
[2019-06-22 10:52] LABS: Magnesium 1.7 mg/dL (1.6-2.6); Phosphorus 2.3 mg/dL (2.5-4.9)
--- NOTE | 2019-06-22 11:45 | DCINST_ITS ---
- Discharge Diagnoses Current Active Problems: 1. Acute Sepsis secondary to Acute on chronic COPD exacerbation and Acute Viral Parainfluenza 4 Viral Infection w/ Acute Hypoxia w/ Respiratory Insufficiency on Chronic Hypoxic Respiratory Failure 2. Acute urinary tract infection, E. coli, ruled out 3. Small Cell Carcinoma Right Lung and Non-small Cell Carcinoma Left Lung 4. Chronic normocytic anemia 5. Anxiety, ADHD 6. Hypertension 7. GERD You will use the following diet at home:: Regular Your food should be the consistency of: Regular Your liquids should be the consistency of: Regular/Thin Discharge Activity: - - Encourage avoidance of aggressive activities until completed steroid taper and cleared per primary care physician at reevaluation. May resume sexual activity in: 1-2 weeks Weight Bearing Status: Weight bearing as tolerated Call your doctor if you observe: Fever of 101 or Higher, Inability to urinate, Inability to have a bowel movement, Shortness of breath, Dizziness, Fainting spells, Chest pain, Uncontrolled pain Instructions: Acute Bronchitis, Traveling with Oxygen, Using Oxygen Safely, Using Oxygen at Home Additional Instructions: During the admission you were evaluated for acute bronchitis, secondary to parainfluenza virus following work-up with discontinuation of antibiotic therapy. Also upon admission initial concern for possible UTI however urine culture was unremarkable. Encouraged continued steroid taper with follow-up with primary care physician as well as oncologist. Encourage continued oxygen supplementation with escalation to home regimen once clinically appropriate. Allergies/Adverse Reactions: Allergies Penicillins Allergy (Severe, Verified 06/20/19 09:30) Anaphylaxis Sulfa (Sulfonamide Antibiotics) Allergy (Severe, Verified 06/20/19 09:30) Anaphylaxis codeine Allergy (Mild, Verified 06/20/19 09:30) Unknown erythromycin base Allergy (Mild, Verified 06/20/19 09:30) Unknown tramadol [From Ultram] Adverse Reaction (Severe, Verified 06/20/19 09:30) Vomiting eye spasms Medications to take at Discharge Amlodipine [Norvasc] 5 mg PO DAILY 11/18/15 Ondansetron [Zofran] 8 mg PO Q8H PRN PRN 10 Days #30 tab 03/24/19 Lorazepam [Ativan] 0.5 mg PO DAILY PRN PRN 30 Days #30 tab 05/18/19 proMETHazine tablet [Phenergan tablet] 25 mg PO Q8H PRN PRN 10 Days #30 tab 06/08/19 Fluticasone/Umeclidin/Vilanter [Trelegy Ellipta 100-62.5-25] 1 puff IN DAILY 06/20/19 Methylphenidate HCl [Methylphenidate ER] 10 mg PO DAILY PRN PRN 06/20/19 Omeprazole 20 mg PO DAILY 06/20/19 Potassium Chloride 10 meq PO DAILY 06/20/19 Albuterol Aerosols [Ventolin Aerosols] 2.5 mg INHALATION Q2H PRN PRN #1 box 06/22/19 Guaifenesin [Mucinex] 1,200 mg PO BID #20 tbmp.12hr 06/22/19 Ipratropium/Albuterol Sulfate [Duoneb] 3 ml INHALATION Q6HWA.RT 7 Days #1 box 06/22/19 Nebulizer [Lc Star] 1 ea UD #1 kit 06/22/19 Prednisone 10 mg PO UD 12 Days #30 tab 06/22/19 The following prescriptions were given: Ipratropium/Albuterol Sulfate [Duoneb] 3 ml INHALATION Q6HWA.RT 7 Days #1 box Transmission Status: Pending to [facility] Nebulizer [Lc Star] 1 [facility] UD #1 kit Transmission Status: Pending to [facility] Guaifenesin [Mucinex] 1,200 mg PO BID #20 tbmp.12hr Transmission Status: Pending to [facility] Prednisone 10 mg PO UD 12 Days #30 tab Transmission Status: Pending to [facility] Albuterol Aerosols [Ventolin Aerosols] 2.5 mg INHALATION Q2H PRN PRN #1 box PRN Reason: Dyspnea, wheezing Transmission Status: Pending to [facility] Primary Care Physician: Jens Garibay MD [Primary Care Provider] - Please follow up with your Primary Care Physician in: Follow-up in 3 to 5 days to review admission. Test Results: Test results from this visit will be discussed in further detail at your follow- up appointment, if applicable. Please Follow Up With: Daquan Baeza MD When: As previously arranged. Proposed Discharge Date: 06/22/19
--- NOTE | 2019-06-22 11:49 | DS.PCM_ITS ---
Discharge Date and Diagnosis Date of Admission: 06/20/19 Date of Discharge: 06/22/19 - Primary Discharge Diagnosis 1. Acute Sepsis secondary to Acute on chronic COPD exacerbation and Acute Viral Parainfluenza 4 Viral Infection w/ Acute Hypoxia w/ Respiratory Insufficiency on Chronic Hypoxic Respiratory Failure 2. Acute urinary tract infection, E. coli, ruled out 3. Small Cell Carcinoma Right Lung and Non-small Cell Carcinoma Left Lung 4. Chronic normocytic anemia 5. Anxiety, ADHD 6. Hypertension 7. GERD - Secondary Discharge Diagnosis Chronic Problems (Last Reviewed 06/01/19 @ 08:43 by Aydee Umaña) Hypomagnesemia (Chronic) COPD (chronic obstructive pulmonary disease) (Chronic) Nausea with vomiting (Chronic) Fatigue (Chronic) Left hip pain (Chronic) Small cell carcinoma of right lung (Chronic) Non-small cell carcinoma of left lung (Chronic) Hospital Course and Treatment Operations: None Procedures: EKG Summary of Care Provided: The patient is a 64 y/o F w/ PMHx: Small Cell Carcinoma Right Lung and Non-small Cell Carcinoma Left Lung following w/ Dr. Baeza, most recent chemotherapy ~ 5 days prior to admission, HTN, GERD, Anxiety/ADHD, Chronic COPD who presented to the [facility] ED on 06/20/19 with history of dyspnea, minimally productive cough x1 day associated fevers or chills. Patient admitted and treated for Acute Sepsis secondary to Acute on chronic COPD exacerbation and Acute Viral Parainfluenza 4 Viral Infection w/ Acute Hypoxia w/ Respiratory Insufficiency. ED evaluation with CXR w/ chronic changes, CBC on admission w/ no market WBC elevation or evidence of left shift. Admitted to the PCU, maintained on monitor, continued on oxygen supplementation with wean as tolerated, continue ATC duonebs, PRN albuterol, IV methylprednisolone with prednisone transition, HOB, IS parameters, IV Levaquin initial concern for concurrent UTI however urine culture with less than 100,000 colony-forming units and respiratory viral panel with positive parainfluenza 4, urinary antigens negative, blood culture x2, given patient afebrile, no WC elevation or market left shift, evidence of acute viral infection with parainfluenza de-escalated off Levaquin therapy given urinary culture unremarkable and had been on concurrent antibiotic therapy for initial concern of concurrent UTI. Oxygenation testing obtained prior to discharge to home for oxygen supplementation evaluation. She with noted ongoing chemotherapy for lung cancer, following w/ Dr. Baeza, most recent chemotherapy ~ 5 days prior to admission, mag and phos obtained during admission with supplementation administration. Pending oxygenation supplementation for set up with patient given clinical improvement amenable to discharge to home with ongoing aerosols, steroid taper with follow-up with her primary care physician as well as her oncologist. - Physical Exam Vitals/I&O's: Vital Signs Temp Pulse Resp BP Pulse Ox 98.1 F 89 18 144/59 H 97 06/22/19 10:41 06/22/19 10:41 06/22/19 10:41 06/22/19 10:41 06/22/19 10:41 Oxygen Flow Rate (L/min) 2 Oxygen Delivery Method Room Air Weight: 140 lb 10.479 oz Body Mass Index (BMI) 23.3 Intake and Output for Last 24 Hours 06/20/19 06/21/19 06/22/19 23:59 23:59 23:59 Intake Total 3005 / 3005 3920 / 3920 250 / 250 Balance 3005 / 3005 3920 / 3920 250 / 250 Microbiology Past 72 Hours 06/20/19 10:30 Urine, Clean Catch Urine Culture - Final Presumptive E. coli 06/20/19 10:05 Blood Culture (Wb) - Anticubital Left Blood Culture - Preliminary No growth in 48 hours. 06/20/19 10:25 Blood Culture (Wb) #2 - Port Blood Culture - Preliminary No growth in 48 hours. 06/21/19 12:39 Urine, Clean Catch Streptococcus pneumoniae Antigen (M - Final 06/21/19 12:39 Urine, Clean Catch Legionella Antigen - Final 06/20/19 13:33 Mucosa - Nasopharyngeal Respiratory Panel (PCR) - Final Parainfluenza 4 06/20/19 11:22 Mucosa - Nose Influenza Types A,B Direct FA ([facility]) - Final Laboratory Results 06/22/19 05:00: WBC 7.7, RBC 3.33 L, Hgb 10.6 L, Hct 31.3 L, MCV 94.0, MCH 31.8, MCHC 33.9, RDW Std Deviation 52.2 H, RDW Coeff of Deb 16.0 H, Plt Count 211, MPV 9.4, Immature Gran % (Auto) 1.300 H, Neut % (Auto) 83.9 H, Lymph % (Auto) 6.8 L, [place] % (Auto) 7.7, Eos % (Auto) 0.0, Baso % (Auto) 0.3, Absolute Neuts (auto) 6.4, Absolute Lymphs (auto) 0.52 L, Nucleated RBC % 0, Differential Comment SCANNED, Toxic Granulation 2+ 06/22/19 05:00: Sodium 137, Potassium 3.8, Chloride 105, Carbon Dioxide 25.0, Anion Gap 7, BUN 14, Creatinine 0.62, Estim Creat Clear Calc 81.40, Est GFR (MDRD) Af Amer 124, Est GFR (MDRD) Non-Af 102, BUN/Creatinine Ratio 22.5 H, Glucose 149 H, Calcium 8.8 06/22/19 05:00: Phosphorus 2.3 L, Magnesium 1.7 Current Medications Acetaminophen (Tylenol) 650 mg PO Q6H PRN PRN PRN Reason: Pain Score 1-3/Temp > 100.7 F Albuterol/Ipratropium (Duoneb) 3 ml INHALATION Q6HWA.RT [facility] Last Admin: 06/22/19 07:22 Dose: 3 ml Documented by: Amlodipine Besylate (Norvasc) 5 mg PO DAILY [facility] Last Admin: 06/22/19 09:42 Dose: 5 mg Documented by: Dextrose (D50w Syringe) 0 gm IV X1 PRN; Protocol PRN Reason: Hypoglycemia Diphenhydramine HCl (Benadryl) 25 mg PO QHS PRN PRN PRN Reason: INSOMNIA Last Admin: 06/21/19 22:23 Dose: 25 mg Documented by: Enoxaparin Sodium (Lovenox) 40 mg SC DAILY [facility] Last Admin: 06/22/19 09:40 Dose: 40 mg Documented by: Glucagon () 1 mg IM .X1 PRN PRN Reason: Hypoglycemia Heparin Sodium (Beef Lung) () 50 units IV UD PRN PRN Reason: Port-a-Cath (VAD)Heparin Flush Sodium Chloride () 250 mls @ 15 mls/hr IV .[id number] PRN PRN Reason: Saline Flush Sodium Phosphate 21 mm/ Sodium (Chloride) 257 mls @ 84 mls/hr IV X1 ONE Stop: 06/22/19 14:48 Ibuprofen (Motrin) 400 mg PO Q6H PRN PRN PRN Reason: Pain or Fever Last Admin: 06/20/19 15:15 Dose: 400 mg Documented by: Lorazepam (Ativan) 0.5 mg PO DAILY PRN PRN PRN Reason: ANXIETY Last Admin: 06/21/19 14:29 Dose: 0.5 mg Documented by: Ondansetron HCl (Zofran) 8 mg PO Q8H PRN PRN PRN Reason: NAUSEA Ondansetron HCl (Zofran) 4 mg IV Q8H PRN PRN PRN Reason: NAUSEA/VOMITING Last Admin: 06/21/19 10:27 Dose: 4 mg Documented by: Pantoprazole Sodium (Protonix) 20 mg PO DAILY [facility] Last Admin: 06/22/19 09:41 Dose: 20 mg Documented by: Potassium Chloride (K-Dur) 10 meq PO DAILY [facility] Last Admin: 06/22/19 09:41 Dose: 10 meq Documented by: Prednisone () 40 mg PO DAILY@0800 [facility] Sodium Chloride () 10 - 40 ml IV UD PRN PRN Reason: Port-a-Cath (VAD) Flush Last Admin: 06/22/19 05:15 Dose: 20 ml Documented by: Sodium Chloride (0.9% Nacl (Sterile) Posiflush) 10 - 40 ml IV UD PRN PRN Reason: Port access or dressing change Discharge Activity: - - Encourage avoidance of aggressive activities until completed steroid taper and cleared per primary care physician at reevaluation. May resume sexual activity in: 1-2 weeks Weight Bearing Status: Weight bearing as tolerated Call your doctor if you observe: Fever of 101 or Higher, Inability to urinate, Inability to have a bowel movement, Shortness of breath, Dizziness, Fainting spells, Chest pain, Uncontrolled pain Home Medications: Medications to take at Discharge Amlodipine [Norvasc] 5 mg PO DAILY 11/18/15 Ondansetron [Zofran] 8 mg PO Q8H PRN PRN 10 Days #30 tab 03/24/19 Lorazepam [Ativan] 0.5 mg PO DAILY PRN PRN 30 Days #30 tab 05/18/19 proMETHazine tablet [Phenergan tablet] 25 mg PO Q8H PRN PRN 10 Days #30 tab 06/08/19 Fluticasone/Umeclidin/Vilanter [Trelegy Ellipta 100-62.5-25] 1 puff IN DAILY 06/20/19 Methylphenidate HCl [Methylphenidate ER] 10 mg PO DAILY PRN PRN 06/20/19 Omeprazole 20 mg PO DAILY 06/20/19 Potassium Chloride 10 meq PO DAILY 06/20/19 Albuterol Aerosols [Ventolin Aerosols] 2.5 mg INHALATION Q2H PRN PRN #1 box 06/22/19 Guaifenesin [Mucinex] 1,200 mg PO BID #20 tbmp.12hr 06/22/19 Ipratropium/Albuterol Sulfate [Duoneb] 3 ml INHALATION Q6HWA.RT 7 Days #1 box 06/22/19 Nebulizer [Lc Star] 1 ea UD #1 kit 06/22/19 Prednisone 10 mg PO UD 12 Days #30 tab 06/22/19 Following Prescrptions Were Given to Patient: Ipratropium/Albuterol Sulfate [Duoneb] 3 ml INHALATION Q6HWA.RT 7 Days #1 box Transmission Status: Pending to [facility] [place] [address] Nebulizer [Lc Star] 1 [facility] UD #1 kit Transmission Status: Pending to [address] Guaifenesin [Mucinex] 1,200 mg PO BID #20 tbmp.12hr Transmission Status: Pending to [address] Prednisone 10 mg PO UD 12 Days #30 tab Transmission Status: Pending to [address] Albuterol Aerosols [Ventolin Aerosols] 2.5 mg INHALATION Q2H PRN PRN #1 box PRN Reason: Dyspnea, wheezing Transmission Status: Pending to [address] Primary Care Physician: Jens Garibay MD [Primary Care Provider] - Please follow up with your Primary Care Physician in: Follow-up in 3 to 5 days t o review admission. Please Follow Up With: Daquan Baeza MD When: As previously arranged. Patient Instructions: Acute Bronchitis, Traveling with Oxygen, Using Oxygen Safely, Using Oxygen at Home Disposition: Home with Home Health Minutes spent on discharge:: 35 Patient Condition:: Fair Medical Necessity - Tobacco Use Smoking Status: Heavy Smoker (>10/day) Tobacco Use: Cigarettes Meaningful Use Info Meaningful Use Diagnoses (Choose all that apply): None applicable Code Visit Inpatient E&M: 54813 Disch Hosp
--- NOTE | 2019-06-22 12:28 | CASEMGMT ---
SELINA MCINTYRE assessment: Face to Face with patient for initial transition planning/care coordination assessment. SELINA MCINTYRE introduced self and role at [facility], pt voices understanding and consents to assessment at this time. Pt is sitting up in bed in no distress at this time. Pt is A/Ox4 at this time and answers all questions appropriately at this time. . Care providers, pharmacy, and demographics verified at this time. PCP: Lani Specialists: wilner Baeza Preferred Pharmacy: [facility] Insurance: [place] Prescription Benefit: [place] Living Will/HPOA: Pt states does not have LW/HPOA and declines info at this time. Pt is aware that SW can complete if pt prefers, voices understanding. LNOK: Ernie Guerrero, ; Katie Atwood, sister Living Arrangements: Pt states lives with on main level of 2 story home with a 'couple' steps in and states no concerns at home at this time. Pt states is independent with ADL's. Transportation: Pt states drives self and states no transportation concerns at this time. DME/HHC: Pt states has concentrator, portable tanks, pulse ox and nebulizer thru [facility]. Per [facility], pt's order is for 2 liters at bedtime. Pt states she has not been using oxygen at home currently. Pt states no need for any further DME at this time. Pt states no hx of HHC or SNF in the past. Pt states no concerns with going home at time of discharge. Pt states is retired. Pt states 'quit smoking a couple days ago'. Pt states that she has been trying to quit but then something happens and she starts up again. Pt states drinks a glass of wine daily. Pt states no further concerns/needs at this time. CM to follow for increased O2 need and for any further discharge planning/needs. Advised pt to ask for CM if any further questions/concerns/needs arise, voices understanding. Pt Goal: Home Plan[place] SELINA MCINTYRE
--- NOTE | 2019-06-23 13:28 | CASEMGMT ---
SELINA MCINTYRE DC PHONE CALL DC DATE: 06.22.19 DC Disposition: Home Diagnosis on Discharge: COPD LACE/STRATA: 04/23 Intro role of CM to patient via phone. Pt states she has good understanding of medications, f/u and instructions. She has list of appointments for f/u and no further questions. Pt states her care was excellent and no care improvement suggestions were given. Dheeraj PÉREZ RN ACM
== END 2019-06-22 17:40 | disposition home or self-care (01) | DRG 872 ==
LOC: ED 11:31 → PCU 11:34
PROVIDERS: Admitting Provider Student in an Organized Health Care Education/Training Program; Emergency Provider Emergency Medicine; Family Provider Family Medicine; PCP Family Medicine; Referring Provider Student in an Organized Health Care Education/Training Program; Visit Provider Family Medicine
DX: A41.9 Sepsis, unspecified organism (principal); J44.1 Chronic obstructive pulmonary disease with (acute) exacerbation; J96.11 Chronic respiratory failure with hypoxia; C34.92 Malignant neoplasm of unspecified part of left bronchus or lung; C34.91 Malignant neoplasm of unspecified part of right bronchus or lung; I10 Essential (primary) hypertension; J06.9 Acute upper respiratory infection, unspecified; B97.89 Other viral agents as the cause of diseases classified elsewhere; R06.89 Other abnormalities of breathing; F17.210 Nicotine dependence, cigarettes, uncomplicated; D64.9 Anemia, unspecified; K21.9 Gastro-esophageal reflux disease without esophagitis; F90.9 Attention-deficit hyperactivity disorder, unspecified type; F41.9 Anxiety disorder, unspecified; Z79.899 Other long term (current) drug therapy
CPT/HCPCS: 71046; 80048; 80053; 81001; 83605; 83735; 84100; 85025; 87040; 87086; 87088; 87186; 87449; 87633; 87804; 94640; 94762; 99251; 99285; J7030; J7050; A4216; G0463; J2405

== ENCOUNTER → 2019-07-02 12:29 | Outpatient (CLI) | payer BC, SELFPAY ==
[2019-06-01 08:45] VITALS: BMI 24.3
[2019-06-29 08:24] VITALS: BMI 23.8
--- NOTE | 2019-07-02 12:32 | CT_ITS ---
STUDY: CT CHEST WITH CONTRAST REASON FOR EXAM: Female, 64 years old. Lung cancer, follow-up RADIATION DOSAGE (If Supplied By Facility): CTDIvol = ( 9.59 ) mGy, DLP = ( 471.40 ) mGycm TECHNIQUE: Transaxial imaging was performed following intravenous administration of Oral and amp;amp; IV Gastrografin and amp;amp; 100mL Isovue-370. Multiplanar coronal and sagittal images were reformatted. Individualized dose optimization techniques were used for this CT. COMPARISON: 04/06/2019 FINDINGS: Right chest port is identified with tip of the catheter in the lower SVC. Pleural-based mass in the medial left lower lobe measures 2.2 x 3.2 cm, smaller since the prior study when it measured 3.0 x 3.7 cm. Multiple pulmonary nodules are redemonstrated, however, the nodules have decreased in size since the prior study. For instance, nodule in the posterior left upper lobe on image 56 currently measures 8 mm (previously measured 13 mm). The nodules are similar in number without definitive new nodule identified. The nodule adjacent to the aortic arch on image 37 has decreased in size measuring up millimeters (previously measured up to 18 mm. The left pleural effusion has resolved. Normal heart and pericardium. There are calcifications of the coronary arteries. Decrease in mediastinal adenopathy since the prior study. For instance, Station 4 pretracheal lymph node on axial image 38 the short axis of 8 mm (previously measured 11 mm). No hilar adenopathy seen. Normal enhanced pulmonary arteries. There is atherosclerotic calcification of the aortic arch with tortuosity and elongation of the aortic arch and descending thoracic aorta. No lytic or sclerotic bone lesions. Stable slight nodular (9 mm) thickening of the left adrenal gland, doubtful significance, similar since 11/04/[address], likely representing adenoma. CT/Chest WITH Contrast IMPRESSION: 1. Since 04/06/2019, favorable change. Decreased size of dominant left lower lobe mass as well as multiple pulmonary nodules and mediastinal adenopathy, detailed above. Electronically Signed: Gerald Steven MD (Brooks) at 9:25 EST , Service support ,
--- NOTE | 2019-07-02 12:32 | CT_ITS ---
STUDY: CT ABDOMEN WITH CONTRAST REASON FOR EXAM: Female, 64 years old. Lung cancer, follow-up RADIATION DOSAGE (If Supplied By Facility): CTDIvol = ( 9.59 ) mGy, DLP = ( 471.40 ) mGycm TECHNIQUE: Transaxial images were obtained post I.V. administration of Oral and amp; IV Gastrografin and amp; 100mL Isovue-370, and with oral contrast. Sagittal and coronal images were reconstructed. Individualized dose optimization techniques were used for this CT. COMPARISON: 04/07/2018 FINDINGS: Base of the chest described on chest CT report. Normal liver. Normal gallbladder and extrahepatic biliary system. Normal spleen. Normal pancreas. Normal bilateral adrenal glands. Similar simple-appearing cysts of the right kidney. Normal left kidney. Normal visualized stomach. Normal visualized small intestine. There are multiple colonic diverticula consistent with diverticulosis. There is non-visualization of the appendix. There is diffuse atherosclerotic calcification of the abdominal aorta, without a demonstrated aneurysm. Normal inferior vena cava. Normal retroperitoneum. Normal variant circumaortic left renal vein. There is a small umbilical hernia containing fat. Degenerative changes of the lumbosacral spine similar. No lytic or sclerotic bone lesion. There are surgical clips in the upper pelvis. CT/Abdomen WITH IV Contrast IMPRESSION: Since 04/07/2018, stable exam. No intra-abdominal mass/metastasis. Electronically Signed: Gerald Steven MD ([place]) at 9:08 EST , Service support ,
== END ==
PROVIDERS: Family Provider Family Medicine; PCP Family Medicine; Referring Provider Internal Medicine Medical Oncology; Visit Provider Internal Medicine Medical Oncology
DX: C34.91 Malignant neoplasm of unspecified part of right bronchus or lung (principal); C34.92 Malignant neoplasm of unspecified part of left bronchus or lung
CPT/HCPCS: 71260; 74160; Q9967

== ENCOUNTER → 2019-08-24 06:57 | Outpatient (CLI) | payer BC, SELFPAY ==
[2019-08-03 09:20] VITALS: BMI 24.1
[2019-08-17 08:43] VITALS: BMI 24.6
--- NOTE | 2019-08-24 06:58 | CT_ITS ---
STUDY: CT CHEST WITH CONTRAST REASON FOR EXAM: Female, 64 years old. LUNG CA-CHEMO CHECK, ADRENAL GLAND NODULE, HTN, PREV SMOKER, SURG-multiple hernia repair, , tubal ligation RADIATION DOSAGE (If Supplied By Facility): CTDIvol = ( 9 ) mGy, DLP = ( 526.81 ) mGycm TECHNIQUE: Transaxial imaging was performed following intravenous administration of IV 100mL Isovue-300. Multiplanar coronal and sagittal images were reformatted. Individualized dose optimization techniques were used for this CT. COMPARISON: Comparison is made with prior examination dated July 02, 2019. FINDINGS: A right-sided portacatheter is seen with the tip in the superior vena cava. Once again, there is a pleural-based mass in the medial left lower lobe. This is unchanged. Surrounding bronchiectasis is seen. Multiple pulmonary nodules in both lungs are once again seen. The nodules have decreased in size as compared to prior examination. No new nodule is present. There is no demonstrated pleural abnormality. There are calcifications of the coronary arteries. Normal mediastinum. Normal hilar regions. Normal enhanced pulmonary arteries. Normal aorta arch and descending thoracic aorta. There is demineralization of the thoracic spine. There is no demonstrated abnormality of the visualized upper abdomen. The left adrenal gland is not as well-seen on this examination. CT/Chest WITH Contrast IMPRESSION: Stable pleural-based mass in the posteromedial segment of the left lower lobe. Interval decrease in size of the multiple pulmonary nodules. Electronically Signed: Naveed Danielle, at 11:14 EST , Service support ,
--- NOTE | 2019-08-24 06:58 | CT_ITS ---
STUDY: CT ABDOMEN WITH CONTRAST REASON FOR EXAM: Female, 64 years old. LUNG CA/ADRENAL NODULE, CHEMO CHECK, HTN, PREV SMOKER, SURG-multiple hernia repair, , tubal ligation RADIATION DOSAGE (If Supplied By Facility): CTDIvol = ( 9 ) mGy, DLP = ( 526.81 ) mGycm TECHNIQUE: Transaxial images were obtained post I.V. administration of IV 100mL Isovue-300, and oral contrast. Sagittal and coronal images were reconstructed. Individualized dose optimization techniques were used for this CT. COMPARISON: Comparison is made with prior study dated July 02, 2019. FINDINGS: Stable pleural-based mass in the posterior medial segment of the left lower lobe. Small pulmonary nodules. The visualized portions of the heart are within normal limits. There is decreased attenuation of the liver consistent with steatosis. Normal gallbladder and extrahepatic biliary system. Normal spleen. Normal pancreas. There is a small, circumscribed, smooth, low attenuation left adrenal mass, consistent with an adrenal adenoma. This measures 1.1 cm. Normal right adrenal gland. Normal right kidney. 5 mm nonobstructive calculus in the upper pole of the left kidney. Normal visualized stomach. Normal small intestine. There are multiple colonic diverticula consistent with diverticulosis. There are surgical clips in the region of the appendix consistent with a prior appendectomy. There is diffuse atherosclerotic calcification of the abdominal aorta, without a demonstrated aneurysm. Normal inferior vena cava. Normal retroperitoneum. There is a small umbilical hernia containing fat. There are diffuse degenerative changes of the visualized lumbar spine. CT/Abdomen WITH IV Contrast IMPRESSION: Fatty infiltration of the liver. Stable mass in the left lower lobe. Nonobstructive calculus in the upper pole of the left kidney. Electronically Signed: Naveed Danielle, at 11:16 EST , Service support ,
[2019-08-24] MEDS: 0.9% Saline Lock 10 ML Syringe IV (07:54)
== END ==
PROVIDERS: Family Provider Family Medicine; PCP Family Medicine; Referring Provider Internal Medicine Medical Oncology; Visit Provider Internal Medicine Medical Oncology
DX: C34.32 Malignant neoplasm of lower lobe, left bronchus or lung (principal); C34.91 Malignant neoplasm of unspecified part of right bronchus or lung; E27.9 Disorder of adrenal gland, unspecified
CPT/HCPCS: 71260; 74160; Q9967; A4216

== ENCOUNTER → 2019-10-22 08:20 | Outpatient (CLI) | payer BC, SELFPAY ==
[2019-08-31 08:33] VITALS: BMI 24.7
--- NOTE | 2019-10-22 09:37 | CT_ITS ---
STUDY: CT CHEST WITHOUT CONTRAST REASON FOR EXAM: Female, 64 years old. LUNG NODULE/HX LUNG CANCER RADIATION DOSAGE (If Supplied By Facility): CTDIvol = ( 10.59 ) mGy, DLP = ( 671.82 ) mGycm TECHNIQUE: Transaxial imaging was performed without the administration of intravenous contrast material. Multiplanar coronal and sagittal images were reformatted. Individualized dose optimization techniques were used for this CT. COMPARISON: Comparison is made with prior examination dated August 24, 2019. FINDINGS: A right-sided portacatheter is seen with the tip in the superior vena cava. Small bilateral benign-appearing axillary lymph nodes. Mild degree of emphysematous changes. Stable appearance of the bilateral pulmonary nodules. No new nodule is seen. Stable appearance of the pleural-based mass in the medial left lower lobe. There is evidence of surrounding bronchiectasis most likely representing scarring. There is no demonstrated pleural abnormality. There are calcifications of the coronary arteries. There are multiple small lymph nodes within the mediastinum, which are normal in size and morphology most compatible with reactive lymph hyperplasia. Stable 1.4 cm x 0.9 cm nodule in the anterior mediastinal fat in the region of the thymus gland. Focal calcification is seen within it. This is unchanged. Normal hilar regions. Normal unenhanced pulmonary arteries. There is atherosclerotic calcification of the aortic arch . There are degenerative changes of the thoracic spine. 8.8 mm nodule in the crux of the left adrenal gland. CT/Chest without Contrast IMPRESSION: Stable examination demonstrating multiple bilateral pulmonary nodules as well as pleural-based lesion in the posteromedial segment of the left lower lobe. Electronically Signed: Naveed Danielle, at 10:05 EDT , Service support ,
--- NOTE | 2019-10-22 09:37 | CT_ITS ---
STUDY: CT ABDOMEN WITHOUT CONTRAST REASON FOR EXAM: Female, 64 years old. LUNG NODULE/HX LUNG CANCER RADIATION DOSAGE (If Supplied By Facility): CTDIvol = ( 10.59 ) mGy, DLP = ( 671.82 ) mGycm TECHNIQUE: Transaxial images were obtained without intravenous contrast, and oral contrast. Sagittal and coronal images were reconstructed. Individualized dose optimization techniques were used for this CT. COMPARISON: Comparison is made with prior study dated August 24, 2019. FINDINGS: Once again, multiple small pulmonary nodules are seen at the lung bases. Persistent soft tissue density in the posteromedial aspect of the left lower lobe with areas of stranding and mild degree of pleural thickening. The visualized portions of the heart are within normal limits. Normal liver. Normal gallbladder and extrahepatic biliary system. Normal spleen. Normal pancreas. There is a small, circumscribed, smooth, low attenuation left adrenal mass, consistent with an adrenal adenoma. This is unchanged. Normal right adrenal gland. Normal right kidney. Normal left kidney. Retroaortic left renal vein. Normal visualized stomach. Normal small intestine. Normal colon. The appendix is visualized and appears normal. There is diffuse atherosclerotic calcification of the abdominal aorta, without a demonstrated aneurysm. Normal inferior vena cava. There is borderline retroperitoneal lymphadenopathy with enlarged nodes no greater than 10mm in the short axis diameter. There is a small umbilical hernia containing fat. Disc space narrowing and degeneration at the L5-S1 level. There is evidence of right paramedian disc herniation at L5-S1. CT/Abdomen without IV Contrast IMPRESSION: Stable examination. Electronically Signed: Naveed Danielle, at 10:17 EDT , Service support ,
== END ==
PROVIDERS: PCP Family Medicine; Referring Provider Internal Medicine Medical Oncology; Visit Provider Internal Medicine Medical Oncology
DX: C34.32 Malignant neoplasm of lower lobe, left bronchus or lung (principal)
CPT/HCPCS: 71250; 74150

== ENCOUNTER → 2020-01-26 07:28 | Outpatient (CLI) | payer BC, SELFPAY ==
[2019-10-26 08:23] VITALS: BMI 24.4
[2019-11-06 11:03] VITALS: BMI 24.4
--- NOTE | 2020-01-26 07:29 | CT_ITS ---
STUDY: CT CHEST WITH CONTRAST REASON FOR EXAM: Female, 64 years old. LUNG CANCER MONITORING. RIGHT LUNG SMALL CELL CANCER. LEFT LUNG NON- SMALL CELL CANCER. PRIOR CHEMO AND RADIATION RADIATION DOSAGE (If Supplied By Facility): CTDIvol = ( 7.78 ) mGy, DLP = ( 327.31 ) mGycm TECHNIQUE: Transaxial imaging was performed following intravenous administration of IV 100ML ISOVUE 300. Multiplanar coronal and sagittal images were reformatted. Individualized dose optimization techniques were used for this CT. COMPARISON: Comparison is made with prior examination dated October 22, 2019. FINDINGS: A right-sided portacatheter is seen with the tip in the superior vena cava. There are multiple bilateral pulmonary nodules of varying sizes throughout both lungs. These have increased both in number and in size as compared to prior studies. Stable infiltrate in the posterior medial segment of the left lower lobe with the areas of bronchiectasis. Mild degree of emphysematous changes. Normal heart and pericardium. Stable 1.4 cm x 0.97 nodule in the anterior mediastinum in the region of the thymus on the left side. Normal hilar regions. Normal enhanced pulmonary arteries. There is atherosclerotic calcification of the aortic arch. There is demineralization of the thoracic spine. Mild hepatomegaly with diffuse fatty infiltration of the liver. Stable 8.8 mm nodule in the crux of the left adrenal gland. CT/Chest WITH Contrast IMPRESSION: Since prior study, there has been an increase both in number as well as enlargement of the multiple bilateral pulmonary nodular densities. Stable infiltrate in the posterior medial segment of the left lower lobe. Electronically Signed: Naveed Danielle, at 10:16 EDT , Service support ,
[2020-01-26] MEDS: 0.9% Saline Lock 10 ML Syringe IV (08:05)
[2020-01-26 08:11] LABS: CREATININE FINGERSTICK 0.9 mg/dL (0.55-1.02); EGFR FINGERSTICK > 60.0000 mL/min (>60)
== END ==
PROVIDERS: PCP Family Medicine; Referring Provider Internal Medicine Medical Oncology; Visit Provider Internal Medicine Medical Oncology
DX: C34.91 Malignant neoplasm of unspecified part of right bronchus or lung (principal); C34.92 Malignant neoplasm of unspecified part of left bronchus or lung; R91.1 Solitary pulmonary nodule
CPT/HCPCS: 71260; Q9967; A4216

== ENCOUNTER → 2020-03-10 07:47 | Outpatient (CLI) | payer BC, SELFPAY ==
[2020-01-28 08:27] VITALS: BMI 23.9
[2020-03-10] VITALS (15 sets, daily range): BP systolic 113–163; BP diastolic 41–136; PULSE 82–94; RESP 16–24; TEMP 36.9; O2SAT 90–99; BMI 23.6
--- NOTE | 2020-03-10 | IMM_PTH ---
PATIENT: MITCH PARRISH LOC: CT U#:[id number] AGE/SX: 70/F ROOM: RE03/10/[address]: Dr. Daquan Baeza MD : 1955 BED: DIS: SPEC #: [id number] RECD: 03/11/20 10:50 STATUS: IRENE REQ #: [id number] GLADYS: 03/10/20 00:[address]: Daquan Baeza DEPT: IMMUNOHISTOCHEMISTRY RECD BY: Harriet Baugh ENTERED: 03/11/20 10:52 SP TYPE: IMMUNO OTHR DR: Dr. Jens Garibay MD Tissues: Right lung, NOS Procedures: RCC (add) NAPSIN A (add) CK20 (add) CK5-6 (add) CK7 (add) CK8 (add) HEP PAR (add) NM (add) TTF1 (add) Pankeratin (add) P40 (add) ER (initial) PHYSICIAN & INSTITUTION [place] [id number] SPECIMEN INFORMATION: Tissue Source: Right lung nodules Clinical Info: Right lung nodules Specimen Number: [id number] CPT code: 35823, 93216 x11 METHODOLOGY: Deparaffinized sections of prefer/formalin-fixed tissue or PAP/DQ stained slides are incubated with monoclonal/polyclonal antibodies/oligonucleotide probes. Localization is made via biotin free immunoperoxidase method. Appropriate controls are performed and reacted as expected. Results on target cell population are indicated in the following table: RESULTS: ANTIBODY / CLONE RESULT ER (6F11) negative NM (1E2) negative AE1-3 (AE1/AE3/PCK26) positive CK7 (OV-TL12/30) positive CK8 (68fercK35) positive CK20 (KS20.8) negative TTF-1 (8G7G3/1) positive Napsin A (Rabbit Polyclonal) positive HepPar (OCh1E5) negative RCC (PN-15) negative CK5-6 (D5 & 1684) positive, weak P40 (BC28) negative These tests were developed and their performance characteristics determined by [facility]. They may not have been cleared or approved by the U.S. Food and Drug Administration. The FDA has determined that such clearance or approval is not necessary. The above immunohistochemical/dualISH markers are ordered and reviewed by the Pathologist. INTERPRETATION: Right lung nodules, CT-guided biopsy: Non-small cell carcinoma, favor adenocarcinoma, consistent with lung primary. SJ:julio 03/14/20
--- NOTE | 2020-03-10 | ASPIGT_PTH ---
PATIENT: MITCH PARRISH LOC: CT U#:[id number] AGE/SX: 70/F ROOM: RE03/10/[address]: Dr. Daquan Baeza MD : 1955 BED: DIS: SPEC #: [id number] RECD: 03/10/20 10:35 STATUS: IRENE ONEIL #: [id number] GLADYS: 03/10/20 00:[address]: Daquan Baeza DEPT: SURGICAL PATHOLOGY RECD BY: Francisco Argueta ENTERED: 03/10/20 11:23 SP TYPE: ASP RAD OTHR DR: Dr. Jens Garibay MD Tissues: Lung, NOS Procedures: FNA Specimen Adequacy Special Stain Group II Surgery Specimen Level IV Imprint (control) HEADER OPERATION: CT-guided right lung biopsy PRE-OP DIAGNOSIS: Right lung nodules TISSUE SUBMITTED: Right lung nodules MICROSCOPIC DIAGNOSIS Right lung nodule, CT-guided core biopsy: Non-small cell carcinoma, favor adenocarcinoma, consistent with lung primary. See comment. CASSANDRA:julio 03/11/20 COMMENT The specimen is evaluated at the time of biopsy by Dr. Avalos. Immediate Evaluation = Malignant cells present derived from non-small cell carcinoma. Immunohistochemistry ([id number]) supports the above diagnosis. Molecular studies on the tumor can be performed if clinically indicated. Please notify the laboratory if they are needed. Please make reference to previous specimen ([id number]) left lung mass, CT-guided core biopsy with diagnosis of non-small cell carcinoma, consistent with adenocarcinoma. MICROSCOPIC DESCRIPTION Slides are reviewed. GROSS DESCRIPTION Received fresh is one container labeled with the patient's name and designated right lung biopsy. The specimen consists of multiple irregular fragments of camacho soft tissue that in aggregate measure 1 x 0.1 x <0.1 cm. The entire specimen is submitted in one cassette. Seven smears are also prepared at the time of core biopsy. / CASSANDRA:julio 03/10/20 TC:0 CPT: 98423, 44302 ADDENDUM ADDENDUM ADDENDUM ADDENDUM ADDENDUM ADDENDUM 03/29/2020 09:17 ADDENDUM 04/04/2020 09:30 ADDENDUM 03/29/2020 09:17 ADDENDUM 03/29/2020 09:17 ADDENDUM 03/29/2020 09:17 ADDENDUM 03/29/2020 09:17 PD-L1 (KEYTRUDA) IMMUNOHISTOCHEMICAL ANALYSIS FROM [facility] RESULTS: Tumor proportion score: <1% / Negative Please see complete report in e-chart or EMR ONKOSIGHT NEXT GENERATION SEQUENCING GENE FUSION PANEL FROM [facility] INTERPRETATION: NEGATIVE: No pathogenic gene fusions detected involving AKT1, ALK, GABINO, BRAF, CCND1, EGFR, FGFR1, FGFR2, FGFR3, MET, NRG1, NTRK1, NTRK2, NTRK3, PPARG, RAF1, RET, ROS1 or THADA. RESULTS: Tumor cellularity: >10% Tumor type: Non-small cell lung carcinoma Please see complete report in e-chart or EMR
--- NOTE | 2020-03-10 07:48 | CT_ITS ---
PROCEDURE: CT-guided core biopsy of lung mass Individualized dose optimization techniques were used for this CT. INDICATION: Female, 64 years old. Right lung lower lobe nodule CT guidance CONSENT: The risks, benefits and alternatives to the procedure were explained to the patient, and the patient agreed to the procedure and signed the consent. SEDATION: Intermittent the intravenous and demonstration of Versed and fentanyl by nursing staff under continuous cardiopulmonary monitoring. 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 PROCEDURE/TECHNIQUE: The risks, benefits, and alternatives to the procedure were explained to patient, and the patient agreed to the procedure and signed a consent form for the procedure. A timeout was performed to confirm the patient''s identity, the type of procedure, to be performed and the site of entry. Patient was positioned supine on the CT scan table. Under CT guidance using sterile technique and after infiltration of the skin and subcutaneous soft tissues with 40 mL of lidocaine 1% an 18-gauge core biopsy was introduced in the lung mass previously described.Multiple core samples were obtained and were placed with in formalin solution and sent to the lab for evaluation. Touch prep slides were examined by the pathologist at the procedure. FINDINGS: Successful CT-guided core biopsy of lung mass. CT/Biopsy/Inj or Needle Placement IMPRESSION: Successful CT-guided core biopsy of right lung lower lobe mass. Electronically Signed: Gucci Vizcaino, at 17:54 EDT Tel , Service support ,
[2020-03-10] MEDS: Midazolam 2 MG/2 ML Syringe IV (09:59)
[2020-03-10] MEDS: fentaNYL 100 MCG/2 ML Ampul IV ×2 (10:01→10:30)
--- NOTE | 2020-03-10 11:30 | RAD_ITS ---
STUDY: X-RAY CHEST REASON FOR EXAM: Female, 64 years old. 2 HOURS POST LUNG BX TECHNIQUE: Single AP portable view of the chest. COMPARISON: 01/26/2020 FINDINGS: Mediport is seen on the right-sided tip is at the cavoatrial junction is in good position. Multiple ill-defined nodules are seen in both lungs consistent with metastatic lesions. There is ill-defined opacity in the right lung lower lobe superior segment consistent with a hematoma. There is no demonstrated pleural abnormality. Normal size heart. Normal mediastinum and nate. Normal visualized pulmonary arteries. Normal visualized aortic arch and descending thoracic aorta. Normal visualized thoracic spine. Normal visualized ribs, clavicles, and shoulders. There is no demonstrated abnormality of the visualized soft tissue structures of the upper abdomen. RAD/Chest Insp/Exp 2 View IMPRESSION: There is no evidence of pneumothorax. Electronically Signed: Gucci Vizcaino, at 14:09 EDT Tel , Service support ,
[2020-03-10] MEDS: 0.9% Saline Lock 10 ML Syringe IV (13:15)
== END ==
PROVIDERS: PCP Family Medicine; Referring Provider Internal Medicine Medical Oncology; Visit Provider Internal Medicine Medical Oncology
DX: C34.91 Malignant neoplasm of unspecified part of right bronchus or lung (principal); C34.92 Malignant neoplasm of unspecified part of left bronchus or lung; F43.20 Adjustment disorder, unspecified; Z85.828 Personal history of other malignant neoplasm of skin; Z79.899 Other long term (current) drug therapy; F17.200 Nicotine dependence, unspecified, uncomplicated
CPT/HCPCS: 32405; 71046; 77012; 88172; 88305; 88313; 88341; 88342; 99155; 99156; 99157; J7040; A4216

== ENCOUNTER → 2020-03-29 08:34 | Outpatient (CLI) | payer BC, SELFPAY ==
[2020-03-10 08:00] VITALS: BMI 23.6
--- NOTE | 2020-03-29 08:37 | RAD_ITS ---
STUDY: X-RAY - LEFT SHOULDER REASON FOR EXAM: Female, 65 years old. Left shoulder pain, received shot in February for pain. TECHNIQUE: 4 view(s) of the shoulder. COMPARISON: None. FINDINGS: Normal glenohumeral articulation. Normal acromioclavicular joint. Normal acromion. Normal humeral head and visualized proximal humerus. The soft tissue structures are unremarkable. Pulmonary nodules are seen in the left lung. RAD/Shoulder min 2 Views IMPRESSION: Pulmonary nodules. Electronically Signed: Naveed Danielle, at 10:53 EDT , Service support ,
== END ==
PROVIDERS: PCP Family Medicine; Referring Provider Family Medicine; Visit Provider Family Medicine
DX: M25.512 Pain in left shoulder (principal)
CPT/HCPCS: 73030

== ENCOUNTER → 2020-04-15 10:23 | Outpatient (CLI) | payer BC, SELFPAY ==
[2020-04-12 08:18] VITALS: BMI 23.0
--- NOTE | 2020-04-15 10:25 | NM_ITS ---
CLINICAL: 65-year-old female with history of primary lung carcinoma with current complaint of left shoulder pain. WHOLE BODY 99m Tc MDP RADIONUCLIDE BONE SCINTIGRAPHY COMPARISON: Previous whole body bone scintigraphy study dated 03/27/2017, plain film radiograph report left shoulder 03/29/2020 FINDINGS: Following the intravenous administration of 25.7 mCi of 99m Tc MDP, whole body bone images reveal: 1. Focal increased radiopharmaceutical concentration is newly defined in the distribution of the left coracoid process, left scapula. 2. Enhanced tracer distribution is defined in the mid cervical spine posteriorly on the left and right, posterior compartments of both ankles, the patellofemoral compartments of both knees, third lumbar vertebra anteriorly on the left, right posterior and anterior sacrum. 3. The remaining skeletal structures are scintigraphically unremarkable with normal-appearing renal images and urinary bladder activity identified. NM/Bone Scan Whole Body IMPRESSION: 1. 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 2. 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 3. Overall compared to the previous whole body bone scintigraphy study dated 03/27/2017, there is interim development of apparent isolated osseous metastasis as defined above. Electronically Signed: Graham Green DO at 22:45 EDT Tel , Service support ,
== END ==
PROVIDERS: PCP Family Medicine; Referring Provider Nurse Practitioner Family; Visit Provider Nurse Practitioner Family
DX: C34.90 Malignant neoplasm of unspecified part of unspecified bronchus or lung (principal); M25.512 Pain in left shoulder
CPT/HCPCS: 78306

== ENCOUNTER → 2020-04-18 06:44 | Outpatient (CLI) | payer BC, SELFPAY ==
[2020-04-12 08:18] VITALS: BMI 23.0
--- NOTE | 2020-04-18 06:45 | CT_ITS ---
STUDY: CT ABDOMEN AND PELVIS WITH CONTRAST REASON FOR EXAM: Female, 65 years old. RECURRING LUNG CA, ON CHEMO, SURG-Power Port, multiple hernia repair, , tubal ligation RADIATION DOSAGE (If Supplied By Facility): CTDIvol = ( 6.79 ) mGy, DLP = ( 462.25 ) mGycm TECHNIQUE: Transaxial images were obtained from the dome of the diaphragm to the symphysis pubis without oral contrast. IV 100mL Isovue-300 was administered. Sagittal and coronal images were reconstructed. Individualized dose optimization techniques were used for this CT. COMPARISON: Comparison is made with prior examination dated 10/22/2019. FINDINGS: The 2 small nodular densities in the posterior segment of the left lower lobe have increased in size. Persistent pleural thickening at the left lung base. The visualized portions of the heart are within normal limits. There is decreased attenuation of the liver consistent with steatosis. Normal gallbladder and extrahepatic biliary system. Normal spleen. Normal pancreas. There is a small, circumscribed, smooth, low attenuation left adrenal mass, consistent with an adrenal adenoma. This is unchanged. Normal right adrenal gland. Normal right kidney. Normal left kidney. Retroaortic left renal vein. Normal visualized stomach. Normal small intestine. There is scattered multiple colonic diverticula consistent with diverticulosis. The appendix is visualized and appears normal. There is diffuse atherosclerotic calcification of the abdominal aorta and its major visceral branches, without a demonstrated aneurysm. Normal inferior vena cava. There is borderline retroperitoneal lymphadenopathy with enlarged nodes no greater than 10mm in the short axis diameter. There now is evidence of a new 1.9 cm x 1.6 cm rounded soft tissue density in the mesenteric fat just deep to the anterior abdominal wall in the mid central abdomen. A similar-appearing rounded soft tissue density is seen in the left-sided midline in the upper anterior peritoneal fat measuring 1.5 cm x 1.2 cm. This lies medial to the left lobe of the liver. Mild degree of diffuse bladder wall thickening of the bladder is not completely distended at this time. There is evidence of prior bilateral tubal ligation. I suspect a 1.9 cm x 2.4 cm fibroid in the fundal portion of the uterus. There is a small umbilical hernia containing fat. There is evidence of a prior mesh repair of a lower anterior abdominal wall hernia. Disc space narrowing and degeneration at the L5-S1 level. Stable right paramedian disc herniation. CT/Abdomen/Pelvis W IV Cont ONLY IMPRESSION: Essentially stable examination except for 2 new rounded soft tissue density in the mesenteric fat as described. Slight increase in size of the pleural-based nodules in the left lower lobe. Electronically Signed: Naveed Danielle, at 9:00 EDT , Service support ,
== END ==
PROVIDERS: PCP Family Medicine; Referring Provider Nurse Practitioner Family; Visit Provider Nurse Practitioner Family
DX: C34.90 Malignant neoplasm of unspecified part of unspecified bronchus or lung (principal); R10.31 Right lower quadrant pain
CPT/HCPCS: 74177; Q9967

== ENCOUNTER → 2020-05-16 13:12 | Outpatient (CLI) | payer BC, SELFPAY ==
[2020-05-16 09:25] VITALS: BMI 23.1
--- NOTE | 2020-05-16 13:30 | RAD_ITS ---
CLINICAL HISTORY: Female, 65 years old. Port check. PROCEDURE: ISOVUE 300 was injected into the indwelling portacatheter. Imaging was obtained. FLUOROSCOPY TIME (if supplied): (30 seconds) minutes/seconds STERILE BARRIER TECHNIQUE: The following sterile barrier precautions were used during the procedure: hand hygiene; use of 2% chlorhexidine aseptic; use of a cap, mask, sterile gown, sterile gloves, sterile full body drape, and a large sterile sheet. TECHNIQUE: 20 cc of ISOVUE 300 was injected through the port. The port is widely patent. # of Images: 3 RAD/Con Inj Abhishek Eval [facility]P Inc Fluro IMPRESSION: Normal nolberto catheter. Electronically Signed: Naveed Danielle, at 14:10 EDT , Service support ,
== END ==
PROVIDERS: PCP Family Medicine; Referring Provider Nurse Practitioner Family; Visit Provider Nurse Practitioner Family
DX: Z95.828 Presence of other vascular implants and grafts (principal)
CPT/HCPCS: 36598; Q9965; A4216

== ENCOUNTER → 2020-05-26 07:53 | Outpatient (CLI) | payer BC, SELFPAY ==
[2020-05-05 09:13] VITALS: BMI 23.0
[2020-05-16 09:25] VITALS: BMI 23.1
--- NOTE | 2020-05-26 07:53 | CT_ITS ---
STUDY: CT CHEST WITH CONTRAST REASON FOR EXAM: Female, 65 years old. LUNG CANCER, TREATMENT RESPONSE RADIATION DOSAGE (If Supplied By Facility): CTDIvol = ( 7.54 ) mGy, DLP = ( 598.12 ) mGycm TECHNIQUE: Transaxial imaging was performed following intravenous administration of IV 100mL Isovue-300. Multiplanar coronal and sagittal images were reformatted. Individualized dose optimization techniques were used for this CT. COMPARISON: Comparison is made with prior study dated 01/26/2020. FINDINGS: A left-sided nolberto catheter seen with the tip in the superior vena cava. Once again, there are multiple bilateral pulmonary nodules of varying sizes throughout both lungs. There is been essentially no change as compared to prior study. Stable infiltration in the posterior segment of the left lower lobe with areas of bronchiectasis. Mild degree of emphysematous changes. There is no demonstrated pleural abnormality. Normal heart and pericardium. Stable 1.4 cm x 1 cm nodular density in the anterior mediastinum on the left side. Normal hilar regions. Normal enhanced pulmonary arteries. Normal aorta arch and descending thoracic aorta. Normal osseous structures. Diffuse fatty infiltration of the liver. CT/Chest WITH Contrast IMPRESSION: Essentially stable examination. Electronically Signed: Naveed Danielle, at 9:18 EST , Service support ,
--- NOTE | 2020-05-26 07:53 | CT_ITS ---
STUDY: CT ABDOMEN WITH CONTRAST REASON FOR EXAM: Female, 65 years old. LUNG CANCER, TREATMENT RESPONSE RADIATION DOSAGE (If Supplied By Facility): CTDIvol = ( 7.54 ) mGy, DLP = ( 598.12 ) mGycm TECHNIQUE: Transaxial images were obtained post I.V. administration of IV 100mL Isovue-300, and without oral contrast. Sagittal and coronal images were reconstructed. Individualized dose optimization techniques were used for this CT. COMPARISON: Comparison is made with prior study dated 04/18/2020. FINDINGS: Residual 3.5 mm noncalcified nodule in the anterior aspect of the right lower lobe as seen on image #5. This has decreased slightly in size as compared to prior study. Residual pleural-parenchymal changes at the left lung base. This has improved as compared to prior study. The previously seen nodular densities in the posterior medial segment of the left lower lobe are not seen at this time. There is decreased attenuation of the liver consistent with steatosis. Normal gallbladder and extrahepatic biliary system. Normal spleen. Normal pancreas. There is a small, circumscribed, smooth, low attenuation left adrenal mass, consistent with an adrenal adenoma. Normal right adrenal gland. Normal right kidney. Normal left kidney. Retroaortic left renal vein. Normal visualized stomach. Normal small intestine. There are scattered colonic diverticula consistent with diverticulosis. The appendix is visualized and appears normal. Normal abdominal aorta. Normal inferior vena cava. The previously seen soft tissue density in the anterior mesenteric fat just deep to the umbilicus has decreased in size. It presently measures 1.4 cm x 1.4 cm. Stable mild bladder wall thickening. Stable appearance of the uterus. There is a small umbilical hernia containing fat. Once again, there is evidence of prior anterior abdominal wall hernia repair with mesh. The space narrowing and disc degeneration at the L5-S1 level. Stable right paracentral disc herniation. CT/Abdomen WITH IV Contrast IMPRESSION: Interval decrease in size of the nodule density in the anterior mesenteric fat at the level of the umbilicus. Interval decrease in size of the right lower lobe nodule as well as the pleural-parenchymal changes at the left lung base. Electronically Signed: Naveed Danielle, at 9:13 EST , Service support ,
[2020-05-26] MEDS: 0.9% Saline Lock 10 ML Syringe IV (08:18)
== END ==
PROVIDERS: PCP Family Medicine; Referring Provider Internal Medicine Medical Oncology; Visit Provider Internal Medicine Medical Oncology
DX: C34.91 Malignant neoplasm of unspecified part of right bronchus or lung (principal); C34.92 Malignant neoplasm of unspecified part of left bronchus or lung; R93.5 Abnormal findings on diagnostic imaging of other abdominal regions, including retroperitoneum
CPT/HCPCS: 71260; 74160; Q9967; A4216

== ENCOUNTER → 2020-07-06 05:52 | Outpatient (CLI) | payer BC, SELFPAY ==
[2020-06-20 10:13] VITALS: BMI 23.1
[2020-06-27 08:43] VITALS: BMI 22.5
--- NOTE | 2020-07-06 05:56 | CT_ITS ---
STUDY: CT ABDOMEN AND PELVIS WITH CONTRAST REASON FOR EXAM: Female, 65 years old. LUNG CANCER--ASSESSING RESPONSE TO TREATMENT -- RADIATION X4.5 YRS AGO. CHEMO X2 MONTHS AGO RADIATION DOSAGE (If Supplied By Facility): CTDIvol = ( 8.76 ) mGy, DLP = ( 591.36 ) mGycm TECHNIQUE: Transaxial images were obtained from the dome of the diaphragm to the symphysis pubis with oral contrast. Oral and amp; IV Gastrografin and amp; 100mL Isovue-300 was administered. Sagittal and coronal images were reconstructed. Individualized dose optimization techniques were used for this CT. COMPARISON: Comparison is made with prior examination dated 05/26/2020. FINDINGS: Minimal left pleural effusion with infiltration and/or atelectasis in the posterior medial segment of the left lower lobe. This is new. 2 adjacent nodules are seen in the anterior lateral aspect of the right lower lobe. The larger measures 3.8 mm. Stable 3 mm nodule in the right lower lobe just craniad to the right hemidiaphragm as seen on axial image #7. The visualized portions of the heart are within normal limits. There is decreased attenuation of the liver consistent with steatosis. Normal gallbladder and extrahepatic biliary system. Normal spleen. Normal pancreas. There is a small, circumscribed, smooth, low attenuation left adrenal mass, consistent with an adrenal adenoma. This is unchanged. Normal right adrenal gland. Normal right kidney. Normal left kidney. Incidental note is made of a retroaortic left renal vein. Normal visualized stomach. Normal small intestine. There are multiple colonic diverticula consistent with diverticulosis. The appendix is visualized and appears normal. There is diffuse atherosclerotic calcification of the abdominal aorta and its major visceral branches, without a demonstrated aneurysm. Normal inferior vena cava. Normal retroperitoneum. The previously seen nodular density in the anterior mesenteric fat just deep to the umbilicus has decreased further in size. It presently measures 1 cm x 0.9 cm. Normal urinary bladder. There is evidence of bilateral tubal ligation. There is a small umbilical hernia containing fat. Disc space narrowing and disc degeneration at the L5-S1 level. CT/Abdomen/Pelvis WITH Contrast IMPRESSION: Decreased size of the mesenteric nodule as described. Progressive pleural parenchymal changes at the left lung base. Electronically Signed: Naveed Danielle, at 9:43 EST , Service support ,
--- NOTE | 2020-07-06 05:56 | CT_ITS ---
STUDY: CT CHEST WITH CONTRAST REASON FOR EXAM: Female, 65 years old. LUNG CANCER--ASSESSING RESPONSE TO TREATMENT -- RADIATION X4.5 YRS AGO. CHEMO X2 MONTHS AGO RADIATION DOSAGE (If Supplied By Facility): CTDIvol = ( 8.76 ) mGy, DLP = ( 591.36 ) mGycm TECHNIQUE: Transaxial imaging was performed following intravenous administration of Oral and amp; IV Gastrografin and amp; 100mL Isovue-300. Multiplanar coronal and sagittal images were reformatted. Individualized dose optimization techniques were used for this CT. COMPARISON: Comparison is made with prior examination dated 05/26/2020. FINDINGS: A right-sided portacatheter is seen. Diffuse emphysematous changes with scarring. Once again, multiple pulmonary nodules are seen in both lungs involving both the upper and lower lobes. These nodules have all decreased in size as compared to prior study. Stable pleural parenchymal changes at the left lung base in the posterior medial segment of the left lower lobe. This may represent an area of rounded atelectasis. Normal heart and pericardium. Stable 1.4 cm x 1 cm nodular density in the anterior mediastinum in the medial superior aspect. This is unchanged. Normal hilar regions. Normal enhanced pulmonary arteries. Normal aorta arch and descending thoracic aorta. There are degenerative changes of the thoracic spine. There is no demonstrated abnormality of the visualized upper abdomen. CT/Chest WITH Contrast IMPRESSION: Interval decrease in size of the multiple bilateral pulmonary nodules as compared to prior examination. Stable pleural parenchymal changes at the left lung base suggestive of possible rounded atelectasis. Electronically Signed: Naveed Danielle, at 9:47 EST , Service support ,
[2020-07-06] MEDS: 0.9% Saline Lock 10 ML Syringe IV (08:00)
== END ==
PROVIDERS: PCP Family Medicine; Referring Provider Internal Medicine Medical Oncology; Visit Provider Internal Medicine Medical Oncology
DX: C34.91 Malignant neoplasm of unspecified part of right bronchus or lung (principal); C34.92 Malignant neoplasm of unspecified part of left bronchus or lung; C79.51 Secondary malignant neoplasm of bone
CPT/HCPCS: 71260; 74177; Q9967; A4216

== ENCOUNTER → 2020-08-22 08:25 | Outpatient (CLI) | payer BC, SELFPAY ==
[2020-08-15 11:06] VITALS: BMI 23.4
--- NOTE | 2020-08-22 08:26 | NM_ITS ---
CLINICAL: 65-year-old female with reported history of primary lung carcinoma with current complaint of left shoulder pain. WHOLE BODY 99m Tc MDP RADIONUCLIDE BONE SCINTIGRAPHY COMPARISON: Previous whole body bone scintigraphy study dated 04/15/2020, CT of the chest report 07/06/2020, CT of the abdomen pelvis report 07/06/2020 FINDINGS: Following the intravenous administration of 24.0 mCi of 99m Tc MDP, whole body bone images reveal: 1. Persistent increased radiopharmaceutical concentration is focally defined in the left shoulder articulations which appears associated with the coracoid process. 2. Facilitated tracer uptake is otherwise noted in the acromioclavicular and sternoclavicular compartments of both shoulders, bilateral knees, wrist articulations bilaterally, the posterior compartments of both ankles. 3. Enhanced radiotracer distribution appears evident in the lateral cortical compartment of the bilateral proximal-distal tibial diaphyses. 4. The remaining skeletal structures are scintigraphically unremarkable with normal-appearing renal images and urinary bladder activity identified. Increased uptake is apparent in the bilateral maxilla and right-left mandible most consistent with periodontal disease and/or periostitis. NM/Bone Scan Whole Body IMPRESSION: 1. The increase in tracer concentration observed in the left shoulder-coracoid process remains most consistent with isolated skeletal metastatic disease. Plain film radiography or potentially magnetic resonance imaging correlation may be of benefit. 2. Increased radiotracer distribution defined in the lateral cortical compartment of the bilateral proximal-distal tibial diaphyses may represent hypertrophic osteoarthropathy. Plain film x-ray may also be of benefit in this location. 3. Degenerative arthritis appears currently expressed in the bilateral shoulders and knees, both wrists, the right-left ankles. 4. Overall compared to the previous whole body bone scintigraphy study dated 04/15/2020, there is no significant interval change. Electronically Signed: Graham Green DO at 22:26 EST Tel , Service support ,
== END ==
PROVIDERS: PCP Family Medicine; Referring Provider Internal Medicine Medical Oncology; Visit Provider Internal Medicine Medical Oncology
DX: C34.91 Malignant neoplasm of unspecified part of right bronchus or lung (principal); C34.92 Malignant neoplasm of unspecified part of left bronchus or lung; C79.51 Secondary malignant neoplasm of bone; M25.512 Pain in left shoulder
CPT/HCPCS: 78306

== ENCOUNTER → 2020-09-05 06:17 | Outpatient (CLI) | payer BC, SELFPAY ==
[2020-08-15 11:06] VITALS: BMI 23.4
--- NOTE | 2020-09-05 06:19 | MRI_ITS ---
STUDY: MRI LEFT SHOULDER WITH AND WITHOUT CONTRAST REASON FOR EXAM: Left shoulder pain, lung cancer, abnormal bone scan. TECHNIQUE: Standardized fat and water weighted pulse sequences were obtained in all 3 orthogonal planes before and after intravenous administration of 12 mL of Dotarem. COMPARISON: CT images 07/06/2020, bone scan 08/22/2020. FINDINGS: There is is mild supraspinatus tendinosis (T2 sagittal images 17, 18) without discrete tendon tear. Normal infraspinatus tendon. Normal subscapularis tendon. Normal teres minor tendon. Normal supraspinatus muscle. Normal infraspinatus muscle. Normal subscapularis muscle. Normal teres minor muscle. Normal glenohumeral articulation. Normal humeral head and visualized proximal humerus with incidental persistence of red marrow in the proximal humeral diametaphysis (T2 coronal images 5-7). Normal biceps labral complex. Normal intracapsular long biceps tendon. Normal labrum. Normal capsulo- ligamentous complex. There is a lesion in the base of the coracoid process extending into the anterior superior glenoid (T2 axial images 6-8; T2 sagittal image 5) measuring approximately 2.2 x 1.8 cm (AP x transverse) with adjacent bone edema in the coracoid process (proton-density axial images 7, 8) and contrast enhancement of the lesion (postcontrast T1 axial images 8, 9). This corresponds to the lytic lesion on CT axial images 6-10). There is mild acromioclavicular arthrosis (T2 sagittal image 10) acromioclavicular articulation. There is a Type II morphology (curved), with a neutral orientation. There is no subacromial-subdeltoid bursal fluid. Normal visualized coracohumeral and coracoacromial ligaments. Normal deltoid muscle. Normal trapezius muscle. MRI/Upper Ext Joint Only W/WO Cont IMPRESSION: Contrast enhancing lesion in the base of the coracoid process extending into the anterior superior glenoid consistent with metastatic disease. Mild supraspinatus tendinosis without demonstrated rotator cuff tear. Mild acromioclavicular arthrosis. Electronically Signed: Harvey Teresa MD at 8:47 EST Tel , Service support ,
== END ==
PROVIDERS: PCP Family Medicine; Referring Provider Internal Medicine Medical Oncology; Visit Provider Internal Medicine Medical Oncology
DX: C34.90 Malignant neoplasm of unspecified part of unspecified bronchus or lung (principal); R93.7 Abnormal findings on diagnostic imaging of other parts of musculoskeletal system
CPT/HCPCS: 73223; A9575

== ENCOUNTER → 2020-11-28 07:54 | Outpatient (CLI) | payer BC, SELFPAY ==
[2020-09-07 10:33] VITALS: BMI 23.4
[2020-09-09 08:44] VITALS: BMI 22.1
[2020-11-03 09:09] VITALS: BMI 23.3
--- NOTE | 2020-11-28 07:55 | CT_ITS ---
STUDY: CT CHEST T ABDOMEN WITH CONTRAST REASON FOR EXAM: Female, 65 years old. LUNG CANCER. Follow-up examination. RADIATION DOSAGE (If Supplied By Facility): CTDIvol = ( 8.77 ) mGy, DLP = ( 442.59 ) mGycm TECHNIQUE: Transaxial imaging was performed following intravenous administration of IV 100mL Isovue-370. Individualized dose optimization techniques were used for this CT. COMPARISON: Comparison is made with prior study dated 07/06/2020. FINDINGS: CHEST A right-sided portacatheter is seen with the tip in the superior vena cava. Once again, multiple bilateral pulmonary nodules are seen. The majority of the pulmonary nodules have increased in size as compared to prior study. Stable atelectasis and/or infiltration in the posterior medial segment of the left lower lobe with pleural thickening. This may represent a focal area of rounded atelectasis. Normal heart and pericardium. Stable 1.4 cm x 1 cm nodular density in the anterior mediastinum in the medial superior aspect. Normal hilar regions. Normal unenhanced pulmonary arteries. Normal aorta arch and descending thoracic aorta. There are multi-level degenerative changes of the thoracic spine. There is no demonstrated abnormality of the visualized upper abdomen. ABDOMEN There is decreased attenuation of the liver consistent with steatosis. There is a 2.7 cm x 3 cm inhomogeneous hypodensity in the region of the caudate lobe of the liver. A metastatic deposit should be. There is evidence of focally dilated bile ducts at that site. Normal gallbladder and extrahepatic biliary system. Normal spleen. Normal pancreas. Normal bilateral adrenal glands. Normal right kidney. Normal left kidney. There is evidence of a retroaortic left renal vein. Normal visualized stomach. Normal small intestine. Normal colon. The appendix is visualized and appears normal. There is diffuse atherosclerotic calcification of the abdominal aorta, without a demonstrated aneurysm. Normal inferior vena cava. Normal retroperitoneum. There is a small umbilical hernia containing fat. There are mild degenerative changes of the visualized lumbar spine. CT/CT Chest AND Abd W/ Contrast IMPRESSION: Since prior study, there has been an increase in size of the multiple bilateral pulmonary nodules. 2.7 cm x 3 cm inhomogeneous hypodensity in the region of the caudate lobe of the liver. A metastatic deposit should be ruled out. Electronically Signed: Naveed Danielle MD at 9:02 EDT , Service support ,
[2020-11-28] MEDS: 0.9% Saline Lock 10 ML Syringe IV (08:32)
== END ==
PROVIDERS: PCP Family Medicine; Referring Provider Internal Medicine Medical Oncology; Visit Provider Internal Medicine Medical Oncology
DX: C34.90 Malignant neoplasm of unspecified part of unspecified bronchus or lung (principal)
CPT/HCPCS: 71260; 74160; Q9967; A4216

== ENCOUNTER 2020-12-22 13:00 | Outpatient (RCR) | payer BC, SELFPAY ==
[2020-09-09 08:44] VITALS: BMI 22.1
[2020-12-14 09:28] VITALS: BMI 22.1
== END 2021-01-26 23:59 ==
LOC: IMMUN 13:00
PROVIDERS: PCP Family Medicine; Visit Provider Family Medicine
DX: Z23 Encounter for immunization (principal)
CPT/HCPCS: 0001A; 91300

== ENCOUNTER → 2021-03-06 07:39 | Outpatient (CLI) | payer BC, SELFPAY ==
[2020-09-09 08:44] VITALS: BMI 22.1
[2021-02-20 11:13] VITALS: BMI 23.1
[2021-02-27 09:03] VITALS: BMI 23.3
--- NOTE | 2021-03-06 07:40 | CT_ITS ---
STUDY: CT CHEST T ABDOMEN WITH CONTRAST REASON FOR EXAM: Female, 65 years old. Assess response to treatment, IV contrast only. History of lung cancer. RADIATION DOSAGE (If Supplied By Facility): CTDIvol = ( 9.42 ) mGy, DLP = ( 499.78 ) mGycm TECHNIQUE: Transaxial imaging was performed following intravenous administration of IV 100mL Isovue-370. Individualized dose optimization techniques were used for this CT. COMPARISON: Comparison is made with prior examination of 11/28/2020. FINDINGS: CHEST A right-sided portacatheter is seen with the tip in the superior vena cava. Once again, multiple bilateral pulmonary nodules are seen. Since prior study, the majority of the nodules have decreased in size as compared to prior study. Stable infiltration and/or atelectasis along the posterior medial segment of the left lower lobe. There is no demonstrated pleural abnormality. Normal heart and pericardium. Stable 1.4 cm x 1 cm nodular density in the anterior medial superior mediastinum. Normal hilar regions. Normal unenhanced pulmonary arteries. Normal aorta arch and descending thoracic aorta. There are multi-level degenerative changes of the thoracic spine. Diffuse fatty infiltration of the liver. ABDOMEN There is decreased attenuation of the liver consistent with steatosis. Stable 2.5 cm heterogeneous density in the region of the caudate lobe of the liver. Normal gallbladder and extrahepatic biliary system. Normal spleen. Normal pancreas. Normal bilateral adrenal glands. Stable 1.2 cm cyst in the anterior midportion of the right kidney. Normal left kidney. Once again, there is evidence of a retrocrural aortic left renal vein. Normal visualized stomach. Normal small intestine. Normal colon. The appendix is visualized and appears normal. There is diffuse atherosclerotic calcification of the abdominal aorta, without a demonstrated aneurysm. Normal inferior vena cava. Normal retroperitoneum. There is a small umbilical hernia containing fat. There are diffuse degenerative changes of the visualized lumbar spine. CT/CT Chest AND Abd W/ Contrast IMPRESSION: Since prior study, a large majority of the pulmonary nodules have decreased in size. Diffuse fatty infiltration of the liver. Stable 2.5 cm heterogeneous density in the region of the caudate lobe Electronically Signed: Naveed Danielle MD at 9:39 EDT , Service support ,
[2021-03-06] MEDS: 0.9 % NaCl (Sterile) Posiflush 10 mL IV (08:05)
[2021-03-06] MEDS: 0.9% Saline Lock 10 ML Syringe IV (08:14)
== END ==
PROVIDERS: PCP Family Medicine; Referring Provider Nurse Practitioner Family; Visit Provider Nurse Practitioner Family
DX: C34.91 Malignant neoplasm of unspecified part of right bronchus or lung (principal); C34.92 Malignant neoplasm of unspecified part of left bronchus or lung
CPT/HCPCS: 71260; 74160; Q9967

== ENCOUNTER → 2021-03-09 10:07 | Outpatient (CLI) | payer BC, SELFPAY ==
[2020-09-09 08:44] VITALS: BMI 22.1
[2021-02-20 11:13] VITALS: BMI 23.1
--- NOTE | 2021-03-09 10:10 | MRI_ITS ---
STUDY: MRI BRAIN WITH AND WITHOUT CONTRAST REASON FOR EXAM: Female, 65 years old. Imbalance, stage IV lung cancer TECHNIQUE: Standardized multiplanar fat and water weighted pulse sequences were obtained. DOTAREM 12ML iv was administered for the contrast portion of the examination. COMPARISON: 09/17/2017. FINDINGS: Normal size of the ventricles and extra-axial spaces for the patient''s age. There are numerous scattered white matter lesions within the centrum semiovale and beth radiata bilaterally without mass effect or restricted diffusion.. There are chronic ischemic changes within the left pontine body. Normal bilateral basal ganglia. Normal thalami. There is no extra-axial fluid accumulation. Normal flow voids within the major intracranial circulation suggesting patency by spin echo criteria. Normal venous enhancement. There is no enhancing intra-axial or extra-axial abnormality. Normal sella turcica, pituitary gland, infundibular stalk, optic chiasm and hypothalamus. Normal tectal plate and pineal gland. Normal midbrain, earl and medulla. Normal cerebellum. Normal basal cisterns. Normal bilateral temporal bones. Normal bilateral internal auditory canals. Postsurgical changes of the orbits.. Normal visualized paranasal sinuses. Normal calvarium and skull base. Normal visualized soft tissue structures. Normal visualized upper cervical spine. There has been interval progression of the deep white matter ischemic changes since prior exam and chronic ischemic changes within the earl are new. There are no other significant changes. MRI/Brain W/WO Contrast IMPRESSION: Advanced nonspecific periventricular white matter ischemic changes without evidence for acute infarct. Chronic ischemic changes within the earl No evidence for brain metastasis. Electronically Signed: Fran Juares MD at 16:52 EDT , Service support ,
[2021-03-09] MEDS: 0.9% Saline Lock 10 ML Syringe IV (11:34)
== END ==
PROVIDERS: PCP Family Medicine; Referring Provider Nurse Practitioner Family; Visit Provider Nurse Practitioner Family
DX: R26.89 Other abnormalities of gait and mobility (principal); C34.91 Malignant neoplasm of unspecified part of right bronchus or lung; C34.92 Malignant neoplasm of unspecified part of left bronchus or lung
CPT/HCPCS: 70553; A9575; A4216

== ENCOUNTER → 2021-04-07 08:55 | Outpatient (CLI) | payer BC, SELFPAY ==
[2020-09-09 08:44] VITALS: BMI 22.1
--- NOTE | 2021-04-07 09:05 | RAD_ITS ---
STUDY: XR Shoulder Min 2 Views REASON FOR EXAM: Female, 66 years old. PAIN TECHNIQUE: XR Shoulder Min 2 Views COMPARISON: None. FINDINGS: Normal glenohumeral articulation. Normal acromioclavicular joint. Normal acromion. Normal humeral head and visualized proximal humerus. The soft tissue structures are unremarkable. Normal visualized pulmonary apex. RAD/Shoulder min 2 Views IMPRESSION: There are no acute findings of the shoulder. Electronically Signed: Ganesh Knott MD at 13:42 EDT , Service support ,
--- NOTE | 2021-04-07 09:09 | RAD_ITS ---
STUDY: X-RAY - LEFT SCAPULA REASON FOR EXAM: Female, 66 years old. PAIN FOLLOWING FALL shoulder pain radiating to left side TECHNIQUE: 3 view(s) of the scapula were obtained. COMPARISON: None. FINDINGS: Normal scapula, including the osseous glenoid rim, acromion, scapular neck, spine, coracoid process, and visualized body. Normal glenohumeral articulation. Normal acromioclavicular joint. Normal visualized humeral head. Normal visualized pulmonary apex. RAD/Scapula IMPRESSION: Normal plain film x-ray examination of the scapula. Electronically Signed: Ganesh Knott MD at 13:42 EDT , Service support ,
== END ==
PROVIDERS: PCP Family Medicine; Visit Provider Family Medicine
DX: M25.512 Pain in left shoulder (principal)
CPT/HCPCS: 73010; 73030

== ENCOUNTER 2021-04-15 18:34 | Emergency (ER) | payer BC, SELFPAY ==
[2020-09-09 08:44] VITALS: BMI 22.1
[2021-04-15 18:35] VITALS: BP 127/88; PULSE 106; RESP 18; TEMP 36.7; O2SAT 100; BMI 23.1
--- NOTE | 2021-04-15 20:12 | RAD_ITS ---
STUDY: X-RAY - RIGHT WRIST REASON FOR EXAM: Female, 66 years old. pain after falling TECHNIQUE: 3 view(s) of the wrist were obtained. COMPARISON: None. FINDINGS: Transverse abdominal fracture of the distal radius extends to the distal radioulnar joint. Mild anterior apical angulation. Normal radiocarpal articulation. Normal distal radioulnar articulation. Normal carpal bones. Normal carpal articulations. There is degenerative arthrosis of the carpometacarpal articulation of the thumb. Normal second through fifth carpometacarpal articulations. Normal visualized metacarpal bones. Diffuse soft tissue swelling. RAD/Wrist min 3 Views IMPRESSION: Distal radial fracture. Electronically Signed: Gerald Steven MD (Brooks) at 22:29 EDT , Service support ,
--- NOTE | 2021-04-15 20:12 | RAD_ITS ---
STUDY: X-RAY - RIGHT FOOT CLINICAL: Female, 66 years old. pain TECHNIQUE: 2 view(s) of the foot. COMPARISON: None. FINDINGS: Normal talus, calcaneus, and tarsal bones. Normal visualized subtalar, talonavicular, calcaneocuboid, tarsal and tarsometatarsal articulations. Deformity of the base of the fifth metatarsal likely developmental or sequela of old injury. Normal metatarsophalangeal joint of the great toe. Normal tibial and fibular sesamoid bones. Normal interphalangeal joint of the great toe. Normal phalanges of the great toe. Normal second through fifth metatarsophalangeal joints. Normal interphalangeal joints and phalanges of the lesser toes. Dorsal foot dominant soft tissue swelling. RAD/Foot min 3 Views IMPRESSION: Soft tissue swelling without demonstrated fracture. Electronically Signed: Gerald Steven MD (Brooks) at 22:14 EDT , Service support ,
--- NOTE | 2021-04-15 20:12 | RAD_ITS ---
STUDY: X-RAY - RIGHT HAND REASON FOR EXAM: Female, 66 years old. pain after falling TECHNIQUE: 3 view(s) of the hand. COMPARISON: None. FINDINGS: Distal radial fracture described on wrist x-ray. Normal distal radioulnar joint. Normal visualized carpal bones. Normal carpal articulations There is degenerative arthrosis of the carpometacarpal articulation of the thumb with lateral subluxation of the first metacarpus. Normal second through fifth carpometacarpal joints. Normal metacarpi. Normal metacarpophalangeal joint of the thumb. Normal interphalangeal joint of the thumb. Normal proximal and distal phalanges of the thumb. Normal metacarpophalangeal joints of the second through fifth fingers. Normal proximal and distal interphalangeal joints of the second through fifth fingers. Normal phalanges of the second through fifth fingers. Soft tissue swelling of the wrist. RAD/Hand Min 3 Views IMPRESSION: Distal radial fracture described on wrist x-ray. No additional fracture. Electronically Signed: Gerald Steven MD (Brooks) at 22:13 EDT , Service support ,
--- NOTE | 2021-04-15 20:12 | RAD_ITS ---
STUDY: X-RAY - RIGHT TIBIA AND FIBULA REASON FOR EXAM: Female, 66 years old. pain TECHNIQUE: 2 view(s) of the tibia and fibula were obtained. COMPARISON: None. FINDINGS: Normal visualized tibia. Normal visualized fibula. There is soft tissue swelling consistent with a soft tissue injury. RAD/Tibia & Fibula 2 Views IMPRESSION: No demonstrated fracture. Distal lower leg soft tissue injury. Electronically Signed: Gerald Steven MD (Brooks) at 22:16 EDT , Service support ,
--- NOTE | 2021-04-15 20:12 | RAD_ITS ---
STUDY: X-RAY - RIGHT KNEE REASON FOR EXAM: Female, 66 years old. pain after falling TECHNIQUE: 4 view(s) of the knee. COMPARISON: None. FINDINGS: Normal visualized distal femur. Normal visualized proximal tibia and fibula. Normal proximal tibiofibular articulation. Normal medial femorotibial compartment. Normal lateral femorotibial compartment. Normal patellofemoral articulation. There is a soft tissue prominence in the suprapatellar region suggesting a small volume joint effusion. The soft tissue structures are unremarkable. RAD/Knee 4 or More Views IMPRESSION: Small joint effusion without demonstrated fracture. Electronically Signed: Gerald Steven MD (Brooks) at 22:15 EDT , Service support ,
[2021-04-15 20:33] LABS: Hematocrit 35.7 % (37-47); Mean Corp Hgb Conc 33.6 g/dL (32-36); Mean Corpuscular Volume 104.1 fL (81-99); Mean Platelet Vol. 10.1 fl (6.2-12.0); POSITIVE COUNT YES; POSITIVE DIFFERENTIAL YES; POSITIVE MORPHOLOGY YES; Platelet Count 125 K/mm3 (150-450); RBC Distribution Width CV 16.1 % (11.6-14.6); RBC Distribution Width SD 61.6 fl (35.1-43.9); Red Blood Count 3.43 M/mm3 (4.2-5.4); White Blood Count 5.8 K/mm3 (4.4-11.0)
[2021-04-15 20:35] LABS: Differential Indicated MANUAL DIFF
[2021-04-15 20:48] VITALS: BP 143/67; PULSE 85; RESP 20; O2SAT 97
[2021-04-15 20:49] LABS: Anion Gap 8 (5-15); BUN 14 mg/dL (7-18); BUN/Creat Ratio 22.4 RATIO (10-20); Calcium,Total 8.7 mg/dL (8.5-10.1); Chloride 103 mmol/L (98-107); Creatinine, Serum 0.63 mg/dL (0.55-1.02); EST Glomerular Filtration Rate 101 mL/min (>60); Est Glom Filt Rate - Afr Amer 122 mL/min (>60); Estimated Creatinine Clearance 47.14 ml/min; Glucose 201 mg/dL (74-106); Potassium 3.3 mmol/L (3.5-5.1); Sodium Level 136 mmol/L (136-145)
[2021-04-15] MEDS: Ondansetron 4 MG/2 ML Vial IV (20:49)
[2021-04-15] MEDS: Morphine 4 MG/ML Syringe IV ×2 (20:49→22:57)
[2021-04-15] MEDS: Diphth,Pertuss(Acell),Tet Vac 0.5 ML Vial IM (20:54)
[2021-04-15 21:05] LABS: Lymphocyte 3 % (19-41); Macrocytosis 1+; Monocyte 4 % (0-10); Myelocyte 2 % (0-0); Neutrophil-Band 1 % (0-5); Neutrophil-Segmented 90 % (47-70); Platelet Estimate SLT DEC (ADEQ); Total Cells Counted 100 (MANUAL DIFF)
[2021-04-15 21:06] LABS: Absolute Lymphocyte Count 0.17 X10^3/uL (0.83-4.51); Absolute Neutrophil Count 5.3 X10^3/uL (2.0-7.7)
--- NOTE | 2021-04-15 21:40 | RAD_ITS ---
STUDY: X-RAY - RIGHT ANKLE REASON FOR EXAM: Female, 66 years old. pain after falling TECHNIQUE: 3 view(s) of the ankle. COMPARISON: None. FINDINGS: Normal visualized distal tibia and fibula. Normal medial and lateral malleoli. Normal tibiotalar articulation and ankle mortise. Normal visualized talus and calcaneus. The visualized subtalar, talonavicular, calcaneocuboid and tarsal articulations are normal. Diffuse soft tissue swelling. RAD/Ankle min 3 Views IMPRESSION: Soft tissue swelling without demonstrated fracture. Electronically Signed: Gerald Steven MD (Brooks) at 22:15 EDT , Service support ,
[2021-04-15 22:54] VITALS: BP 130/56; PULSE 72; RESP 18; O2SAT 94
--- NOTE | 2021-04-16 00:06 | EX.ED.GENINJ ---
HPI History of Present Illness Chief Complaint: Laceration Narrative Narrative: 56-year-old female presenting after fall. She states she fell while going down her steps at home. These are concrete steps. She scraped the right lateral aspect of her leg when she fell and landed on her right wrist. She states she was unable to get up secondary to pain in the wrist and the leg. Patient states that she crawled back to the steps had to be assisted by her family. She denies head injury or LOC. She has been unable to ambulate since. Patient has a lot of swelling in the right foot and ankle. She has a large area of skin on the right lateral tibia that has been removed. 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 of skin of left lower extremity Home Medications amlodipine 5 mg PO DAILY 11/18/15 [History Last Taken 06/19/19] albuterol sulfate 2.5 mg INHALATION Q2H PRN PRN #1 box 06/22/19 [Rx Last Taken Unknown] nebulizers #1 kit 06/22/19 [Rx Last Taken Unknown] guaifenesin 1,200 mg PO PRN PRN 08/31/19 [History Last Taken Unknown] lorazepam 0.5 mg PO DAILY PRN PRN 30 Days #30 tablet 08/31/19 [Rx Last Taken Unknown] albuterol sulfate 90 mcg/actuation breath activated powder inhaler 2 inh INHALATION Q6H PRN 11/06/19 [History Last Taken Unknown] ipratropium 0.5 mg-albuterol 3 mg (2.5 mg base)/3 mL nebulization soln 3 ml INHALATION Q6H PRN 11/06/19 [History Last Taken Unknown] omeprazole 20 mg PO DAILY 30 Days #30 capsule. 05/02/20 [Rx Last Taken Unknown] morphine 30 mg PO Q4H PRN 05/09/20 [History Last Taken Unknown] ondansetron HCl 8 mg PO Q8H PRN PRN 10 Days #30 tablet 05/17/20 [Rx Last Taken Unknown] methylphenidate HCl 10 mg tablet,extended release 10 mg PO BID 11/03/20 [History Last Taken Unknown] nystatin 100,000 unit/mL oral suspension 5 ml PO TID #473 ml 01/02/21 [Rx Last Taken Unknown] promethazine 25 mg tablet 25 mg PO Q8H PRN PRN 10 Days #30 tablet 01/17/21 [Rx Last Taken Unknown] dexamethasone 1 mg tablet 1 mg PO BID 04/03/21 [History Last Taken Unknown] potassium chloride 20 mEq tablet,extended release 20 meq PO DAILY #30 tab 04/11/21 [Rx Last Taken Unknown] clindamycin HCl 450 mg PO TID 7 Days #63 cap 04/16/21 [Rx Last Taken Unknown] Allergy/AdvReac Type Severity Reaction Status Date / Time Penicillins Allergy Severe Anaphylaxis Verified 04/03/21 08:42 Sulfa (Sulfonamide Allergy Severe Anaphylaxis Verified 04/03/21 08:42 Antibiotics) codeine Allergy Mild Vomiting Verified 04/03/21 08:42 erythromycin base Allergy Mild Unknown Verified 04/03/21 08:42 tramadol [From Ultram] AdvReac Severe Vomiting Verified 04/03/21 08:42 Family History Mother Diabetes Hypertension Brother Hypertension Surgical History History of bilateral tubal ligation History of section Hx of hernia repair Social History Smoking Status: Current some day smoker tobacco type: cigarettes alcohol intake: current alcohol intake frequency: 0-2 drinks per day Alcohol type: wine substance use type: does not use ROS ROS ED Constitutional Constitutional ED: Denies fever(s) Eyes Eyes: Denies blurry vision or change in vision ENT ENT ED: Denies rhinorrhea or sore throat Cardiovascular Cardiovascular: Denies chest pain or palpitations Respiratory/Chest Respiratory/Chest: Reports cough; Denies dyspnea Gastrointestinal Gastrointestinal: Denies abdominal pain or nausea Genitourinary Genitourinary ED: Denies dysuria or hematuria Musculoskeletal Musculoskeletal: Reports other Details: Right lower extremity pain, right wrist pain Integumentary Reports other Details: Large area of open wound on the right lateral leg Neurologic Neurologic: Denies headache(s) Psychiatric Psychiatric: Denies anxiety or depression EXAM Physical Exam Const Vital Signs: 04/15/21 18:35 04/15/21 20:48 04/15/21 22:54 Temperature 98.1 F Temperature Source Temporal Pulse Rate 106 H 85 72 Respiratory Rate 18 20 H 18 Respiratory Pattern Blood Pressure 127/88 H 143/67 H 130/56 H Blood Pressure Mean 101 92 80 Pulse Ox 100 97 94 Oxygen Delivery Method Room Air Room Air 04/16/21 00:28 Temperature Temperature Source Pulse Rate 72 Respiratory Rate 18 Respiratory Pattern Normal Blood Pressure Blood Pressure Mean Pulse Ox Oxygen Delivery Method Positive well nourished General Appearance ED: NAD HEENT Negative for atraumatic Eyes PERRL and EOMs intact bilaterally Neck full ROM General: Negative for tenderness Resp normal respiratory effort and clear to auscultation bilaterally Cardio regular rhythm Rate: regular rate GI normal to inspection, nondistended, normoactive bowel sounds Extremity Extremity Narrative: Right wrist is tender to palpation over the radial aspect. There is bruising and swelling. Patient has minimal flexion extension. Right hand neurovascular intact brisk cap refill to all 5 fingers. Neuro oriented x3 Sensorium / Orientation: alert Psych mental status grossly normal and thought process normal Skin Skin Narrative: Right lateral tibia/calf with a large area of traumatically amputated skin. Tendon sheath is exposed. Minimal bleeding from the wound. It is tender to palpation. Patient able to plantarflex and dorsiflex the right ankle. Tenderness to palpation over the right patella. There is a superficial abrasion overlying this area. Right knee extensor mechanism is intact. Patient able to flex and extend the knee. No ligamentous laxity. PROC Procedures Upper Extremity Splints Upper Extremity Splint: Plaster Splint Fabrication: Fabricated Location: Right MDM MDM MDM Narrative Medical decision making narrative: Patient presenting after mechanical fall with large area of skin removed from the right lateral tibia and calf region. Bleeding is well controlled. Patient is given morphine for pain. I did obtain imaging of the right foot, right ankle, right tib-fib, right knee which on my interpretation shows no acute fracture or subluxation. There is demonstrated soft tissue swelling in the right foot and the right ankle. The radiologist does agree. On my interpretation of the right wrist there is a distal radius fracture which is transverse and extending to the ulnar joint. The radiologist does agree. Patient was placed in a well-padded, fabricated splint by ED physician. Patient tolerated procedure well and is neurovascular intact after the procedure. Patient's wound will be cleaned and will be dressed with petroleum gauze and packed and dressed. Patient will be Daniel wrap. Patient was able to get up and ambulate without difficulty. She has a stable gait. She wishes to be discharged home. I will give her a follow-up with Dr. Amaral. I will start her on antibiotics due to the large open wound that she has on her lower extremity as well as she had to drag it across the ground in order to get to her step. Impression: 1. Mechanical fall 2. Distal radius fracture 3. Avulsing laceration of the right lower extremity Lab Data Attestation: I reviewed the patient's lab results. Labs: Laboratory Results - last 24 hr 04/15/21 04/15/21 20:25 20:25 WBC 5.8 RBC 3.43 L Hgb 12.0 Hct 35.7 L MCV 104.1 H MCH 35.0 H MCHC 33.6 RDW Std Deviation 61.6 H RDW Coeff of Deb 16.1 H Plt Count 125 L MPV 10.1 Neut % (Auto) Not Reportable Absolute Neuts (auto) 5.3 Absolute Lymphs (auto) 0.17 L Total Counted 100 Neutrophils % (Manual) 90 H Band Neutrophils % 1 Lymphocytes % (Manual) 3 L Monocytes % (Manual) 4 Myelocytes % 2 H Diff Path Review May foll Platelet Estimate SLT DEC Macrocytosis 1+ Sodium 136 Potassium 3.3 L Chloride 103 Carbon Dioxide 25.0 Anion Gap 8 BUN 14 Creatinine 0.63 Estim Creat Clear Calc 47.14 Est GFR (MDRD) Af Amer 122 Est GFR (MDRD) Non-Af 101 BUN/Creatinine Ratio 22.4 H Glucose 201 H Calcium 8.7 Radiography Diagnostic Testing: Radiology Impression Foot X-Ray 04/15/21 20:12 IMPRESSION: Soft tissue swelling without demonstrated fracture. Electronically Signed: Gerald Steven MD (Brooks) at 22:14 EDT , Service support , Hand X-Ray 04/15/21 20:12 IMPRESSION: Distal radial fracture described on wrist x-ray. No additional fracture. Electronically Signed: Gerald Steven MD (Brooks) at 22:13 EDT , Service support , Knee X-Ray 04/15/21 20:12 IMPRESSION: Small joint effusion without demonstrated fracture. Electronically Signed: Gerald Steven MD (Brooks) at 22:15 EDT , Service support , Tibia/Fibula X-Ray 04/15/21 20:12 IMPRESSION: No demonstrated fracture. Distal lower leg soft tissue injury. Electronically Signed: Gerald Steven MD (Brooks) at 22:16 EDT , Service support , Wrist X-Ray 04/15/21 20:12 IMPRESSION: Distal radial fracture. Electronically Signed: Gerald Steven MD (Brooks) at 22:29 EDT , Service support , Ankle X-Ray 04/15/21 21:40 IMPRESSION: Soft tissue swelling without demonstrated fracture. Electronically Signed: Gerald Steven MD (Brooks) at 22:15 EDT , Service support , Discharge Plan Triage Chief Complaint: Laceration ED Provider: Saul Min Dx/Rx/DC Orders Instructions: ED Skin Avulsion, ED Fracture, Wrist, General, ED Fall Prevention Prescriptions: New clindamycin HCl 150 mg capsule 450 mg PO TID 7 Days Qty: 63 RF: 0 No Action albuterol sulfate 90 mcg/actuation aerosol powdr breath activated 2 inh INHALATION Q6H PRN (Reason: Sob &/Or Wheezing) RF: 0 ipratropium-albuterol 0.5 mg-3 mg(2.5 mg base)/3 mL solution for nebulization 3 ml INHALATION Q6H PRN (Reason: Sob &/Or Wheezing) RF: 0 nystatin 100,000 unit/mL suspension 5 ml PO TID Qty: 473 RF: 1 dexamethasone 1 mg tablet 1 mg PO BID RF: 0 amlodipine 10 MG tablet 5 mg PO DAILY RF: 0 guaifenesin 1,200 MG tablet 1,200 mg PO PRN PRN (Reason: Congestion) RF: 0 lorazepam 0.5 MG tablet 0.5 mg PO DAILY PRN PRN (Reason: Anxiety) 30 Days Qty: 30 RF: 0 omeprazole 20 MG capsule,delayed release(DR/EC) 20 mg PO DAILY 30 Days Qty: 30 RF: 2 morphine 15 MG tablet extended release 30 mg PO Q4H PRN (Reason: Pain Score 6-10) RF: 0 ondansetron HCl 8 MG tablet 8 mg PO Q8H PRN PRN (Reason: Nausea) 10 Days Qty: 30 RF: 3 albuterol sulfate 2.5 MG/3 ML solution for nebulization 2.5 mg INHALATION Q2H PRN PRN (Reason: Dyspnea, wheezing) Qty: 1 RF: 0 (DME) nebulizers 1 EACH misc 1 each MC UD Qty: 1 RF: 0 methylphenidate HCl 10 mg tablet extended release 10 mg PO BID RF: 0 promethazine 25 mg tablet 25 mg PO Q8H PRN PRN (Reason: Nausea/Vomiting) 10 Days Qty: 30 RF: 1 potassium chloride 20 mEq tablet extended release 20 meq PO DAILY Qty: 30 RF: 2 Primary Care Provider: Jens Garibay Referrals: Vaibhav Amaral MD [STAFF PHYSICIAN] - As soon as possible Jens Garibay MD [Primary Care Provider] - Disposition Disposition: Home, Self Care
[2021-04-16 00:28] VITALS: PULSE 72; RESP 18
[2021-04-16] MEDS: Albuterol 2.5 MG/3 ML VIAL.NEB. INHALATION (00:28)
[2021-04-16] MEDS: Morphine 4 MG/ML Syringe IV (00:42)
[2021-04-16] MEDS: Clindamycin HCl 150 MG Capsule 450 MG PO (00:43)
[2021-04-17 14:13] LABS: Pathologist Review Reviewed
== END 2021-04-16 01:06 | disposition home or self-care (01) ==
PROVIDERS: Emergency Provider Student in an Organized Health Care Education/Training Program; PCP Family Medicine
DX: S52.501A Unspecified fracture of the lower end of right radius, initial encounter for closed fracture (principal); S81.811A Laceration without foreign body, right lower leg, initial encounter; W10.9XXA Fall (on) (from) unspecified stairs and steps, initial encounter; Y93.9 Activity, unspecified; Y92.9 Unspecified place or not applicable; F17.210 Nicotine dependence, cigarettes, uncomplicated
CPT/HCPCS: 29125; 36591; 73110; 73130; 73564; 73590; 73610; 73630; 80048; 85025; 87426; 90715; 94640; 96374; 96375; 96376; 99283; A4216; J2405

== ENCOUNTER 2021-04-18 09:42 | Inpatient (IN) | payer BC, MEDICARE, SELFPAY ==
[2020-09-09 08:44] VITALS: BMI 22.1
[2021-04-18] VITALS (30 sets, daily range): BP systolic 65–115; BP diastolic 49–97; PULSE 86–104; RESP 12–36; TEMP 36–36.8; O2SAT 77–95; BMI 24.5; BMI 22.9
--- NOTE | 2021-04-18 10:51 | RAD_ITS ---
STUDY: X-RAY CHEST REASON FOR EXAM: Female, 66 years old. Shortness of breath TECHNIQUE: Single AP portable view of the chest. COMPARISON: None. FINDINGS: Right-sided [id number]-[id number] with its tip in the right atrium. There are groundglass airspace opacities in the right lung base. There is no demonstrated pleural abnormality. Normal size heart. Normal mediastinum and nate. There is pulmonary vascular congestion. There is atherosclerotic calcification of the aortic arch with tortuosity. Normal visualized thoracic spine. Normal visualized ribs, clavicles, and shoulders. There is no demonstrated abnormality of the visualized soft tissue structures of the upper abdomen. RAD/Chest 1 View (Portable) IMPRESSION: Groundglass airspace opacities in the right lung base in keeping with atelectasis and/or pneumonia. Electronically Signed: Lorelei Blount MD at 13:37 EDT Tel , Service support ,
--- NOTE | 2021-04-18 10:53 | EKG12_ITS ---
Test Reason : SOB Blood Pressure : / mmHG Vent. Rate : 097 BPM Atrial Rate : 097 BPM P-R Int : 118 ms QRS Dur : 084 ms QT Int : 332 ms P-R-T Axes : 047 010 043 degrees QTc Int : 421 ms Normal sinus rhythm Normal ECG Confirmed by GABI CHANDRA, TAYLOR ([id number]), editorial clerk OSCAR HERNANDEZ ([id number]) on 04/20/2021 8:38:11 AM Referred By: PETAR/JORGE Confirmed By:TAYLOR ASHLEY MD
--- NOTE | 2021-04-18 10:55 | CT_ITS ---
STUDY: CTA CHEST REASON FOR EXAM: Female, 66 years old. Low O2 sats, difficulty breathing, chest pain RADIATION DOSAGE (If Supplied By Facility): CTDIvol = ( 9.28 ) mGy, DLP = ( 369.93 ) mGycm TECHNIQUE: The examination was performed with the intravenous administration of IV 75mL Isovue-370. Post-processing of the angiographic images was performed, with multiplanar reformation and 3D reconstruction. Individualized dose optimization techniques were used for this CT. COMPARISON: 07/06/2020 FINDINGS: Normal enhancement of the main pulmonary artery and right and left pulmonary arteries. Normal enhancement of the bilateral peripheral pulmonary arteries. There is no demonstrated pulmonary embolism. Normal thoracic aorta and visualized great vessels. There is no demonstrated aortic dissection. Normal heart and pericardium. There are calcifications of the coronary arteries. Normal mediastinum. Normal hilar regions. There is peribronchial thickening. The lungs are well expanded. There is underlying emphysema with bleb formation in the upper lobes. There is a consolidation in the right lung base with small associated effusion and pleural thickening new since the previous study. There are essentially stable too numerous to count noncalcified nodules scattered throughout both lung pinto, again measuring between 0.5 and 1.2 cm. Normal chest wall structures. Degenerative bony changes noted throughout the thoracic spine with chronic compression fractures noted at T4 and T5. No suspicious paraspinal mass or lucencies to suspect pathologic fractures Limited cuts through the upper abdomen show fatty infiltration of the liver CT/CTA Chest W/WO Contrast IMPRESSION: No demonstrated PE, or thoracic aortic aneurysm or dissection Consolidation with air bronchograms in the right lung base with small right pleural effusion and associated atelectasis. Findings are suspicious for infiltrate. Follow-up recommended to measure resolution Stable too numerous to count noncalcified nodules scattered throughout both lung pinto measuring between 0.5 and 1.2 cm. Calcified coronary vessels No suspicious adenopathy Degenerative bony changes with chronic compression fractures noted at T4 and T5. Electronically Signed: Peña Francois MD at 12:52 EDT , Service support ,
--- NOTE | 2021-04-18 10:55 | CT_ITS ---
STUDY: CT BRAIN WITHOUT CONTRAST REASON FOR EXAM: Female, 66 years old. AMS RADIATION DOSAGE (If Supplied By Facility): CTDIvol = ( 44.99 ) mGy, DLP = ( 829.85 ) mGycm TECHNIQUE: Transaxial CT imaging of the brain was performed without administration of intravenous contrast material. Individualized dose optimization techniques were used for this CT. COMPARISON: CT head 03/30/2016 FINDINGS: Normal soft tissue structures. Normal calvarium. Normal size ventricles and extra-axial spaces for the patient''s age. There are areas of decreased attenuation within the white matter tracts of the supratentorial brain, consistent with microvascular disease changes. Normal basal ganglia and thalami. Normal brainstem. Normal cerebellum. There is no intracranial hemorrhage. There are no findings of an acute ischemic infarction. Normal visualized paranasal sinuses. CT/Brain/Head without Contrast IMPRESSION: Chronic microvascular ischemic disease. Electronically Signed: Lorelei Blount MD at 13:24 EDT Tel , Service support ,
[2021-04-18] MEDS: Morphine 4 MG/ML Syringe IV (11:30)
[2021-04-18] MEDS: Ondansetron 4 MG/2 ML Vial IV (11:30)
[2021-04-18 11:44] LABS: Hematocrit 34.7 % (37-47); Hemoglobin 11.5 g/dL (12.0-15.0); Mean Corp Hgb Conc 33.1 g/dL (32-36); Mean Corpuscular Hgb 34.6 pg (27.0-32.0); Mean Corpuscular Volume 104.5 fL (81-99); Mean Platelet Vol. 13.6 fl (6.2-12.0); POSITIVE COUNT YES; POSITIVE DIFFERENTIAL YES; POSITIVE MORPHOLOGY YES; RBC Distribution Width CV 16.5 % (11.6-14.6); RBC Distribution Width SD 62.1 fl (35.1-43.9); Red Blood Count 3.32 M/mm3 (4.2-5.4)
[2021-04-18] MEDS: 0.9% Normal Saline 1,000 ML 999 ML IV ×2 (11:47→14:00)
[2021-04-18 11:50] LABS: Platelet Count 31 K/mm3 (150-450)
[2021-04-18 11:51] LABS: Differential Indicated MANUAL DIFF
[2021-04-18 11:59] LABS: ALB/GLOB Ratio 0.5 RATIO (0.9-2.4); AST(SGOT) 38 U/L (15-37); Alanine Aminotransfer ALT/SGPT 47 U/L (13-56); Albumin, Serum 2.1 g/dL (3.2-5.0); Alkaline Phosphatase 103 U/L (45-117); Anion Gap 16 (5-15); BUN 52 mg/dL (7-18); BUN/Creat Ratio 31.5 RATIO (10-20); Calcium,Total 7.9 mg/dL (8.5-10.1); Chloride 100 mmol/L (98-107); Creatinine, Serum 1.65 mg/dL (0.55-1.02); EST Glomerular Filtration Rate 33 mL/min (>60); Est Glom Filt Rate - Afr Amer 40 mL/min (>60); Estimated Creatinine Clearance 28.57 ml/min; Glucose 120 mg/dL (74-106); Potassium 4.2 mmol/L (3.5-5.1); Protein, Total 6.1 g/dL (6.4-8.2); Sodium Level 137 mmol/L (136-145); Troponin-I HS 36 pg/mL (3.0-54.0)
[2021-04-18 12:01] LABS: Base Excess -6 mmol/L (-2 to +2); Bicarbonate 19.5 mmol/L (22-26); Blood Gas Specimen Type ART; O2 Delivery Device Cannula; PO2 66 mmHG (75-100); SO2 92 % (95-99); Total Carbon Dioxide 21 mmol/L; pCO2 36.8 mmHg (35-45); pH 7.33 (7.35-7.45)
[2021-04-18 12:03] LABS: Lactic Acid 1.7 mmol/L (0.4-1.9)
[2021-04-18 12:09] LABS: BNP,B-Type NATRIURETIC PEPTIDE 387.9 pg/mL (0-100)
--- NOTE | 2021-04-18 12:22 | EDS_ITS ---
HPI History of Present Illness Chief Complaint: Weakness Informant: patient and spouse/S.O. Narrative Narrative: Patient is a 66-year-old female with complex medical history including lung cancer currently under chemotherapy, follows with Dr. Baeza, COPD on as needed oxygen at home and a recent fall with subsequent large skin tear to the right falcon and fracture of the right wrist presenting with increased weakness, confusion and shortness of breath. states she fell off the back porch on Saturday, 4 days ago. Been taking care of at home and she been doing well until today when she was too weak to even stand up. She is been taking morphine sulfate at home for the pain as needed per the . When EMS arrived patient was hypoxic with an O2 saturation of 73% on room air. She was given a breathing treatment and placed on supplemental oxygen. Patient has been having increased cough today. Her last chemotherapy was 8 days ago. Patient states she is not on any blood thinners. She has an appointment to see Dr. Amaral for her leg today but has was concerned he would not able to get her there because she was so weak. 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 05/02/20 [Rx Last Taken 04/17/21] ondansetron HCl 8 mg PO Q8H PRN PRN 10 Days #30 tablet 05/17/20 [Rx Last Taken 04/17/21] methylphenidate HCl 10 mg tablet,extended release 10 mg PO TID 11/03/20 [History Last Taken 04/17/21] nystatin 100,000 unit/mL oral suspension 5 ml PO TID #473 ml 01/02/21 [Rx Last Taken 04/17/21] promethazine 25 mg tablet 25 mg PO Q8H PRN PRN 10 Days #30 tablet 01/17/21 [Rx Last Taken 04/17/21] dexamethasone 1 mg tablet 1 mg PO BID 04/03/21 [History Last Taken 04/17/21] potassium chloride 20 mEq tablet,extended release 20 meq PO DAILY #30 tab 04/11/21 [Rx Last Taken 04/17/21] clindamycin HCl 450 mg PO TID 7 Days #63 cap 04/16/21 [Rx Last Taken 04/17/21] albuterol sulfate 2 inh INHALATION Q4H PRN 04/18/21 [History Last Taken 04/17/21] amlodipine 5 mg PO DAILY 04/18/21 [History Last Taken 04/17/21] Allergy/AdvReac Type Severity Reaction Status Date / Time Penicillins Allergy Severe Anaphylaxis Verified 04/18/21 09:50 Sulfa (Sulfonamide Allergy Severe Anaphylaxis Verified 04/18/21 09:50 Antibiotics) codeine Allergy Mild Vomiting Verified 04/18/21 09:50 erythromycin base Allergy Mild Unknown Verified 04/18/21 09:50 tramadol [From Ultram] AdvReac Severe Vomiting Verified 04/18/21 09:50 Family History Mother Diabetes Hypertension Brother Hypertension Surgical History History of bilateral tubal ligation History of section Hx of hernia repair Social History Smoking Status: Current some day smoker tobacco type: cigarettes alcohol intake: current alcohol intake frequency: 0-2 drinks per day Alcohol type: wine substance use type: does not use ROS ROS ED Constitutional Constitutional ED: Denies chills or fever(s) Eyes Eyes: Denies change in vision ENT ENT ED: Denies rhinorrhea or sore throat Cardiovascular Cardiovascular: Denies chest pain Respiratory/Chest Respiratory/Chest: Reports cough, dyspnea and sputum Gastrointestinal Gastrointestinal: Denies abdominal pain, nausea or vomiting Genitourinary Genitourinary ED: Denies dysuria or hematuria Musculoskeletal Musculoskeletal: Reports arthralgias Integumentary Reports Abrasions Neurologic Neurologic: Reports headache(s) and weakness Psychiatric Psychiatric: Denies anxiety or depression EXAM Physical Exam Const Vital Signs: 04/18/21 09:43 04/18/21 09:48 04/18/21 09:53 Temperature 98.3 F 98.3 F Temperature Source Oral Oral Pulse Rate 100 100 Respiratory Rate 23 H 23 H Respiratory Effort Short of Breath Labored Respiratory Depth Deep Respiratory Pattern Tachypnea Blood Pressure 105/49 L 105/49 L Blood Pressure Mean 67 67 Pulse Ox 77 77 Oxygen Delivery Method Room Air Room Air Nasal Cannula Oxygen Flow Rate (L/min) 6 04/18/21 11:38 04/18/21 12:59 Temperature 97.2 F L Temperature Source Temporal Pulse Rate 97 95 Respiratory Rate 22 H 19 H Respiratory Effort Respiratory Depth Respiratory Pattern Blood Pressure 78/57 L 90/57 L Blood Pressure Mean 64 68 Pulse Ox 91 93 Oxygen Delivery Method Nasal Cannula Nasal Cannula Oxygen Flow Rate (L/min) 6 10 Positive well nourished, well developed and unkempt General Appearance ED: unkempt and well developed HEENT Reports TM's clear and dry mucous membranes Negative for trauma or tenderness Tympanic Membrane ED: Yes TM's clear Mouth ED: Yes dry mucous membranes Mouth: dry mucous membranes Eyes PERRL and EOMs intact bilaterally Neck supple and no JVD Chest Wall inspection of chest normal Resp Resp Narrative: Patient is diminished breath sounds at the right base. She has coarse breath sounds throughout with some scattered rhonchi Effort and Inspection: Negative for retractions Cardio regular rate, regular rhythm and no murmurs GI normal to inspection, nondistended, normoactive bowel sounds Extremity Extremity Narrative: Right wrist is in a splint. She has bruising of her fingers but has normal movement of her fingers. Patient has bilateral pedal edema that is pitting. 2+ bilateral DP pulses. Patient has a large wound on her right falcon. Neuro CN's II-XII intact bilaterally Neuro Narrative: Patient is intermittently somnolent. She is oriented but does become confused at times. Generally weak with no focal deficits. Speech is clear but sometimes she has confused answers. Sensorium / Orientation: alert Psych Appearance: unkempt Mood & Affect: anxious Skin Skin Narrative: Ecchymosis of the right shoulder and right hand. Patient has a very large skin tear to the right falcon. There is Adacel over the wound. Carrol ent did not tolerate me completely removing the Adacel due to pain. There is no abnormal discharge or erythema surrounding the wound concerning for infection. MDM MDM MDM Narrative Medical decision making narrative: Patient is evaluated for generalized weakness. She is significantly hypoxic for EMS. She is high levels of nasal cannula oxygen while in the ER. Patient does seem confused and generally weak. Her work-up is significant for a new leukopenia with neutropenia as well as a new thrombocytopenia and also 4% blast cells. In addition patient has a new KENNA with a creatinine of 1.65. Her baseline is 0.6. Her anion gap is mildly elevated at 16 but she is on any other significant electrolyte abnormalities. Due to her hypoxia and confusion I did obtain an ABG which shows a metabolic acidosis. Chest x-ray shows a questionable right lower lobe infiltrate. She is given a liter of IV fluid in the emergency room she did have a transient episode of hypotension after receiving morphine for her leg pain. CT of the chest obtained because of concern for PE as the cause of her hypoxia. This does not show any PE but does show concern for right lower lobe infiltrate. This does fit patient's clinical picture. Patient is ordered a second liter of IV fluid. She is ordered broad-spectrum antibiotics including aztreonam and vancomycin as she is allergic to penicillins with anaphylaxis. Discussed the case with her oncologist, Dr. Bassett, who feels like this is all likely infectious. I did discuss my concern that she possibly could have TTP given her thrombocytopenia, confusion and elevated however he felt this was less likely. Patient will be admitted to the ICU after discussion with the hospitalist due to her full CODE STATUS and acuity as well as high O2 demands. Ultimately patient was requiring high flow oxygen at 10 L. Case is discussed with critical care. Patient is given us a stress dose of Solu-Cortef in the emergency room as well. Lab Data Attestation: I reviewed the patient's lab results. Labs: Laboratory Results - last 24 hr 04/18/21 04/18/21 04/18/21 11:30 11:30 11:30 WBC RECYCLE WORKER Corrected WBC 2.0 L RBC 3.32 L Hgb 11.5 L Hct 34.7 L MCV 104.5 H MCH 34.6 H MCHC 33.1 RDW Std Deviation 62.1 H RDW Coeff of Deb 16.5 H Plt Count 31 L* MPV 13.6 H Neut % (Auto) Not Reportable Absolute Neuts (auto) 0.4 L Absolute Lymphs (auto) 0.28 L Total Counted 100 Neutrophils % (Manual) 17 L Band Neutrophils % 1 Lymphocytes % (Manual) 14 L Monocytes % (Manual) 17 H Metamyelocytes % 26 H Myelocytes % 14 H Promyelocytes % 7 H Blast Cells % 4 H* Nucleated RBCs/100 WBC 21 H Diff Path Review May foll Toxic Granulation 1+ Platelet Estimate MKD DEC Polychromasia 2+ Hypochromasia 1+ PT INR APTT Fibrinogen D-Dimer Quant (PE/DVT) Sodium 137 Potassium 4.2 Chloride 100 Carbon Dioxide 21.0 Anion Gap 16 H BUN 52 H Creatinine 1.65 H Estim Creat Clear Calc 28.57 Est GFR (MDRD) Af Amer 40 L Est GFR (MDRD) Non-Af 33 L BUN/Creatinine Ratio 31.5 H Glucose 120 H Lactic Acid 1.7 Calcium 7.9 L Total Bilirubin 0.80 AST 38 H ALT 47 Alkaline Phosphatase 103 Lactate Dehydrogenase Troponin I High Sens 36 B-Natriuretic Peptide Total Protein 6.1 L Albumin 2.1 L Globulin 4.0 Albumin/Globulin Ratio 0.5 L Urine Color Urine Clarity Urine pH Ur Specific [place] Urine Protein Urine Glucose (UA) Urine Ketones Urine Occult Blood Urine Nitrite Urine Bilirubin Urine Urobilinogen Ur Leukocyte Esterase Urine RBC Urine WBC Ur Squamous Epith Cells Amorphous Sediment Urine Bacteria Urine Mucus 04/18/21 04/18/21 04/18/21 11:30 11:30 11:30 WBC Corrected WBC RBC Hgb Hct MCV MCH MCHC RDW Std Deviation RDW Coeff of Deb Plt Count MPV Neut % (Auto) Absolute Neuts (auto) Absolute Lymphs (auto) Total Counted Neutrophils % (Manual) Band Neutrophils % Lymphocytes % (Manual) Monocytes % (Manual) Metamyelocytes % Myelocytes % Promyelocytes % Blast Cells % Nucleated RBCs/100 WBC Diff Path Review Toxic Granulation Platelet Estimate Polychromasia Hypochromasia PT 14.9 INR 1.2 APTT 32.7 Fibrinogen > 900 H D-Dimer Quant (PE/DVT) 2.85 H* Sodium Potassium Chloride Carbon Dioxide Anion Gap BUN Creatinine Estim Creat Clear Calc Est GFR (MDRD) Af Amer Est GFR (MDRD) Non-Af BUN/Creatinine Ratio Glucose Lactic Acid Calcium Total Bilirubin AST ALT Alkaline Phosphatase Lactate Dehydrogenase 617 H Troponin I High Sens B-Natriuretic Peptide 387.9 H Total Protein Albumin Globulin Albumin/Globulin Ratio Urine Color Urine Clarity Urine pH Ur Specific [place] Urine Protein Urine Glucose (UA) Urine Ketones Urine Occult Blood Urine Nitrite Urine Bilirubin Urine Urobilinogen Ur Leukocyte Esterase Urine RBC Urine WBC Ur Squamous Epith Cells Amorphous Sediment Urine Bacteria Urine Mucus 04/18/21 13:00 WBC Corrected WBC RBC Hgb Hct MCV MCH MCHC RDW Std Deviation RDW Coeff of Deb Plt Count MPV Neut % (Auto) Absolute Neuts (auto) Absolute Lymphs (auto) Total Counted Neutrophils % (Manual) Band Neutrophils % Lymphocytes % (Manual) Monocytes % (Manual) Metamyelocytes % Myelocytes % Promyelocytes % Blast Cells % Nucleated RBCs/100 WBC Diff Path Review Toxic Granulation Platelet Estimate Polychromasia Hypochromasia PT INR APTT Fibrinogen D-Dimer Quant (PE/DVT) Sodium Potassium Chloride Carbon Dioxide Anion Gap BUN Creatinine Estim Creat Clear Calc Est GFR (MDRD) Af Amer Est GFR (MDRD) Non-Af BUN/Creatinine Ratio Glucose Lactic Acid Calcium Total Bilirubin AST ALT Alkaline Phosphatase Lactate Dehydrogenase Troponin I High Sens B-Natriuretic Peptide Total Protein Albumin Globulin Albumin/Globulin Ratio Urine Color Yellow Urine Clarity Sl. Cloudy Urine pH 5.0 Ur Specific [place] 1.015 Urine Protein 30 H Urine Glucose (UA) Normal Urine Ketones 5 H Urine Occult Blood 25 H Urine Nitrite Negative Urine Bilirubin 1 H Urine Urobilinogen 1 H Ur Leukocyte Esterase Negative Urine RBC 0-5 SEEN Urine WBC 0-5 SEEN Ur Squamous Epith Cells 0-5 SEEN Amorphous Sediment 2+ Urine Bacteria 1+ Urine Mucus 0 SEEN ABG Data ABG results: ABG 04/18/21 11:56 Specimen Type ART pH 7.33 L Bicarbonate Actual 19.5 L Total CO2 21 Base Excess -6 L O2 Saturation 92 L ABG pCO2 36.8 ABG pO2 66 L O2 Delivery Device Cannula Liter Flow 6.0 Radiography Chest X-Ray - ED: 1 View, Read by ED Physician, Read by Radiologist and Right Infiltrate Diagnostic Testing: Radiology Impression Chest X-Ray 04/18/21 10:51 IMPRESSION: Groundglass airspace opacities in the right lung base in keeping with atelectasis and/or pneumonia. Electronically Signed: Lorelei Blount MD at 13:37 EDT Tel , Service support , Brain CT 04/18/21 10:55 IMPRESSION: Chronic microvascular ischemic disease. Electronically Signed: Lorelei Blount MD at 13:24 EDT Tel , Service support , Chest CTA 04/18/21 10:55 IMPRESSION: No demonstrated PE, or thoracic aortic aneurysm or dissection Consolidation with air bronchograms in the right lung base with small right pleural effusion and associated atelectasis. Findings are suspicious for infiltrate. Follow-up recommended to measure resolution Stable too numerous to count noncalcified nodules scattered throughout both lung pinto measuring between 0.5 and 1.2 cm. Calcified coronary vessels No suspicious adenopathy Degenerative bony changes with chronic compression fractures noted at T4 and T5. Electronically Signed: Peña Francois MD at 12:52 EDT , Service support , Rhythm Strip Rhythm Strip: Sinus Rhythm Rate: 97 Ectopy: None EKG Initial EKG: Attestation: I personally reviewed and interpreted this EKG as follows: Interpretation: Sinus Rhythm Comments: Normal sinus rhythm and rate of 97 Normal axis Normal intervals Normal ST segments Critical Care Time Critical Care Time: Yes Critical care time (excluding procedures): 30-74 minutes (45), Discussing w/Patient &/or Family/Chemical Recovery Operator (Discussing code status ), Discussing w/Consultants and Arranging Admission or Transfer Discharge Plan Dx/Rx/DC Orders Clinical Impression: Sepsis, Neutropenia, Right lower lobe pneumonia, Thrombocytopenia, KENNA (acute kidney injury), Confusion, Noninfected skin tear of right leg Disposition Disposition: Acute Care [facility] Discharge Date/Time: 04/18/21 14:35
[2021-04-18 12:31] LABS: LDH 617 U/L (84-246)
[2021-04-18 12:40] LABS: International Normalized Ratio 1.2; Partial Thromboplast Time 32.7 Seconds (24.1-36.2); Prothrombin Time (Protime)PT. 14.9 SECONDS (11.7-14.9)
[2021-04-18 12:49] LABS: Fibrinogen > 900 mg/dl (203-444)
[2021-04-18 13:00] LABS: Blast 4 % (0-0); Lymphocyte 14 % (19-41); Metamyelocyte 26 % (0-1); Monocyte 17 % (0-10); Myelocyte 14 % (0-0); Neutrophil-Band 1 % (0-5); Neutrophil-Segmented 17 % (47-70); Nucleated Red Bld Cells,Manual 21 % (0-5); Promyelocyte 7 % (0-0); Total Cells Counted 100 (MANUAL DIFF); Toxic Granulation 1+
[2021-04-18 13:01] LABS: Hypochromasia 1+; Platelet Estimate MKD DEC (ADEQ); Polychromasia 2+
[2021-04-18 13:02] LABS: Absolute Lymphocyte Count 0.28 X10^3/uL (0.83-4.51); Absolute Neutrophil Count 0.4 X10^3/uL (2.0-7.7)
[2021-04-18 13:04] LABS: Mucous, Urine 0 SEEN /hpf (<or=2+)
[2021-04-18 13:06] LABS: Color, Urine Yellow (Yellow); Glucose, Dipstick Normal (Normal); Ketone-Dipstick 5 mg/dl (Negative); Leukocyte Esterase-Dipstick Negative /ul (Negative); Nitrite-Dipstick Negative (Negative); Occult Blood-Urine 25 /ul (Negative); Protein-Dipstick 30 mg/dl (Negative); Specific Gravity, Urine 1.015 (1.002-1.030); Urine Clarity Sl. Cloudy (Clear); Urine Urobilinogen 1 mg/dl (Normal)
[2021-04-18 13:07] LABS: D-Dimer Quantitative (DVT/PE) 2.85 FEU/ug/m (0.27-0.49)
[2021-04-18 13:09] LABS: Urine Bilirubin Dipstick 1 mg/dL (Negative)
[2021-04-18 13:14] LABS: Amorphous Sediment 2+; Bacteria 1+ /hpf (None Seen); Red Blood Cells-Urine 0-5 SEEN /hpf (0-5); Squamous Epithelial Cells - UA 0-5 SEEN /hpf (5-10); White Blood Cells 0-5 SEEN /hpf (0-5)
--- NOTE | 2021-04-18 13:32 | NURSING ---
DR FENG FOR DR PATEL
--- NOTE | 2021-04-18 13:44 | HP.PCM.HOS_ITS ---
HPI - General General Date of Admission: 04/18/21 Date of Service: 04/18/21 Chief Complaint: Generalized weakness HPI Narrative MITCH PARRISH, is a 66 F who presents with progressive weakness and recurrent falls. Patient has past medical history of right small cell lung CA, left non- small cell lung CA, adenocarcinoma type, on chemotherapy, following with [facility]. Patient had her last chemotherapy yesterday, Saturday. She was seen in the emergency room on 04/16/21 after a fall with her right lower leg ulcer. Patient comes in with progressive shortness of breath. She usually wears a couple of liters of oxygen as needed. She feels progressively very weak. Denied fever or chills. She admits to cough. She admits to dizziness but denies chest pain. 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 05/02/20 [Rx Last Taken 04/17/21] ondansetron HCl 8 mg PO Q8H PRN PRN 10 Days #30 tablet 05/17/20 [Rx Last Taken 04/17/21] methylphenidate HCl 10 mg tablet,extended release 10 mg PO TID 11/03/20 [History Last Taken 04/17/21] nystatin 100,000 unit/mL oral suspension 5 ml PO TID #473 ml 01/02/21 [Rx Last Taken 04/17/21] promethazine 25 mg tablet 25 mg PO Q8H PRN PRN 10 Days #30 tablet 01/17/21 [Rx Last Taken 04/17/21] dexamethasone 1 mg tablet 1 mg PO BID 04/03/21 [History Last Taken 04/17/21] potassium chloride 20 mEq tablet,extended release 20 meq PO DAILY #30 tab 04/11/21 [Rx Last Taken 04/17/21] clindamycin HCl 450 mg PO TID 7 Days #63 cap 04/16/21 [Rx Last Taken 04/17/21] albuterol sulfate 2 inh INHALATION Q4H PRN 04/18/21 [History Last Taken 04/17/21] amlodipine 5 mg PO DAILY 04/18/21 [History Last Taken 04/17/21] Allergy/AdvReac Type Severity Reaction Status Date / Time Penicillins Allergy Severe Anaphylaxis Verified 04/18/21 09:50 Sulfa (Sulfonamide Allergy Severe Anaphylaxis Verified 04/18/21 09:50 Antibiotics) codeine Allergy Mild Vomiting Verified 04/18/21 09:50 erythromycin base Allergy Mild Unknown Verified 04/18/21 09:50 tramadol [From Ultram] AdvReac Severe Vomiting Verified 04/18/21 09:50 Family History Mother Diabetes Hypertension Brother Hypertension Surgical History History of bilateral tubal ligation History of section Hx of hernia repair Social History household members: spouse Smoking Status: Current some day smoker tobacco type: cigarettes alcohol intake: current alcohol intake frequency: 0-2 drinks per day Alcohol type: wine substance use type: does not use ROS ROS Narrative Constitutional: Reports: Malaise, Weakness, Fatigue. Denies: Anorexia, Chills, Fever, Night Sweats Eyes: Denies: Blurred vision, Cataracts, Conjunctivae Inflammation, Pain, Redness, Vision Change HEENT: Denies: Difficulty Hearing, Difficulty Swallowing, Head Aches, Hearing Changes, Sinus Congestion, Sinus Drainage Cardiovascular: Admits to dizziness denies: Chest Pain, Orthopnea, Palpitations Respiratory: Admits to cough, Shortness of breath at rest Gastrointestinal: Denies: Abdominal Pain, Nausea, Vomiting Genitourinary: Denies: Dysuria Musculoskeletal: Denies: Joint Pain, Joint stiffness, Joint swelling, Joint Tenderness Skin: Right lower leg wound from recent fall Vital Signs Vital Signs Vital Signs: 04/18/21 09:43 04/18/21 09:48 04/18/21 09:53 Temperature 98.3 F 98.3 F Temperature Source Oral Oral Pulse Rate 100 100 Respiratory Rate 23 H 23 H Respiratory Effort Short of Breath Labored Respiratory Depth Deep Respiratory Pattern Tachypnea Blood Pressure 105/49 L 105/49 L Blood Pressure Mean 67 67 Pulse Ox 77 77 Oxygen Delivery Method Room Air Room Air Nasal Cannula Oxygen Flow Rate (L/min) 6 04/18/21 11:38 04/18/21 12:59 Temperature 97.2 F L Temperature Source Temporal Pulse Rate 97 95 Respiratory Rate 22 H 19 H Respiratory Effort Respiratory Depth Respiratory Pattern Blood Pressure 78/57 L 90/57 L Blood Pressure Mean 64 68 Pulse Ox 91 93 Oxygen Delivery Method Nasal Cannula Nasal Cannula Oxygen Flow Rate (L/min) 6 10 Weight Weight: 64.7 kg Body Mass Index (BMI) 24.5 Physical Exam Narrative Physical exam: General: Alert, oriented x3, cooperative, appears very frail, on 10 L oxygen, pale, generalized edema HEENT: Atraumatic Oral: Dry oral mucosa Neck: Supple Lungs: Diminished to auscultation, in both lung zones, worse on the right, coarse crackles heard Cardiovascular: HS I+II, regular, no murmurs Abdomen: Bowel Sounds Present, Soft, Non Tender Extremities: Bilateral leg edema +2-3, bruises all over the extremities, right acute ulcer, with Vaseline gauze in place Results Lab / Micro Data Result Diagrams: 04/18/21 11:30 04/18/21 11:30 Labs: Laboratory Results - last 24 hr 04/18/21 11:30: 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, 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 WBC 2.0 L, RBC 3.32 L, Hgb 11.5 L, Hct 34.7 L, MCV 104.5 H, MCH 34.6 H, MCHC 33.1, RDW Std Deviation 62.1 H, RDW Coeff of Deb 16.5 H, Plt Count 31 L*, MPV 13.6 H, Neut % (Auto) Not Reportable, Absolute Neuts (auto) 0.4 L, Absolute Lymphs (auto) 0.28 L, Total Counted 100, Neutrophils % (Manual) 17 L, Band Neutrophils % 1, Lymphocytes % (Manual) 14 L, Monocytes % (Manual) 17 H, Metamyelocytes % 26 H, Myelocytes % 14 H, Promyelocytes % 7 H, Blast Cells % 4 H*, Nucleated RBCs/100 WBC 21 H, Diff Path Review May foll, Toxic Granulation 1+, Platelet Estimate MKD DEC, Polychromasia 2+, Hypochromasia 1+ 04/18/21 11:30: Sodium 137, Potassium 4.2, Chloride 100, Carbon Dioxide 21.0, Anion Gap 16 H, BUN 52 H, Creatinine 1.65 H, Estim Creat Clear Calc 28.57, Est GFR (MDRD) Af Amer 40 L, Est GFR (MDRD) Non-Af 33 L, BUN/Creatinine Ratio 31.5 H , Glucose 120 H, Calcium 7.9 L, Total Bilirubin 0.80, AST 38 H, ALT 47, Alkaline Phosphatase 103, Troponin I High Sens 36, Total Protein 6.1 L, Albumin 2.1 L, Globulin 4.0, Albumin/Globulin Ratio 0.5 L 04/18/21 11:30: Lactic Acid 1.7 04/18/21 11:30: B-Natriuretic Peptide 387.9 H 04/18/21 11:30: PT 14.9, INR 1.2, APTT 32.7, Fibrinogen > 900 H, D-Dimer Quant (PE/DVT) 2.85 H* 04/18/21 11:30: Lactate Dehydrogenase 617 H 04/18/21 13:00: Urine Color Yellow, Urine Clarity Sl. Cloudy, Urine pH 5.0, Ur Specific [place] 1.015, Urine Protein 30 H, Urine Glucose (UA) Normal, Urine Ketones 5 H, Urine Occult Blood 25 H, Urine Nitrite Negative, Urine Bilirubin 1 H, Urine Urobilinogen 1 H, Ur Leukocyte Esterase Negative, Urine RBC 0-5 SEEN, Urine WBC 0-5 SEEN, Ur Squamous Epith Cells 0-5 SEEN, Amorphous Sediment 2+, Urine Bacteria 1+, Urine Mucus 0 SEEN Micro: Microbiology 04/18/21 11:30 Nasal Secretion SARS-CoV-2 Antigen (Rapid) - Final ABG Data ABG results: ABG 04/18/21 11:56 Specimen Type ART pH 7.33 L Bicarbonate Actual 19.5 L Total CO2 21 Base Excess -6 L O2 Saturation 92 L ABG pCO2 36.8 ABG pO2 66 L O2 Delivery Device Cannula Liter Flow 6.0 Radiology Impression Chest X-Ray 04/18/21 10:51 IMPRESSION: Groundglass airspace opacities in the right lung base in keeping with atelectasis and/or pneumonia. Electronically Signed: Lorelei Blount MD at 13:37 EDT Tel , Service support , Brain CT 04/18/21 10:55 IMPRESSION: Chronic microvascular ischemic disease. Electronically Signed: Lorelei Blount MD at 13:24 EDT Tel , Service support , Chest CTA 04/18/21 10:55 IMPRESSION: No demonstrated PE, or thoracic aortic aneurysm or dissection Consolidation with air bronchograms in the right lung base with small right pleural effusion and associated atelectasis. Findings are suspicious for infiltrate. Follow-up recommended to measure resolution Stable too numerous to count noncalcified nodules scattered throughout both lung pinto measuring between 0.5 and 1.2 cm. Calcified coronary vessels No suspicious adenopathy Degenerative bony changes with chronic compression fractures noted at T4 and T5. Electronically Signed: Peña Francois MD at 12:52 EDT , Service support , Assessment & Plan Assessment/Plan (1) Sepsis: QUALIFIERS: Sepsis acute organ dysfunction status: unspecified Sepsis type: sepsis due to unspecified organism Qualified Code(s): A41.9 - Sepsis, unspecified organism (2) Neutropenia: QUALIFIERS: Neutropenia type: due to infection Qualified Code(s): D70.3 - Neutropenia due to infection (3) Right lower lobe pneumonia: QUALIFIERS: Pneumonia type: due to unspecified organism Qualified Code(s): J18.9 - Pneumonia, unspecified organism (4) Thrombocytopenia: (5) KENNA (acute kidney injury): (6) Acute metabolic encephalopathy: PLAN: 1. Acute hypoxic respiratory failure secondary to acute right lower lobe pneumonia; probably postobstructive pneumonia History of right small cell lung CA, left non-small cell lung CA, adenocarcinoma type Patient is currently on 10 L of oxygen, not on oxygen usually at home Patient has been vaccinated 1 out of 2. Rapid COVID-19 antigen is negative. CTA of the chest shows consolidation with air bronchograms in the right lung base No acute PE found Continue on IV vancomycin and meropenem Check COVID-19 PCR 2. 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 Acute pancytopenia secondary to recent chemotherapy Patient has worsening leukopenia and thrombocytopenia Oncology consulted 4. Acute kidney injury likely prerenal secondary to chemotherapy Admitting creatinine is 1.65, baseline creatinine 0.63 Continue gentle IV fluids 5. Acute metabolic encephalopathy, waxes and wanes Patient appears to be alert oriented to person, place and time but then seems to lose it Likely secondary to #1 and 2 Will continue to monitor 6. Metastatic lung CA, follows with oncology in the outpatient I discussed and explained in details the various types of CODE STATUS-full code, DNR CCA, DNR CC. Patient chose Full code. She wants aggressive cardiopulmonary resuscitation in the event of an arrest. Time spent discussing CODE STATUS 17 minutes Charges/Coding Visit Charges Inpatient E&M: 31948 Init Hosp L3 Procedures Hospitalists Procedures: [id number] Advncd Care Plan 30 Min
--- NOTE | 2021-04-18 13:48 | NURSING ---
ICU NUAMAH SEPSIS, PNEUMONIA, THROMBOCYTOPENIA
--- NOTE | 2021-04-18 13:50 | NURSING ---
ICU 7
[2021-04-18] MEDS: Hydrocortisone Sod Succinate 100 MG/2 ML Vial IV ×2 (14:13→18:22)
--- NOTE | 2021-04-18 14:44 | PCS.PANDOC ---
PANDEMIC DOCUMENTATION INITIATED: Date: 03/06/2021 Time: 190
[2021-04-18] MEDS: Furosemide 40 MG/4 ML Vial IV (15:14)
[2021-04-18] MEDS: Vancomycin IV 1,000 MG/200 ML BAG 200 MG IV (15:14)
[2021-04-18] MEDS: NYSTATIN 500,000 UNIT/5 ML UDC 500000 UNIT PO ×2 (15:34→21:19)
[2021-04-18] MEDS: fentaNYL 100 MCG/2 ML Ampul 25 MCG IV (15:47)
--- NOTE | 2021-04-18 15:52 | PCM.RX.CS ---
Consult Pharmacy has been consulted to manage selected antiobiotic: Vancomycin Type of Consult: New start Suspected Infection: Sepsis, Pneumonia Prior Doses of Antibiotics Received/Current Regimen: Receivied 1000mg IV x1 in E.R. starting at 15:14 today Labs: Sodium 137 mmol/L (136-145) 04/18/21 11:30 Potassium 4.2 mmol/L (3.5-5.1) 04/18/21 11:30 Chloride 100 mmol/L (98-107) 04/18/21 11:30 Carbon Dioxide 21.0 mmol/L (21.0-32.0) 04/18/21 11:30 Anion Gap 16 (5-15) H 04/18/21 11:30 BUN 52 mg/dL (7-18) H 04/18/21 11:30 Creatinine 1.65 mg/dL (0.55-1.02) H 04/18/21 11:30 Est GFR (MDRD) Af Amer 40 mL/min (>60) L 04/18/21 11:30 Est GFR (MDRD) Non-Af 33 mL/min (>60) L 04/18/21 11:30 BUN/Creatinine Ratio 31.5 RATIO (10-20) H 04/18/21 11:30 Glucose 120 mg/dL (74-106) H 04/18/21 11:30 Microbiology: Microbiology 04/18/21 11:30 Nasal Secretion SARS-CoV-2 Antigen (Rapid) - Final Weight used for dosin.6 kg Estimated Creatinine Clearance: 28.6ml/min Goal Trough: 15-20 mcg/mL Pharmacy Plan for Drug Dosing: Starting 24 hours after the E.R. dose, continue with 750mg IV q24h. Will check a trough level before the 3rd total dose. Pharmacy Service will continue to monitor and adjust dosing as required. Follow-Up Labs: Trough Vancomycin Labs to be done on [date and time ordered]: 04/20/21 14:30
--- NOTE | 2021-04-18 16:00 | WOUNDNOTE ---
wound photo: right falcon
--- NOTE | 2021-04-18 16:01 | WOUNDNOTE ---
wound photo: right knee
[2021-04-18 16:34] LABS: Probe Check PASS; Specimen Processing Control PASS
[2021-04-18] MEDS: Ipratropium/Albuterol Sulfate 3 ML AMPUL.NEB INHALATION ×2 (16:34→20:04)
--- NOTE | 2021-04-18 16:34 | EX.PCM.CONCC ---
Assessment & Plan Assessment/Plan (1) Right lower lobe pneumonia: QUALIFIERS: Pneumonia type: due to unspecified organism Qualified Code(s): J18.9 - Pneumonia, unspecified organism (2) Acute metabolic encephalopathy: (3) Sepsis: QUALIFIERS: Sepsis type: sepsis due to unspecified organism Sepsis acute organ dysfunction status: unspecified Qualified Code(s): A41.9 - Sepsis, unspecified organism (4) Non-small cell carcinoma of left lung: (5) Chemotherapy management, encounter for: PLAN: RECOMMENDATIONS: 1. Discontinue fluid resuscitation 2. Add pressors if necessary 3. Continue with broad-spectrum antibiotics 4. Wean oxygen as tolerated. Restraints if necessary to oxygenate 5. Possible benefit from G-CSF. Oncology consulted 6. Delirium protocol 7. Clarify goals of therapy IMPRESSIONS: 1. Acute hypoxic respiratory failure Multiple possible etiologies. Patient does have right lower lobe infiltrate and atelectasis. Cannot exclude an element of aspiration given encephalopathy. No PE was noted. Patient is immunocompromised secondary to recent chemotherapy. Agree with broad-spectrum antibiotics. Low clinical suspicion for COVID-19 given lack of bilateral groundglass opacities. Confirmation testing is currently pending. Patient was restrained to facilitate supplemental oxygen therapy. Patient also has multiple metastatic lesions noted on CT of the chest. 2. Septic shock of unclear etiology/ probable adrenal insufficiency Patient neutropenic with hypotension. Patient did receive fluid resuscitation, but given respiratory status would recommend against further aggressive fluid resuscitation. Pressors can be initiated if necessary. Agree with stress dose steroids given patient's baseline dexamethasone use. Patient is on broad-spectrum antibiotics. Cultures are pending. 3. Pancytopenia with recent chemotherapy Patient did recently receive chemotherapy. Unclear if patient has an element of bone marrow suppression secondary to sepsis. Oncology has been consulted. Patient may benefit from G-CSF given possibility of septic shock, but defer to oncology. Patient is not actively bleeding, so we will hold on any transfusions. 4. Acute metabolic encephalopathy Multiple possible etiologies. Patient does have vascular insufficiency changes on CT of the head. No metastatic lesions are noted. Patient also has had significant hypoxia and may have sepsis. Recommend delirium protocol. Avoid Ativan if possible. 5. Acute kidney injury Multiple possible etiologies. Patient has had some possible retention, so Elizabeth will be added. Patient also has prerenal etiology with hypotension. We will continue to support blood pressure and monitor kidney function. Patient does not require renal replacement therapy at this time. 6. Right leg wound/Recent right arm fracture/balance issues/stage IV squamous cell carcinoma/hypertension Complicates care, management, recovery and prognosis. Patient is reportedly a full code, but has multiple comorbidities leading to a poor prognosis. Wound team to see right leg. Hold antihypertensive medications given problem #2. Interventions should be presented in the backdrop of mortality associated with stage IV squamous cell cancer. Oncology has been consulted. TIME: 37 minutes critical care time spent addressing patient's acute hypoxic respiratory failure, shock, pancytopenia, encephalopathy, review of all data and collaboration with care team (2 PM to 4:55 PM) HPI Consult Data Date of Consult: 04/18/21 HPI Narrative HPI Narrative: MITCH PARRISH is a 66 F, with past medical history listed below, who presents to [facility] on 04/18/2021 secondary to worsening mentation and oxygenation. Patient had reportedly fallen off her back porch 4 days prior resulting in a large skin tear of the right falcon and a fracture of her right wrist. Patient had been reportedly developed increasing weakness, confusion and shortness of breath since that time. On EMS arrival, patient was noted to be hypoxic at 73% on room air. Patient was given a breathing treatment and supplemental oxygen with some improvement. Patient had her last chemotherapy approximately 8 days ago and is not currently on any blood thinners. Patient was supposed to see the plastic surgeon today for her leg wound, but did not go to her appointment secondary to profound weakness. In the ER, patient was afebrile, but tachycardic. Patient was satting 77% on room air and tachypneic at 23 breaths/min. Patient required 10 L nasal cannula to maintain saturations. Laboratory data showed profound thrombocytopenia and lymphopenia. Patient was also anemic with a hemoglobin of 11.5. Patient's BUN and creatinine were elevated at 52 and 1.65 respectively. Glucose was slightly elevated at 120. Lactate was within normal limits. Fibrinogen was greater than 900 and D-dimer was elevated at 2.85. LDH and BNP were both elevated at 617 and 388 respectively. An ABG showed adequate oxygenation and ventilation, but an increased AA gradient on 6 L. Chest x-ray showed bilateral infiltrates and a CT of the head showed microvascular changes. A CTA of the chest showed right lower lobe consolidation with associated atelectasis and numerous suspicious nodules. Patient did have chronic compression fractures at T4 and T5. EKG showed sinus rhythm. Patient was transferred to the intensive care unit for further evaluation. Patient's saturations were improving on a nonrebreather mask. Patient was significantly confused and continue to remove her mask, so she had to be placed in restraints. Patient also was on IV fluids that were discontinued. Patient had significant rales initially on exam on presentation. Patient was given Lasix therapy with good response. Patient is unable to provide any additional information secondary to encephalopathy. Patient has been seen by Dr. Dyson in the past and previous pulmonary function tests are significant for moderate obstructive lung disease. Patient did receive chemotherapy 8 days prior to presentation. Patient is on chronic steroids with chemotherapy. FORMERLY [facility], [facility] Medical History Bilateral lower extremity edema CT guided Lung needle biopsy Cushingoid facies Cushingoid side effect of steroids Diarrhea Encounter for adjustment or management of vascular access device Fatigue Hand cramps Hypokalemia Imbalance Left hip pain Lung cancer Nausea with vomiting Non-small cell carcinoma of left lung Pneumothorax of left lung after biopsy Portacath in place Small cell carcinoma of right lung Squamous cell carcinoma of skin of left lower extremity Home Medications albuterol sulfate 2.5 mg INHALATION Q2H PRN PRN #1 box 06/22/19 [Rx Last Taken 04/17/21] lorazepam 0.5 mg PO DAILY PRN PRN 30 Days #30 tablet 08/31/19 [Rx Last Taken 04/17/21] omeprazole 20 mg PO DAILY 30 Days #30 capsule. 05/02/20 [Rx Last Taken 04/17/21] ondansetron HCl 8 mg PO Q8H PRN PRN 10 Days #30 tablet 05/17/20 [Rx Last Taken 04/17/21] methylphenidate HCl 10 mg tablet,extended release 10 mg PO TID 11/03/20 [History Last Taken 04/17/21] nystatin 100,000 unit/mL oral suspension 5 ml PO TID #473 ml 01/02/21 [Rx Last Taken 04/17/21] promethazine 25 mg tablet 25 mg PO Q8H PRN PRN 10 Days #30 tablet 01/17/21 [Rx Last Taken 04/17/21] dexamethasone 1 mg tablet 1 mg PO BID 04/03/21 [History Last Taken 04/17/21] potassium chloride 20 mEq tablet,extended release 20 meq PO DAILY #30 tab 04/11/21 [Rx Last Taken 04/17/21] clindamycin HCl 450 mg PO TID 7 Days #63 cap 04/16/21 [Rx Last Taken 04/17/21] albuterol sulfate 2 inh INHALATION Q4H PRN 04/18/21 [History Last Taken 04/17/21] amlodipine 5 mg PO DAILY 04/18/21 [History Last Taken 04/17/21] Allergy/AdvReac Type Severity Reaction Status Date / Time Penicillins Allergy Severe Anaphylaxis Verified 04/18/21 09:50 Sulfa (Sulfonamide Allergy Severe Anaphylaxis Verified 04/18/21 09:50 Antibiotics) codeine Allergy Mild Vomiting Verified 04/18/21 09:50 erythromycin base Allergy Mild Unknown Verified 04/18/21 09:50 tramadol [From Ultram] AdvReac Severe Vomiting Verified 04/18/21 09:50 Family History Mother Diabetes Hypertension Brother Hypertension Surgical History History of bilateral tubal ligation History of section Hx of hernia repair Social History household members: spouse Smoking Status: Current every day smoker tobacco type: cigarettes alcohol intake: current alcohol intake frequency: 0-2 drinks per day Alcohol type: wine substance use type: does not use ROS Review of Systems ROS Unobtainable: due to encephalopathy Physical Exam Const alert and average body habitus General Appearance: anxious, uncooperative, disheveled and frail Orientation / Consciousness: oriented to person; Negative for oriented to place or oriented to time HEENT normocephalic, external ears normal and external nose normal Eyes PERRL and no scleral icterus Neck supple Lymph Lymphatic: no lymphadenopathy noted Chest inspection of chest normal Chest Narrative: Port R IC area Resp Effort and Inspection: respiratory distress Auscultation: rales diffuse; Negative for rhonchi or wheezes Cardio regular rhythm, S1 normal heart sound, S2 normal heart sound and no murmurs Rate: tachycardic GI normal to inspection, nondistended, normoactive bowel sounds no CVA tenderness Back/Spine thoracic and lumbar spine normal to inspection Extremity normal to inspection and no clubbing, cyanosis or edema Skin Skin Narrative: Extensive desquamation of the right falcon with exposed subcutaneous tissue Neuro oriented x3, CN's II-XII intact bilaterally, moves all extremities and no focal motor deficits Psych mental status grossly normal Lab / Micro Data Result Diagrams: 04/18/21 11:30 04/18/21 11:30 Labs: Laboratory Results - last 24 hr 04/18/21 11:30: WBC SOLAR INSTALLER PV, Corrected WBC 2.0 L, RBC 3.32 L, Hgb 11.5 L, Hct 34.7 L, MCV 104.5 H, MCH 34.6 H, MCHC 33.1, RDW Std Deviation 62.1 H, RDW Coeff of Deb 16.5 H, Plt Count 31 L*, MPV 13.6 H, Neut % (Auto) Not Reportable, Absolute Neuts (auto) 0.4 L, Absolute Lymphs (auto) 0.28 L, Total Counted 100, Neutrophils % (Manual) 17 L, Band Neutrophils % 1, Lymphocytes % (Manual) 14 L, Monocytes % (Manual) 17 H, Metamyelocytes % 26 H, Myelocytes % 14 H, Promyelocytes % 7 H, Blast Cells % 4 H*, Nucleated RBCs/100 WBC 21 H, Diff Path Review May foll, Toxic Granulation 1+, Platelet Estimate MKD DEC, Polychromasia 2+, Hypochromasia 1+ 04/18/21 11:30: Sodium 137, Potassium 4.2, Chloride 100, Carbon Dioxide 21.0, Anion Gap 16 H, BUN 52 H, Creatinine 1.65 H, Estim Creat Clear Calc 28.57, Est GFR (MDRD) Af Amer 40 L, Est GFR (MDRD) Non-Af 33 L, BUN/Creatinine Ratio 31.5 H, Glucose 120 H, Calcium 7.9 L, Total Bilirubin 0.80, AST 38 H, ALT 47, Alkaline Phosphatase 103, Troponin I High Sens 36, Total Protein 6.1 L, Albumin 2.1 L, Globulin 4.0, Albumin/Globulin Ratio 0.5 L 04/18/21 11:30: Lactic Acid 1.7 04/18/21 11:30: B-Natriuretic Peptide 387.9 H 04/18/21 11:30: PT 14.9, INR 1.2, APTT 32.7, Fibrinogen > 900 H, D-Dimer Quant (PE/DVT) 2.85 H* 04/18/21 11:30: Lactate Dehydrogenase 617 H 04/18/21 13:00: Urine Color Yellow, Urine Clarity Sl. Cloudy, Urine pH 5.0, Ur Specific [place] 1.015, Urine Protein 30 H, Urine Glucose (UA) Normal, Urine Ketones 5 H, Urine Occult Blood 25 H, Urine Nitrite Negative, Urine Bilirubin 1 H, Urine Urobilinogen 1 H, Ur Leukocyte Esterase Negative, Urine RBC 0-5 SEEN, Urine WBC 0-5 SEEN, Ur Squamous Epith Cells 0-5 SEEN, Amorphous Sediment 2+, Urine Bacteria 1+, Urine Mucus 0 SEEN Micro: Microbiology 04/18/21 11:30 Nasal Secretion SARS-CoV-2 Antigen (Rapid) - Final ABG Data ABG results: ABG 04/18/21 11:56 Specimen Type ART pH 7.33 L Bicarbonate Actual 19.5 L Total CO2 21 Base Excess -6 L O2 Saturation 92 L ABG pCO2 36.8 ABG pO2 66 L O2 Delivery Device Cannula Liter Flow 6.0 Rhythm Strip Rhythm Strip: Sinus Rhythm Rate: 97 Ectopy: None Radiology Impression Chest X-Ray 04/18/21 10:51 IMPRESSION: Groundglass airspace opacities in the right lung base in keeping with atelectasis and/or pneumonia. Electronically Signed: Lorelei Blount MD at 13:37 EDT Tel , Service support , Brain CT 04/18/21 10:55 IMPRESSION: Chronic microvascular ischemic disease. Electronically Signed: Lorelei Blount MD at 13:24 EDT Tel , Service support , Chest CTA 04/18/21 10:55 IMPRESSION: No demonstrated PE, or thoracic aortic aneurysm or dissection Consolidation with air bronchograms in the right lung base with small right pleural effusion and associated atelectasis. Findings are suspicious for infiltrate. Follow-up recommended to measure resolution Stable too numerous to count noncalcified nodules scattered throughout both lung pinto measuring between 0.5 and 1.2 cm. Calcified coronary vessels No suspicious adenopathy Degenerative bony changes with chronic compression fractures noted at T4 and T5. Electronically Signed: Peña Francois MD at 12:52 EDT , Service support , Charges/Coding Procedures Hospitalists Procedures: [id number] Critial Care 1st Hr
[2021-04-18] MEDS: 0.9% Saline Lock 10 ML Syringe IV (18:22)
--- NOTE | 2021-04-18 18:59 | ONC.CONSULT ---
Assessment & Plan Assessment/Plan (1) Right lower lobe pneumonia: Status: Acute Code(s): J18.9 - Pneumonia, unspecified organism Qualifiers: Pneumonia type: due to unspecified organism Qualified Code(s): J18.9 - Pneumonia, unspecified organism Plan: Continue Broad spectrum antibiotics. For Neutropenia due to chemotherapy, to start GCSF 480mcg daily till ANC is greater than 1500. For Thrombocytopenia due to chemotherapy, Platelet transfusion can be done if Platelets are less than 20K (2) Acute metabolic encephalopathy: Status: Acute Code(s): G93.41 - Metabolic encephalopathy Plan: Related to Pneumonia and respiratory failure. Suggest to continue supportive care. (3) Sepsis: Status: Acute Code(s): A41.9 - Sepsis, unspecified organism Qualifiers: Sepsis type: sepsis due to unspecified organism Sepsis acute organ dysfunction status: unspecified Qualified Code(s): A41.9 - Sepsis, unspecified organism Plan: Suggest to continue broad spectrum antibiotics. (4) Non-small cell carcinoma of left lung: Status: Chronic Code(s): C34.92 - Malignant neoplasm of unspecified part of left bronchus or lung Plan: Will assess for further therapy if she recovers from pneumonia. Prognosis is guarded. HPI Consult Data Date of Service:: 04/18/21 PCP / Referring Provider: Dr. Jens Garibay MD Attending: Dr. Kathya Dorsey MD Chief Complaint Chief Complaint: Asked to see Pt with NSCLC admitted with pneumonia. History of Present Illness History of Present Illness: 66-year-old woman with metastatic non-small cell lung cancer on therapy with Gemzar and Navelbine, got cycle 5-day 8 on 04/10/2021. She presented to the ER with change in mental status and general weakness, was found to be hypoxic, neutropenic, CTA shows right lower lobe consolidation with associated atelectasis and numerous suspicious metastatic nodules and so admitted to the singletary. She has been started on broad-spectrum antibiotics. Advanced Directives Power of Bed And Breakfast Cook: No Living Will: No PFSH Medical History Bilateral lower extremity edema CT guided Lung needle biopsy Cushingoid facies Cushingoid side effect of steroids Diarrhea Encounter for adjustment or management of vascular access device Fatigue Hand cramps Hypokalemia Imbalance Left hip pain Lung cancer Nausea with vomiting Non-small cell carcinoma of left lung Pneumothorax of left lung after biopsy Portacath in place Small cell carcinoma of right lung Squamous cell carcinoma of skin of left lower extremity Home Medications albuterol sulfate 2.5 mg INHALATION Q2H PRN PRN #1 box 06/22/19 [Rx Last Taken 04/17/21] lorazepam 0.5 mg PO DAILY PRN PRN 30 Days #30 tablet 08/31/19 [Rx Last Taken 04/17/21] omeprazole 20 mg PO DAILY 30 Days #30 capsule. 05/02/20 [Rx Last Taken 04/17/21] ondansetron HCl 8 mg PO Q8H PRN PRN 10 Days #30 tablet 05/17/20 [Rx Last Taken 04/17/21] methylphenidate HCl 10 mg tablet,extended release 10 mg PO TID 11/03/20 [History Last Taken 04/17/21] nystatin 100,000 unit/mL oral suspension 5 ml PO TID #473 ml 01/02/21 [Rx Last Taken 04/17/21] promethazine 25 mg tablet 25 mg PO Q8H PRN PRN 10 Days #30 tablet 01/17/21 [Rx Last Taken 04/17/21] dexamethasone 1 mg tablet 1 mg PO BID 04/03/21 [History Last Taken 04/17/21] potassium chloride 20 mEq tablet,extended release 20 meq PO DAILY #30 tab 04/11/21 [Rx Last Taken 04/17/21] clindamycin HCl 450 mg PO TID 7 Days #63 cap 04/16/21 [Rx Last Taken 04/17/21] albuterol sulfate 2 inh INHALATION Q4H PRN 04/18/21 [History Last Taken 04/17/21] amlodipine 5 mg PO DAILY 04/18/21 [History Last Taken 04/17/21] Allergy/AdvReac Type Severity Reaction Status Date / Time Penicillins Allergy Severe Anaphylaxis Verified 04/18/21 09:50 Sulfa (Sulfonamide Allergy Severe Anaphylaxis Verified 04/18/21 09:50 Antibiotics) codeine Allergy Mild Vomiting Verified 04/18/21 09:50 erythromycin base Allergy Mild Unknown Verified 04/18/21 09:50 tramadol [From [facility]] AdvReac Severe Vomiting Verified 04/18/21 09:50 Family History Mother Diabetes Hypertension Brother Hypertension Surgical History History of bilateral tubal ligation History of section Hx of hernia repair Social History household members: spouse Smoking Status: Current every day smoker tobacco type: cigarettes alcohol intake: current alcohol intake frequency: 0-2 drinks per day Alcohol type: wine substance use type: does not use ROS Constitutional Constitutional: Reports fatigue Cardiovascular Cardiovascular: Reports dyspnea and dyspnea at rest Respiratory/Chest Respiratory/Chest: Reports dyspnea and dyspnea on exertion Gastrointestinal Gastrointestinal: Denies abdominal pain Genitourinary Genitourinary: Reports change in urinary stream Musculoskeletal Musculoskeletal: Denies back pain Integumentary Integumentary: Reports other Details: bruise R forearm, laceration L leg. Neurologic Neurologic: Denies confusion Psychiatric Psychiatric: Denies suicidal ideation Endocrine Endocrinology: Denies cold intolerance Hematologic/Lymphatic Hematologic/Lymphatic: Denies lymphadenopathy Physical Exam Const General Appearance: in distress Positive for respiratory HEENT normocephalic Head and Scalp: atraumatic Eyes no scleral icterus Neck supple Lymph Lymphatic: no lymphadenopathy noted Resp Auscultation: diminished lung sounds bilateral Cardio regular rate, regular rhythm, S1 normal heart sound and S2 normal heart sound GI normal to inspection, nondistended, normoactive bowel sounds Bladder / Kidney Exam: no CVA tenderness Extremity no pedal edema Extremity Narrative: dressing R forearm and R leg Neuro moves all extremities Neuro Narrative: lethargic Psych Attention / Concentration: attention grossly impaired Vital Signs Temperature 98.1 F 04/18/21 18:00 Temperature Source Temporal 04/18/21 18:00 Pulse Rate 98 04/18/21 18:00 Respiratory Rate 25 H 04/18/21 18:00 Respiratory Effort 04/18/21 16:16 Respiratory Depth Normal 04/18/21 16:16 Respiratory Pattern Tachypnea 04/18/21 16:37 Blood Pressure 107/90 H 04/18/21 18:00 Blood Pressure Mean 95 04/18/21 18:00 Blood Pressure Source Monitor 04/18/21 18:00 Blood Pressure Position Semi-Fowlers 04/18/21 18:00 Blood Pressure Location Left Arm 04/18/21 18:00 Pulse Ox 92 04/18/21 18:00 Oxygen Delivery Method Non-Rebreather 04/18/21 18:00 Oxygen Flow Rate (L/min) 25 04/18/21 16:00 Fraction of Inspired Oxygen (FIO2) 100 04/18/21 18:00 Laboratory Results - last 24 hr 04/18/21 11:30: WBC INSTRUCTOR PHYSICAL EDUCATION, Corrected WBC 2.0 L, RBC 3.32 L, Hgb 11.5 L, Hct 34.7 L, MCV 104.5 H, MCH 34.6 H, MCHC 33.1, RDW Std Deviation 62.1 H, RDW Coeff of Deb 16.5 H, Plt Count 31 L*, MPV 13.6 H, Neut % (Auto) Not Reportable, Absolute Neuts (auto) 0.4 L, Absolute Lymphs (auto) 0.28 L, Total Counted 100, Neutrophils % (Manual) 17 L, Band Neutrophils % 1, Lymphocytes % (Manual) 14 L, Monocytes % (Manual) 17 H, Metamyelocytes % 26 H, Myelocytes % 14 H, Promyelocytes % 7 H, Blast Cells % 4 H*, Nucleated RBCs/100 WBC 21 H, Diff Path Review May foll, Toxic Granulation 1+, Platelet Estimate MKD DEC, Polychromasia 2+, Hypochromasia 1+ 04/18/21 11:30: Sodium 137, Potassium 4.2, Chloride 100, Carbon Dioxide 21.0, Anion Gap 16 H, BUN 52 H, Creatinine 1.65 H, Estim Creat Clear Calc 28.57, Est GFR (MDRD) Af Amer 40 L, Est GFR (MDRD) Non-Af 33 L, BUN/Creatinine Ratio 31.5 H, Glucose 120 H, Calcium 7.9 L, Total Bilirubin 0.80, AST 38 H, ALT 47, Alkaline Phosphatase 103, Troponin I High Sens 36, Total Protein 6.1 L, Albumin 2.1 L, Globulin 4.0, Albumin/Globulin Ratio 0.5 L 04/18/21 11:30: Lactic Acid 1.7 04/18/21 11:30: B-Natriuretic Peptide 387.9 H 04/18/21 11:30: PT 14.9, INR 1.2, APTT 32.7, Fibrinogen > 900 H, D-Dimer Quant (PE/DVT) 2.85 H* 04/18/21 11:30: Lactate Dehydrogenase 617 H 04/18/21 13:00: Urine Color Yellow, Urine Clarity Sl. Cloudy, Urine pH 5.0, Ur Specific [place] 1.015, Urine Protein 30 H, Urine Glucose (UA) Normal, Urine Ketones 5 H, Urine Occult Blood 25 H, Urine Nitrite Negative, Urine Bilirubin 1 H, Urine Urobilinogen 1 H, Ur Leukocyte Esterase Negative, Urine RBC 0-5 SEEN, Urine WBC 0-5 SEEN, Ur Squamous Epith Cells 0-5 SEEN, Amorphous Sediment 2+, Urine Bacteria 1+, Urine Mucus 0 SEEN 04/18/21 15:40: COVID-19 (MELITA) Negative Microbiology 04/18/21 11:30 Nasal Secretion SARS-CoV-2 Antigen (Rapid) - Final Diagnostic Data Chest X-Ray 04/18/21 10:51 IMPRESSION: Groundglass airspace opacities in the right lung base in keeping with atelectasis and/or pneumonia. Electronically Signed: Lorelei Blount MD at 13:37 EDT Tel , Service support , Brain CT 04/18/21 10:55 IMPRESSION: Chronic microvascular ischemic disease. Electronically Signed: Lorelei Blount MD at 13:24 EDT Tel , Service support , Chest CTA 04/18/21 10:55 IMPRESSION: No demonstrated PE, or thoracic aortic aneurysm or dissection Consolidation with air bronchograms in the right lung base with small right pleural effusion and associated atelectasis. Findings are suspicious for infiltrate. Follow-up recommended to measure resolution Stable too numerous to count noncalcified nodules scattered throughout both lung pitno measuring between 0.5 and 1.2 cm. Calcified coronary vessels No suspicious adenopathy Degenerative bony changes with chronic compression fractures noted at T4 and T5. Electronically Signed: Peña Francois MD at 12:52 EDT , Service support , Charges/Coding Visit Charges Office Visits / Consults: [id number] IP Consult L4
[2021-04-19] VITALS (67 sets, daily range): BP systolic 79–136; BP diastolic 45–88; PULSE 81–95; RESP 12–38; TEMP 36.1–36.2; O2SAT 90–96
[2021-04-19] MEDS: TBO-FILGRASTIM 480 MCG/0.8 ML ML SC ×2 (01:19→09:53)
[2021-04-19] MEDS: Hydrocortisone Sod Succinate 100 MG/2 ML Vial IV ×4 (01:21→17:15)
[2021-04-19] MEDS: 0.9% Saline Lock 10 ML Syringe IV ×2 (01:26→22:12)
[2021-04-19 02:36] LABS: Base Excess -10 mmol/L (-2 to +2); Bicarbonate 16.2 mmol/L (22-26); Blood Gas Specimen Type ART; Comment 16/8; FI02 45; O2 Delivery Device BiPAP; PO2 73 mmHG (75-100); RR 12; SITE L Radial; SO2 94 % (95-99); Total Carbon Dioxide 17 mmol/L; pCO2 31.4 mmHg (35-45); pH 7.32 (7.35-7.45)
[2021-04-19 03:31] LABS: Hematocrit 33.4 % (37-47); Mean Corp Hgb Conc 32.9 g/dL (32-36); Mean Corpuscular Hgb 34.5 pg (27.0-32.0); Mean Corpuscular Volume 104.7 fL (81-99); POSITIVE COUNT YES; POSITIVE DIFFERENTIAL YES; POSITIVE MORPHOLOGY YES; RBC Distribution Width CV 16.7 % (11.6-14.6); RBC Distribution Width SD 64.2 fl (35.1-43.9); Red Blood Count 3.19 M/mm3 (4.2-5.4)
[2021-04-19] MEDS: LORazepam 2 MG/ML Syringe 1 MG IV (03:31)
[2021-04-19 03:33] LABS: Differential Indicated MANUAL DIFF; Platelet Count 17 K/mm3 (150-450)
[2021-04-19 03:49] LABS: ALB/GLOB Ratio 0.4 RATIO (0.9-2.4); AST(SGOT) 70 U/L (15-37); Alanine Aminotransfer ALT/SGPT 49 U/L (13-56); Albumin, Serum 1.8 g/dL (3.2-5.0); Alkaline Phosphatase 109 U/L (45-117); Anion Gap 14 (5-15); BUN 65 mg/dL (7-18); BUN/Creat Ratio 39.9 RATIO (10-20); Calcium,Total 7.7 mg/dL (8.5-10.1); Chloride 104 mmol/L (98-107); Creatinine, Serum 1.63 mg/dL (0.55-1.02); EST Glomerular Filtration Rate 33 mL/min (>60); Est Glom Filt Rate - Afr Amer 41 mL/min (>60); Estimated Creatinine Clearance 30.14 ml/min; Globulin 4.2 g/dL (2.2-4.2); Glucose 115 mg/dL (74-106); Sodium Level 139 mmol/L (136-145)
[2021-04-19 03:51] LABS: Troponin-I HS 36 pg/mL (3.0-54.0)
[2021-04-19 03:56] LABS: Lactic Acid 2.5 mmol/L (0.4-1.9)
[2021-04-19 03:59] LABS: Metamyelocyte 16 % (0-1); Neutrophil-Segmented 25 % (47-70); Total Cells Counted 100 (MANUAL DIFF)
[2021-04-19 04:00] LABS: Blast 5 % (0-0); Lymphocyte 4 % (19-41); Monocyte 10 % (0-10); Myelocyte 17 % (0-0); Neutrophil-Band 12 % (0-5); Promyelocyte 12 % (0-0)
[2021-04-19 04:01] LABS: Platelet Estimate MKD DEC (ADEQ)
[2021-04-19 04:02] LABS: Nucleated Red Bld Cells,Manual 21 % (0-5)
[2021-04-19 04:03] LABS: Corrected WBC 5.5 K/mm3 (4.4-11.0)
[2021-04-19 04:06] LABS: Absolute Lymphocyte Count 0.27 X10^3/uL (0.83-4.51); Absolute Neutrophil Count 2.5 X10^3/uL (2.0-7.7); Lymphocyte # 0.27 X10^3/ul (0.83-4.51); Neutrophil # 2.47 X10^3/uL (2.7-7.7)
[2021-04-19 04:07] LABS: Anisocytosis RARE; Macrocytosis RARE; Polychromasia 1+; Toxic Granulation 2+
--- NOTE | 2021-04-19 06:54 | PN.CC_ITS ---
Assessment & Plan Assessment/Plan (1) Right lower lobe pneumonia: QUALIFIERS: Pneumonia type: due to unspecified organism Qualified Code(s): J18.9 - Pneumonia, unspecified organism (2) Acute metabolic encephalopathy: (3) Sepsis: QUALIFIERS: Sepsis acute organ dysfunction status: unspecified Sepsis type: sepsis due to unspecified organism Qualified Code(s): A41.9 - Sepsis, unspecified organism (4) Non-small cell carcinoma of left lung: (5) Chemotherapy management, encounter for: PLAN: RECOMMENDATIONS: 1. Discontinue fluid resuscitation 2. Titrate Levophed as necessary 3. Continue with broad-spectrum antibiotics 4. Attempt using Ventimask for oxygenation given restraints 5. Agree with G-CSF. Oncology consulted 6. Delirium protocol 7. Clarify goals of therapy IMPRESSIONS: 1. Acute hypoxic respiratory failure Multiple possible etiologies. Patient does have right lower lobe infiltrate and atelectasis. Cannot exclude an element of aspiration given encephalopathy. No PE was noted. Patient is immunocompromised secondary to recent chemotherapy. Agree with broad-spectrum antibiotics. Blood cultures are growing gram-positive and gram variable bacteria. Low clinical suspicion for COVID-19 given lack of bilateral groundglass opacities. Confirmation testing is negative. Patient was restrained to facilitate supplemental oxygen therapy. Would recommend using a Ventimask instead of BiPAP if possible given restraints. Patient also has multiple metastatic lesions noted on CT of the chest. 2. Septic shock of unclear etiology/ probable adrenal insufficiency Patient neutropenic with hypotension. Patient did receive fluid resuscitation, but given respiratory status would recommend against further aggressive fluid resuscitation. Pressors can be initiated if necessary. Agree with stress dose steroids given patient's baseline dexamethasone use. Patient is on broad-spectrum antibiotics. Cultures are tentatively positive. 3. Pancytopenia with recent chemotherapy Patient did recently receive chemotherapy. Unclear if patient has an element of bone marrow suppression secondary to sepsis. Oncology has been consulted. Patient may benefit from G-CSF given possibility of septic shock, but defer to oncology. Patient is not actively bleeding, so we will hold on any transfusions. Patient may require platelet transfusion. Oncology is following. 4. Acute metabolic encephalopathy Multiple possible etiologies. Patient does have vascular insufficiency changes on CT of the head. No metastatic lesions are noted. Patient also has had significant hypoxia and may have sepsis. Recommend delirium protocol. Avoid Ativan if possible. 5. Acute kidney injury Multiple possible etiologies. Patient has had some possible retention, so Elizabeth will be added. Patient also has prerenal etiology with hypotension. We will continue to support blood pressure and monitor kidney function. Patient does not require renal replacement therapy at this time. 6. Right leg wound/Recent right arm fracture/balance issues/stage IV squamous cell carcinoma/hypertension Complicates care, management, recovery and prognosis. Patient is reportedly a full code, but has multiple comorbidities leading to a poor prognosis. Wound team to see right leg. Hold antihypertensive medications given problem #2. Interventions should be presented in the backdrop of mortality associated with stage IV squamous cell cancer. Oncology has been consulted. Family does not appear to have good insight into the overall prognosis Addendum 1:30 PM: Conversation with the patient's family for approximately 15 minutes about patient's current status and goals of therapy. Family reported they were unaware of stage IV cancer, but did mention that they knew it was in her shoulder but that had shrunk. They had stated that the patient had been complaining about the chemotherapy for the last week or 2, but overall they felt that she was tolerating it well and it was holding things stable. Patient recently started having issues with balance. Various options for CODE STATUS were reviewed. They had contemplated DNR Comfort Care arrest with intubation, but wanted discuss it further. They understand the patient is a full code by default until another decision is made. The understand the severity of sepsis in the setting of neutropenia. They were reassured by the fact that her heart and breathing are hers. Patient remained a full code at this time. TIME: 53 minutes critical care time spent addressing patient's acute hypoxic respiratory failure, shock, pancytopenia, encephalopathy, review of all data and collaboration with care team (4:40 AM to 6:40 AM, 1 PM to 1:30 PM) Subjective Subjective Patient with a difficult night. Patient with continued agitation requiring Precedex drip. Patient did have to be transitioned to BiPAP. Patient was also initiated on Levophed secondary to hypotension. Some mottling noted of the distal extremities, especially right foot. Lab is reporting multiple positive blood cultures. Objective Data Objective Data Vital Signs: Vital Signs Temp Pulse Resp BP Pulse Ox 36.2 C L 82 22 H 105/56 L 94 04/19/21 00:00 04/19/21 06:00 04/19/21 06:00 04/19/21 06:00 04/19/21 06:00 Oxygen Flow Rate (L/min) 25 Oxygen Delivery Method Bi-pap Weight: 62.6 kg Body Mass Index (BMI) 22.9 Intake & Output: Intake and Output for Last 24 Hours 04/17/21 04/18/21 04/19/21 23:59 23:59 23:59 Intake Total 2529.43 / 2540.01 421.62 / 421.62 Output Total 400 / 1000 825 / 825 Balance 2129.43 / 1540.01 -403.38 / -403.38 Lab / Micro Data Result Diagrams: 04/19/21 03:20 04/19/21 03:20 Labs: Laboratory Results - last 24 hr 04/18/21 11:30: WBC QUALITY CONTROL MICROBIOLOGY SUPERVISOR, Corrected WBC 2.0 L, RBC 3.32 L, Hgb 11.5 L, Hct 34.7 L, MCV 104.5 H, MCH 34.6 H, MCHC 33.1, RDW Std Deviation 62.1 H, RDW Coeff of Deb 16.5 H, Plt Count 31 L*, MPV 13.6 H, Neut % (Auto) Not Reportable, Absolute Neuts (auto) 0.4 L, Absolute Lymphs (auto) 0.28 L, Total Counted 100, Neutrophils % (Manual) 17 L, Band Neutrophils % 1, Lymphocytes % (Manual) 14 L, Monocytes % (Manual) 17 H, Metamyelocytes % 26 H, Myelocytes % 14 H, Promyelocytes % 7 H, Blast Cells % 4 H*, Nucleated RBCs/100 WBC 21 H, Diff Path Review May foll, Toxic Granulation 1+, Platelet Estimate MKD DEC, Polychromasia 2+, Hypochromasia 1+ 04/18/21 11:30: Sodium 137, Potassium 4.2, Chloride 100, Carbon Dioxide 21.0, Anion Gap 16 H, BUN 52 H, Creatinine 1.65 H, Estim Creat Clear Calc 28.57, Est GFR (MDRD) Af Amer 40 L, Est GFR (MDRD) Non-Af 33 L, BUN/Creatinine Ratio 31.5 H , Glucose 120 H, Calcium 7.9 L, Total Bilirubin 0.80, AST 38 H, ALT 47, Alkaline Phosphatase 103, Troponin I High Sens 36, Total Protein 6.1 L, Albumin 2.1 L, Globulin 4.0, Albumin/Globulin Ratio 0.5 L 04/18/21 11:30: Lactic Acid 1.7 04/18/21 11:30: B-Natriuretic Peptide 387.9 H 04/18/21 11:30: PT 14.9, INR 1.2, APTT 32.7, Fibrinogen > 900 H, D-Dimer Quant (PE/DVT) 2.85 H* 04/18/21 11:30: Lactate Dehydrogenase 617 H 04/18/21 13:00: Urine Color Yellow, Urine Clarity Sl. Cloudy, Urine pH 5.0, Ur Specific [place] 1.015, Urine Protein 30 H, Urine Glucose (UA) Normal, Urine Ketones 5 H, Urine Occult Blood 25 H, Urine Nitrite Negative, Urine Bilirubin 1 H, Urine Urobilinogen 1 H, Ur Leukocyte Esterase Negative, Urine RBC 0-5 SEEN, Urine WBC 0-5 SEEN, Ur Squamous Epith Cells 0-5 SEEN, Amorphous Sediment 2+, Urine Bacteria 1+, Urine Mucus 0 SEEN 04/18/21 15:40: COVID-19 (MELITA) Negative 04/19/21 03:20: WBC QUALITY CONTROL MICROBIOLOGY SUPERVISOR, Corrected WBC 5.5, RBC 3.19 L, Hgb 11.0 L, Hct 33.4 L, MCV 104.7 H, MCH 34.5 H, MCHC 32.9, RDW Std Deviation 64.2 H, RDW Coeff of Deb 16.7 H, Plt Count 17 L*, MPV TNP, Neut % (Auto) Not Reportable, Absolute Neuts (auto) 2.5, Absolute Lymphs (auto) 0.27 L, Total Counted 100, Neutrophils % (Manual) 25 L, Band Neutrophils % 12 H, Lymphocytes % (Manual) 4 L, Monocytes % (Manual) 10, Metamyelocytes % 16 H, Myelocytes % 17 H, Promyelocytes % 12 H, Blast Cells % 5 H*, Nucleated RBCs/100 WBC 21 H, Diff Path Review May foll, Toxic Granulation 2+, Platelet Estimate MKD DEC, Polychromasia 1+, Anisocytosis RARE, Macrocytosis RARE 04/19/21 03:20: Sodium 139, Potassium 5.0, Chloride 104, Carbon Dioxide 21.0, Anion Gap 14, BUN 65 H, Creatinine 1.63 H, Estim Creat Clear Calc 30.14, Est GFR (MDRD) Af Amer 41 L, Est GFR (MDRD) Non-Af 33 L, BUN/Creatinine Ratio 39.9 H, Glucose 115 H, Calcium 7.7 L, Total Bilirubin 0.90, AST 70 H, ALT 49, Alkaline Phosphatase 109, Total Protein 6.0 L, Albumin 1.8 L, Globulin 4.2, Albumin/Globulin Ratio 0.4 L 04/19/21 03:20: Troponin I High Sens 36 04/19/21 03:20: Lactic Acid 2.5 H* Micro: Microbiology 04/18/21 11:30 Blood Culture (Wb) - Port Blood Culture - Preliminary 04/18/21 11:15 Blood Culture (Wb) - Anticubital Left Blood Culture - Preliminary 04/18/21 11:30 Nasal Secretion SARS-CoV-2 Antigen (Rapid) - Final ABG Data ABG results: ABG 04/18/21 04/19/21 11:56 02:29 Specimen Type ART ART Sample Site L Radial pH 7.33 L 7.32 L Bicarbonate Actual 19.5 L 16.2 L Total CO2 21 17 Base Excess -6 L -10 L O2 Saturation 92 L 94 L O2 % 45 ABG pCO2 36.8 31.4 L ABG pO2 66 L 73 L Azam Test N/A Respiration Rate 12 O2 Delivery Device Cannula BiPAP Liter Flow 6.0 Clinical Comments 06/03 Radiography Diagnostic Testing: Radiology Impression Chest X-Ray 04/18/21 10:51 IMPRESSION: Groundglass airspace opacities in the right lung base in keeping with atelectasis and/or pneumonia. Electronically Signed: Lorelei Blount MD at 13:37 EDT Tel , Service support , Brain CT 04/18/21 10:55 IMPRESSION: Chronic microvascular ischemic disease. Electronically Signed: Lorelei Blount MD at 13:24 EDT Tel , Service support , Chest CTA 04/18/21 10:55 IMPRESSION: No demonstrated PE, or thoracic aortic aneurysm or dissection Consolidation with air bronchograms in the right lung base with small right pleural effusion and associated atelectasis. Findings are suspicious for infiltrate. Follow-up recommended to measure resolution Stable too numerous to count noncalcified nodules scattered throughout both lung pinto measuring between 0.5 and 1.2 cm. Calcified coronary vessels No suspicious adenopathy Degenerative bony changes with chronic compression fractures noted at T4 and T5. Electronically Signed: Peña Francois MD at 12:52 EDT , Service support , Rhythm Strip Rhythm Strip: Sinus Rhythm Rate: 97 Ectopy: None Physical Exam Const alert and average body habitus General Appearance: anxious, uncooperative, disheveled and frail Orientation / Consciousness: oriented to person; Negative for oriented to place or oriented to time HEENT normocephalic, external ears normal and external nose normal Eyes PERRL and no scleral icterus Neck supple Lymph Lymphatic: no lymphadenopathy noted Chest inspection of chest normal Chest Narrative: Port R IC area Resp Effort and Inspection: respiratory distress Auscultation: rhonchi throughout; Negative for rales or wheezes Cardio regular rhythm, S1 normal heart sound, S2 normal heart sound and no murmurs Rate: tachycardic GI normal to inspection, nondistended, normoactive bowel sounds no CVA tenderness Back/Spine thoracic and lumbar spine normal to inspection Extremity no clubbing, cyanosis or edema Extremity Narrative: Significant wound of the right lower extremity. Skin Skin Narrative: Extensive desquamation of the right falcon with exposed subcutaneous tissue. Some mottling of the lower extremities, right greater than left Neuro oriented x3, CN's II-XII intact bilaterally, moves all extremities and no focal motor deficits Psych mental status grossly normal Charges/Coding Procedures Hospitalists Procedures: 44787 Critial Care 1st Hr
[2021-04-19 07:27] LABS: Reflex Lactate? Y
[2021-04-19 08:22] LABS: Lactic Acid 1.6 mmol/L (0.4-1.9)
[2021-04-19] MEDS: fentaNYL 100 MCG/2 ML Ampul 50 MCG IV ×5 (09:50→22:10)
--- NOTE | 2021-04-19 10:59 | CASEMGMT ---
Addendum entered by Nola Henry 04/19/21 11:30: In network DME: Fidencio, SARA, Tanvi. LUKE Aguero Original Note: RN CM Assessment Patient on Venti Mask with confusion. Called patient and introduced role of RN CM to patient. agreed to participate in RN CM Assessment. Care providers, pharmacy, and demographics verified. Admit Dx: Sepsis/PNA Re-Admit: No Barriers/Issues: Weakness/Falls. Patient has h/o small cell lung CA, left non-small cell lung CA, adenocarcinoma type, on chemotherapy, following with [facility]. Patient had her last chemotherapy yesterday, Saturday. Has a RLE Ulcer. Patient dtr is coming from [place] and her and patient to come visit patient. PCP: Jens Garibay Specialists: OncAdam Baeza Preferred Pharmacy: [facility] Insurance: [employer] [place] Rx Benefit: Yes LNOK: Ernie Guerrero LW/HPOA: None, aware if patient becomes alert can complete with rn social services during this admit or return as an outpatient to complete with social service dept. Living Arrangements: Lives with in a 1.5 story home. 3 Steps to get in. ADL?s: Independent with ambulation in home. Single prong cane and more recently quad cane for further distances. Independent with ADLs. Transportation: Both patient and drive. will transport upon DC. DME: Neb, Cane (single and quad) HHC: None SNF: None Goal: Per states patient would prefer to return home and if PT needed with HH PT. States if oxygen is required- would think preferred DME company would be from the place she got her nebulizer from but unsure of the company name-would have to ask patient. DC PLAN: Patient is currently on oxygen venti mask with FiO2 50% and confused with +BCX, PNA, LE wound and H/o stage 4 lung CA, COPD. and patient dtr to come in later today- per Dr Tobias to have discussion regarding patient conditions, wishes, goals of care. DC plan TBD upon patient status. Hospice appropriate? H&P mentions patient with occasional oxygen use but denied oxygen during assessment- Does patient have O2? LUKE Aguero
--- NOTE | 2021-04-19 11:06 | PN.HOSP_ITS ---
Subjective Subjective Started on Levophed and on Precedex for delirium and agitation, she is in restraints therefore only on a Ventimask Objective Data Objective Data Vital Signs: Vital Signs Temp Pulse Resp BP Pulse Ox 97.0 F L 88 25 H 114/57 L 93 04/19/21 08:00 04/19/21 10:00 04/19/21 10:00 04/19/21 10:15 04/19/21 10:00 Oxygen Flow Rate (L/min) 25 Oxygen Delivery Method Venturi Mask Weight: 138 lb 0.15 oz Body Mass Index (BMI) 22.9 Intake & Output: Intake and Output for Last 24 Hours 04/18/21 04/19/21 04/20/21 03:59 03:59 03:59 Intake Total 2796.25 / 2847.85 360.47 / 360.47 Output Total 1000 / 1000 575 / 575 Balance 1796.25 / 1847.85 -214.53 / -214.53 Lab / Micro Data Result Diagrams: 04/19/21 03:20 04/19/21 03:20 Labs: Laboratory Results - last 24 hr 04/18/21 11:30: WBC MANAGER REAL ESTATE, Corrected WBC 2.0 L, RBC 3.32 L, Hgb 11.5 L, Hct 34.7 L, MCV 104.5 H, MCH 34.6 H, MCHC 33.1, RDW Std Deviation 62.1 H, RDW Coeff of Deb 16.5 H, Plt Count 31 L*, MPV 13.6 H, Neut % (Auto) Not Reportable, Absolute Neuts (auto) 0.4 L, Absolute Lymphs (auto) 0.28 L, Total Counted 100, Neutrophils % (Manual) 17 L, Band Neutrophils % 1, Lymphocytes % (Manual) 14 L, Monocytes % (Manual) 17 H, Metamyelocytes % 26 H, Myelocytes % 14 H, Promyelocytes % 7 H, Blast Cells % 4 H*, Nucleated RBCs/100 WBC 21 H, Diff Path Review May foll, Toxic Granulation 1+, Platelet Estimate MKD DEC, Polychromasia 2+, Hypochromasia 1+ 04/18/21 11:30: Sodium 137, Potassium 4.2, Chloride 100, Carbon Dioxide 21.0, Anion Gap 16 H, BUN 52 H, Creatinine 1.65 H, Estim Creat Clear Calc 28.57, Est GFR (MDRD) Af Amer 40 L, Est GFR (MDRD) Non-Af 33 L, BUN/Creatinine Ratio 31.5 H , Glucose 120 H, Calcium 7.9 L, Total Bilirubin 0.80, AST 38 H, ALT 47, Alkaline Phosphatase 103, Troponin I High Sens 36, Total Protein 6.1 L, Albumin 2.1 L, Globulin 4.0, Albumin/Globulin Ratio 0.5 L 04/18/21 11:30: Lactic Acid 1.7 04/18/21 11:30: B-Natriuretic Peptide 387.9 H 04/18/21 11:30: PT 14.9, INR 1.2, APTT 32.7, Fibrinogen > 900 H, D-Dimer Quant (PE/DVT) 2.85 H* 04/18/21 11:30: Lactate Dehydrogenase 617 H 04/18/21 13:00: Urine Color Yellow, Urine Clarity Sl. Cloudy, Urine pH 5.0, Ur Specific [place] 1.015, Urine Protein 30 H, Urine Glucose (UA) Normal, Urine Ketones 5 H, Urine Occult Blood 25 H, Urine Nitrite Negative, Urine Bilirubin 1 H, Urine Urobilinogen 1 H, Ur Leukocyte Esterase Negative, Urine RBC 0-5 SEEN, Urine WBC 0-5 SEEN, Ur Squamous Epith Cells 0-5 SEEN, Amorphous Sediment 2+, Urine Bacteria 1+, Urine Mucus 0 SEEN 04/18/21 15:40: COVID-19 (MELITA) Negative 04/19/21 03:20: WBC MANAGER REAL ESTATE, Corrected WBC 5.5, RBC 3.19 L, Hgb 11.0 L, Hct 33.4 L, MCV 104.7 H, MCH 34.5 H, MCHC 32.9, RDW Std Deviation 64.2 H, RDW Coeff of Deb 16.7 H, Plt Count 17 L*, MPV TNP, Neut % (Auto) Not Reportable, Absolute Neuts (auto) 2.5, Absolute Lymphs (auto) 0.27 L, Total Counted 100, Neutrophils % (Manual) 25 L, Band Neutrophils % 12 H, Lymphocytes % (Manual) 4 L, Monocytes % (Manual) 10, Metamyelocytes % 16 H, Myelocytes % 17 H, Promyelocytes % 12 H, Blast Cells % 5 H*, Nucleated RBCs/100 WBC 21 H, Diff Path Review May foll, Toxic Granulation 2+, Platelet Estimate MKD DEC, Polychromasia 1+, Anisocytosis RARE, Macrocytosis RARE 04/19/21 03:20: Sodium 139, Potassium 5.0, Chloride 104, Carbon Dioxide 21.0, Anion Gap 14, BUN 65 H, Creatinine 1.63 H, Estim Creat Clear Calc 30.14, Est GFR (MDRD) Af Amer 41 L, Est GFR (MDRD) Non-Af 33 L, BUN/Creatinine Ratio 39.9 H, Glucose 115 H, Calcium 7.7 L, Total Bilirubin 0.90, AST 70 H, ALT 49, Alkaline P hosphatase 109, Total Protein 6.0 L, Albumin 1.8 L, Globulin 4.2, Albumin/Globulin Ratio 0.4 L 04/19/21 03:20: Troponin I High Sens 36 04/19/21 03:20: Lactic Acid 2.5 H* 04/19/21 07:50: Lactic Acid 1.6 Micro: Microbiology 04/18/21 13:00 Urine, Catheterized Urine Culture - Preliminary Gram negative aleena 04/18/21 11:15 Blood Culture (Wb) - Anticubital Left Bacteria Detection (PCR) - Final 04/18/21 11:15 Blood Culture (Wb) - Anticubital Left Blood Culture - Preliminary 04/18/21 11:30 Blood Culture (Wb) - Port Blood Culture - Preliminary 04/18/21 11:30 Nasal Secretion SARS-CoV-2 Antigen (Rapid) - Final ABG Data ABG results: ABG 04/18/21 04/19/21 11:56 02:29 Specimen Type ART ART Sample Site L Radial pH 7.33 L 7.32 L Bicarbonate Actual 19.5 L 16.2 L Total CO2 21 17 Base Excess -6 L -10 L O2 Saturation 92 L 94 L O2 % 45 ABG pCO2 36.8 31.4 L ABG pO2 66 L 73 L Azam Test N/A Respiration Rate 12 O2 Delivery Device Cannula BiPAP Liter Flow 6.0 Clinical Comments 06/03 Radiography Diagnostic Testing: Radiology Impression Chest X-Ray 04/18/21 10:51 IMPRESSION: Groundglass airspace opacities in the right lung base in keeping with atelectasis and/or pneumonia. Electronically Signed: Lorelei Blount MD at 13:37 EDT Tel , Service support , Brain CT 04/18/21 10:55 IMPRESSION: Chronic microvascular ischemic disease. Electronically Signed: Lorelei Blount MD at 13:24 EDT Tel , Service support , Chest CTA 04/18/21 10:55 IMPRESSION: No demonstrated PE, or thoracic aortic aneurysm or dissection Consolidation with air bronchograms in the right lung base with small right pleural effusion and associated atelectasis. Findings are suspicious for infiltrate. Follow-up recommended to measure resolution Stable too numerous to count noncalcified nodules scattered throughout both lung pinto measuring between 0.5 and 1.2 cm. Calcified coronary vessels No suspicious adenopathy Degenerative bony changes with chronic compression fractures noted at T4 and T5. Electronically Signed: Peña Francois MD at 12:52 EDT , Service support , Rhythm Strip Rhythm Strip: Sinus Rhythm Rate: 97 Ectopy: None Physical Exam Const General Appearance: cooperative Orientation / Consciousness: confused and disoriented HEENT normocephalic and moist oral mucous membranes Eyes PERRL and conjunctivae normal Neck supple and no JVD Resp normal respiratory effort, no retractions and no use of accessory muscles Auscultation: rhonchi; Negative for crackles, rales or wheezes Cardio regular rhythm, S1 normal heart sound, S2 normal heart sound and no murmurs Rate: tachycardic GI soft to palpation and non-distended; Negative for hepatosplenomegaly Extremity no clubbing, cyanosis or edema Skin Skin Narrative: Large lesion on her right falcon with some mottling of the lower extremities Neuro Sensorium / Orientation: confused and lethargic Psych Appearance: unkempt and disheveled Mood & Affect: anxious Assessment & Plan Assessment/Plan (1) Sepsis: QUALIFIERS: Sepsis type: sepsis due to unspecified organism Sepsis acute organ dysfunction status: unspecified Qualified Code(s): A41.9 - Sepsis, unspecified organism (2) Neutropenia: QUALIFIERS: Neutropenia type: due to infection Qualified Code(s): D70.3 - Neutropenia due to infection (3) Right lower lobe pneumonia: QUALIFIERS: Pneumonia type: due to unspecified organism Qualified Code(s): J18.9 - Pneumonia, unspecified organism (4) Thrombocytopenia: (5) KENNA (acute kidney injury): (6) Acute metabolic encephalopathy: PLAN: 1. Acute hypoxic respiratory failure and septic shock secondary to acute right lower lobe pneumonia/KENNA/acute metabolic encephalopathy/bacteremia -Continue with aggressive IV antibiotics secondary to gram-positive cocci in her blood -Continue with Levophed -Precedex secondary to agitation, continue with restraints and a Ventimask -CTA was negative for PE, and Covid PCR was also negative -IV fluids discontinued by bank consultant, creatinine is still elevated above baseline at 1.63, will continue to monitor 2. Acute pancytopenia with blast cell secondary to chemotherapy for metastatic lung cancer -Appreciate oncology's input -We will discuss advance care planning with the daughter when she gets here from [place] given how ill her mother is, her platelets are 17 and she has no white blood cells to fight infection, she is getting G-CSF per oncology -We will need to discuss the differences between palliative care and hospice DVT: SCDs Charges/Coding Visit Charges Inpatient E&M: 16942 Subs Hosp L2
[2021-04-19] MEDS: Ipratropium/Albuterol Sulfate 3 ML AMPUL.NEB INHALATION ×3 (11:10→19:54)
[2021-04-19] MEDS: NYSTATIN 500,000 UNIT/5 ML UDC 500000 UNIT PO ×2 (12:26→22:21)
[2021-04-19 13:34] LABS: Pathologist Review Reviewed
[2021-04-19 13:38] LABS: Pathologist Review Reviewed
[2021-04-19] MEDS: 0.9 % NaCl (Sterile) Posiflush 10 mL IV (13:38)
--- NOTE | 2021-04-19 14:56 | CASEMGMT ---
Social Work SW met with pt Ernie and daughter Jessi in pt room. Pt with guarded prognosis and not responding to family at this time. SW spent time with family and provided emotional support. Nursing updated that family is considering end of life wishes and are aware of current full code status. Per family request, phone call to [facility] and inquired if pt ever expressed end of life wishes with the physician and the nurse states no paper work was ever returned by pt which would give indication of her wishes. Nursing made aware. SW will remain available for emotional support as needed. TRISTAN Frye
--- NOTE | 2021-04-19 15:23 | CON.PCM_ITS ---
Assessment & Plan Assessment/Plan (1) Sepsis: QUALIFIERS: Sepsis type: sepsis due to unspecified organism Sepsis acute organ dysfunction status: unspecified Qualified Code(s): A41.9 - Sepsis, unspecified organism (2) Personal history of skin cancer: (3) Noninfected skin tear of right leg: (4) Smoker: (5) Fall at home: PLAN: Medical records reviewed. X-rays reviewed. Has pneumonia. She is on Vancomycin and Meropenem. From recent falls, patient has a traumatic wound right anterior leg. No eviden ce of infection. Has Silver dressing changes followed by a compression ken wrap to help with the swelling. She also has respiratory issues and renal issues on top of metastatic lung cancer. She had been receiving IV chemotherapy. At some point in the future when she is more stable medically, can proceed with operative debridement and skin grafting. Because of her multiple medical co-morbidities, at the present time will continue with wound care. After discharge [facility]. Patient was informed of the risks and complications of the procedure including alternatives to surgery. These were discussed with the patient personally. Patient voices understanding and wishes to proceed with the current plan of treating her multiple medical co-morbidities and will consider debridement and skin grafting to the right leg wound after she is stable medically. Encouraged patient to stop smoking as it may have deleterious effects on wound healing. We discussed the current risks associated with COVID-19. While it is understood that there is a community spread of COVID-19, the risk of yvonne COVID-19 while at [facility] ([facility]) is very low; however, the risk cannot be completely mitigated because of the community spread of the disease. We discussed in detail the risk of exposure to and/or potential harm posed by the COVID-19 virus with having a surgery/procedure at this time versus the risk of delaying the surgery/procedure. It is not possible to know either the risk of delaying the surgery or procedure or chance of getting an infection with perfect accuracy, but a joint decision was made to proceed at this time with the scheduled surgery/procedure as indicated on the consent form. Patient was notified that we will need to comply with any screening or testing [facility] wishes to perform or that surgery may be delayed for any positive results. HPI Consult Data Date of Consult: 04/19/21 PCP / Referring MD: Dr. Jens Garibay MD Attending Care Provider: Dr. Willian MD. HPI Narrative Reason for Consultation: Traumatic wound right anterior leg from recent falls. HPI Narrative: MITCH PARRISH, is a 66 F who presents with progressive weakness and recurrent falls. Patient has past medical history of right small cell lung CA, left non-small cell lung CA, adenocarcinoma type, on chemotherapy, following with [facility]. Patient had her last chemotherapy yesterday, 04/17/21. She was seen in the emergency room on 04/16/21 after a fall that resulted in a traumatic wound right anterior leg. Patient comes in with progressive shortness of breath. She usually wears a couple of liters of oxygen as needed. X-ray shows pneumonia. Her Lactate was 2.5. She was started on Vancomycin and Meropenem. I was asked to evaluate this patient's traumatic wound right anterior leg for surgical options for treatment. [facility] Medical History Bilateral lower extremity edema CT guided Lung needle biopsy Cushingoid facies Cushingoid side effect of steroids Diarrhea Encounter for adjustment or management of vascular access device Fatigue Hand cramps Hypokalemia Imbalance Left hip pain Lung cancer Nausea with vomiting Non-small cell carcinoma of left lung Pneumothorax of left lung after biopsy Portacath in place Small cell carcinoma of right lung Squamous cell carcinoma of skin of left lower extremity Home Medications albuterol sulfate 2.5 mg INHALATION Q2H PRN PRN #1 box 06/22/19 [Rx Last Taken 04/17/21] lorazepam 0.5 mg PO DAILY PRN PRN 30 Days #30 tablet 08/31/19 [Rx Last Taken 04/17/21] omeprazole 20 mg PO DAILY 30 Days #30 capsule. 05/02/20 [Rx Last Taken 04/17/21] ondansetron HCl 8 mg PO Q8H PRN PRN 10 Days #30 tablet 05/17/20 [Rx Last Taken 04/17/21] methylphenidate HCl 10 mg tablet,extended release 10 mg PO TID 11/03/20 [History Last Taken 04/17/21] nystatin 100,000 unit/mL oral suspension 5 ml PO TID #473 ml 01/02/21 [Rx Last Taken 04/17/21] promethazine 25 mg tablet 25 mg PO Q8H PRN PRN 10 Days #30 tablet 01/17/21 [Rx Last Taken 04/17/21] dexamethasone 1 mg tablet 1 mg PO BID 04/03/21 [History Last Taken 04/17/21] potassium chloride 20 mEq tablet,extended release 20 meq PO DAILY #30 tab 04/11/21 [Rx Last Taken 04/17/21] clindamycin HCl 450 mg PO TID 7 Days #63 cap 04/16/21 [Rx Last Taken 04/17/21] albuterol sulfate 2 inh INHALATION Q4H PRN 04/18/21 [History Last Taken 04/17/21] amlodipine 5 mg PO DAILY 04/18/21 [History Last Taken 04/17/21] Allergy/AdvReac Type Severity Reaction Status Date / Time Penicillins Allergy Severe Anaphylaxis Verified 04/18/21 09:50 Sulfa (Sulfonamide Allergy Severe Anaphylaxis Verified 04/18/21 09:50 Antibiotics) codeine Allergy Mild Vomiting Verified 04/18/21 09:50 erythromycin base Allergy Mild Unknown Verified 04/18/21 09:50 tramadol [From Ultram] AdvReac Severe Vomiting Verified 04/18/21 09:50 Family History Mother Diabetes Hypertension Brother Hypertension Surgical History History of bilateral tubal ligation History of section Hx of hernia repair Social History household members: spouse Smoking Status: Current every day smoker tobacco type: cigarettes alcohol intake: current alcohol intake frequency: 0-2 drinks per day Alcohol type: wine substance use type: does not use ROS ROS Narrative Constitutional: Reports: Malaise, Weakness, Fatigue. Denies: Anorexia, Chills, Fever, Night Sweats Eyes: Denies: Blurred vision, Cataracts, Conjunctivae Inflammation, Pain, Redne ss, Vision Change HEENT: Denies: Difficulty Hearing, Difficulty Swallowing, Head Aches, Hearing Changes, Sinus Congestion, Sinus Drainage Cardiovascular: Admits to dizziness denies: Chest Pain, Orthopnea, Palpitations Respiratory: Admits to cough, Shortness of breath at rest Gastrointestinal: Denies: Abdominal Pain, Nausea, Vomiting Genitourinary: Denies: Dysuria Musculoskeletal: Denies: Joint Pain, Joint stiffness, Joint swelling, Joint Tenderness Skin: Right lower leg wound from recent fall Physical Exam Narrative General: Alert, oriented x3, cooperative. HEENT: PERRL, EOMI. Oral: Dry oral mucosa Neck: Supple, nontender. No cervical adenopathy. Lungs: Diminished to auscultation, worse on the right. Cardiovascular: regular rate and rhythm. Abdomen: Soft, Nondistended. Extremities: Bilateral leg edema +2-3, bruises all over the extremities, traumatic wound right anterior leg from recent falls. Subcutaneous tissue present. No evidence of infection. Some tenderness to palpation. Measures 7 x 16 cm. Neuro: CN II - XII grossly intact. Psych: Flat affect. Lab / Micro Data Attestation: I reviewed the patient's lab results. Result Diagrams: 04/20/21 05:15 04/20/21 05:15 Labs: Laboratory Results - last 24 hr 04/18/21 11:30: Diff Path Review Reviewed 04/18/21 15:40: COVID-19 (MELITA) Negative 04/19/21 03:20: WBC [employer]ATION [employer]ER, Corrected WBC 5.5, RBC 3.19 L, Hgb 11.0 L, Hct 33.4 L, MCV 104.7 H, MCH 34.5 H, MCHC 32.9, RDW Std Deviation 64.2 H, RDW Coeff of Deb 16.7 H, Plt Count 17 L*, MPV TNP, Neut % (Auto) Not Reportable, Absolute Neuts (auto) 2.5, Absolute Lymphs (auto) 0.27 L, Total Counted 100, Neutrophils % (Manual) 25 L, Band Neutrophils % 12 H, Lymphocytes % (Manual) 4 L, Monocytes % (Manual) 10, Metamyelocytes % 16 H, Myelocytes % 17 H, Promyelocytes % 12 H, Blast Cells % 5 H*, Nucleated RBCs/100 WBC 21 H, Diff Path Review Reviewed, Toxic Granulation 2+, Platelet Estimate MKD DEC, Polychromasia 1+, Anisocytosis RARE, Macrocytosis RARE 04/19/21 03:20: Sodium 139, Potassium 5.0, Chloride 104, Carbon Dioxide 21.0, Anion Gap 14, BUN 65 H, Creatinine 1.63 H, Estim Creat Clear Calc 30.14, Est GFR (MDRD) Af Amer 41 L, Est GFR (MDRD) Non-Af 33 L, BUN/Creatinine Ratio 39.9 H, Glucose 115 H, Calcium 7.7 L, Total Bilirubin 0.90, AST 70 H, ALT 49, Alkaline Phosphatase 109, Total Protein 6.0 L, Albumin 1.8 L, Globulin 4.2, Albumin/Globulin Ratio 0.4 L 04/19/21 03:20: Troponin I High Sens 36 04/19/21 03:20: Lactic Acid 2.5 H* 04/19/21 07:50: Lactic Acid 1.6 Micro: Microbiology 04/18/21 13:00 Urine, Catheterized Urine Culture - Preliminary Gram negative aleena 04/18/21 11:15 Blood Culture (Wb) - Anticubital Left Bacteria Detection (PCR) - Final 04/18/21 11:15 Blood Culture (Wb) - Anticubital Left Blood Culture - Preliminary 04/18/21 11:30 Blood Culture (Wb) - Port Blood Culture - Preliminary 04/18/21 11:30 Nasal Secretion SARS-CoV-2 Antigen (Rapid) - Final ABG Data ABG results: ABG 04/19/21 02:29 Specimen Type ART Sample Site L Radial pH 7.32 L Bicarbonate Actual 16.2 L Total CO2 17 Base Excess -10 L O2 Saturation 94 L O2 % 45 ABG pCO2 31.4 L ABG pO2 73 L Azam Test N/A Respiration Rate 12 O2 Delivery Device BiPAP Clinical Comments 06/03 Rhythm Strip Rhythm Strip: Sinus Rhythm Rate: 97 Ectopy: None Charges/Coding Visit Charges Inpatient E&M: 65492 Init Hosp L2 (ICD-10 - S81.811A, A41.9, W19.xxxA, Z85.828, F17.200)
--- NOTE | 2021-04-19 20:13 | CON.PCM.ID_ITS ---
Assessment & Plan Assessment/Plan (1) Acute metabolic encephalopathy: (2) Sepsis: QUALIFIERS: Sepsis type: sepsis due to unspecified organism Sepsis acute organ dysfunction status: unspecified Qualified Code(s): A41.9 - Sepsis, unspecified organism PLAN: GNR bacteremia. On empiric vanc/trae. Covid neg. Ucx with GNR. Concern for pneumonia, uti, wound infection. Port in place. Will follow, thank you, d/w nursing (3) Neutropenia: QUALIFIERS: Neutropenia type: due to infection Qualified Code(s): D70.3 - Neutropenia due to infection (4) Non-small cell carcinoma of left lung: HPI Consult Data Date of Consult: 04/19/21 HPI Narrative HPI Narrative: MITCH PARRISH, is a 66 F on chemo for NSCLC, recent fall with fracture of R wrist and leg wound. Came to ED with encephalopathy, admitted on vanc/trae, now with GNR (+) Bcx. Pt unable to provide history or ROS. [facility] Medical History Bilateral lower extremity edema CT guided Lung needle biopsy Cushingoid facies Cushingoid side effect of steroids Diarrhea Encounter for adjustment or management of vascular access device Fatigue Hand cramps Hypokalemia Imbalance Left hip pain Lung cancer Nausea with vomiting Non-small cell carcinoma of left lung Pneumothorax of left lung after biopsy Portacath in place Small cell carcinoma of right lung Squamous cell carcinoma of skin of left lower extremity Home Medications albuterol sulfate 2.5 mg INHALATION Q2H PRN PRN #1 box 06/22/19 [Rx Last Taken 04/17/21] lorazepam 0.5 mg PO DAILY PRN PRN 30 Days #30 tablet 08/31/19 [Rx Last Taken 04/17/21] omeprazole 20 mg PO DAILY 30 Days #30 capsule. 05/02/20 [Rx Last Taken 04/17/21] ondansetron HCl 8 mg PO Q8H PRN PRN 10 Days #30 tablet 05/17/20 [Rx Last Taken 04/17/21] methylphenidate HCl 10 mg tablet,extended release 10 mg PO TID 11/03/20 [History Last Taken 04/17/21] nystatin 100,000 unit/mL oral suspension 5 ml PO TID #473 ml 01/02/21 [Rx Last Taken 04/17/21] promethazine 25 mg tablet 25 mg PO Q8H PRN PRN 10 Days #30 tablet 01/17/21 [Rx Last Taken 04/17/21] dexamethasone 1 mg tablet 1 mg PO BID 04/03/21 [History Last Taken 04/17/21] potassium chloride 20 mEq tablet,extended release 20 meq PO DAILY #30 tab 04/11/21 [Rx Last Taken 04/17/21] clindamycin HCl 450 mg PO TID 7 Days #63 cap 04/16/21 [Rx Last Taken 04/17/21] albuterol sulfate 2 inh INHALATION Q4H PRN 04/18/21 [History Last Taken 04/17/21] amlodipine 5 mg PO DAILY 04/18/21 [History Last Taken 04/17/21] Allergy/AdvReac Type Severity Reaction Status Date / Time Penicillins Allergy Severe Anaphylaxis Verified 04/18/21 09:50 Sulfa (Sulfonamide Allergy Severe Anaphylaxis Verified 04/18/21 09:50 Antibiotics) codeine Allergy Mild Vomiting Verified 04/18/21 09:50 erythromycin base Allergy Mild Unknown Verified 04/18/21 09:50 tramadol [From Ultram] AdvReac Severe Vomiting Verified 04/18/21 09:50 Family History Mother Diabetes Hypertension Brother Hypertension Surgical History History of bilateral tubal ligation History of section Hx of hernia repair Social History household members: spouse Smoking Status: Current every day smoker tobacco type: cigarettes alcohol intake: current alcohol intake frequency: 0-2 drinks per day Alcohol type: wine substance use type: does not use Physical Exam Const General Appearance: lethargic Exam Limitations: altered mental status HEENT head/scalp atraumatic Eyes PERRL and EOMs intact bilaterally Neck supple Resp Auscultation: rhonchi and diminished lung sounds Cardio Rate: tachycardic GI normal to inspection, nondistended, normoactive bowel sounds Extremity General Extremity: edema Skin Skin Narrative: wounds wrapped Lab / Micro Data Result Diagrams: 04/19/21 03:20 04/19/21 03:20 Labs: Laboratory Results - last 24 hr 04/18/21 11:30: Diff Path Review Reviewed 04/19/21 03:20: W[employer]ES, Corrected WBC 5.5, RBC 3.19 L, Hgb 11.0 L, Hct 33.4 L, MCV 104.7 H, MCH 34.5 H, MCHC 32.9, RDW Std Deviation 64.2 H, RDW Coeff of Deb 16.7 H, Plt Count 17 L*, MPV TNP, Neut % (Auto) Not Reportable, Absolute Neuts (auto) 2.5, Absolute Lymphs (auto) 0.27 L, Total Counted 100, Neutrophils % (Manual) 25 L, Band Neutrophils % 12 H, Lymphocytes % (Manual) 4 L, Monocytes % (Manual) 10, Metamyelocytes % 16 H, Myelocytes % 17 H, Promyelocytes % 12 H, Blast Cells % 5 H*, Nucleated RBCs/100 WBC 21 H, Diff Path Review Reviewed, Toxic Granulation 2+, Platelet Estimate MKD DEC, Polychromasia 1+, Anisocytosis RARE, Macrocytosis RARE 04/19/21 03:20: Sodium 139, Potassium 5.0, Chloride 104, Carbon Dioxide 21.0, Anion Gap 14, BUN 65 H, Creatinine 1.63 H, Estim Creat Clear Calc 30.14, Est GFR (MDRD) Af Amer 41 L, Est GFR (MDRD) Non-Af 33 L, BUN/Creatinine Ratio 39.9 H, Glucose 115 H, Calcium 7.7 L, Total Bilirubin 0.90, AST 70 H, ALT 49, Alkaline Phosphatase 109, Total Protein 6.0 L, Albumin 1.8 L, Globulin 4.2, Albumin/Globulin Ratio 0.4 L 04/19/21 03:20: Troponin I High Sens 36 04/19/21 03:20: Lactic Acid 2.5 H* 04/19/21 07:50: Lactic Acid 1.6 Micro: Microbiology 04/18/21 13:00 Urine, Catheterized Urine Culture - Preliminary Gram negative aleena 04/18/21 11:15 Blood Culture (Wb) - Anticubital Left Bacteria Detection (PCR) - Final 04/18/21 11:15 Blood Culture (Wb) - Anticubital Left Blood Culture - Preliminary 04/18/21 11:30 Blood Culture (Wb) - Port Blood Culture - Preliminary ABG Data ABG results: ABG 04/19/21 02:29 Specimen Type ART Sample Site L Radial pH 7.32 L Bicarbonate Actual 16.2 L Total CO2 17 Base Excess -10 L O2 Saturation 94 L O2 % 45 ABG pCO2 31.4 L ABG pO2 73 L Azam Test N/A Respiration Rate 12 O2 Delivery Device BiPAP Clinical Comments 06/03 Rhythm Strip Rhythm Strip: Sinus Rhythm Rate: 97 Ectopy: None
[2021-04-20] VITALS (32 sets, daily range): BP systolic 70–155; BP diastolic 31–130; PULSE 79–113; RESP 19–37; TEMP 36.1–36.8; O2SAT 58–96
[2021-04-20] MEDS: fentaNYL 100 MCG/2 ML Ampul 50 MCG IV ×3 (00:10→14:32)
[2021-04-20] MEDS: Hydrocortisone Sod Succinate 100 MG/2 ML Vial IV ×3 (00:10→10:59)
[2021-04-20] MEDS: LORazepam 2 MG/ML Syringe 1 MG IV (01:49)
[2021-04-20] MEDS: TITRATION PARAMETER CHANGE 1 EACH IV (05:06)
[2021-04-20 05:28] LABS: Hematocrit 29.3 % (37-47); Hemoglobin 9.7 g/dL (12.0-15.0); Mean Corp Hgb Conc 33.1 g/dL (32-36); Mean Corpuscular Hgb 34.6 pg (27.0-32.0); Mean Corpuscular Volume 104.6 fL (81-99); POSITIVE COUNT YES; POSITIVE DIFFERENTIAL YES; POSITIVE MORPHOLOGY YES; RBC Distribution Width CV 17.2 % (11.6-14.6); RBC Distribution Width SD 66.4 fl (35.1-43.9); White Blood Count 21.8 K/mm3 (4.4-11.0)
[2021-04-20 05:30] LABS: Differential Indicated MANUAL DIFF; Platelet Count 7 K/mm3 (150-450)
[2021-04-20 05:40] LABS: Total Cells Counted 100 (MANUAL DIFF)
[2021-04-20 05:44] LABS: ALB/GLOB Ratio 0.4 RATIO (0.9-2.4); AST(SGOT) 90 U/L (15-37); Alanine Aminotransfer ALT/SGPT 47 U/L (13-56); Albumin, Serum 1.5 g/dL (3.2-5.0); Alkaline Phosphatase 136 U/L (45-117); Anion Gap 16 (5-15); BUN 73 mg/dL (7-18); Calcium,Total 7.6 mg/dL (8.5-10.1); Chloride 113 mmol/L (98-107); Creatinine, Serum 1.43 mg/dL (0.55-1.02); EST Glomerular Filtration Rate 39 mL/min (>60); Est Glom Filt Rate - Afr Amer 47 mL/min (>60); Estimated Creatinine Clearance 34.35 ml/min; Globulin 4.2 g/dL (2.2-4.2); Glucose 155 mg/dL (74-106); Magnesium 2.3 mg/dL (1.6-2.6); Phosphorus 6.2 mg/dL (2.5-4.9); Potassium 3.9 mmol/L (3.5-5.1); Protein, Total 5.7 g/dL (6.4-8.2); Sodium Level 146 mmol/L (136-145)
[2021-04-20 05:46] LABS: Metamyelocyte 12 % (0-1); Myelocyte 12 % (0-0); Neutrophil-Band 24 % (0-5); Neutrophil-Segmented 43 % (47-70); Promyelocyte 2 % (0-0)
[2021-04-20 05:47] LABS: Blast 1 % (0-0); Lymphocyte 2 % (19-41); Monocyte 4 % (0-10); Toxic Granulation 1+
[2021-04-20 05:48] LABS: Anisocytosis 1+; Macrocytosis 1+; Platelet Estimate MKD DEC (ADEQ); Vacuolated Cells 1+
[2021-04-20 05:49] LABS: Absolute Neutrophil Count 14.6 X10^3/uL (2.0-7.7); Neutrophil # 14.57 X10^3/uL (2.7-7.7)
[2021-04-20 05:50] LABS: Absolute Lymphocyte Count 0.44 X10^3/uL (0.83-4.51); Lymphocyte # 0.44 X10^3/ul (0.83-4.51)
[2021-04-20] MEDS: NYSTATIN 500,000 UNIT/5 ML UDC 500000 UNIT PO (06:01)
--- NOTE | 2021-04-20 06:13 | PN.CC_ITS ---
Assessment & Plan Assessment/Plan (1) Right lower lobe pneumonia: QUALIFIERS: Pneumonia type: due to unspecified organism Qualified Code(s): J18.9 - Pneumonia, unspecified organism (2) Acute metabolic encephalopathy: (3) Sepsis: QUALIFIERS: Sepsis type: sepsis due to unspecified organism Sepsis acute organ dysfunction status: unspecified Qualified Code(s): A41.9 - Sepsis, unspecified organism (4) Non-small cell carcinoma of left lung: (5) Chemotherapy management, encounter for: PLAN: RECOMMENDATIONS: 1. Initiate D5W at a low rate 2. Titrate Levophed as necessary 3. Continue with broad-spectrum antibiotics 4. Attempt using Ventimask for oxygenation given restraints 5. Defer G-CSF to oncology 6. Delirium protocol 7. Clarify goals of therapy IMPRESSIONS: 1. Acute hypoxic respiratory failure Multiple possible etiologies. Patient does have right lower lobe infiltrate and atelectasis. Cannot exclude an element of aspiration given encephalopathy. No PE was noted. Patient is immunocompromised secondary to recent chemotherapy. Agree with broad-spectrum antibiotics. Blood cultures are growing gram-positive and gram variable bacteria. Low clinical suspicion for COVID-19 given lack of bilateral groundglass opacities. Patient tolerating Ventimask well. Respiratory mechanics complicated by hyperchloremic metabolic acidosis. Will initiate D5W at a low rate. 2. Septic shock of unclear etiology/ probable adrenal insufficiency Patient neutropenic with hypotension. Patient did receive fluid resuscitation, but given respiratory status would recommend against further aggressive fluid resuscitation. Pressors can be initiated if necessary. Agree with stress dose steroids given patient's baseline dexamethasone use. Patient is on broad-spectrum antibiotics. Cultures are tentatively positive. 3. Pancytopenia with recent chemotherapy Patient did recently receive chemotherapy. Unclear if patient has an element of bone marrow suppression secondary to sepsis. Oncology has been consulted. Patient with significant bone marrow response. Platelets continue to fall. Patient may require platelet transfusion. Oncology is following. 4. Acute metabolic encephalopathy Multiple possible etiologies. Patient does have vascular insufficiency changes on CT of the head. No metastatic lesions are noted. Patient also has had significant hypoxia and may have sepsis. Recommend delirium protocol. Avoid Ativan if possible as this can exacerbate confusion. 5. Acute kidney injury Multiple possible etiologies. Patient has had some possible retention, so Elizabeth will be added. Patient also has prerenal etiology with hypotension. We will continue to support blood pressure and monitor kidney function. Patient does not require renal replacement therapy at this time. 6. Right leg wound/Recent right arm fracture/balance issues/stage IV squamous cell carcinoma/hypertension Complicates care, management, recovery and prognosis. Patient is reportedly a full code, but has multiple comorbidities leading to a poor prognosis. Wound team to see right leg. Hold antihypertensive medications given problem #2. Interventions should be presented in the backdrop of mortality associated with stage IV squamous cell cancer. Oncology has been con sulted. Family does not appear to have good insight into the overall prognosis TIME: 33 minutes critical care time spent addressing patient's acute hypoxic r espiratory failure, shock, pancytopenia, encephalopathy, review of all data and collaboration with care team (5 AM to 6 AM) Subjective Subjective Patient not interactive. Patient reportedly was significantly agitated overn ight despite Precedex therapy. Patient was given Ativan. Patient sleeping comfortably. Objective Data Objective Data Vital Signs: Vital Signs Temp Pulse Resp BP Pulse Ox 36.6 C 85 20 H 103/61 95 04/20/21 00:00 04/20/21 03:00 04/20/21 03:00 04/20/21 03:00 04/20/21 03:00 Oxygen Flow Rate (L/min) 25 Oxygen Delivery Method Venturi Mask Weight: 62 kg Body Mass Index (BMI) 22.9 Intake & Output: Intake and Output for Last 24 Hours 04/18/21 04/19/21 04/20/21 23:59 23:59 23:59 Intake Total 2529.43 / 2540.01 1509.16 / 1551.46 321.71 / 321.71 Output Total 400 / 1000 1825 / 2625 1325 / 1325 Balance 2129.43 / 1540.01 -315.84 / -1073.54 -1003.29 / -1003.29 Lab / Micro Data Result Diagrams: 04/20/21 05:15 04/20/21 05:15 Labs: Laboratory Results - last 24 hr 04/18/21 11:30: Diff Path Review Reviewed 04/19/21 03:20: Diff Path Review Reviewed 04/19/21 07:50: Lactic Acid 1.6 04/20/21 05:15: WBC 21.8 H, RBC 2.80 L, Hgb 9.7 L, Hct 29.3 L, MCV 104.6 H, MCH 34.6 H, MCHC 33.1, RDW Std Deviation 66.4 H, RDW Coeff of Deb 17.2 H, Plt Count 7 L*, MPV TNP, Neut % (Auto) Not Reportable, Absolute Neuts (auto) 14.6 H, Absolute Lymphs (auto) 0.44 L, Total Counted 100, Neutrophils % (Manual) 43 L, Band Neutrophils % 24 H, Lymphocytes % (Manual) 2 L, Monocytes % (Manual) 4, Metamyelocytes % 12 H, Myelocytes % 12 H, Promyelocytes % 2 H, Blast Cells % 1 H*, Diff Path Review May foll, Toxic Granulation 1+, Toxic Vacuolation 1+, Platelet Estimate MKD DEC, Anisocytosis 1+, Macrocytosis 1+ 04/20/21 05:15: Sodium 146 H, Potassium 3.9, Chloride 113 H, Carbon Dioxide 17.0 L, Anion Gap 16 H, BUN 73 H, Creatinine 1.43 H, Estim Creat Clear Calc 34.35, Est GFR (MDRD) Af Amer 47 L, Est GFR (MDRD) Non-Af 39 L, BUN/Creatinine Ratio 51.0 H, Glucose 155 H, Calcium 7.6 L, Phosphorus 6.2 H, Magnesium 2.3, Total B ilirubin 1.00, AST 90 H, ALT 47, Alkaline Phosphatase 136 H, Total Protein 5.7 L , Albumin 1.5 L, Globulin 4.2, Albumin/Globulin Ratio 0.4 L Micro: Microbiology 04/18/21 13:00 Urine, Catheterized Urine Culture - Preliminary Gram negative aleena 04/18/21 11:15 Blood Culture (Wb) - Anticubital Left Bacteria Detection (PCR) - Final 04/18/21 11:15 Blood Culture (Wb) - Anticubital Left Blood Culture - Preliminary 04/18/21 11:30 Blood Culture (Wb) - Port Blood Culture - Preliminary 04/18/21 11:30 Nasal Secretion SARS-CoV-2 Antigen (Rapid) - Final Rhythm Strip Rhythm Strip: Sinus Rhythm Rate: 97 Ectopy: None Physical Exam Const average body habitus General Appearance: uncooperative, disheveled and frail Orientation / Consciousness: Negative for oriented to place or oriented to time HEENT normocephalic, external ears normal and external nose normal Eyes PERRL and no scleral icterus Neck supple Lymph Lymphatic: no lymphadenopathy noted Chest inspection of chest normal Chest Narrative: Port R IC area Resp normal respiratory effort Resp Narrative: Better air exchange compared to yesterday Auscultation: rhonchi throughout; Negative for rales or wheezes Cardio regular rhythm, S1 normal heart sound, S2 normal heart sound and no murmurs Rate: tachycardic GI normal to inspection, nondistended, normoactive bowel sounds no CVA tenderness Back/Spine thoracic and lumbar spine normal to inspection Extremity no clubbing, cyanosis or edema Extremity Narrative: Significant wound of the right lower extremity. Skin Skin Narrative: Extensive desquamation of the right falcon with exposed subcutaneous tissue. Some mottling of the lower extremities, right greater than left Neuro oriented x3, CN's II-XII intact bilaterally, moves all extremities and no focal motor deficits Psych mental status grossly normal Charges/Coding Procedures Hospitalists Procedures: [id number] Critial Care 1st Hr
[2021-04-20] MEDS: TBO-FILGRASTIM 480 MCG/0.8 ML ML SC (10:10)
[2021-04-20] MEDS: CHLORHEXIDINE GLUC 2% CLOTH 1 EACH TOWELETTE TOPICAL (10:10)
--- NOTE | 2021-04-20 10:25 | PCM.PN.HOSP ---
Subjective Subjective Follow-up with your PCP in 3 to 5 days, given Ativan overnight for agitation despite being on Precedex. Currently sleeping comfortably with the Ventimask Objective Data Objective Data Vital Signs: Vital Signs Temp Pulse Resp BP Pulse Ox 98.2 F 89 30 H 94/62 94 04/20/21 09:00 04/20/21 10:00 04/20/21 10:00 04/20/21 10:00 04/20/21 10:00 Oxygen Flow Rate (L/min) 25 Oxygen Delivery Method Venturi Mask Weight: 136 lb 10.986 oz Body Mass Index (BMI) 22.9 Intake & Output: Intake and Output for Last 24 Hours 04/19/21 04/20/21 04/21/21 03:59 03:59 03:59 Intake Total 2796.25 / 2847.85 1531.54 / 1573.84 200.36 / 200.36 Output Total 1000 / 1000 2024 / 2024 760 / 760 Balance 1796.25 / 1847.85 -493.46 / -451.16 -559.64 / -559.64 Lab / Micro Data Result Diagrams: 04/20/21 05:15 04/20/21 05:15 Labs: Laboratory Results - last 24 hr 04/18/21 11:30: Diff Path Review Reviewed 04/19/21 03:20: Diff Path Review Reviewed 04/20/21 05:15: WBC 21.8 H, RBC 2.80 L, Hgb 9.7 L, Hct 29.3 L, MCV 104.6 H, MCH 34.6 H, MCHC 33.1, RDW Std Deviation 66.4 H, RDW Coeff of Deb 17.2 H, Plt Count 7 L*, MPV TNP, Neut % (Auto) Not Reportable, Absolute Neuts (auto) 14.6 H, Absolute Lymphs (auto) 0.44 L, Total Counted 100, Neutrophils % (Manual) 43 L, Band Neutrophils % 24 H, Lymphocytes % (Manual) 2 L, Monocytes % (Manual) 4, Metamyelocytes % 12 H, Myelocytes % 12 H, Promyelocytes % 2 H, Blast Cells % 1 H*, Diff Path Review May foll, Toxic Granulation 1+, Toxic Vacuolation 1+, Platelet Estimate MKD DEC, Anisocytosis 1+, Macrocytosis 1+ 04/20/21 05:15: Sodium 146 H, Potassium 3.9, Chloride 113 H, Carbon Dioxide 17.0 L, Anion Gap 16 H, BUN 73 H, Creatinine 1.43 H, Estim Creat Clear Calc 34.35, Est GFR (MDRD) Af Amer 47 L, Est GFR (MDRD) Non-Af 39 L, BUN/Creatinine Ratio 51.0 H, Glucose 155 H, Calcium 7.6 L, Phosphorus 6.2 H, Magnesium 2.3, Total Bilirubin 1.00, AST 90 H, ALT 47, Alkaline Phosphatase 136 H, Total Protein 5.7 L, Albumin 1.5 L, Globulin 4.2, Albumin/Globulin Ratio 0.4 L Micro: Microbiology 04/18/21 13:00 Urine, Catheterized Urine Culture - Preliminary Gram negative aleena 04/18/21 11:15 Blood Culture (Wb) - Anticubital Left Bacteria Detection (PCR) - Final 04/18/21 11:15 Blood Culture (Wb) - Anticubital Left Blood Culture - Preliminary 04/18/21 11:30 Blood Culture (Wb) - Port Blood Culture - Preliminary 04/18/21 11:30 Nasal Secretion SARS-CoV-2 Antigen (Rapid) - Final Rhythm Strip Rhythm Strip: Sinus Rhythm Rate: 97 Ectopy: None Physical Exam Const Orientation / Consciousness: confused and disoriented HEENT normocephalic and moist oral mucous membranes Eyes PERRL and conjunctivae normal Neck supple and no JVD Resp normal respiratory effort, no retractions and no use of accessory muscles Auscultation: rhonchi; Negative for crackles, rales or wheezes Cardio regular rhythm, S1 normal heart sound, S2 normal heart sound and no murmurs Rate: tachycardic GI soft to palpation and non-distended; Negative for hepatosplenomegaly Extremity no clubbing, cyanosis or edema Skin Skin Narrative: Large lesion on her right falcon with some mottling of the lower extremities Neuro Sensorium / Orientation: confused and lethargic Psych Appearance: unkempt and disheveled Mood & Affect: anxious Assessment & Plan Assessment/Plan (1) Sepsis: QUALIFIERS: Sepsis type: sepsis due to unspecified organism Sepsis acute organ dysfunction status: unspecified Qualified Code(s): A41.9 - Sepsis, unspecified organism (2) Neutropenia: QUALIFIERS: Neutropenia type: due to infection Qualified Code(s): D70.3 - Neutropenia due to infection (3) Right lower lobe pneumonia: QUALIFIERS: Pneumonia type: due to unspecified organism Qualified Code(s): J18.9 - Pneumonia, unspecified organism (4) Thrombocytopenia: (5) KENNA (acute kidney injury): (6) Acute metabolic encephalopathy: PLAN: 1. Acute hypoxic respiratory failure and septic shock secondary to acute right lower lobe pneumonia/KENNA/acute metabolic encephalopathy/bacteremia, possible UTI -Continue with aggressive IV antibiotics secondary to gram-positive cocci in her blood -Continue with Levophed -Continue with meropenem and Vanco, as well as hydrocortisone every 6 -Precedex secondary to agitation, continue with restraints and a Ventimask -CTA was negative for PE, and Covid PCR was also negative -IV fluids discontinued by hand woven carpet and rug mender, creatinine is improving, will continue to monitor -Urine culture with a gram-negative aleena greater than 100,000 CFU 2. Acute pancytopenia with blast cell secondary to chemotherapy for metastatic lung cancer -Appreciate oncology's input -We will discuss advance care planning with the daughter when she gets here from [place] given how ill her mother is, her platelets are 17 and she has no white blood cells to fight infection, she is getting G-CSF per oncology -We will need to discuss the differences between palliative care and hospice DVT: SCDs Charges/Coding Visit Charges Inpatient E&M: 84949 Subs Hosp L2
--- NOTE | 2021-04-20 10:35 | PCM.PN.ID ---
Physical Exam Narrative Lethargic, unable to answer questions Const Constitutional Narrative: ill appearing Resp Effort and Inspection: labored Auscultation: rhonchi Cardio Rate: tachycardic GI normal to inspection, nondistended, normoactive bowel sounds Skin Skin Narrative: wounds wrapped ID ID: Route of nutrition/ use of supplements: [] Nutritional Intake: [] IV Site: [] Elizabeth Catheter: [] Assessment & Plan Assessment/Plan (1) Acute metabolic encephalopathy: (2) Sepsis: QUALIFIERS: Sepsis type: sepsis due to unspecified organism Sepsis acute organ dysfunction status: unspecified Qualified Code(s): A41.9 - Sepsis, unspecified organism PLAN: GNR bacteremia. On empiric vanc/trae. Covid neg. Ucx with GNR. Concern for pneumonia, uti, wound infection. Port in place. Will follow, remains critically ill. (3) Neutropenia: QUALIFIERS: Neutropenia type: due to infection Qualified Code(s): D70.3 - Neutropenia due to infection (4) Non-small cell carcinoma of left lung:
[2021-04-20] MEDS: 0.9% Saline Lock 10 ML Syringe IV (10:59)
--- NOTE | 2021-04-20 14:51 | CHAPLAIN ---
Type of Pastoral Visit _x__ Initial Visit ___ Follow-up Visit ___ On-call Visit ___ General Patient Visit ___ Spiritual Assessment ___ Family Conference ___ Bereavement ___ Rapid Response ___ Code Blue ___ Other (describe below) Pastoral Care Referral From ___ Patient _x__ Family x Nurse ___ Physician ___ Guitar Repairer ___ [employer] ___ Other (describe below) Sacrament/Intervention _x__ Active listening ___ Anointing ___ Yarsani ___ Bereavement ___ Communion _x__ Nicolasa exploration ___ ___ Life review _x__ Prayer ___ Reconciliation ___ Sacrament of Sick _x__ Supportive presence ___ Wedding ___ Other (describe below) Pastoral Comments met with family members inside room and then also in waiting area; offered support and time to listen to family; offered spiritual support and prayer around the bedside to patient who is reported to be active with local [employer] [facility] until illness and pandemic; family seeks spiritual care due to not knowing the 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
--- NOTE | 2021-04-20 15:45 | NURSING ---
in depth conversation regarding POC, difference between FULL code, DNRCC-A, and DNRCC, Ernie () and Jessi (daughter) made decision for DNRCC, Dr. Tobias made aware, code status changed to DNRCC and comfort med orders placed.
--- NOTE | 2021-04-20 15:47 | CASEMGMT ---
Social Work Per RN, Pt condition worsening. Family opting for comfort care at this time. SW met with pt and daughter and offered emotional support. TRISTAN Frye
--- NOTE | 2021-04-20 15:57 | NURSING ---
Bilateral wrist restraints D/C'd, placed on 2L NC, pts and daughter at bedside, comfort meds to be given.
[2021-04-20] MEDS: LORazepam 2 MG/ML Syringe IV ×2 (15:58→17:02)
[2021-04-20] MEDS: Morphine 2 MG/ML Syringe IV ×4 (15:58→20:04)
[2021-04-20] MEDS: Atropine Sulfate 1% 2 ml Bottle 4 DRP PO (15:59)
--- NOTE | 2021-04-20 21:21 | NURSING ---
pt passed , no resp , no hr, at 2057. verified with second rn shawn rubio. babar fonseca stonemason apprentice notified.
[2021-04-21 13:32] LABS: Pathologist Review Reviewed
--- NOTE | 2021-04-21 16:57 | PCM.DEATH ---
Preliminary Cause of Preliminary Cause of Preliminary Cause of : Septic shock secondary to acute right lower lobe pneumonia Date of Admission: 04/18/21 Principle Diagnosis Problem List: Active and Suspected Problems (Updated 04/18/21 @ 14:[address] Kathya Dorsey MD) Acute metabolic encephalopathy (Acute) Sepsis (Acute) Neutropenia (Acute) Right lower lobe pneumonia (Acute) Thrombocytopenia (Acute) KENNA (acute kidney injury) (Acute) Confusion (Acute) Noninfected skin tear of right leg (Acute) Chemotherapy management, encounter for (Acute) on therapy with Gemzar and Navelbine. Hospital Course Mrs. Guerrero was six 6-year-old female who presented to the hospital with acute hypoxic respiratory failure and septic shock secondary acute right lower lobe pneumonia. This was complicated by an KENNA, possible UTI, bacteremia, right lower extremity injury secondary to fall and acute metabolic encephalopathy. She also has a history of acute pancytopenia with secondary to chemotherapy for metastatic lung cancer. She was started on aggressive IV antibiotics as well as pressor support. She was also placed on steroids secondary to how severe her sepsis was and the need for pressor support. CT of the chest was negative for PE and Covid PCR was negative. The elastic attacher overlock had extensive discussions with the family on CODE STATUS initially wanted her to be a full code however throughout the day discussions were had about her poor prognosis and her lack of progress and improvement. Family ultimately decided to withdraw care. Time of 2057 on 04/20/2021. Visit Charges Inpatient E&M: 90080 Disch Hosp
== END 2021-04-20 20:58 | DRG 871 ==
LOC: ED 12:00 → ICU 13:53
PROVIDERS: Internal Medicine Critical Care Medicine; Admitting Provider Internal Medicine; Emergency Provider Emergency Medicine; PCP Family Medicine; Visit Provider Family Medicine
DX: A41.9 Sepsis, unspecified organism (principal); G93.41 Metabolic encephalopathy; J96.01 Acute respiratory failure with hypoxia; J18.9 Pneumonia, unspecified organism; D61.810 Antineoplastic chemotherapy induced pancytopenia; R65.21 Severe sepsis with septic shock; C34.92 Malignant neoplasm of unspecified part of left bronchus or lung; D84.9 Immunodeficiency, unspecified; N17.9 Acute kidney failure, unspecified; J44.0 Chronic obstructive pulmonary disease with (acute) lower respiratory infection; L97.919 Non-pressure chronic ulcer of unspecified part of right lower leg with unspecified severity; E27.40 Unspecified adrenocortical insufficiency; N39.0 Urinary tract infection, site not specified; I10 Essential (primary) hypertension; D70.3 Neutropenia due to infection; D64.9 Anemia, unspecified; T45.1X5A Adverse effect of antineoplastic and immunosuppressive drugs, initial encounter; Y92.9 Unspecified place or not applicable; S81.811A Laceration without foreign body, right lower leg, initial encounter; S62.101A Fracture of unspecified carpal bone, right wrist, initial encounter for closed fracture; W19.XXXA Unspecified fall, initial encounter; Z91.81 History of falling; Y93.9 Activity, unspecified; I95.9 Hypotension, unspecified; D69.6 Thrombocytopenia, unspecified; Z66 Do not resuscitate; Z85.828 Personal history of other malignant neoplasm of skin; Z87.01 Personal history of pneumonia (recurrent); Z79.52 Long term (current) use of systemic steroids; Z79.899 Other long term (current) drug therapy; F17.210 Nicotine dependence, cigarettes, uncomplicated
CPT/HCPCS: 36591; 36600; 70450; 71045; 71275; 80053; 81001; 82803; 83605; 83615; 83735; 83880; 84100; 84484; 85025; 85379; 85384; 85610; 85730; 87040; 87077; 87086; 87088; 87184; 87186; 87426; 87635; 93005; 94002; 94003; 94640; 99285; 99406; J2185; J7030; J7050; P9612; Q9967; U0005; A4216; J1447; J1940; J2405; U0003